=== PATIENT | male | born 1970 | race Caucasian/White ===

== ENCOUNTER 2024-12-16 08:42 | Outpatient (POV) | payer MEDICARE, SELFPAY ==
--- OUTSIDE RECORDS SUMMARY | 2024-10-23 08:30 | XMS_ITS | Encounter Summary ---
Author Organization Healthcare Address [address] [place] [address] Care Team Providers Care Diamond Mounter Name Role Phone Pcp, No Primary Care Provider Unavailabl e Zaire Martin MD Unavailable [phone] Encounter Details Date Type Department Care Team (Late st Contact Info) Description 10/23/2024 8:30 AM EDT Pre-Admission Testing [facility] [address], [address] [place] [address] Anesthesia Record Procedure Summary Procedure Name Responsible Anesthesiologist Anesthesia Start Time Anesthesia Stop Time EXCISION CYST OF MAXILLA WITH EXTRACTIONS OF 9,10,11,13 (Left) Margarito Licona, ELECTRICAL MAINTENANCE WORKER 10/28/24 1459 10/28/24 1649 Events Date Time Event Comment 10/28/2024 1459 An Start The patient was reevaluated immediately before sedation and remains eligible for anesthesia plan. 1500 An Start Data 1500 In Room 1506 An Induction The patient was reevaluated immediately before moderate or deep sedation use and before anesthesia induction. 1509 An Intubation 1516 Anesthesia Ready 1521 Proc Start 1629 Attending Handoff 1639 Proc Fin 1640 An Extubation 1642 an stop data 1644 Out of Room 1649 Handoff to Receiving I compl eted my handoff to the receiving clinician during which we: 1. Identified the patient 2. Identified the responsible provider 3. Reviewed the pertinent medical history 4. Discussed the surgical course 5. Reviewed intra-op anesthesia management and issues during anesthesia 6. Set expectations for post-procedure period 7. Allowed opportunity for questions and acknowledgement of understanding. 1649 An Stop Meds * Agents No agents on file. * Blood No blood administrations on file. Lines, Drains, and Airways Type Details Placement Removal Wound 10/28/24; 1521; Yes; Surgical; Mouth 10/28/24 1521 by Miryam Patton RN Peripheral IV Placement Date: 10/09 07/04; Placement Time: 1407; Catheter Size: 18 G; Orientation: Anterior, Distal, Right, Upper; Location: Arm; Site Prep: Chlorhexidine ; Local Anesth: None; Technique: Anatomical landmarks; Inserted by: Douglas Gong; Insertion Attempts: 1; Patient Tolerance: Tolerated well; Removal Date: 10/28/24; Removal Time: 1849 10/28/24 1407 by Nessa Sin RN 10/28/24 184 by Prisca Jacobson RN ETT Placement Date: 10/09 07/04; Placement Time: 1509 (created via procedure documentation); Mask Ventilation: 1; Technique: Direct laryngoscopy; Type: ETT - single; Single Lumen Tube Size: 7.5 mm; Cuffed: Yes; Laryngoscope: Hermelinda; Blade Size: 4; Location: Oral; Grade View: Grade I; Insertion Attempts: 1; Placement Verification: Auscultation, Capnometry; Airway Comments: Atraumatic. No change to dentition. ; Placed by: DARELL; Removal Date: 10/28/24; Removal Time: 1640 10/28/24 1509 by Margarito Licona CRNA 10/28/24 1640 by Margarito Licona CRNA documented in this encounter Social History Tobacco Use Types Packs/Day Years Used Date Smoking Tobacco: Every Day Cigarettes 0.3 37.7 Started: 03/21/1987 Smokeless Tobacco: Never Tobacco Cessation:Ready to Q uit: Not Asked; Counseling Given: Not Answered Alcohol Use Standard Drinks/Week Comments Yes 0 (1 standard drink = 0.6 oz pur e alcohol) 2 beers 2 times per month PHQ-2 Answer Date Recorded Patient Health Questionnaire-2 Score 6 03/21/2021 Sex and Gender Information Value Date Recorded Sex Assigned at Male 12/06/2021 2:04 PM EDT Legal Sex Male 8:39 PM EDT Gender Identity Male 12/06/2021 2:04 PM EDT Sexual Orientation Straight 12/06/2021 2: 04 PM EDT Occupation Industry Job Start Date Job End Date unemployed Not on file Not on file Not on file documented as of this encounter Miscellaneous Notes * Teagan Kaur - Leidy Vega PA - 10/23/2024 8:52 AM EDT Images from the original note were not included. 40 Bathing Before Surgery Basic instructions ?? You need to bathe with Hibiclens (chlorhexidine) before surgery. This will clean your skin and remove germs that live on the skin. This reduces your risk of infection after surgery. ?? You can buy Hibiclens at most drug stores. ?? You need to bathe with Hibiclens twice before surgery - once the night before surgery and again the morning of surgery. ?? Do not use Hibiclens on your hair or anywhere above the neck. ?? You should not shave with a razor or use hair removal creams near the surgery site for 4 days before surgery. Night before surgery If you take a shower or tub bath: 1. Wash with regular soap and water and rinse off. 2. You may wash your hair the night before or the morning of surgery. Shampoo and rinse as usual. 3. Pour 1 ounce (2 tablespoons) of Hibiclens on a clean washcloth. Wash the area where you will be having your surgery first. Then wash the rest of the body, leaving the groin area until last. 4. Allow the Hibiclens to stay on the skin for 5 minutes, then rinse off completely. 5. Use a clean towel to dry off. 6. Put on clean clothing and be sure to have clean sheets on your bed. ? If you take a bed bath: 1. Wash with regular soap and water and rinse off. 2. Place 1 ounce (2 tablespoons) of Hibiclens solution in a wash basin of clean water. Wash the area where you will be having surgery first. 3. Then wash the rest of the body. Leave the groin area until last. 4. Allow the Hibiclens to stay on the skin for 5 minutes. Then rinse off completely. 5. Use a clean towel to dry off. 6. Put on clean clothing. Be sure to have clean sheets on your bed. Morning of surgery ?? Repeat the above steps. You are now ready for surgery with the cleanest possible skin! If you develop a skin problem between now and your surgery, please tell your doctor as soon as possible! * Teagan OnFHIR - Leidy Vega PA - 10/23/2024 8:52 AM EDT Images from the original note were not included. 1072 Patient Surgery Guide The doctors and staff of Surgical [facility] would like to welcome you, your family, and friends to [facility]. We offer access to more than 1,500 doctors from many specialty areas. Our goal is to provide high-quality, patient-centered care throughout your experience. We have a team approach tosurgery, and you and your family are an important part of our team. Surgeons, surgical nurses, anest hesiologists, dietitians, social workers, pharmacists, and others will work with you to decide the best plan of care for you. We understand surgery is a stressful time. This information will help you be more comfortable with [facility] and the surgical process. This information provides an overview answering many of yourquestions. But if you have further questions, please ask your doctor or nurse. Preoperative Anesthesia Clinic Your doctor may ask you to go to the Preoperative Anesthesia Clinic before your surgery. This visitallows us to evaluate your overall health and reduce the chance of delays or cancellation on the day of surgery. Please bring a complete list of the medicines your currently take. Bring any recent test reports you may have, including blood work, EKG, X-rays. Bring the results of any recent heart evaluation, including doctor?s notes and test reports. If you are not scheduled for a Preoperative Anesthesia Clinic visit, a nurse will call you to go over your health history and give you information about your surgery. It is very important you speak to a nurse before your surgery. The Preoperative Anesthesia Clinic is located on the first floor of the [facility] near the Pharmacy and main clinic entrance. We are open Saturday-Saturday from 8 a.m. to 4:30 p.m. A clinic route service representative can be reached at [phone]. Parking is available in the [facility] garage on [facility] or in the [facility] garage located at [address], directly across [facility] from [facility]. The day before surgery You will receive a phone call telling you what time you need to arrive at the hospital for surgery.If you miss the call, please call one of the following numbers (depending on where your surgery is scheduled): ?? [facility]: [phone] or [phone] ?? [facility]: [phone] or [phone] The day of surgery ?? Arrive on time to avoid delays or cancellation. ?? Park in the [facility] parking garage located at [address] It is directly across [facility] from the [facility]. ?? If you are scheduled for surgery at [facility], take the hospital garage elevator to Level C, then cross the concourse bridge to the Surgery Waiting Room to register for your surgery. The Surgery Waiting Room is located down the first hallway to the right at the end of the concourse bridge. If you need help crossing the concourse, you may picket labor union the patient golf cart shuttle directly to the right of the elevators on Level C. ?? If you are scheduled for surgery at the [facility], take the garage elevator toLevel A and catch the free shuttle to the hospital. (Be careful not to take the [facility] shuttle - there is an ambassador there who can help you.) Exit the shuttle at the first shuttle stop, then proceed to the registration desk to the right of the entrance. ?? Registration staff will take your insurance information and confirm your name, birthday, addressand other information. When you arrive After you register, we will take you to the preoperative area. Here the nurses will get you ready for surgery. Visitors are limited in the preoperative area. Nurses will: ?? Allow you to change into a hospital gown. ?? Check your arm band for your name and birthday. Your arm band will be checked many times throughout your stay at [facility] to ensure your safety. ?? Go over your health history. ?? Review your medicines and allergies. ?? Check your temperature, blood pressure, heart rate, height and weight. ?? Start an IV. ?? Tell you what to expect during your stay at the hospital. During surgery Your family and friends will be directed to the Surgery Waiting Room. There they will receive regular updates during your surgery. Your doctor will talk to them after your surgery. A measurement department chief clerk is available in the waiting room to help family and visitors. Space is limited, so please limit the number of people who come with you for your surgery. After surgery We will take you to a special area called the Post-Anesthesia Care Unit, or ?PACU.? There nurses will take care of you as you recover from surgery. Most patients will stay in the PACU for about 1-2 hours. Some people might need to stay longer. During this time the doctors and nurses will: ?? Keep your pain level as low as possible. ?? Help keep you from being sick to your stomach. ?? Make sure you are warm and comfortable. ?? Update your family on how you are doing. The anesthesia doctor will decide when you can go home or to your room. If you are going home after surgery: A nurse will give you and your family instructions on how to care for yourself when you go home. You will also get written instructions. This information will tell you how to schedule a follow-up appointment if an appointment is not scheduled before you leave, and how to contact your surgeon. If you are staying in the hospital after surgery: You will stay in the PACU until you are assigned a room. Your family and friends may visit you once you get to your hospital room. Parents of children or caregivers of special needs patients may remain in the preoperative area forthe entire time. They will be allowed in the PACU as soon as possible after the operation. At home ?? Plan to go straight home to rest when you leave the hospital. If you wish, your medicines to take home can be brought to your room before you leave. ?? Follow your doctor?s instructions about rest, what to eat, what you can and cannot do, which medicines to take and when you may return to your normal activities. ?? Be sure to keep your follow-up appointment with your doctor. You should be scheduled for a clinic appointment before you leave the hospital. Special reminders If you take insulin or other medicine for diabetes, the doctor will tell you what dose to take before your surgery. This will probably be different from your normal dose. Please bring your insulin with you on the day of surgery. If you are taking a blood thinner (for example: Coumadin, Plavix, aspirin, etc.), please tell your surgeon and anesthesia doctor. For all other medicines, you will receive instructions during your Anesthesia Preoperative Clinic visit or phone screening. Updates from the operating room It is important to protect your privacy when you are in the hospital. We also want to make it easy for your family to find out how you are doing while you are in surgery. To do this, on the day of your surgery a nurse will ask you to choose a password and share it with just one family member or friend. This password will then be put on your chart. When your family member calls to check on your condition, he or she must give the password to the nurse. The nurse will look on your chart to make sure it is the correct password and then give the person information on your condition. If you have any questions about this process, please ask. Our mission is to give you the very best care, including protecting your privacy. Feel better faster You should take walks if possible and do plenty of deep breathing. This will help you feel better more quickly after surgery. Walking and deep breathing help prevent blood clots and pneumonia and mayhelp ease any muscle soreness. Surgery do's ?? Be sure to bring your current insurance card and a picture ID. ?? Please bring copies of the following,if you have them: living will, health care surrogate, powerof deputy attorney general or guardianship papers. ?? Bring a responsible adult to drive you home (or ride with you in a taxi) if you are having outpatient surgery. ?? Plan to have someone stay with you at home for 24 hours after your surgery. ?? Bring a list of your current medicines, including how much you take and when you take it. You may also just bring the medicines (in their original containers) with you. ?? Tell your doctor about any allergies you have to medicines or food. ?? Wear comfortable, loose-fitting clothes and low-heeled shoes. ?? Bring a case to store glasses, contact lenses or dentures during surgery. Label the containers with your name. ?? Pack an overnight bag that includes personal care items, such as a toothbrush and lotion, if youare staying in the hospital. ?? Bring a parent or guardian if you are younger than 18. ?? Bring a favorite toy or blanket for children having surgery. Surgery don'ts ?? Starting at midnight, don?t eat anything on the day of your surgery. ?? Don?t drink anything after midnight (unless told otherwise by your doctor or nurse) the day before your surgery. ?? Don?t smoke, use smokeless tobacco, eat mints or chew gum after midnight the day of your surgery. ?? Don?t drink alcohol 24 hours before your surgery. ?? Don?t wear makeup, jewelry (including body piercing) or nail citizen of [place]. ?? Don?t bring money or valuables to the hospital. ?? Don?t drive a motor vehicle for 24 hours after your surgery. ?? Don?t make important decisions or sign any legal documents for 24 hours after your surgery. ?? Don?t drink alcohol or take medicine not prescribed by your doctor for 24 hours after your surgery. Need to cancel? If you decide not to have surgery or if you need to cancel because of a fever, a breathing or viralillness, or a family emergency, please call your surgeon?s office and the Preoperative Anesthesia Clinic at [phone] or [phone]. If it is the day of surgery, call the location where you are scheduled to have your surgery: [facility] at [phone] or [phone] or [facility] at [phone] or [phone]. For more information Visit [email or web address] or call [phone] or [phone]. [facility] does not discriminate. [facility] complies with applicable Federal civil rights laws and does not discriminate on the basis of race, color, national origin, age, disability, or sex. * Fishgerard Vincent - Leidy Vega PA - 10/23/2024 8:52 AM EDT Images from the original note were not included. 489 Map to [facility] Facilities Directions Easy directions to and from [address] (from [address]) Directions from I-75/[address] to the [facility] Parking Garage: ?? From [address], turn right off the exit ramp onto [address] ([place] [address] [address]) toward [place]. ?? In 4.1 miles, turn left onto [address] (at the [employer] gas station). ?? In a half-mile, turn right onto [address]. ?? In .3 miles, turn right onto [address] (just past the [employer] gas station). Garage entrance is on the left. Directions from HealthCare Parking Garage ([address] to I-75/I-64: ?? Turn left out of the [address] parking garage onto [address]. ?? Turn left onto [address]. ?? In .3 miles, turn left down [address] ?? In a half-mile, turn right onto [address] (at the [employer] gas station). In 4.1 miles, merge onto [address] /[address] (near the [facility] by [address] [employer]en). Parking Any patients or visitors of [facility] can park in the following areas: ?? [facility] Parking Garage (main garage): [address] (Levels A-F) ?? [facility] Garage: [address] (Levels 1-6) ?? [facility] Cancer lot: Located off Private.Me (limited parking for [facility] outpatients only). Upon Your Arrival ?? Patients and visitors going to [facility] may walk acrossthe pedway, located at Level C of the main parking garage ([address] or take the free shuttle from Level A. Golf carts are available on the pedway. ?? Patients and visitors going to all other hospital pavilions are encouraged to take a free shuttle at Level A of the main garage. ?? Emergency Department (ED) patients in need of immediate treatment may be dropped off at the ED entrance at the 15-minute dropoff area. Vehicles in this lot must be moved to the main hospital garage after 15 minutes. The ED may also be accessed via the pedway off the main hospital garage on Level C. If you need a shuttle to the ED, one can be called for you at Level A of the main garage or contact any of the information desks, . Additional Information For additional information, please visit our information desks located throughout Healthcare. Information desks have additional maps and resources. Information desks are located at the main entrances of: [facility] (first floor and ground floor), [facility], [facility], [facility], [facility], [facility] (first and third floor), and [facility]. Informationdesk number: [phone]. Important Addresses [address] ?? [facility] entrance ?? [facility] ([facility]) ?? Emergency Department [address] ?? [facility] ?? [facility] ([facility]) ?? [facility] ([facility]) ?? [facility] [address] [facility] ?? [facility] [address] ?? [facility] [address] [facility] ?? [facility] * PAT Evaluation Note - Leidy Vega PA - 10/23/2024 8:30 AM EDT Images from the original note were not included. HPI Ramana Moore is a 54 y.o. male who presents with Pre-op Diagnosis of Radiolucent lesion in maxilla now scheduled for EXCISION CYST OF MAXILLA (Left)with Talat John DMD [place] [facility] [place] History[1] Family History[2] Social History[3] SURGICAL HISTORY: Surgical History[4] Allergies[5] MEDICATIONS: Current Outpatient Medications: ALPRAZolam, Take 1 tablet by mouth 4 times a day as needed. clopidogrel, Take 1 tablet by mouth daily. metoprolol succinate XL, omeprazole, 1 capsule 2 times a day. rosuvastatin, Take 1 tablet by mouth 1 time each day. aspirin, Take 81 mg by mouth 1 (one) time each day. (Patient not taking: Reported on 10/23/2024) gabapentin, Take 1 capsule (300 mg) by mouth 3 (three) times a day. nitroglycerin, TAKE 1 TABLET UNDER THE TONGUE EVERY 5 MINUTES NEEDED FOR CHEST PAIN. DO NOT EXCEED 3 DOSES IN 15 MINUTES ranolazine, ROS Anesthesia: Date of last anesthetic: Most recent anesthesia ~ 12/06/2021 [facility] STERNAL PLATING Difficult Airway: No Final Airway Type: endotracheal airway Mask Difficulty Assessment: 1 - vent by mask Final Endotracheal Airway: ETT Cuffed: Yes Cormack-Lehane Classification: grade I - full view of glottis Technique Used For Successful Placement: direct laryngoscopy Devices/Methods Used in Placement: cricoid pressure, intubating stylet Insertion Site: oral Blade Type: Hermelinda Blade Size: 3 ETT Size (mm): 8.0 Number of Attempts at Approach: 1 history of previous anesthesia. Does not have a history of anesthetic complications, a history awareness of surgery under anesthesia, malignant hyperthermia, obstructive sleep apnea, PONV and a history of prolonged emergence. Anesthesia ROS additional comments: + history of cocaine use, current cannabis use + has a hard time getting to sleep Cardiovascular: hyperlipidemia and past VA. Does not have angina, CAD, CHF, dysrhythmias or pacemaker. hypertension: Exercise tolerance is 2 flights of stairs. Does not have chest pain. Cardio additional comments: + Has chest pain all the time but it is felt to be related to sternal healing issues. Had heart cath 07/[address] Coffey with normal cath. 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 Respiratory: no asthma: no COPD: Has not had an upper respiratory infection in last 30 days. Has not had bronchitis in the last 30 days, pneumonia in the last 30 days or COVID in the last 30 days. HEENT: Does not have difficulty swallowing.Does not have temporomandibular joint syndrome. HEENT additional comments: + Radiolucent lesion in maxilla + few teeth that are loose and broken. Neurological: Does not have headaches. no seizures: Did not have a cerebrovascular accident.Does not have TIA. Neuro additional comments: + depression + PTSD Musculoskeletal: Does not have arthritis. Does not have cervical spine limited mobility. Gastrointestinal: GERD: well controlled.Does not have cirrhosis or hepatitis. GI/ additional comments: + Diaphragmatic hernia + notices bile reflux every morning + recent EGD and Colonoscopy. Increased dose of omeprazole Genitourinary: Does not have chronic renal disease.Does not have interstitial cystitis, renal calculi or renal disease. Hematological/Lymphatic: History of no DVT. History of no pulmonary embolism. Not in a hypercoagulable state. no history of chemotherapy no history of radiation Does not have MRSA or tuberculosis. Endocrine/Metabolic: does not have diabetes mellitus. Does not have thyroid disorder. 05/29/2023 07/15/2024 [facility] ([place]): 10/23/2024 Last Cards Note ([place]): 07/2020 OSH ECHO: ?? Calculated left ventricular EF = 70% ?? All left ventricular wall segments contract normally. ?? There is no evidence of pericardial effusion 07/15/2024 CBC: White Blood Count July 15, 2024 11:49am 11.3 10*3/uL 4.5-13.0 [facility] [id number] [address] [place] [id number] Red Blood Count July 15, 2024 11:49am 4.98 10*6/uL 4.10-5.70 [facility] [id number] [address] [place] [address] 785[address] Hemoglobin July 15, 2024 11:49am 15.6 g/dL 12.0-16.9 [facility] [id number] [address] [place] [address] 17359 Hematocrit July 15, 2024 11:49am 44.2 % 36.0-49.0 [facility] [id number] [address] [place] [address] 82338 Mean Corpuscular Volume July 15, 2024 11:49am 89 fL 78.0-98.0 [facility] [id number] [address] [place] [address] 28529 Mean Corpuscular Hemoglobin July 15, 2024 11:49am 31.3 pg 25.0-35.0 [facility] [id number] [address] [place] [address] 52397 Mean Corpuscular Hemoglobin Concent July 15, 2024 11:49am 35.3 g/dL 31.0- 36.0 [facility] [id number] [address] [place] [address] 59873 Red Cell Distribution Width July 15, 2024 11:49am 12.0 % 11.0-15.0 [facility] [id number] [address] [place] [address] 31884 Platelet Count July 15, 2024 11:49am 250 10*3/uL 150-400 07/15/2024 BMP: Sodium Level July 15, 2024 11:49am 135 mmol/L 136-145 [facility] [id number] [address] [place] [address] 77128 Potassium Level July 15, 2024 11:49am 4.1 mmol/L 3.5-5.1 [facility] [id number] [address] [place] [address] 70148 Chloride Level July 15, 2024 11:49am 101 mmol/L 98-107 [facility] [id number] [address] [place] [address] 39065 Carbon Dioxide Level July 15, 2024 11:49am 26 mmol/L 24-33 [facility] [id number] [address] [place] [address] 67946 Anion Gap July 15, 2024 11:49am 12.1 mmol/L 10-20 [facility] [id number] [address] [place] [address] 07181 Glucose Level July 15, 2024 11:49am 72 mg/dL 70-99 [facility] [id number] [address] [place] [address] 85350 Blood Urea Nitrogen July 15, 2024 11:49am 12 mg/dL 7-18 [facility] [id number] [address] [place] [address] 71021 Creatinine July 15, 2024 11:49am 1.11 mg/dL 0.70-1.30 [facility] [id number] [address] [place] [address] 20931 Estimated GFR (CKD-EPI 2020) July 15, 2024 11:49am 80 mL/min >60 Lab Results Component Value Date WBC 14.37 (H) 12/14/2022 HGB 17.6 12/14/2022 HCT 50.2 12/14/2022 MCV 90.1 12/14/2022 PLT 289 12/14/2022 Lab Results Component Value Date GLUCOSE 111 (H) 12/14/2022 BUN 15 12/14/2022 CREATININE 1.05 12/14/2022 BCR 14.3 12/14/2022 NA 137 12/14/2022 K 3.8 12/14/2022 CL 103 12/14/2022 CO2 21 (L) 12/07/2021 CA 9.5 09/06/2017 ALBUMIN 4.6 12/14/2022 ALKPHOS 75 11/23/2021 BILITOT 1.5 (H) 12/14/2022 Lab Results Component Value Date HGBA1C 5.1 11/23/2021 No results found for: INR , PROTIME Visit Vitals Smoking Status Every Day Physical Exam Anesthesia Plan ASA 3 Anesthesia technique(s) discussed with the patient/family: general Comment: DAVE phone screen. IONA Kincaid [1] Past Medical History: Diagnosis Date Idiopathic aseptic necrosis of unspecified bone (CMS/HCC) Avascular necrosis NSTEMI (non-ST elevated myocardial infarction) (CMS/HCC) 03/21/2021 [2] Family History Problem Relation Name Age of Onset Cancer Mother Coronary artery disease Mother Depression Mother Diabetes Mother Hypertension Mother Coronary artery disease Father Depression Father Diabetes Father Depression Sister Depression Brother Anesthesia problems Neg Hx Malig Hyperthermia Neg Hx [3] Social History Tobacco Use Smoking status: Every Day Current packs/day: 0.25 Average packs/day: 0.3 packs/day for 37.6 years (9.4 ttl pk-yrs) Types: Cigarettes Start date: 03/21/1987 Smokeless tobacco: Never Vaping Use Vaping status: Former Substance Use Topics Alcohol use: Yes Comment: 2 beers 2 times per month Drug use: Yes Types: Marijuana Comment: uses Marijuana every day. 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 (Dr Les Munroe) TOOTH EXTRACTION [5] Allergies Allergen Reactions Penicillins Hives, Other - please document in the comment field and Unknown - Patient states they do not know rxn details Childhood allergy * Preprocedure Instructions - Leidy Vega PA - 10/23/2024 8:30 AM EDT Home Medication Instructions Current Medications Medication Instructions ALPRAZolam (Xanax) 2 MG tablet Take as needed clopidogrel (Plavix) 75 MG tablet Hold 5 days before surgery metoprolol succinate XL (Toprol-XL) 50 MG 24 hr tablet Take morning of surgery omeprazole (PriLOSEC) [address] capsule Take morning of surgery rosuvastatin (Crestor) 20 MG tablet Take morning of surgery When you stop the Plavix begin an aspirin 81mg daily General Preoperative Instructions You will be called the business day before surgery with your arrival time No food after midnight the night before surgery. You can drink clear liquids up to 2 hours prior to arrival unless instructed by your surgeon otherwise. Please do not try to get all your hydration in 2 hours prior to arrival. Start the day before surgery drinking more than you usually would. After midnight, you can have clear liquids only (water,apple juice, Gatorade) up to 2 hours prior to arrival. No coffee or tea. No alcohol or smoking prior to surgery Arrive on time to avoid delays Parking/Registration procedure explained You MUST have a responsible adult available for transport to and from hospital Visitation policy for the day of surgery reviewed Bring insurance card, photo ID, along with power of deputy attorney general, guardianship or advanced directives if applicable Do not bring money, jewelry or other valuables Hibiclens bathing instructions reviewed if applicable Notify surgeon of fever, illness, any changes or if you decide not to have surgery documented in this encounter Plan of Treatment Upcoming Encounters Date Type Department Care Team (Late st Contact Info) Description 12/22/2024 11:40 AM EDT Office Visit Medical Office [facility] [address], [address] [place] [address] Cata Shaffer PA [address] [place] [address] 02/22/2025 9:00 AM EDT Office Visit [facility] [address] [place] [address] Rodriguez Martin DO [address] [place] [address] 03/17/2025 2:30 PM EDT Office Visit [place] [facility] [address] [place] [address] Manasa Sanchez, [employer] [address] [place] [address] documented as of this encounter Visit Diagnoses Not on filedocumented in this encounter Additional Health Concerns Assessment Noted Time PHQ-9 Depression Total Score: 12 021 1:29 PM EDT A fall risk assessment has been complete d for the patient 11/07/2023 11:43 AM EDT A Body Mass Index follow-up plan has been documented for the patient 11/14/2023 12:54 PM EDT documented as of this encounter Care Teams Diamond Mounter Relationship Specialty Start Date End Date Pcp, [place] [address] [place] [address] PCP - General Family Medicine 09/03/24 10/31/24 Z[facility] Martin [facility] [place] [address] Cardiology 11/09/21 documented as of this encounter
--- OUTSIDE RECORDS SUMMARY | 2024-10-28 13:26 | XMS_ITS | Encounter Summary ---
Author Organization [facility] Address [address] [place] [address] Care Team Providers Care Rotating Equipment Specialist Name Role Phone Pcp, No Primary Care Provider Unavailabl e Zaire Martin MD Unavailable [phone] Reason for Visit * Auth/Cert (Routine) Specialty Diagnoses / Procedures Referred By Philly suazo Referred To Contact Diagnoses Radiolucent lesion in maxilla Radiolucent lesion in maxilla [M27.9] Procedures UT EXCISION,BENIGN TUMOR,MAXILLA/ZYGOMA EXCISION CYST OF MAXILLA Talat John DMD [address] [facility] [address] [place] [address] Phone: tel: fax: [facility] [address] [place] [address] Phone: tel: Referral ID Status Reason Start Date Expiration Date Visits Re quested Visits Authorized [id number] 1 1 Encounter Details Date Type Department Care Team (Late st Contact Info) Description 10/28/2024 1:26 PM EDT - 10/28/2024 7:09 PM EDT Hospital Encounter [facility] [address] [place] [address] Talat John DMD [address] [facility] [address] [place] [address] Cystic lesion of maxilla determined by X-ray (Primary Dx); Radiolucent lesion in maxilla Discharge Disposition: Home or Self Care Social History Tobacco Use Types Packs/Day Years Used Date Smoking Tobacco: Every Day Cigarettes 0.3 37.7 Started: 03/21/1987 Smokeless Tobacco: Never Alcohol Use Standard Drinks/Week Comments Yes 0 (1 standard drink = 0.6 oz pur e alcohol) 2 beers 2 times per month Humiliation, Afraid, Rape, a nd Kick questionnaire Answer Date Recorded Within the last year, have y ou been afraid of your partner or ex-partner? Patient unable to answer 11/04/2024 Within the last year, have y ou been humiliated or emotionally abused in other ways by your partner or ex-partner? Patient unable to answer 11/04/2024 Within the last year, have y ou been kicked, hit, slapped, or otherwise physically hurt by your partner or ex-partner? Patient unable to answer 11/04/2024 Within the last year, have y ou been raped or forced to have any kind of sexual activity by your partner or ex-partner? Patient unable to answer 11/04/2024 Overall Financial Resource Strain (CARDIA) Answe r Date Recorded How hard is it for you to pa y for the very basics like food, housing, medical care, and heating? Patient unable to answer 11/04/2024 PHQ-2 Answer Date Recorded Patient Health Questionnaire-2 Score 6 03/21/2021 [facility] - Occupational Stress Questionnaire Answer Date Recorded Do you feel stress - tense, restless, nervous, or anxious, or unable to sleep at night because your mind is troubled all the time - these days? Patient unable to answer 11/04/2024 Hunger Vital Sign Answer Date Recorded Within the past 12 months, y ou worried that your food would run out before you got the money to buy more. Patient unable to answer 11/04/2024 Within the past 12 months, t he food you bought just didn't last and you didn't have money to get more. Patient unable to answer 11/04/2024 PRAPARE - Transportation Answer Date Re corded In the past 12 months, has l ack of transportation kept you from medical appointments or from getting medications? Patient unable to answer 11/04/2024 In the past 12 months, has l ack of transportation kept you from meetings, work, or from getting things needed for daily living? Patient unable to answer 11/04/2024 Housing Stability Vital Sign Answer Zeeshan e Recorded In the last 12 months, was t here a time when you were not able to pay the mortgage or rent on time? Patient unable to answer 11/04/2024 Number of Times Moved in the Last Year Not on fi le 11/04/2024 At any time in the past [address] [facility], were you homeless or living in a fpc (including now)? Patient unable to answer 11/04/2024 Utilities Answer Date Recorded In the past 12 months has th e electric, gas, oil, or water company threatened to shut off services in your home? Patient unable to answer 11/04/2024 Sex and Gender Information Value Date Recorded Sex Assigned at Male 12/06/2021 2:04 PM EDT Legal Sex Male 8:39 PM EDT Gender Identity Male 12/06/2021 2:04 PM EDT Sexual Orientation Straight 12/06/2021 2: 04 PM EDT Occupation Industry Job Start Date Job End Date unemployed Not on file Not on file Not on file documented as of this encounter Last Filed Vital Signs Vital Sign Reading Time Taken Comments Blood Pressure 157/86 10/28/2024 6:30 PM EDT Pulse 71 10/28/2024 6:45 PM EDT Temperature 37.2 C (98.9 F) 10/28/2024 4:50 PM EDT Respiratory Rate 17 10/28/2024 6:45 PM EDT Oxygen Saturation 98% 10/28/2024 6:45 PM EDT Inhaled Oxygen Concentration - - Weight - - Height - - Body Mass Index - - documented in this encounter Functional Status * Calculated C-SSRS Risk Score (Lifetime/Recent) Answer Date of Assessment Author No Risk Indicated 11/09/2024 8:00 AM EDT Silvia Hall RN * Question Answer Date of Assessment Author 1. Wish to be (Past 1 Month) No 025 8:00 AM EDT Valerie Hall RN 2. Non-Specific Active Suici anai Thoughts (Past 1 Month) No 11/09/2024 8:00 AM EDT Rafael, Valerie A, RN 6. Suicidal Behavior (Lifetime) No 8:00 AM EDT Valerie Hall RN documented as of this encounter Discharge Instructions * Discharge Instructions* Karan Gaston MD - 10/28/2024 5:03 PM EDT change number operator DISCHARGE INSTRUCTIONS: What can I expect after surgery? Minor bleeding and ???oozing?? for 1-3 days. Pain and discomfort slowly improving in 1-7 days. Swelling for 1-2 weeks becoming worse on the 2nd and 3rd day after surgery and then gradually improving. Tightness and stiffness to the jaw and joint areas. Diet: -Your first day will consist of soft non-chew diet, cool foods such as: Jello, pudding, yogurt, applesauce, mashed potatoes, cottage cheese and ice cream. Soup is fine as long as it is room temperature only. -No hot and spicy food for 2 weeks -Avoid using straws for 2 weeks this creates suction in the mouth that could cause bleeding -Please continue a soft diet for two weeks after discharge, but should your jaw start to ache, resume soft diet for a couple more days to rest the jaw muscle. -Please avoid all sharp foods, such as chips, pizza crust, etc. -Stay hydrated. This is your main goal! Every day, drink at least 64 ounces of total fluid (such aswater, protein drinks, decaf tea or decaf coffee, flavored sugar-free non-carbonated water). -Begin your protein supplements as soon as you get home. Work up to at least 70 grams of protein a day. Lifting: -No lifting more than 10 lbs for 7 days. Wound or Incision Care: -Do not remove nasal trumpet it will be removed at your follow up in 1 week -No smoking -Do not forcefully rinse or spit for 24 hours after surgery. -Intraorally rinse with Peridex rinse 2 times a day for up to 2 weeks. Clean mouth heals better, brush teeth like normal; be careful to avoid brushing incisions and the extraction sites for 1-2 weeks. -Do not take out stiches; they will dissolve over next 4 weeks or can be taken out during your clinic visit after 4 weeks. -Bleeding is normal after surgery If persistent bleeding, please apply 4x4 gauze to the site with constant pressure until hemostatic. -Some pain, bleeding and swelling are very normal after this procedure. You will experience some bleeding from your mouth. Bite down on gauze or if bleeding persists use a moist tea bag (black tea) and keep biting for 45 minutes. Some numbness both in your upper jaw near the nose and in the lower jaw midline to the corners of the lips can occur and is normal. -Please adhere to sinus precautions (no smoking, sucking through straws, nose blowing, forceful spitting or any other activities that change the pressure between your nose and mouth) for two weeks. Use britta softener if you have to strain while having a bowel movement. Do not blow your nose for 2 weeks. -If the muscles of the jaw become stiff, the use of warm moist heat to the outside of your face over the spots that are stiff will relax these muscles. Medications: Please take all medications as instructed. -Please rinse twice daily with peridex. -Take your antibiotics as prescribed until you complete the course -Take tylenol 500mg and ibuprofen 600mg every 6 hours for pain, if you still have pain, -norco 5/325mg, one tab every 6-8 hours as needed be careful not to exceed 4000 mg of Acetaminophen(tylenol) in 24 hours -Take a stool softener as needed if your bowel habits change or are causing you pain, or if do not have a bowel movement in in more than your usual time interval when taking narcotic pain medication -no driving while taking narcotic pain medications Activity: -Move around as you are able. -No strenuous activity or heavy lifting for 1 weeks after surgery. Do not lift more than 10 pounds of weight for 2 weeks. -Limit exercise to walking for the first 2 weeks. Walking is encouraged. -Walk 30 minutes each day. At first, you may need to take 2-3 short 10-15 minute walks. Slowly walkfurther as you feel you can. -You may return to light housework or daily activities during the first week after initial swellingstart to decrease. Slowly resuming your activities will help speed your recovery and should make you feel better. -no driving while taking narcotic pain medications -No smoking for 1 week -Return to work when you feel you can. Bathing: -Shower any time; -Avoid soaking your head; do NOT take a tub bath for 4 weeks. -Other: Okay to shower at any time, do not swim or submerge your head underwater in bathtub for 4 weeks. Instructed patient to call if: -Temperature is above 101.5. -Wound is draining pus, bleeding or coming open. Follow Up Instructions: Follow up with: in [address] Talat John on 11/06/24. [facility], [address], [place] [address], Medication requests should be made between the hours of 9:00 AM to 3:00 PM Saturday thru Saturday. Allow 72 hours for processing. Please note that based upon recent changes to [place] law related to prescribing opioid pain medications, our providers will not provide refills on controlled medications after your hospital discharge following a surgery. [place] 201 [place]:260. documented in this encounter Medications at Time of Discharge acetaminophen (Tylenol Extra Strength) 500 MG tablet Take 1 tablet by mouth every 6 hours as needed for pain. 100 tablet 10/28/2024 ALPRAZolam (Xanax) 2 MG tablet Take 1 tablet by mouth 4 times a day as needed. 02/15/2023 clopidogrel (Plavix) 75 MG tablet Take 1 tablet by mouth daily. 08/02/2022 naloxone (Narcan) 4 mg/0.1 mL nasal spray 1. Give 1 spray in nostril for no/slow breathing or cannot wake after opioid use 2. Call 911 3. Repeat in other nostril if symptoms continue 1 each 10/28/2024 nitroglycerin (Nitrostat) 0.4 MG SL tablet TAKE 1 TABLET UNDER THE TONGUE EVERY 5 MINUTES NEEDED FOR CHEST PAIN. DO NOT EXCEED 3 DOSES IN 15 MINUTES 09/26/2022 omeprazole (PriLOSEC) [address] capsule 1 capsule 2 times a day. 08/04/2022 chlorhexidine (Peridex) 0.12 % solution Use 15 mL in the mouth or throat 3 times a day after meals for 7 days. 480 mL 1 10/28/2024 5 levoFLOXacin (Levaquin) 250 MG tabletIndication s:Cystic lesion of maxilla determined by X-ray Take 1 tablet by mouth 2 times a day for 10 days. 20 tablet 10/28/2024 5 aspirin 81 MG EC tablet Take 81 mg by mouth 1 (one) time each day. 5 gabapentin (Neurontin) 300 MG capsule Take 1 capsule (300 mg) by mouth 3 (three) times a day. 90 capsule 1 11/07/2023 5 HYDROcodone-acet aminophen (Driver) 5-325 MG tablet Take 1 tablet by mouth every 6 hours as needed for severe pain. 10 tablet 10/28/2024 5 ibuprofen 600 MG tablet Take 1 tablet by mouth every 6 hours as needed for moderate pain or mild pain. 40 tablet 10/28/2024 5 metoprolol succinate XL (Toprol-XL) 50 MG 24 hr tablet 02/14/2023 5 ranolazine (Ranexa) 500 MG 12 hr tablet 10/24/2022 5 rosuvastatin (Crestor) 20 MG tablet Take 1 tablet by mouth 1 time each day. 03/20/2021 5 documented as of this encounter Miscellaneous Notes * Anesthesia PACU Signout - Alfa Gonzales DO - 10/28/2024 6:45 PM EDT Patient: Ramana Becker Major Anesthesia Type: general Vitals Value Taken Time BP 157/86 10/28/24 18:30 Temp 37.2 ??C (98.9 ??F) 10/28/24 16:50 Pulse 71 10/28/24 18:44 Resp 17 10/28/24 18:44 SpO2 98 % 10/28/24 18:44 Vitals shown include unfiled device data. Anesthesia PACU Signout Patient location during evaluation: PACU Patient participation: complete - patient participated Level of consciousness: baseline and awake Pain management: adequate (pain score 0-3) Airway patency: natural airway Hydration status: acceptable PONV: none Cardiovascular status: acceptable and hemodynamically stable Respiratory status: acceptable, spontaneous ventilation, unassisted, nonlabored ventilation and room air Discharge Disposition: home Cosigned by Martinez Covarrubias MD at 10/29/2024 6:40 AM EDT Associated attestation - Martinez Covarrubias MD - 10/29/2024 6:40 AM EDT Agree with above assessment and evaluation from resident/INSULATOR TECHNICIAN. * Op Note - Karan Gaston MD - 10/28/2024 3:21 PM EDT Operative Note Date: 10/28/24 Location: [facility] Name: Ramana Moore, : 1970, Diagnoses: Pre-op Diagnosis Cystic lesion of left maxilla associated with carious teeth 9,10,11,13 Post-op Diagnosis Cystic lesion of left maxilla associated with carious teeth 9,10,11,13 Procedure(s): Enucleation and curettage of left maxillary cyst, Repair of dominick nasal communication with use of membranes extraction of teeth #9,10,11,13 Attending Surgeon(s): * Talat John - Primary Type Copy Examiner(s): * Karan Gaston MD - Resident - Assisting Anesthesia: General ASA: III Blood Administration: Blood Product Administration History None Estimated Blood Loss: 25 mL Drains: * None in log * Specimen: Specimens ID Source Frozen? 1 Oral Cavity No Description: LEFT MAXILLARY CYST Findings: Cystic lesion of left maxilla associated with carious teeth 9,10,11,13 Indications: Ramana Moore is an 54 y.o. male who is having surgery for Cystic lesion of left maxilla that on CT sinuses is involving left nasal cavity and left maxillary sinus and is associated with carious teeth 9,10,11,13 Narrative: On, 10/28/2024 the patient was identified in the preoperative holding unit where a review of the history and physical revealed no interval changes. All questions were answered and then the patient wastransferred to the operating room where the anesthesia service placed the patient in the supine position on the eye stretcher. They then performed a oral tracheal intubation after a smooth IV induction. At this point all pressure points were padded, and the tube was secured. Clear tape was placed over the eyelids in a closed position. A time-out was performed with the nursing, anesthesia, and auxiliary staff. The patient was injected with 10mL of 0.5% bupivacaine with 1:200,000 epinephrine. A throat pack was placed and the patientwas prepped. Surgeons gowned and gloved and then draped the patient in sterile fashion. Nasal trumpet 30 Slovenian was inserted into left naris. Attention was then turned intraorally. A sulcular incision was made from tooth 8 to distal of tooth 13 with vertical distal buccal release. Usingperiosteal elevator a full-thickness mucoperiosteal flap elevated on buccal and palatal aspect of left maxilla. Then using elevators and forceps teeth 9, 10, 11, 13 extracted, sockets curetted and irrigated normal saline all sockets communicating with the cystic lesion. Then a perforation in the buccal or text was identified using combination of dental Tourette's periosteal elevators cystic lesion was carefully dissected of bony zavala. Cystic lesion found to communicate with left nasal floor, left maxillary sinus, and encroach on left palatal mucosa, which is consistent with CT scan. Cystic lesion carefully dissected entirely from nasal floor, left maxillary sinus and palatal mucosa. No perforation in palatal mucosa identified. Lesion was then evaluated on the back table and submitted forpathology. Cystic cavity was then copiously irrigated with normal saline. Periosteum of left nasal mucosa elevated off left nasal floor and flap rotated into the nasal cavity in sutured with 4-0 Vicryl suture to reconstruct nasal floor over the nasal trumpet. A bio guide membrane was then laid overnasal floor to cover the entirety of pathologic perforation perforation, cystic cavity filled with Gel-Foam and 2nd bio guide membrane laid over maxillary alveolar process in sockets of teeth 9, 10, 11, 13. Using a 15 blade periosteum of buccal full-thickness mucoperiosteal flap was released to achieve tension-free closure. Oral mucosa was then closed with 3-0 Vicryl sutures in horizontal mattress fashion for a watertight closure. Nasal trumpet sutured to nasal septum with 3-0 nylon suture. Throat pack was then removed, orogastric tube was passed. And patient was then turned to anesthesiateam for emergence and extubation. COUNTS: Sponge, Needle, and Instrument Counts were reported correct at the conclusion of the operation. ATTESTATION: Dr. John was present for, and supervised entirety of this procedure. Dispo: PACU, home There were NO signs of surgical site infection (SSI) present at the time of surgery (PATOS). Complications: None; patient tolerated the procedure well. Submitted by: Karan Gaston MD - 10/28/2024 Cosigned by Talat John DMD at 10/30/2024 9:36 AM EDT * Brief Op Note - Karan Gaston MD - 10/28/2024 3:21 PM EDT Date: 10/28/24 Location: [facility] Name: Ramana Moore, : 1970, Diagnoses: Pre-op Diagnosis Radiolucent lesion in maxilla Post-op Diagnosis Radiolucent lesion in maxilla Procedure(s): Enucleation and curettage of left maxillary cyst, extraction of teeth #9,10,11,13 Attending Surgeon(s): * Talat John - Primary Type Copy Examiner(s): * Karan Gaston MD - Resident - Assisting Anesthesia: General ASA: III Blood Administration: Blood Product Administration History None Estimated Blood Loss: 25 mL Drains: * None in log * Specimen: Specimens ID Source Frozen? 1 Oral Cavity No Description: LEFT MAXILLARY CYST Findings: left maxillary cyst Complications: None; patient tolerated the procedure well. Submitted by: Karan Gaston MD - 10/28/2024 Cosigned by Talat John DMD at 10/30/2024 9:36 AM EDT * H&P - Karan Gaston MD - 10/28/2024 2:46 PM EDT Images from the original note were not included. Oral & Maxillofacial Surgery History & Physical CC: ???I want all of my teeth taken out?? HPI: Ramana Moore is a 53 y.o. male who underwent extraction of #2, 14, 15 and left maxillary periapical cyst in 2020, triple CABG 2020, sternotomy with revision in 2021 who presents for evaluationand treatment of remaining teeth for full mouth dental extraction and possible recurrence of lesionof left maxilla. Has discussed restorability with general dentist. The patient declines any furtherrestorative therapy. Patient plans for a period of healing prior to denture fabrication. Endorses dental pain at #10 and the area immediately superior to it. He states this pain is the same as it was when he had a periapical cyst removed in 2020 and he is concerned that it has come back.He first noticed the pain 6-8 months ago and it has been progressing since. He also notes that the he has began to have foul smelling drainage from his nose int he morning. He endorses PND and rhinorrhea intermittently. He notes that it is not yellow/group and is normal the rest of the day. Denies dysphagia, paresthesia, trismus, swelling, f/c/n/v, congestion. Patient reports that he is a current smoker. He smokes 1/2 ppd but previously smoked over 1.5 ppd for 35 years. He reports occasional alcohol use socially. Review of Systems: A 14-point review of systems was performed and is negative except as noted in HPI. 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 (Dr Les Munroe) TOOTH EXTRACTION Medications: Medications Ordered Prior to Encounter Current Outpatient Medications on File Prior to Visit Medication Sig Dispense Refill ALPRAZolam (Xanax) 2 MG tablet Take 1 tablet (2 mg) by mouth 4 (four) times a day if needed. aspirin 81 MG EC tablet Take 81 mg by mouth 1 (one) time each day. (Patient not taking: Reported on03/14/2023) clopidogrel (Plavix) 75 MG tablet Take 1 tablet (75 mg) by mouth 1 (one) time each day. gabapentin (Neurontin) 300 MG capsule Take 1 capsule (300 mg) by mouth 3 (three) times a day. 90 capsule 1 metoprolol succinate XL (Toprol-XL) 50 MG 24 hr tablet nitroglycerin (Nitrostat) 0.4 MG SL tablet TAKE 1 TABLET UNDER THE TONGUE EVERY 5 MINUTES NEEDEDFOR CHEST PAIN. DO NOT EXCEED 3 DOSES IN 15 MINUTES omeprazole (PriLOSEC) [address] capsule 1 capsule (40 mg) 1 (one) time each day. ranolazine (Ranexa) 500 MG 12 hr tablet rosuvastatin (Crestor) 20 MG tablet Take 1 tablet (20 mg) by mouth 1 (one) time each day. No current facility-administered medications on file prior to visit. Allergies: Allergies Allergies Allergen Reactions Penicillins Hives, Other - please document in the comment field and Unknown - Patient states they do not know rxn details Childhood allergy Family History: Family History Family History Problem Relation Name Age of Onset Cancer Mother Coronary artery disease Mother Coronary artery disease Father Depression Mother Depression Father Depression Sister Depression Brother Diabetes Mother Diabetes Father Hypertension Mother Social History: Smokin/2 ppd but previously smoked over 1.5 ppd for 35 years. Alcohol: social use Illicit drugs: marijuana reports that he has been smoking cigarettes. He started smoking about 37 years ago. He has a 9.4 pack-year smoking history. He has never used smokeless tobacco. He reports current alcohol use. He reports current drug use. Drug: Marijuana. Physical Exam: General: Well nourished, in no acute distress. HEENT: Normocephalic, atraumatic. No facial swelling or lesions. TTP left maxilla. Neck is soft, supple, non-TTP, with FROM. No masses appreciated. Intraoral: MELO: >35 mm. Poor oral hygiene. Grossly carious teeth. No purulent accumulation or drainage appreciated. Oral mucosa moist, intact. No intraoral lesions. TTP superior to #9, 10, 12. Tongue FROM without lesions. FOM soft, nontender, non-elevated. Hand???s and Stensen???s duct with clear saliva bilaterally. Nikolsky???s sign (-). Uvula midline. Cardiovascular: Regular rate. Well perfused. Pulmonary: Non-labored breathing on room air. Neurologic: Awake, alert and oriented x3. CN V and VII intact bilaterally.? Psychiatric: Cooperative, appropriate mood and affect. Memory intact. Radiographic findings: Film Ordered: Panoramic Date Ordered: 09/04/24 Radiographic Indication: Dental Caries Radiographic Interpretation/Findings: Condyles seated bilaterally. Sinuses clear & symmetrical bilaterally. Normal trabeculation pattern. Rampant dental caries. Multiple missing teeth. Assessment/Plan: ASA: III Ramana Moore is a 53 y.o. male who presents with terminal dentition requiring extraction of associated teeth and biopsy/enucleation of left maxillary cyst. -Discussed R/B/I and answered all questions. Discussed possible complications including, but not limited to, infection, bleeding, swelling, nerve injury, or sinus involvement, persistent or nasal or or sign of communication requiring secondary surgery. -Discussed with the patient and family that we will focus on left maxillary cyst today and extraction of associated teeth 9, 10, 11, 13 in other indicated teeth if involved in the cystic lesion. Due to insurance patient will go to a different provider for extraction of remaining teeth in December 2024. -To OR for enucleation and curettage of left cystic maxilla lesion and extraction of associated teeth 9,10,11,13 in the OR. Cosigned by Talat John DMD at 10/30/2024 9:36 AM EDT documented in this encounter Plan of Treatment Upcoming Encounters Date Type Department Care Team (Late st Contact Info) Description 12/22/2024 11:40 AM EDT Office Visit Medical Office Building [facility] [address], [address] [place] [id number] Cata Shaffer, PA [address] [place] [address] 02/22/2025 9:00 AM EDT Office Visit Physical Medicine & Rehabilitation Clinic at [facility] [address] [place] [address] Rodriguez Martin DO [address] [place] [address] 03/17/2025 2:30 PM EDT Office Visit [place] [facility] [address], 1[address] [place] [address] MakedaManasa whitney, PRINCIPAL SOFTWARE ENGINEER [address] [place] [address] documented as of this encounter Procedures Procedure Name Priority Date/Time Associated Diagnosis Comments SURGICAL PATHOLOGY EXAM Routine 10/28/2024 3:56 PM EDT Radiolucent lesion in maxilla UT EXCISION,BENIGN TUMOR,MAXILLA/ZYGOM A 10/28/2024 2:45 PM EDT Radiolucent lesion in maxilla documented in this encounter Results * Surgical Pathology Exam (10/28/2024 3:56 PM EDT) Case Report Surgical Pathology Case: [id number] Authorizing Provider: Talat John DMD Collected: 10/28/2024 1556 Ordering Location: [facility] Received: 10/28/2024 7295 Pathologist: Cata Lees MD Specimen: Oral Cavity, LEFT MAXILLARY CYST 11/03/2024 10:00 AM EDT [facility] Final Diagnosis A. SPECIMEN SUBMITTED LEFT MAXILLARY CYST: - INTRAOSSEOUS CHRONIC INFLAMMATORY TISSUE WITH EPITHELIAL LINING COMPATIBLE WITH PERIAPICAL INFLAMMATORY CYST. 11/03/2024 10:00 AM EDT [facility] at [address] Blue in Oral pathology has reviewed this case and concurs with the diagnosis. 11/03/2024 10:00 AM EDT [facility] Clinical Information Radiolucent lesion in maxilla [M27.9] 11/03/2024 10:00 AM EDT [facility] Gross Description A. LEFT MAXILLARY CYST Received in formalin labeled l eft maxillary cyst , is one pink-red soft fragment of tissue measuring 2.3 x 1.5 x 1.1 cm. The specimen is entirely inked blue and the specimen is serially sectioned. Sectioning reveals a red-pink glistening cut surface with an underlying possible disrupted hollow structure. Specimen is entirely submitted in cassettes A1-A2. Also received is one white-red hard bone fragment measuring 1.7 x 0.7 x 0.3 cm. Specimen is entirely submitted in cassette A3 for decal. Cold Time: 2m Katia Prasad 11/03/2024 10:00 AM EDT [facility] Tissue Oral cavity structure / Unknown 10/28/2024 3:56 PM EDT 10/28/2024 4:56 PM EDT Comment:Pre-op diagnosis: Radiolucent lesion in maxilla [M27.9] Talat John [facility] PATHOLOGY ORDERABLES Fin al Result [facility] [address] [place] [address] documented in this encounter Visit Diagnoses Diagnosis Cystic lesion of maxilla determined by X-ray- Primary Radiolucent lesion in maxilla Radiolucent lesion in maxilla Dental caries Unspecified dental caries documented in this encounter Admitting Diagnoses Diagnosis Radiolucent lesion in maxilla Dental caries Unspecified dental caries documented in this encounter Administered Medications Inactive Administered Medications - up to 3 most recent administrations Medication Order MAR Action Action Date Dose Rate Site acetaminophen (Tylenol) tablet 1,000 mg 1,000 mg, Oral, Every 6 hours PRN, Starting on Sat10/28/24 at 1819, Until Sat10/28/24 at 210, Routine, Recovery (Phase I only), mild pain Given 10/28/2024 6:22 PM EDT 1,000 mg fentaNYL (Sublimaze) injection 25 mcg 25 mcg, Intravenous, Every 5 min PRN, 2 doses, Starting on Sat10/28/24 at 1625, Until Sat10/28/24 at 1727, Routine, Recovery (Phase I only), pain score of 3-4 out of 10 Given 10/28/2024 5:27 PM EDT 25 mcg Given 10/28/2024 5:02 PM EDT 25 mcg fentaNYL (Sublimaze) injection 25 mcg 25 mcg, Intravenous, Every 5 min PRN, 2 doses, Starting on Sat10/28/24 at 1652, Until Sat10/28/24 at 2109, Routine, Recovery (Phase I only), pain score of 3-4 out of 10 fentaNYL (Sublimaze) injection 50 mcg 50 mcg, Intravenous, Every 5 min PRN, 2 doses, Starting on Sat10/28/24 at 1652, Until Sat10/28/24 at 2109, Routine, Recovery (Phase I only), pain score of 5-8 out of 10 Given 10/28/2024 6:04 PM EDT 50 mcg HYDROmorphone (Dilaudid) injection 0.5 mg 0.5 mg, Intravenous, Every 10 min PRN, 2 doses, Starting on Sat10/28/24 at 1625, Until Sat10/28/24 at 1704, Routine, Recovery (Phase I only), pain score of 9-10 out of 10 Given 10/28/2024 5:04 PM EDT 0.5 mg Given 10/28/2024 4:55 PM EDT 0.5 mg HYDROmorphone (Dilaudid) injection 0.5 mg 0.5 mg, Intravenous, Every 10 min PRN, 2 doses, Starting on Sat10/28/24 at 1652, Until Sat10/28/24 at 2109, Routine, Recovery (Phase I only), pain score of 9-10 out of 10 ketorolac (Toradol) injection 15 mg 15 mg, Intravenous, Once, 1 dose, On Sat10/28/24 at 1915, Routine, Recovery (Phase I only) Given 10/28/2024 6:22 PM EDT 15 mg ondansetron (Zofran) injection 4 mg 4 mg, Intravenous, Once as needed, 1 dose, Starting on Sat10/28/24 at 1625, Until Sat10/28/24 at 2109, Routine, Recovery (Phase I only), nausea, vomiting ondansetron (Zofran) injection 4 mg 4 mg, Intravenous, Once as needed, 1 dose, Starting on Sat10/28/24 at 1651, Until Sat10/28/24 at 2108, Routine, Recovery (Phase I only), nausea, vomiting oxyCODONE (Roxicodone) immediate release tablet 10 mg 10 mg, Oral, Once as needed, 2 doses, Starting on Sat10/28/24 at 1625, Until Sat10/28/24 at 2108, Routine, Recovery (Phase I only), pain score of 6-8 out of 10 Given 10/28/2024 4:55 PM EDT 10 mg oxyCODONE (Roxicodone) immediate release tablet 10 mg 10 mg, Oral, Once as needed, 2 doses, Starting on Sat10/28/24 at 1652, Until Sat10/28/24 at 2108, Routine, Recovery (Phase I only), pain score of 6-8 out of 10 oxyCODONE (Roxicodone) immediate release tablet 5 mg 5 mg, Oral, Once as needed, 2 doses, Starting on Sat10/28/24 at 1625, Until Sat10/28/24 at 2108, Routine, Recovery (Phase I only), pain score of 3-5 out of 10 oxyCODONE (Roxicodone) immediate release tablet 5 mg 5 mg, Oral, Once as needed, 2 doses, Starting on Sat10/28/24 at 1652, Until Sat10/28/24 at 2108, Routine, Recovery (Phase I only), pain score of 3-5 out of 10 Povidone-Iodine 5 % swab solution 1 Application Nasal, Once, 1 dose, On Sat10/28/24 at 1445, Routine Given 10/28/2024 2:07 PM EDT 1 Application sodium chloride 0.9 % flush 10 mL 10 mL, Intravenous, Every 12 hours, First dose on Sat10/28/24 at 1445, Until Discontinued, Routine, Holding - Preprocedure Given 10/28/2024 2:07 PM EDT 10 mL sodium chloride 0.9 % flush 10 mL 10 mL, Intravenous, As needed, Starting on Sat10/28/24 at 1354, Until Sat10/28/24 at 2109, Routine, Holding - Preprocedure, line care documented in this encounter Active and Recently Administered Medications Times are shown in EDT. Scheduled Medication Order 10/26/2024 10/27/2024 10/28/2024 ketorolac (Toradol) injection 15 mg (COMPLETED) 15 mg, Intravenous, Once, 1 dose, On Sat10/28/24 at 1915, Routine, Recovery (Phase I only) 1822 (Given - Provid er: Prisca Jacobson RN) Povidone-Iodine 5 % swab solution 1 Application (COMPLETED) Nasal, Once, 1 dose, On Sat10/28/24 at 1445, Routine 1407 (Given - Provid er: Nessa Sin RN) sodium chloride 0.9 % flush 10 mL(Linked Group 1) 10 mL, Intravenous, Every 12 hours, First dose on Sat10/28/24 at 1445, Until Discontinued, Routine, Holding - Preprocedure 1407 (Given - Provid er: Nessa Sin RN) PRN Medication Order 10/26/2024 10/27/2024 10/28/2024 acetaminophen (Tylenol) tablet 1,000 mg 1,000 mg, Oral, Every 6 hours PRN, Starting on Sat10/28/24 at 1819, Until Sat10/28/24 at 2109, Routine, Recovery (Phase I only), mild pain 182 (Given - Provid er: Prisca Jacobson RN) chlorhexidine (Peridex) 0.12 % solution (CANCELED) As needed, Starting on Sat10/28/24 at 1527, Until Sat10/28/24 at 1644, Routine, Intraprocedure 1527 (Given - Provid er: Karan Gaston MD - Comment: ON SURGICAL FIELD) fentaNYL (Sublimaze) injection 25 mcg (COMPLETED) 25 mcg, Intravenous, Every 5 min PRN, 2 doses, Starting on Sat10/28/24 at 1625, Until Sat10/28/24 at 1727, Routine, Recovery (Phase I only), pain score of 3-4 out of 10 1702 (Given - Provid er: Prisca Jacobson RN)1727 (Given - Provider: Prisca Jacobson RN) fentaNYL (Sublimaze) injection 25 mcg 25 mcg, Intravenous, Every 5 min PRN, 2 doses, Starting on Sat10/28/24 at 1652, Until Sat10/28/24 at 210, Routine, Recovery (Phase I only), pain score of 3-4 out of 10 fentaNYL (Sublimaze) injection 50 mcg 50 mcg, Intravenous, Every 5 min PRN, 2 doses, Starting on Sat10/28/24 at 1652, Until Sat10/28/24 at 210, Routine, Recovery (Phase I only), pain score of 5-8 out of 10 1804 (Given - Provid er: Prisca Jacobson RN) HYDROmorphone (Dilaudid) injection 0.5 mg (COMPLETED) 0.5 mg, Intravenous, Every 10 min PRN, 2 doses, Starting on Sat10/28/24 at 1625, Until Sat10/28/24 at 1704, Routine, Recovery (Phase I only), pain score of 9-10 out of 10 1655 (Given - Provid er: Prisca Jacobson RN)1704 (Given - Provider: Prisca Jacobson RN) HYDROmorphone (Dilaudid) injection 0.5 mg 0.5 mg, Intravenous, Every 10 min PRN, 2 doses, Starting on Sat10/28/24 at 1652, Until Sat10/28/24 at 210, Routine, Recovery (Phase I only), pain score of 9-10 out of 10 lidocaine-EPINEPHrine (Xylocaine W/EPI) 1 %-1:332273 injection (CANCELED) As needed, Starting on Sat10/28/24 at 1319, Until Sat10/28/24 at 1644, Routine, Intraprocedure 1519 (Given - Provid er: Karan Gaston MD - Comment: ORAL CAVITY) ondansetron (Zofran) injection 4 mg 4 mg, Intravenous, Once as needed, 1 dose, Starting on Sat10/28/24 at 1625, Until Sat10/28/24 at 210, Routine, Recovery (Phase I only), nausea, vomiting ondansetron (Zofran) injection 4 mg 4 mg, Intravenous, Once as needed, 1 dose, Starting on Sat10/28/24 at 1651, Until Sat10/28/24 at 210, Routine, Recovery (Phase I only), nausea, vomiting oxyCODONE (Roxicodone) immediate release tablet 10 mg(Linked Group 2) 10 mg, Oral, Once as needed, 2 doses, Starting on Sat10/28/24 at 1625, Until Sat10/28/24 at 210, Routine, Recovery (Phase I only), pain score of 6-8 out of 10 1655 (Given - Provid er: Prisca Jacobson RN) oxyCODONE (Roxicodone) immediate release tablet 10 mg(Linked Group 3) 10 mg, Oral, Once as needed, 2 doses, Starting on Sat10/28/24 at 1652, Until Sat10/28/24 at 2108, Routine, Recovery (Phase I only), pain score of 6-8 out of 10 oxyCODONE (Roxicodone) immediate release tablet 5 mg(Linked Group 2) 5 mg, Oral, Once as needed, 2 doses, Starting on Sat10/28/24 at 1625, Until Sat10/28/24 at 2108, Routine, Recovery (Phase I only), pain score of 3-5 out of 10 1655 (See Alternativ e - Provider: Prisca Jacobson RN) oxyCODONE (Roxicodone) immediate release tablet 5 mg(Linked Group 3) 5 mg, Oral, Once as needed, 2 doses, Starting on Sat10/28/24 at 1652, Until Sat10/28/24 at 210, Routine, Recovery (Phase I only), pain score of 3-5 out of 10 sodium chloride 0.9 % flush 10 mL(Linked Group 1) 10 mL, Intravenous, As needed, Starting on Sat10/28/24 at 1354, Until Sat10/28/24 at 2108, Routine, Holding - Preprocedure, line care Linked Groups Order Group 1: Insert peripheral IV (CANCELED) Once, On Sat10/28/24 at 1355, For 1 occurrence, Holding - Preprocedure And Saline lock IV (CANCELED) Once, On Sat10/28/24 at 1355, For 1 occurrence, Holding - Preprocedure And sodium chloride 0.9 % flush 10 mLJump to med 10 mL, Intravenous, Every 12 hours, First dose on Sat10/28/24 at 1445, Until Discontinued, Routine, Holding - Preprocedure And sodium chloride 0.9 % flush 10 mLJump to med 10 mL, Intravenous, As needed, Starting on Sat10/28/24 at 1354, Until Sat10/28/24 at 210, Routine, Holding - Preprocedure, line care Group 2: oxyCODONE (Roxicodone) immediate release tablet 5 mgJump to med 5 mg, Oral, Once as needed, 2 doses, Starting on Sat10/28/24 at 1625, Until Sat10/28/24 at 210, Routine, Recovery (Phase I only), pain score of 3-5 out of 10 Or oxyCODONE (Roxicodone) immediate release tablet 10 mgJump to med 10 mg, Oral, Once as needed, 2 doses, Starting on Sat10/28/24 at 1625, Until Sat10/28/24 at 210, Routine, Recovery (Phase I only), pain score of 6-8 out of 10 Group 3: oxyCODONE (Roxicodone) immediate release tablet 5 mgJump to med 5 mg, Oral, Once as needed, 2 doses, Starting on Sat10/28/24 at 1652, Until Sat10/28/24 at 210, Routine, Recovery (Phase I only), pain score of 3-5 out of 10 Or oxyCODONE (Roxicodone) immediate release tablet 10 mgJump to med 10 mg, Oral, Once as needed, 2 doses, Starting on Sat10/28/24 at 1652, Until Sat10/28/24 at 210, Routine, Recovery (Phase I only), pain score of 6-8 out of 10 documented in this encounter Additional Health Concerns Assessment Noted Time PHQ-9 Depression Total Score: 12 021 1:29 PM EDT A fall risk assessment has been complete d for the patient 11/07/2023 11:43 AM EDT A Body Mass Index follow-up plan has been documented for the patient 11/14/2023 12:54 PM EDT documented as of this encounter Care Teams Rotating Equipment Specialist Relationship Specialty Start Date End Date Pcp, [facility] [address] [place] [address] PCP - General Family Medicine 09/03/24 10/31/24 Zaire Martin MD [facility] [place] [address] Cardiology 11/09/21 documented as of this encounter
--- OUTSIDE RECORDS SUMMARY | 2024-10-28 14:20 | XMS_ITS | Encounter Summary ---
Author Organization [facility] Address [address] [place] [address] Care Team Providers Care Corporate Planner Name Role Phone Pcp, No Primary Care Provider Unavailabl e Zaire Martin MD Unavailable [phone] Reason for Visit * Auth/Cert (Routine) Specialty Diagnoses / Procedures Referred By Philly suazo Referred To Contact Diagnoses Radiolucent lesion in maxilla Radiolucent lesion in maxilla [M27.9] Procedures NM EXCISION,BENIGN TUMOR,MAXILLA/ZYGOMA EXCISION CYST OF MAXILLA Talat John DMD [address] [facility] [address] [place] [address] Phone: tel: fax: [facility] [address] [place] [address] Phone: tel: Referral ID Status Reason Start Date Expiration Date Visits Re quested Visits Authorized [id number] 1 1 Encounter Details Date Type Department Care Team (Late st Contact Info) Description 10/28/2024 2:20 PM EDT - 10/28/2024 4:00 PM EDT Surgery [facility] [address] [place] [address] Talat John DMD [address] [facility] [address] [place] [address] EXCISION CYST OF MAXILLA WITH EXTRACTIONS OF 9,10,11,13 [86647 (CPT )] Surgery Details Date/Time Status Location OR Service Patient Class Case Class Case Type Trauma Case? 10/28/2024 2:20 PM Posted GEOFFREY PARIKH Oral Maxillofacial Surgery [facility] Outpatient Surgery E-Elect nas Panel 1 Procedure LRB Anes Op Region Wound Class Comments EXCISION CYST OF MAXILLA WIT H EXTRACTIONS OF ,10,11,13 Left General Surgeon Surgeon Role Service Panel Karan Gaston MD Resident - Assisting 1 Talat John, DMD Primary Oral Maxillofacial Surgery 1 documented in this encounter Social History Tobacco [...] Sign Reading Time Taken Comments Blood Pressure 148/86 10/28/2024 2:00 PM EDT Pulse 69 10/28/2024 2:00 PM EDT Temperature 36.8 C (98.2 F) 10/28/2024 2:00 PM EDT Respiratory Rate 16 10/28/2024 2:00 PM EDT Oxygen Saturation 99% 10/28/2024 2:00 PM EDT Inhaled Oxygen Concentration - - Weight - - Height - - Body Mass Index - - documented in this encounter Discharge Instructions * Discharge Instructions* Karan Gaston MD - 10/28/2024 5:03 PM EDT solderer assembler DISCHARGE INSTRUCTIONS: What can I expect after [...] weeks with Dr. Talat John on 11/06/24. [facility]illof[facility] Surgery, [address], [place] [address], Medication requests should be made between the hours of 9:00 AM to 3:00 PM Saturday thru Saturday. Allow 72 hours for processing. Please note that based upon recent changes to [place] law related to prescribing opioid pain medications, [...] for 7 days. 480 mL 1 10/28/2024 levoFLOXacin (Levaquin) 250 MG tabletIndication s:Cystic lesion of maxilla determined by X-ray Take 1 tablet by mouth 2 times a day for 10 days. 20 tablet 10/28/2024 aspirin 81 MG EC tablet Take 81 mg by mouth 1 (one) time each day. gabapentin (Neurontin) 300 MG capsule Take 1 capsule (300 mg) by mouth 3 (three) times a day. 90 capsule 1 11/07/2023 5 HYDROcodone-acet aminophen ([place]) 5-325 MG tablet Take 1 tablet by [...] Agree with above assessment and evaluation from resident/RESTORATION SILVERSMITH. * Op Note - Karan Gaston MD - 10/28/2024 3:21 PM EDT Operative Note Date: 10/28/24 Location: [facility] Name: Ramana Moore, : 1970, Diagnoses: Pre-op Diagnosis Cystic lesion of left maxilla associated with carious teeth 9,10,11,13 Post-op Diagnosis Cystic lesion of left maxilla associated with carious teeth 9,10,11,13 Procedure(s): Enucleation and curettage of left maxillary cyst, Repair of dominick nasal communication with use of membranes extraction of teeth #9,10,11,13 Attending Surgeon(s): * Talat John - Primary Aviation Electrical Technician(s): * Karan Gaston MD - Resident - [...] patient in sterile fashion. Nasal trumpet 30 Austrian was inserted into left naris. Attention was [...] 10/28/2024 3:21 PM EDT Date: 10/28/24 Location: [facility] Name: Ramana Moore, : 1970, Diagnoses: Pre-op Diagnosis Radiolucent lesion in maxilla Post-op Diagnosis Radiolucent lesion in maxilla Procedure(s): Enucleation and curettage of left maxillary cyst, extraction of teeth #9,10,11,13 Attending Surgeon(s): * Talat John - Primary Aviation Electrical Technician(s): * Karan Gaston MD - Resident - [...] NSTEMI (non-ST elevated myocardial infarction) (CMS/HCC) 03/21/2021 [place] in 2020 PAST SURGICAL HISTORY: Surgical History [...] FROM without lesions. FOM soft, nontender, non-elevated. Mitchel???s and Stensen???s duct with clear saliva bilaterally. [...] Building [facility] [address], [address] [place] [address] Cata Shaffer PA [address] [facility] [address] [place] [address] 02/22/2025 9:00 AM EDT Office Visit Physical Medicine & Rehabilitation Clinic at [facility] [address] [place] [address] Rodriguez Martin DO [address] [place] [address] 03/17/2025 2:30 PM EDT Office Visit [place] [facility] [address] [place] [address] Manasa Sanchez, ELECTRICAL ENGINEERING TECHNICIAN [address] [place] [address] documented as of this encounter Procedures Procedure Name Priority Date/Time Associated Diagnosis Comments SURGICAL PATHOLOGY EXAM Routine 10/28/2024 3:56 PM EDT Radiolucent lesion in maxilla NM EXCISION,BENIGN TUMOR,MAXILLA/ZYGOM A 10/28/2024 2:45 PM EDT Radiolucent lesion in maxilla documented in this encounter Results * Surgical Pathology Exam (10/28/2024 3:56 PM EDT) Case Report Surgical Pathology Case: [id number] Authorizing Provider: Talat John DMD Collected: 10/28/2024 1554 Ordering Location: [facility] Received: 10/28/2024 1656 Pathologist: Cata Lees MD Specimen: Oral Cavity, LEFT MAXILLARY CYST 11/03/2024 10:00 AM EDT [facility] Final Diagnosis A. SPECIMEN SUBMITTED LEFT MAXILLARY CYST: - INTRAOSSEOUS CHRONIC INFLAMMATORY TISSUE WITH EPITHELIAL LINING COMPATIBLE WITH PERIAPICAL INFLAMMATORY CYST. 11/03/2024 10:00 AM EDT [facility] at [address] Blue in Oral pathology has reviewed this case and concurs with the diagnosis. 11/03/2024 10:00 AM EDT [facility] Clinical Information Radiolucent lesion in maxilla [M27.9] 11/03/2024 10:00 AM EDT [facility] Gross Description A. LEFT MAXILLARY CYST [...] A3 for decal. Cold Time: 2m Katia C Shanice 11/03/2024 10:00 AM EDT [facility] Tissue Oral cavity structure / Unknown 10/28/2024 3:56 PM EDT 10/28/2024 4:56 PM EDT Comment:Pre-op diagnosis: Radiolucent lesion in maxilla [M27.9] us Talat John DMD LAB PATHOLOGY ORDERABLES Fin al Result [facility] [address] [place] [address] documented in this encounter Visit Diagnoses Diagnosis Cystic lesion of maxilla determined by X-ray- Primary Radiolucent lesion in maxilla Radiolucent lesion in maxilla Dental caries Unspecified dental caries Radiolucent lesion in maxilla documented in this encounter Admitting Diagnoses Diagnosis [...] Given 10/28/2024 6:22 PM EDT 1,000 mg chlorhexidine (Peridex) 0.12 % solution As needed, Starting on Sat10/28/24 at 1527, Until Sat10/28/24 at 1644, Routine, Intraprocedure Given 10/28/2024 3:27 PM EDT 30 mL fentaNYL (Sublimaze) injection 25 mcg 25 mcg, [...] Given 10/28/2024 6:22 PM EDT 15 mg lidocaine-EPINEPHrine (Xylocaine W/EPI) 1 %-1:[id number] injection As needed, Starting on Sat10/28/24 at 1319, Until Sat10/28/24 at 1644, Routine, Intraprocedure Given 10/28/2024 3:19 PM EDT 10 mL ondansetron (Zofran) injection 4 mg 4 mg, [...] Routine, Recovery (Phase I only), mild pain 1822 (Given - Provid er: Prisca Jacobson [...] out of 10 lidocaine-EPINEPHrine (Xylocaine W/EPI) 1 %-1:717025 injection (CANCELED) As needed, Starting on Sat10/28/24 [...] on Sat10/28/24 at 1651, Until Sat10/28/24 at 2109, Routine, Recovery (Phase [...] pain score of 3-5 out of 10 5 (See Alternativ e - Provider: Prisca Jacobson [...] documented as of this encounter Care Teams Corporate Planner Relationship Specialty Start Date End Date Pcp, Mor[facility] [address] [place] [address] PCP - General Family Medicine 09/03/24 10/31/24 Zaire Martin MD [address] [place] [address] Cardiology 11/09/21 documented as of this encounter
--- OUTSIDE RECORDS SUMMARY | 2024-10-28 14:59 | XMS_ITS | Encounter Summary ---
Author Organization Healthcare Address [address] [place] [address] Care Team Providers Care Rotor Coil Taper Name Role Phone Pcp, No Primary Care Provider Unavailabl e Zaire Martin MD Unavailable [phone] Reason for Visit * Auth/Cert (Routine) Specialty Diagnoses / Procedures Referred By Philly suazo Referred To Contact Diagnoses Radiolucent lesion in maxilla Radiolucent lesion in maxilla [M27.9] Procedures MD EXCISION,BENIGN TUMOR,MAXILLA/ZYGOMA EXCISION CYST OF MAXILLA Talat John, DMD [address] [address] Phone: tel: fax: [facility] [address] [place] [address] Phone: tel: Referral ID Status Reason Start Date Expiration Date Visits Re quested Visits Authorized [id number] 1 1 Encounter Details Date Type Department Care Team (Late st Contact Info) Description 10/28/2024 2:59 PM EDT Anesthesia Event [facility] [address] [place] [address] Margarito Licona, SYSTEMS MANAGER [address] [place] [address] Les Ernst, DARELL [address] [place] [address] [phone] (work) Anesthesia Record Procedure Summary Procedure Name Responsible Anesthesiologist Anesthesia Start Time Anesthesia Stop Time EXCISION CYST OF MAXILLA WITH EXTRACTIONS OF 9,10,11,13 (Left) Margarito Licona CRNA 10/28/24 1459 10/28/24 1649 Events Date Time [...] acknowledgement of understanding. 1649 An Stop Meds Name Total midazolam (Versed) injection 1 mg/mL 2 m g fentaNYL (Sublimaze) injection 50 mcg/mL 250 mcg lidocaine PF (Xylocaine-MPF) 2% 80 mg propofol (Diprivan) injection 10 mg/mL 3 00 mg rocuronium (ZeMuron) injection 10 mg/mL 50 mg ondansetron (Zofran) injection 2 mg/mL 4 mg sugammadex (Bridion) injection 100 mg/mL 200 mg ceFAZolin (Ancef) vial 1 g 2 g lactated Ringer's infusion 1,000 mL * Agents Name O2 N2O Air Sevoflurane Inspired Sevoflurane N2O Inspired N2O * Blood No blood administrations on file. Lines, Drains, and Airways Type Details Placement Removal Wound 10/28/24; 1521; Yes; Surgical; Mouth 10/28/24 152 by Miryam Patton RN Peripheral IV Placement Date: 10/09 07/04; Placement Time: 1407; Catheter Size: 18 G; Orientation: Anterior, Distal, Right, Upper; Location: Arm; Site Prep: Chlorhexidine ; Local Anesth: None; Technique: Anatomical landmarks; Inserted by: Douglas Gong; Insertion Attempts: 1; Patient Tolerance: Tolerated well; Removal Date: 10/28/24; Removal Time: 18410/28/24 1407 by Nessa Sin RN 10/28/24 184 [...] No change to dentition. ; Placed by: SYSTEMS MANAGER; Removal Date: 10/28/24; Removal Time: 1640 10/28/24 [...] of this encounter Miscellaneous Notes * Anesthesia Postprocedure Evaluation - Margarito Licona CRNA - 10/28/2024 4:49 PM EDT Patient: Ramana Becker Major Anesthesia Type: general Vitals Value Taken Time BP 179/104 10/28/24 16:49 Temp 98.9 10/28/24 16:49 Pulse 96 10/28/24 16:48 Resp 18 10/28/24 16:48 SpO2 98 % 10/28/24 16:48 Vitals shown include unfiled device data. Anesthesia Post Evaluation Patient location during evaluation: PACU Patient participation: complete - patient participated Level of consciousness: awake Pain management: inadequate (pain score >3) with changes suggested below Airway patency: natural airway Cardiovascular status: acceptable and hemodynamically stable Respiratory status: acceptable, blow-by oxygen and face mask Hydration status: acceptable Nausea/Vomiting: No No notable events documented. * Anesthesia Procedure Notes - Margarito Licona CRNA - 10/28/2024 3:20 PM EDT Associated Order(s): Airway Airway Date/Time: 10/28/2024 3:09 PM Reason: elective Airway not difficult General Information and Staff Patient location during procedure: OR SYSTEMS MANAGER: Margarito Licona CRNA Performed: SYSTEMS MANAGER Patient Condition Indications for airway management: anesthesia Patient position: sniffing Final Airway Details Final airway type: endotracheal airway Successful airway: ETT Cuffed: yes Successful intubation technique: direct laryngoscopy Endotracheal tube insertion site: oral Blade: Hermelinda Blade size: #4 ETT size (mm): 7.5 Cormack-Lehane Classification: grade I - full view of glottis Placement verified by: chest auscultation and capnometry Measured from: lips Additional Comments Atraumatic. No change to dentition. * Anesthesia Preprocedure Evaluation - Belinda Marin MD - 10/28/2024 1:51 PM EDT Images from the original note were not included. HPI Ramana Moore is a 54 y.o. male who presents with Pre-op Diagnosis of Radiolucent lesion in maxilla now scheduled for EXCISION CYST OF MAXILLA (Left)with Talat John DMD on 10/28/2024 at [facility] Medical History[1] Family History[2] Social History[3] SURGICAL HISTORY: Surgical History[4] Allergies[5] MEDICATIONS: No current facility-administered medications for this encounter. ROS Anesthesia: Date of last anesthetic: Most recent anesthesia ~ 12/06/2021 [facility] STERNAL PLATING Difficult Airway: No Final Airway [...] getting to sleep Cardiovascular: hyperlipidemia and past TN. Does not have angina, CAD, CHF, dysrhythmias [...] Does not have thyroid disorder. 05/29/2023 07/15/2024 [facility] 10/23/2024 Last Cards Note ([place]): 07/2020 OSH ECHO: ?? Calculated left ventricular EF = 70% ?? All left ventricular wall segments contract normally. ?? There is no evidence of pericardial effusion 07/15/2024 CBC: White Blood Count July 15, 2024 11:49am 11.3 10*3/uL 4.5-13.0 [facility] [id number] [address] [place] [address] Red Blood Count July 15, 2024 11:49am 4.98 10*6/uL 4.10-5.70 [facility] [id number] [address] [place] [address] Hemoglobin July 15, 2024 11:49am 15.6 g/dL 12.0-16.9 [facility] [id number] [address] [place] [address] Hematocrit July 15, 2024 11:49am 44.2 % 36.0-49.0 [facility] [id number] [address] [place] [address] Mean Corpuscular Volume July 15, 2024 11:49am 89 fL 78.0-98.0 [facility] [id number] [address] [place] [address] Mean Corpuscular Hemoglobin July 15, 2024 11:49am 31.3 pg 25.0-35.0 [facility] [id number] [address] [place] [address]166 Mean Corpuscular Hemoglobin Concent July 15, 2024 11:49am 35.3 g/dL 31.0- 36.0 [facility] [id number] [address] [place] [address] Red Cell Distribution Width July 15, 2024 11:49am 12.0 % 11.0-15.0 [facility] [id number] [address] [place] [address] Platelet Count July 15, 2024 11:49am 250 10*3/uL 150-400 07/15/2024 BMP: Sodium Level July 15, 2024 11:49am 135 mmol/L 136-145 [facility] [id number] [address] [place] [address] Potassium Level July 15, 2024 11:49am 4.1 mmol/L 3.5-5.1 [facility] [id number] [address] [place] [address] Chloride Level July 15, 2024 11:49am 101 mmol/L 98-107 [facility] [id number] [address] [place] [address] Carbon Dioxide Level July 15, 2024 11:49am 26 mmol/L 24-33 [facility] [id number] [address] [place] [address] Anion Gap July 15, 2024 11:49am 12.1 mmol/L 10-20 [facility] [id number] [address] [place] [address] Glucose Level July 15, 2024 11:49am 72 mg/dL 70-99 [facility] [id number] [address] [place] [address] Blood Urea Nitrogen July 15, 2024 11:49am 12 mg/dL 7-18 [facility] [id number] [address] [place] [address] Creatinine July 15, 2024 11:49am 1.11 mg/dL 0.70-1.30 [facility] [id number] [address] [place] [address] Estimated GFR (CKD-EPI 2020) July 15, 2024 [...] the patient/family: general Comment: DAVE phone screen. Belinda Marin MD [1] Past Medical History: Diagnosis Date Idiopathic [...] do not know rxn details Childhood allergy documented in this encounter Plan of Treatment Upcoming Encounters Date Type Department Care Team (Late st Contact Info) Description 12/22/2024 11:40 AM EDT Office Visit Medical Office [facility] [address], [address] [place] [address] Cata Shaffer, PA [address] [place] [address] 02/22/2025 9:00 AM EDT Office Visit [facility] [address] [place] [address] Rodriguez Martin DO [address] [place] [address] 03/17/2025 2:30 PM EDT Office Visit [facility] [address] [place] [address] LauraPamelaam, COMMUNICATIONS SPECIALIST [address] [place] [address] documented as of this encounter Procedures Procedure Name Priority Date/Time Associated Diagnosis Comments PB ANESTHESIA PLACEHOLDER Routine 10/28/2024 3:09 PM EDT MD AN ELECTIVE ENDOTRACHEAL AIRWAY Routine 10/28/2024 3:09 PM EDT documented in this encounter Results * MD AN ELECTIVE ENDOTRACHEAL AIRWAY, PB ANESTHESIA PLACEHOLDER (10/28/2024 3:09 PM EDT) Narrative Margarito Licona CRNA - 10/28/2024 3:09 PM EDT Margarito Licona CRNA 10/28/2024 3:21 PM Airway Date/Time: 10/28/2024 3:09 PM Reason: elective Airway not difficult General Information and Staff Patient location during procedure: OR SYSTEMS MANAGER: Margarito Licona CRNA Performed: SYSTEMS MANAGER Patient Condition Indications for airway management: anesthesia Patient position: sniffing Final Airway Details Final airway type: endotracheal airway Successful airway: ETT Cuffed: yes Successful intubation technique: direct laryngoscopy Endotracheal tube insertion site: oral Blade: Hermelinda Blade size: #4 ETT size (mm): 7.5 Cormack-Lehane Classification: grade I - full view of glottis Placement verified by: chest auscultation and capnometry Measured from: lips Additional Comments Atraumatic. No change to dentition. us Belinda Marin MD ANESTHESIA ORDERABLES Final Resu lt documented in this encounter Visit Diagnoses Not on filedocumented in this encounter Administered Medications Inactive Administered Medications - up to 3 most recent administrations Medication Order MAR Action Action Date Dose Rate Site ceFAZolin (Ancef) injection Intravenous, As needed, Starting on Sat10/28/24 at 1514, Until Sat10/28/24 at 1649, Routine, Anesthesia Intraprocedure Given 10/28/2024 3:14 PM EDT 2 g fentaNYL (Sublimaze) injection Intravenous, As needed, Starting on Sat10/28/24 at 1506, Until Sat10/28/24 at 1649, Routine, Anesthesia Intraprocedure Given 10/28/2024 4:08 PM EDT 50 mcg Given 10/28/2024 3:59 PM EDT 50 mcg Given 10/28/2024 3:08 PM EDT 50 mcg lactated Ringer's infusion Intravenous, Continuous PRN, Starting on Sat10/28/24 at 1459, Until Sat10/28/24 at 1649, Routine New Bag 10/28/2024 4:35 PM EDT New Bag 10/28/2024 2:59 PM EDT lidocaine PF (Xylocaine) 2 % injection Intravenous, As needed, Starting on Sat10/28/24 at 1506, Until Sat10/28/24 at 1649, Routine, Anesthesia Intraprocedure Given 10/28/2024 3:06 PM EDT 80 mg midazolam (Versed) injection Intravenous, As needed, Starting on Sat10/28/24 at 1459, Until Sat10/28/24 at 1649, Routine, Anesthesia Intraprocedure Given 10/28/2024 2:59 PM EDT 2 mg ondansetron (Zofran) injection Intravenous, As needed, Starting on Sat10/28/24 at 1559, Until Sat10/28/24 at 1649, Routine, Anesthesia Intraprocedure Given 10/28/2024 3:59 PM EDT 4 mg propofol (Diprivan) injection Intravenous, As needed, Starting on Sat10/28/24 at 1505, Until Sat10/28/24 at 1649, Routine, Anesthesia Intraprocedure Given 10/28/2024 3:08 PM EDT 100 mg Given 10/28/2024 3:06 PM EDT 200 mg rocuronium (ZeMuron) injection Intravenous, As needed, Starting on Sat10/28/24 at 1506, Until Sat10/28/24 at 1649, Routine, Anesthesia Intraprocedure Given 10/28/2024 3:06 PM EDT 50 mg sugammadex (Bridion) 100 MG/ML injection Intravenous, As needed, Starting on Sat10/28/24 at 1634, Until Sat10/28/24 at 1649, Routine, Anesthesia Intraprocedure Given 10/28/2024 4:34 PM EDT 200 mg documented in this encounter Additional Health Concerns Assessment Noted Time PHQ-9 Depression Total Score: 12 021 1:29 PM EDT A fall risk assessment has been complete d for the patient 11/07/2023 11:43 AM EDT A Body Mass Index follow-up plan has been documented for the patient 11/14/2023 12:54 PM EDT documented as of this encounter Care Teams Rotor Coil Taper Relationship Specialty Start Date End Date Pcp, No [address] [place] [address] PCP - General Family Medicine 09/03/24 10/31/24 [facility] [place] [address] Cardiology 11/09/21 documented as of this encounter
--- OUTSIDE RECORDS SUMMARY | 2024-11-01 04:12 | XMS_ITS | Encounter Summary ---
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 (hematoma). If this blood presses on the brain, it can cut off blood to other cells. These cells also . Swelling The brain has almost no room to expand inside the skull. If the brain swells, it may press against the skull. As the pressure increases, the brain functions may be changed. Symptoms of TBI Having a TBI can change your brain in many ways. A TBI can change the way you think, feel, act, andmove. The symptoms depend on the part of your brain that is injured. Common symptoms of mild TBI can include: ? Headache ? Confusion ? Loss of consciousness ? Dizziness ? Blurry vision ? Ringing in your ears ? Feeling tired ? Loss of memory ? Mood changes ? Trouble sleeping ? Being off balance ? Being bothered by bright light ? Feeling sick to your stomach Symptoms of moderate or severe TBI may include all the symptoms of a mild TBI, plus any or all of these symptoms: ? Extended loss of consciousness ? Severe headache that does not go away ? Repeated vomiting ? Seizures ? Extreme sleepiness ? Slurred speech ? Weakness and numbness in your arms and legs ? Being very clumsy ? Being very irritable, restless, or confused Recovering from TBI Most people recover completely from a mild TBI. It may take days or weeks. If you have had more than one TBI, your recovery may take longer. Everyone?s brain is different, so your recovery time and treatments will depend on how your brain is healing. Here are some tips to help your recovery: ? Be honest with your healthcare team, and let them know about all your symptoms. ? Let your healthcare provider know right away if your symptoms are getting worse or new symptoms appear. ? Make sure to keep all your appointments and follow your healthcare provider's instructions carefully. ? Give your brain time to heal. Be patient and get plenty of rest. ? Don?t smoke, take drugs, or drink alcohol. ? Don?t take any medicines without checking with your healthcare provider first. This includes abqx-oaa-txahdpa medicines. ? Your healthcare provider might suggest that you take a new medicine if you have problems managingyour emotions, such as laughing and crying uncontrollably. The medicine is a combination of dextromethorphan and quinidine. Recovery from a TBI is unpredictable and is different from person to person. Most people do recovercompletely from most TBIs. Remember that a TBI can change the way you think, feel, move, and act. The best way to recover is to let your family and healthcare team know about all your symptoms. Work closely with your healthcare team and give your brain time to heal. Last Reviewed Date: 2017 00:00:00 ?? [id number] [employer]. [address] [place] [address], [place] [address]. All rights reserved. This information is not intended as a substitute for professional medical care. Always follow your healthcare professional's instructions. This information has been modified by your health care provider with permission from the publisher. * Teagan Kaur - Jam Zamorano RN - 11/19/2024 6:26 PM EDT Images from the original note were not included. [id number] Discharge Instructions for Lumbar Fusion You had a lumbar fusion. During this procedure, your healthcare provider locked together (fused) some of the bones in your spine. This limits the movement of these bones to help relieve your pain. Italso restores the normal curve of your spine. Your surgeon will give you recovery guidelines to follow. But below are general tips for recovery. Here?s what you need to know about home care after a spinal fusion. Activity ? Arrange your household to keep the items you need within reach. ? During the first few days, don't go up and down stairs. It's best to have a bed on the ground floor. ? Remove electrical cords, throw rugs, and anything else that may cause you to fall. ? Use a walker or handrails until your balance, flexibility, and strength improve. A detachable bedrail can make moving in bed much easier. And remember to ask for help from others when you need it. ? Free up your hands so that you can use them to keep balance. Use a ramírez pack, apron, or pockets to carry things. Be sure not to carry too much at once. ? Don?t bend or twist at the waist, or raise your hands over your head for the first 2 weeks after your surgery. Use a long-handled grabber that allows you to pickers material handlers items from the floor without bending. ? Don?t lift anything heavier than 4 pounds for the first 2 weeks after surgery. ? Don?t sit for more than 30 to 45 minutes at a time. Take frequent, short walks. They are the keysto your recovery. stay away from uneven surfaces. ? Don?t drive until your healthcare provider says it?s OK. And never drive while you are taking opioids or other medicines that make you drowsy. ? Nap if you are tired, but don?t stay in bed all day. ? Use chairs with arms. The arms make it easier for you to stand up and sit down. ? Ask your healthcare provider about physical therapy if your provider hasn't yet given you instructions on this. Incision care ? Check your incision daily for redness, tenderness, or drainage. ? Don?t use hot tubs, bathtubs, or swimming pools until your healthcare provider says it?s OK. ? Wait 3 days after your surgery to start showering. Then shower as needed. Carefully wash your incision with soap and water. Gently pat the incision dry. Don?t rub it, or apply creams or lotions. And if you feel unsteady while standing to shower, use a shower stool or chair. Other home care ? Use nonslip bathmats, grab bars, an elevated toilet seat, and a shower chair in your bathroom. ? Take your medicine exactly as directed. Call your surgeon if you have side effects or concerns. ? Don?t take non-steroidal anti-inflammatory drugs, such as ibuprofen. They may delay or prevent the correct fusion of the spine. ? If you smoke, get help to stop. This will be one of the most important things you can do to help you recover from surgery. Nicotine prevents your bone from fusing and your wound from healing. ? Wear the support stockings you were given in the hospital, as instructed by your healthcare provider. ? Wear your back brace, if one was prescribed, as directed by your healthcare provider. Follow-up ? Keep appointments for X-rays. They will be taken from time to time to check the spinal fusion. ? Make appointments for physical therapy, as instructed by your healthcare provider. ? If needed, arrange to have your kandis removed 2 weeks after surgery. Call 911 Call 911 right away if you have any of the following: ? Chest pain ? Shortness of breath ? Trouble controlling your bowels or bladder ? Calf pain, swelling, or redness When to call your healthcare provider Call your healthcare provider right away if you have any of the following: ? Fever of 100.4??F (38??C) or higher, or as directed by your healthcare provider ? Shaking chills ? Increased drainage, redness, tenderness, or swelling at the incision site ? Opening of the incision ? Increased pain, numbness, or tingling in either leg ? Loss of movement in 1 or both legs ? Symptoms get worse or you have new symptoms Last Reviewed Date: 2024 00:00:00 ?? [id number] [employer] All rights reserved. This information is not intended as a substitute for professional medical care. Always follow your healthcare professional's instructions. * Teagan Kaur - Jam Zamorano RN - 11/19/2024 6:26 PM EDT Images from the original note were not included. 62332 Preventing a Surgical Site Infection A risk of any surgery is an infection at the surgical site. The surgical site is a cut the surgeon makes in the skin to do the surgery. Surgical site infections can range in type. It may be a minor skin infection. Or it may be severe and include tissue under the skin or other organs. In some cases,a severe infection can cause . The information below tells you: ? About surgical site infections. ? What hospitals do to prevent them. ? How they?re treated if they do occur. ? What you can do to prevent an infection. Hand washing reduces the risk of infection. What causes a surgical site infection? Germs are everywhere. They?re on your skin, in the air, and on things you touch. Many germs are good. Some are harmful. Surgical site infections occur when harmful germs enter your body through the incision in your skin. Some infections are caused by germs that are in the air or on objects. But most are caused by germs found on and in your own body. Who is at risk for a surgical site infection? Anyone can have a surgical site infection. Your risk is higher if you: ? Are an older adult. ? Have a weak immune system. ? Have other health conditions such as diabetes. ? Take certain medicines, such as steroids. ? Are a smoker. ? Have certain types of surgery, such as abdominal surgery. ? Have poor nutrition. ? Are very overweight. ? Have a surgery that lasts longer than 2 hours. What are the symptoms of a surgical site infection? An infection often shows up as skin redness, pain, and swelling around the incision that gets worse. Later, a cloudy or greenish-yellow fluid may come from the incision. The fluid may smell bad. The incision may pull apart or open up. You are likely to have a fever and may feel very ill. Symptoms can appear at any time. They may happen from hours to weeks after surgery. Implants such as an artificial knee or hip can become infected at any time after the surgery. How is a surgical site infection treated? ? A surgical site infection is treated with antibiotics. The type of medicine you get will depend on what may be causing the infection. Most serious wound infections need wound care. In some cases, surgery may be needed on the infected wound. ? An infected skin wound may be reopened and cleaned. A deep wound may need to be packed with gauze. The gauze is changed often until the wound starts to heal from the inside out. Your health care provider will decide the best way to treat your infection. ? If an infection occurs where an implant is placed, the implant may be removed. ? If you have an infection deeper in your body, you may need surgery to treat it. What hospitals do to prevent surgical site infections Many hospitals take these steps to help prevent surgical site infections: ? Handwashing. Before the surgery, your surgeon and all surgery staff scrub their hands and arms with an antiseptic soap. ? Clean skin. The site where your incision is made is carefully cleaned with an antiseptic solution. ? Sterile clothing and drapes. The surgical team wears medical uniforms. These are known as scrub suits. They wear long-sleeved surgical gowns, masks, caps, shoe covers, and sterile gloves. Your bodyis fully covered with a large sterile sheet (sterile drape). There is an opening in the sheet wherethe incision is made. ? Clean air. Operating rooms have special air filters. They use positive pressure airflow to prevent unfiltered air from entering the room. ? Careful use of antibiotics. Antibiotics are given no more than 60 minutes before the incision is made. They are generally stopped within 24 hours after surgery. This depends on the type of surgery.This helps kill germs but prevents problems that can occur when antibiotics are taken longer. ? Controlled blood sugar levels. Your blood sugar level may rise. This can be because of the stressof the surgery. Your blood sugar level is watched closely to make sure it stays within a normal range. High blood sugar delays wound healing. This increases the risk of infection. ? Controlled body temperature. A jtwyf-quxj-csrqle temperature during or after surgery prevents oxygen from reaching the wound. This makes it harder for your body to fight infection. Hospitals may warm I.V. fluids, and provide warm-air blankets. Your temperature is watched throughout the surgery. ? Safe hair removal. Any hair that must be removed is clipped right before the incision, not shavedwith a razor. This prevents tiny nicks and cuts where germs can enter. ? Wound care. After surgery, a closed wound is covered with a sterile dressing for 1 to 2 days. Open wounds are packed with sterile gauze and covered with a sterile dressing. What you can do to prevent a surgical site infection ? Ask questions. Learn what your hospital is doing to prevent infection. ? If instructed, shower or bathe with plain soap the night before and the day of your surgery. Follow all instructions you're given. You may be asked to use a special cleanser that you don?t rinse off. ? If you smoke, stop as long as possible before and after the surgery. Ask your provider about waysto quit. ? Take antibiotics only when your provider tells you to. Using antibiotics when they?re not needed can create germs that are harder to kill. Finish the entire prescription of your antibiotics even ifyou feel better. ? Ask health care workers to clean their hands with plain soap and water or with an alcohol-based hand mining professionals before and after caring for you. Don?t be afraid to remind them. ? After surgery, eat healthy foods. Care for your incision as directed by your health care team. When to contact your doctor Contact your provider or seek medical care right away if: ? The pain at the surgical site gets worse. ? A red streak, worse redness, or puffiness appears near the incision. ? Yellowish, cloudy, or bad-smelling fluid leaks from the incision. ? Your stitches dissolve before the wound heals. ? You have a fever of 100.4?? F ( 38??C ) or higher, or as advised by your provider. ? You have a tired feeling that doesn?t go away. Last Reviewed Date: 2024 00:00:00 ?? [id number] [employer] All rights reserved. This information is not intended as a substitute for professional medical care. Always follow your healthcare professional's instructions. * Teagan Kaur - Jam Zamorano RN - 11/19/2024 6:26 PM EDT Images from the original note were not included. 675 Home Care for Concussion What is it? A concussion is an injury to the brain. It is caused by a hit to the head or body that makes the brain move inside the skull. Some common reasons for concussion are car wrecks, sports injuries, and falls. How serious is it? The symptoms of concussion often go away in a few days. Most adults are better 2-3 days after the injury. Headaches usually go away in 2-4 weeks. Even if the symptoms last longer, they usually go away. If your symptoms get worse or do not go away in 4 weeks, call your doctor. What are the symptoms? As you heal, you could have a range of symptoms. You may not notice them right away. Here are some common symptoms: ? Headaches ? Feeling tired quickly ? Sleep problems ? Anxiety or depression ? Dizziness or vertigo ? Ringing in ears ? Irritated or aggressive for no reason ? Memory and concentration problems ? Sudden mood changes or mood swings ? Feeling lazy ? Personality or behavior changes ? Sensitivity to light or noise ? Feeling sick to your stomach These symptoms usually go away without treatment. Still, these symptoms can cause stress for you and your loved ones. Knowing what is normal after concussion will help you cope. Tell your doctor if the symptoms get worse or if you do not think you are getting better. What if my symptoms do not get better? If you do not feel back to your normal self after 1 week, see your doctor. If you are not back to normal after 1 month, ask your doctor to refer you to a concussion specialist at [facility]. When should I call 911? Some head injuries cause more serious problems. These may show up over time. Call 911 or go to the emergency department right away if you have any of these symptoms: ? Any bleeding or drainage from the ears or nose ? Headache gets worse or does not go away ? Vomiting often ? Passing out or not waking up ? Sleeping too much or hard to wake up ? Getting more confused, restless, or agitated ? Problems with walking or balance ? Convulsions or seizures ? Feeling weak or numb ? Vision changes If you have any of these or other symptoms that worry you, call 911 right away. How can I care for myself at home? Get rest. Sleeping and relaxing may help you heal. Resting should help to reduce symptoms for 1-2 days after the injury. However, more than 2 daysof strict rest may be harmful and may actually slow your healing. So, the boo is for you to know yourself and balance rest and activity! As you start to heal, you can slowly get back to your normal activities. Take it easy with physical and mental activities. Take a break from things like exercise, sports, and cleaning house when you are feeling ill. Do not try to ?tough it out.? Balance activity and rest.Ignoring symptoms can make them worse and slow your healing. We recommend that you avoid drinking alcohol. Do I need to get my doctor?s permission before doing any activities? School and work. Ask your doctor when it will be safe to go back to work or school. Talk with your doctor about any limitations on what you can do. Find out who will inform your work or school about those limitations. Until you are feeling like yourself, you may want to delay important work projects or school exams. Sports and play. Ask your doctor when it will be safe to play sports or do recreational activities.There are guidelines that will help you return gradually and safely. Do not play sports until your symptoms go away. Stop doing any physical or mental activity if you have any symptoms. Let yourself rest when doing these activities. Getting another concussion before your brain has healed can be dangerous. It may slow your healing or increase your chance of long-term problems. When do I follow up with my doctor? After you leave the hospital, make an appointment with your primary care doctor. If your doctor thinks your symptoms are serious enough, your doctor might refer you to a specialist at [facility]. ? For symptoms that last longer than 4 weeks after the injury, ask your current doctor to send a referral to Neuropsychology at . ? If your symptoms suddenly get worse, call your primary care doctor or go to your local emergency room. What can I do to prevent concussion? Take these steps to lower your risk of concussion. At home: ? Look for things that could trip you. Pick them up or move them out of the way. This includes cords and rugs that will not lay flat. ? Have good lighting in your living area. ? Place non-slip mats on slick floors and in tubs and showers. ? Use handrails on stairs and safety handles in showers. For travel and activities: ? Always wear a seat belt in vehicles. Have children sit in safety seats. ? Wear a helmet that fits well for any activity that has a risk of head injury. Some examples include: o Contact sports like football, hockey, or skiing o Riding a horse, skateboard, bike, ATV, or motorcycle * [facility] - Jam Zamorano RN - 11/19/2024 6:26 PM EDT Images from the original note were not included. 31396 Head Trauma (Traumatic Brain Injury) Head trauma can be fatal. The effects caused by some types of head trauma may not appear right away. So, it?s important to get immediate medical attention and continued monitoring at home for any head injury. Don't move a person with a head injury unless it is necessary to save their life. Call 911 and waitfor help. Head trauma often comes with a severe neck injury. Sudden movements can result in paralysis. Call 911 Call 911 right away after a head blow that results in: ? Prolonged loss of consciousness (more than a few seconds) or prolonged drowsiness ? Memory problems or confusion ? Severe headache ? Nausea or vomiting ? Pupils dilated or different sizes ? Blurred or double vision ? Severe bleeding ? Blood or watery fluid leaking from the nose or ears ? A broken skull or a soft spot on the skull ? Slow breathing ? Loss of balance, vertigo, or loss of coordination ? Weakness of or trouble using an arm or leg ? Slurred speech ? Seizure ? Sensitivity to light or sound ? Hearing problems, such as ringing in the ears What to expect in the ER Here is what will happen: ? A neurological exam is done. This is a series of simple questions and tests that evaluate the nervous system. During this exam, the following are assessed: o Reflexes o Movement o Response to commands o Vision, hearing, and speech o Coordination and balance o Response to pain o Mental state ? The healthcare provider shines a bright light into the eyes to check how the pupils respond. Thiscan reveal more about any head injuries. ? A head CT scan may be done. This test combines X-rays and computer scans to create detailed images of the brain to detect bleeding, swelling, brain injury, and skull fractures. ? An MRI scan may be done on the head. This test detects minute bleeding (micro hemorrhage), bruising, swelling, and scarring that may not be visible on CT scanning. ? In some cases, a brain perfusion single photon emission computed tomography (SPECT) may be done. This measures cerebral blood flow and activity patterns to evaluate traumatic head injuries. Treatment for head trauma Many factors--including the size, severity, and location of the brain injury--affect how a TBI is treated and how quickly a person might recover. Here is what is generally done: ? Sometimes, severe head injuries cause bleeding on or in the brain that needs to be treated right away with surgery. In certain cases, the injured person will be watched closely and taken for surgery only if the injuries become worse. After surgery, special care is needed to prevent further brain damage. ? Minor head trauma may need little treatment beyond pain control and observation. The healthcare provider may suggest using cold packs to reduce swelling and pain. Once you are home After treatment for head trauma, know which symptoms to watch for. Then call for medical help. At home, call 911 right away if the affected person: ? Becomes very drowsy or confused ? Has a headache or trouble seeing ? Has a stiff neck or muscle weakness ? Vomits ? Has seizures ? Has bruising around the eyes or behind the ears ? Has any blood or clear fluid coming out of the ears or nose Other considerations For mild head trauma, the person may need to take a short time off from work or school, although usually no more than 2 to 3 days. Ask their healthcare provider for written instructions about when they can safely return to work, school, sports, or other activities, such as driving a car, riding a bike, or working with heavy machinery. Make an appointment for a follow-up visit with their healthcare provider to check their progress. Ask their healthcare provider about new or persistent symptoms and how to treat them. Pay attention to any new signs or symptoms even if they seem unrelated to the injury (for example, mood swings or unusual feelings of irritability) These symptoms may be related even if they occurredseveral weeks after the injury. Last Reviewed Date: 2023 00:00:00 ?? [id number] [employer] All rights reserved. This information is not intended as a substitute for professional medical care. Always follow your healthcare professional's instructions. * Teagan Kaur - Jam Zamorano RN - 11/19/2024 6:26 PM EDT Images from the original note were not included. [id number] Transverse process fracture You have fractured a transverse process. You have 2 transverse processes. They extend off each vertebra in the spine, 1 on each side. They are where some muscles and ligaments of the back attach to the spine. One of these muscles is the psoas muscle. This muscle controls the forward bending motion of the upper body and thighs. It attaches to the transverse processes of the lumbar vertebrae and the 12th thoracic vertebra. During a fall, car accident, or other forceful injury, the psoas muscle can contract strongly as the body tries to protect itself. The contraction can be strong enough to pull off a chip of bone fromthe transverse process. This fracture does not cause any injury to the spinal cord or nerves. But the force that led to this fracture can cause internal bleeding or other injuries that might not be clear at the time of yourfirst exam. Be sure to watch for the symptoms listed under When to seek medical advice. This injury will take 4 to 6 weeks to heal. It can be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 / Unknown Venipuncture / Unknown 11/19/2024 3:13 AM EDT 11/19/2024 3:27 AM EDT us Kandice Mares Tonya DIRECTOR SPECIAL EDUCATION, DNP LAB BLOOD ORDERABLES Fi nal Result [facility] [address] [place] [address] * XR Pelvis 1 or 2 Views (11/14/2024 9:09 AM EDT) Anatomical Region Laterality Modality Body, Pelvis Digital Radiogra phy Impressions 11/14/2024 9:41 AM EDT No radiodense foreign body is identified. There is residual enteric contrast within the rectum and large bowel. CRITICAL RESULT: No. COMMUNICATION: Per this written report. Drafted by Yara Escobar MD on 11/14/2024 9:37 AM Final report signed by Yara Escobar MD on 11/14/2024 9:41 AM Narrative 11/14/2024 9:41 AM EDT CLINICAL INDICATION: evaluate foreign object TECHNIQUE: XR PELVIS 1 OR 2 VIEWS COMPARISON: Radiographs from 11/13/2024 FINDINGS: No radiodense foreign body is identified. There is residual enteric contrast within the rectum and large bowel. No acute osseous finding. Pelvic enthesopathy. The pubic symphysis and SI joints are intact. Partially imaged spinal hardware. Procedure Note Yara Escobar MD - 11/14/2024 CLINICAL INDICATION: evaluate foreign object TECHNIQUE: XR PELVIS 1 OR 2 VIEWS COMPARISON: Radiographs from 11/13/2024 FINDINGS: No radiodense foreign body is identified. There is residual entericcontrast within the rectum and large bowel. No acute osseous finding.Pelvic enthesopathy. The pubic symphysis and SI joints are intact.Partially imaged spinal hardware. IMPRESSION: No radiodense foreign body is identified. There is residual entericcontrast within the rectum and large bowel. CRITICAL RESULT: No. COMMUNICATION: Per this written report. Drafted by Yara Escobar MD on 11/14/2024 9:37 AM Final report signed by Yara Escobar MD on 11/14/2024 9:41 AM us Fiona Angelo DIRECTOR SPECIAL EDUCATION IMG XR PROCEDURES Final Resul t * XR Hip Right 2 or 3 Views (11/13/2024 6:49 PM EDT) Anatomical Region Laterality Modality Lower Extremities, Hip Right Digital R adiography Impressions 11/14/2024 8:35 AM EDT No acute osseous finding. CRITICAL RESULT: No. COMMUNICATION: Per this written report. Drafted by Yara Escobar MD on 11/14/2024 8:33 AM Final report signed by Yara Escobar MD on 11/14/2024 8:35 AM Narrative 11/14/2024 8:35 AM EDT CLINICAL INDICATION: s/p fall pain TECHNIQUE: XR HIP RIGHT 2 OR 3 VIEWS COMPARISON: CT and radiographs from 11/01/2024 FINDINGS: No acute fracture or dislocation. No significant hip joint space narrowing. Greater trochanter enthesopathy. Procedure Note Yara Escobar MD - 11/14/2024 CLINICAL INDICATION: s/p fall pain TECHNIQUE: XR HIP RIGHT 2 OR 3 VIEWS COMPARISON: CT and radiographs from 11/01/2024 FINDINGS: No acute fracture or dislocation. No significant hip joint spacenarrowing. Greater trochanter enthesopathy. IMPRESSION: No acute osseous finding. CRITICAL RESULT: No. COMMUNICATION: Per this written report. Drafted by Yara Escobar MD on 11/14/2024 8:33 AM Final report signed by Yara Escobar MD on 11/14/2024 8:35 AM Fiona Angelo DIRECTOR SPECIAL EDUCATION IMG XR PROCEDURES Final Resul t * (ABNORMAL) Basic metabolic panel (11/13/2024 10:27 AM EDT) Glucose, Plasma 107(H) 74 - 99 mg/dL 11/13/2024 11:15 AM EDT [facility] BUN, Plasma 22(H) 7 - 21 mg/dL 11/13/2024 11:15 AM EDT [facility] Creatinine, Plasma <0.11(L) 0.70 - 1.20 mg/dL 11/13/2024 11:15 AM EDT [facility] BUN/Creatinine Ratio 11/13/2024 11:15 AM EDT [facility] Comment:Unable to calculate, at least one value is above or below the detection limit. Sodium, Plasma 136 136 - 145 mmol/L 11/13/2024 11:15 AM EDT [facility] Potassium, Plasma 4.2 3.6 - 4.9 mmol/L 11/13/2024 11:15 AM EDT [facility] Chloride, Plasma 100 97 - 107 mmol/L 11/13/2024 11:15 AM EDT [facility] CO2, Plasma 23 22 - 29 mmol/L 11/13/2024 11:15 AM EDT [facility] Anion Gap 13 6 - 16 mmol/L 11/13/2024 11:15 AM EDT [facility] Total Calcium, Plasma 9.4 8.9 - 10.2 mg/dL 11/13/2024 11:15 AM EDT [facility] eGFRcr 11/13/2024 11:15 AM EDT [facility] Comment:Unable to calculate, at least one value is above or below the detection limit. Blood Venous blood specimen / Unknown Venipuncture / Unknown 11/13/2024 10:27 AM EDT 11/13/2024 10:41 AM EDT us Fiona Angelo DIRECTOR SPECIAL EDUCATION LAB BLOOD ORDERABLES Final Re sult [facility] [address] [place] [address] * (ABNORMAL) CBC W/O Differential (11/13/2024 10:27 AM EDT) WBC Count 13.69(H) 3.70 - 10.30 10*3/uL LAB HEMATOLOGY METHOD 11/13/2024 11:09 AM EDT [facility] RBC Count 4.18(L) 4.60 - 6.10 10*6/uL LAB HEMATOLOGY METHOD 11/13/2024 11:09 AM EDT [facility] HGB 12.8(L) 13.7 - 17.5 g/dL LAB HEMATOLOGY METHOD 11/13/2024 11:09 AM EDT [facility] HCT 37.5(L) 40.0 - 51.0 % LAB HEMATOLOGY METHOD 11/13/2024 11:09 AM EDT [facility] Platelet Count 635(H) 155 - 369 10*3/uL LAB HEMATOLOGY METHOD 11/13/2024 11:09 AM EDT [facility] MCV 90 79 - 98 fL LAB HEMATOLOGY METHOD 11/13/2024 11:09 AM EDT [facility] MCH 30.6 26.0 - 32.0 pg LAB HEMATOLOGY METHOD 11/13/2024 11:09 AM EDT [facility] MCHC 34.1 30.7 - 35.5 g/dL LAB HEMATOLOGY METHOD 11/13/2024 11:09 AM EDT [facility] RDW 12.3 11.5 - 14.5 % LAB HEMATOLOGY METHOD 11/13/2024 11:09 AM EDT [facility] MPV 9.9 8.8 - 12.5 fL LAB HEMATOLOGY METHOD 11/13/2024 11:09 AM EDT [facility] nRBC 0.0 <=0.0 per 100 WBCs LAB HEMATOLOGY METHOD 11/13/2024 11:09 AM EDT [facility] Blood Venous blood specimen / Unknown Venipuncture / Unknown 11/13/2024 10:27 AM EDT 11/13/2024 10:59 AM EDT Fiona Angelo DIRECTOR SPECIAL EDUCATION LAB BLOOD ORDERABLES Final Re sult [facility] [address] [place] [address] * SARS CoV-2/COVID-19 by PCR - Rapid (11/12/2024 6:55 PM EDT) Pathologist [facility] SARS CoV-2/COVID-1 9 RNA PCR Result Not Detected Not Detected 11/12/2024 8:09 PM EDT [facility] Swab Nasopharyngeal structure / Unknown Non-blood Collection / Unknown 11/12/2024 6:55 PM EDT 11/12/2024 7:09 PM EDT Narrative [facility] - 11/12/2024 8:09 PM EDT This test is FDA approved for use with nasopharyngeal specimens in Viral Transport Media (VTM). This test is used for clinical purposes. It should not be regarded as investigational or for research. This laboratory is certified under the Clinical Laboratory improvement Amendments of 1988 (CLIA-88 as qualified to perform high complexity clinical laboratory testing. This test was performed on the Xpert Xpress SARS CoV-2 Plus assay test, a PCR- based method. Negative results should be considered presumptive and do not preclude current or future infection obtained through community transmission or other exposures. Negative results must be considered in the context of an individual's recent exposures, history, presence of clinical signs and symptoms consistent with COVID-19. Fiona Angelo APRN LAB MICROBIOLOGY - GENERAL OR DERABLES Final Result [facility] [address] [place] [address] * Nasopharyngeal Respiratory Panel (11/12/2024 6:55 PM EDT) Nasopharyngeal Respiratory PCR Interpretation Not Detected for all analytes Not Detected for all analytes 11/12/2024 9:22 PM EDT [facility] Swab Nasopharyngeal structure / Unknown Non-blood Collection / Unknown 11/12/2024 6:55 PM EDT 11/12/2024 7:09 PM EDT Narrative [facility] - 11/12/2024 9:22 PM EDT This assay can detect Adenovirus, Coronavirus, Human Metapneumovirus, Human Rhino/Enterovirus, Influenza A, Influenza A H1, Influenza A H1 2009, Influenza A H3, Influenza B, Parainfluenza Virus 1, Parainfluenza Virus 2, Parainfluenza Virus 3, Parainfluenza Virus 4, Respiratory Syncytial Virus A, Respiratory Syncytial Virus B, Chlamydia pneumoniae, and Mycoplasma pneumoniae. Note: This assay does NOT detect SARS/CoV, novel Coronavirus 2019-nCoV, Bordetella pertussis or Bordetella parapertussis. Nasopharyngeal Respiratory PCR Panel is performed using the Hivelocitylex instrument. This test is FDA approved for use with Nasopharyngeal swabs only. This test is used for clinical purposes. It should not be regarded as investigational or for research. The [facility] is certified under the Clinical Laboratory Improvement Amendments of 1988 (CLIA-88) as qualified to perform high complexity clinical laboratory testing. Fiona Angelo APRN LAB MICROBIOLOGY - GENERAL OR DERABLES Final Result Performing Organization Address City/[facility]/ZIP Co de Phone Number [facility] [address] [place] [address] * Multi Drug Resistance Test (11/12/2024 6:55 PM EDT) Culture No growth at day 1 11/13/2024 7:55 PM EDT [facility] Swab (Nares and Devika Rectal) Non-blood Collection / Unknown 11/12/2024 6:55 PM EDT 11/12/2024 7:07 PM EDT Narrative [facility] - 11/13/2024 7:55 PM EDT This test was developed and its performance characteristics determined by the [facility]. Although the media is FDA-approved, it is not FDA-approved for all specimen types submitted. The FDA has determined that such clearance or approval is not necessary. This test is used for surveillance purposes. It should not be regarded as investigational or for research. The [facility] is certified under the Clinical Laboratory Improvement Amendments of 1988 (CLIA-88) as qualified to perform high complexity clinical laboratory testing. Girish Taylor MD LAB MICROBIOLOGY - GENERAL O RDERABLES Final Result Performing Organization Address [facility] Co de Phone Number [facility] [address] [place] [address] * Blood Culture (Aerobic/Anaerobet Set) (11/12/2024 6:25 PM EDT) Culture No growth at day 5 MARY 11/17/2024 7:02 PM EDT [facility] Blood Structure of left forearm / Unknown Venipuncture / Unknown 11/12/2024 6:25 PM EDT 11/12/2024 6:25 PM EDT Fiona Angelo APRN LAB MICROBIOLOGY - GENERAL OR DERABLES Final Result Performing Organization Address City/[facility]/ZIP Co de Phone Number [facility] [address] [place] [address] * Blood Culture (Aerobic/Anaerobet Set) (11/12/2024 6:24 PM EDT) Culture No growth at day 5 MARY 11/17/2024 7:02 PM EDT [facility] Blood Structure of right forearm / Unknown Venipuncture / Unknown 11/12/2024 6:24 PM EDT 11/12/2024 6:24 PM EDT us Fiona Angelo APRN LAB MICROBIOLOGY - GENERAL OR DERABLES Final Result [facility] [address] [place] [address] * (ABNORMAL) Urinalysis with reflex microscopic (Culture NOT Included) (11/12/2024 4:58 PM EDT) Color, Urine Dark Yellow LAB URINALYSIS - AUTOMATED METHOD 11/12/2024 5:11 PM EDT [facility] Clarity, Urine Clear LAB URINALYSIS - AUTOMATED METHOD 11/12/2024 5:11 PM EDT [facility] Spec [place], Urine >1.030(H) 1.005 - 1.030 LAB URINALYSIS - AUTOMATED METHOD 11/12/2024 5:11 PM EDT [facility] pH, Urine 5.5 5.0 - 8.0 LAB URINALYSIS - AUTOMATED METHOD 11/12/2024 5:11 PM EDT [facility] Protein, Urine Trace(A) Negative mg/dL LAB URINALYSIS - AUTOMATED METHOD 11/12/2024 5:11 PM EDT [facility] Glucose, Urine Negative Negative mg/dL LAB URINALYSIS - AUTOMATED METHOD 11/12/2024 5:11 PM EDT [facility] Ketones, Urine Trace(A) Negative mg/dL LAB URINALYSIS - AUTOMATED METHOD 11/12/2024 5:11 PM EDT [facility] Blood, Urine Negative Negative LAB URINALYSIS - AUTOMATED METHOD 11/12/2024 5:11 PM EDT [facility] Bilirubin, Urine Negative Negative LAB URINALYSIS - AUTOMATED METHOD 11/12/2024 5:11 PM EDT [facility] Urobilinogen, Urine 1.0 0.2 to 1.0 mg/dL LAB URINALYSIS - AUTOMATED METHOD 11/12/2024 5:11 PM EDT [facility] Leukocytes, Urine Negative Negative LAB URINALYSIS - AUTOMATED METHOD 11/12/2024 5:11 PM EDT [facility] Nitrite, Urine Negative Negative LAB URINALYSIS - AUTOMATED METHOD 11/12/2024 5:11 PM EDT [facility] Urine Urine specimen from urinary conduit / Unknown Non-blood Collection / Unknown 11/12/2024 4:58 PM EDT 11/12/2024 5:04 PM EDT us Fiona Angelo APRN LAB URINE ORDERABLES Final Re sult [facility] [address] [place] [address] * XR Chest 1 View (11/12/2024 3:23 PM EDT) Anatomical Region Laterality Modality Chest Digital Radiogra phy Impressions 11/12/2024 3:25 PM EDT No new focal consolidation. CRITICAL RESULT: No COMMUNICATION: Per this written report. Drafted by Arun Jacobsen MD on 11/12/2024 3:23 PM Final report signed by Arun Jacobsen MD on 11/12/2024 3:25 PM Narrative 11/12/2024 3:25 PM EDT CLINICAL INDICATION: infectious workup TECHNIQUE: XR CHEST 1 VIEW COMPARISON: 11/09/2024 FINDINGS: The cardiomediastinal silhouette is stable. No new focal consolidation or pleural effusion. No pneumothorax. Partially imaged fusion instrumentation in the lumbar spine. Procedure Note Arun Jacobsen MD - 11/12/2024 CLINICAL INDICATION: infectious workup TECHNIQUE: XR CHEST 1 VIEW COMPARISON: 11/09/2024 FINDINGS: The cardiomediastinal silhouette is stable. No new focal consolidation orpleural effusion. No pneumothorax. Partially imaged fusion instrumentationin the lumbar spine. IMPRESSION: No new focal consolidation. CRITICAL RESULT: No COMMUNICATION: Per this written report. Drafted by Arun Jacobsen MD on 11/12/2024 3:23 PM Final report signed by Arun Jacobsen MD on 11/12/2024 3:25 PM us Fiona Angelo DIRECTOR SPECIAL EDUCATION IMG XR PROCEDURES Final Resul t * CT Head wo IV Contrast (11/12/2024 11:47 AM EDT) Anatomical Region Laterality Modality Head Computed Tomogra phy Impressions 11/12/2024 12:28 PM EDT No acute intracranial abnormality. CRITICAL RESULT: No. COMMUNICATION: Per this written report. Drafted by Azucena Darnell MD on 11/12/2024 12:22 PM Final report signed by Azucena Darnell MD on 11/12/2024 12:28 PM Narrative 11/12/2024 12:28 PM EDT CLINICAL INDICATION: Mental status change, unknown cause TECHNIQUE: Spiral axial CT images of the head were obtained without contrast administration. Total DLP (Dose-Length Product): 810.63 mGy.cm. Please note: The reported value represents the total of one or more individual components during the CT acquisition on this date and at this time, and as such, the same value may appear in more than one CT report depending on the interpreting/reporting physicians. COMPARISON: CT of the head dated November 04, 2024. FINDINGS: Diagnostic Quality: Adequate. There is age-appropriate volume loss with prominence of the ventricles and sulci. There is persistent cavum septum pellucidum. There is no acute large cortical infarct, intracranial hemorrhage or large mass on this noncontrast study. Soft Tissues: There is a left anterior paramedian forehead scalp contusion with small hematoma. Skull: There are no calvarial destructive lesions or fractures. Sinuses and Mastoids: There is mild mucosal thickening and mucous retention cyst in left maxillary sinus. Patient is missing multiple teeth. The visualized portions of the paranasal sinuses are clear. The mastoid air cells are clear. Procedure Note Azucena Darnell MD - 11/12/2024 CLINICAL INDICATION: Mental status change, unknown cause TECHNIQUE: Spiral axial CT images of the head were obtained without contrastadministration. Total DLP (Dose-Length Product): 810.63 mGy.cm. Please note: The reportedvalue represents the total of one or more individual components during theCT acquisition on this date and at this time, and as such, the same valuemay appear in more than one CT report depending on theinterpreting/reporting physicians. COMPARISON: CT of the head dated November 04, 2024. FINDINGS: Diagnostic Quality: Adequate. There is age-appropriate volume loss with prominence of the ventricles andsulci. There is persistent cavum septum pellucidum. There is no acute large cortical infarct, intracranial hemorrhage or largemass on this noncontrast study. Soft Tissues: There is a left anterior paramedian forehead scalp contusionwith small hematoma. Skull: There are no calvarial destructive lesions or fractures. Sinuses and Mastoids: There is mild mucosal thickening and mucousretention cyst in left maxillary sinus. Patient is missing multiple teeth.The visualized portions of the paranasal sinuses are clear. The mastoidair cells are clear. IMPRESSION: No acute intracranial abnormality. CRITICAL RESULT: No. COMMUNICATION: Per this written report. Drafted by Azucena Darnell MD on 11/12/2024 12:22 PM Final report signed by Azucena Darnell MD on 11/12/2024 12:28 PM us Fiona Angelo DIRECTOR SPECIAL EDUCATION IMG CT PROCEDURES Final Resul t * XR Thoracolumbar Spine 2 Views (11/12/2024 11:35 AM EDT) Anatomical Region Laterality Modality Spine, T-spine, L-spine Computed Radiography Impressions 11/12/2024 11:44 AM EDT No evidence of hardware complication. No visualized new acute fracture. CRITICAL RESULT: No. COMMUNICATION: Per this written report. Drafted by Yara Escobar MD on 11/12/2024 11:37 AM Final report signed by Yara Escobar MD on 11/12/2024 11:44 AM Narrative 11/12/2024 11:44 AM EDT CLINICAL INDICATION: s/p fall TECHNIQUE: XR THORACOLUMBAR SPINE 2 VIEWS COMPARISON: Radiographs from 11/08/2024, CT from 11/01/2024 FINDINGS: Posterior fusion spanning T11-L3. No evidence of hardware loosening or failure. Similar appearance of the L1 vertebral body without further interval height loss. Similar superior endplate deformity of L2. Partial obscuration of the spine on the AP view due to contrast in the bowel. No visualized new acute fracture. Procedure Note Yara Escobar MD - 11/12/2024 CLINICAL INDICATION: s/p fall TECHNIQUE: XR THORACOLUMBAR SPINE 2 VIEWS COMPARISON: Radiographs from 11/08/2024, CT from 11/01/2024 FINDINGS: Posterior fusion spanning T11-L3. No evidence of hardware loosening orfailure. Similar appearance of the L1 vertebral body without furtherinterval height loss. Similar superior endplate deformity of L2. Partialobscuration of the spine on the AP view due to contrast in the bowel. Novisualized new acute fracture. IMPRESSION: No evidence of hardware complication. No visualized new acute fracture. CRITICAL RESULT: No. COMMUNICATION: Per this written report. Drafted by Yara Escobar MD on 11/12/2024 11:37 AM Final report signed by Yara Escobar MD on 11/12/2024 11:44 AM Fiona Angelo APRN IMG XR PROCEDURES Final Resul t * Phosphorus, Plasma (11/12/2024 9:32 AM EDT) Phosphorus, Plasma 3.4 2.5 - 4.5 mg/dL 11/12/2024 10:10 AM EDT [facility] Blood Venous blood specimen / Unknown Venipuncture / Unknown 11/12/2024 9:32 AM EDT 11/12/2024 9:40 AM EDT Fiona Angelo APRN LAB BLOOD ORDERABLES Final Re sult [facility] [address] [place] [address] * Magnesium, Plasma (11/12/2024 9:32 AM EDT) Magnesium, Plasma 2.2 1.9 - 2.4 mg/dL 11/12/2024 10:10 AM EDT [facility] Blood Venous blood specimen / Unknown Venipuncture / Unknown 11/12/2024 9:32 AM EDT 11/12/2024 9:40 AM EDT us Fiona Angelo APRN LAB BLOOD ORDERABLES Final Re sult [facility] [address] [place] [address] * (ABNORMAL) Basic metabolic panel (11/12/2024 9:32 AM EDT) Glucose, Plasma 115(H) 74 - 99 mg/dL 11/12/2024 10:10 AM EDT [facility] BUN, Plasma 26(H) 7 - 21 mg/dL 11/12/2024 10:10 AM EDT [facility] Creatinine, Plasma 0.61(L) 0.70 - 1.20 mg/dL 11/12/2024 10:10 AM EDT [facility] BUN/Creatinine Ratio 43 11/12/2024 10:10 AM EDT [facility] Sodium, Plasma 136 136 - 145 mmol/L 11/12/2024 10:10 AM EDT [facility] Potassium, Plasma 4.1 3.6 - 4.9 mmol/L 11/12/2024 10:10 AM EDT [facility] Chloride, Plasma 104 97 - 107 mmol/L 11/12/2024 10:10 AM EDT [facility] CO2, Plasma 20(L) 22 - 29 mmol/L 11/12/2024 10:10 AM EDT [facility] Anion Gap 12 6 - 16 mmol/L 11/12/2024 10:10 AM EDT [facility] Total Calcium, Plasma 9.9 8.9 - 10.2 mg/dL 11/12/2024 10:10 AM EDT [facility] eGFRcr 115.6 mL/min/1.7 3m*2 11/12/2024 10:10 AM EDT [facility] Comment:Reported eGFRcr in m L/min/1.73m2 is based the CKD-EPI 2020 equation that does not use a race coefficient. Blood Venous blood specimen / Unknown Venipuncture / Unknown 11/12/2024 9:32 AM EDT 11/12/2024 9:40 AM EDT us Fiona Angelo DIRECTOR SPECIAL EDUCATION LAB BLOOD ORDERABLES Final Re sult [facility] [address] [place] [address] * (ABNORMAL) CBC W/O Differential (11/12/2024 9:32 AM EDT) WBC Count 18.75(H) 3.70 - 10.30 10*3/uL LAB HEMATOLOGY METHOD 11/12/2024 9:52 AM EDT [facility] RBC Count 4.52(L) 4.60 - 6.10 10*6/uL LAB HEMATOLOGY METHOD 11/12/2024 9:52 AM EDT [facility] HGB 13.7 13.7 - 17.5 g/dL LAB HEMATOLOGY METHOD 11/12/2024 9:52 AM EDT [facility] HCT 40.3 40.0 - 51.0 % LAB HEMATOLOGY METHOD 11/12/2024 9:52 AM EDT [facility] Platelet Count 399(H) 155 - 369 10*3/uL LAB HEMATOLOGY METHOD 11/12/2024 9:52 AM EDT [facility] MCV 89 79 - 98 fL LAB HEMATOLOGY METHOD 11/12/2024 9:52 AM EDT [facility] MCH 30.3 26.0 - 32.0 pg LAB HEMATOLOGY METHOD 11/12/2024 9:52 AM EDT [facility] MCHC 34.0 30.7 - 35.5 g/dL LAB HEMATOLOGY METHOD 11/12/2024 9:52 AM EDT [facility] RDW 12.3 11.5 - 14.5 % LAB HEMATOLOGY METHOD 11/12/2024 9:52 AM EDT [facility] MPV 10.8 8.8 - 12.5 fL LAB HEMATOLOGY METHOD 11/12/2024 9:52 AM EDT [facility] nRBC 0.0 <=0.0 per 100 WBCs LAB HEMATOLOGY METHOD 11/12/2024 9:52 AM EDT [facility] Blood Venous blood specimen / Unknown Venipuncture / Unknown 11/12/2024 9:32 AM EDT 11/12/2024 9:42 AM EDT us Fiona Angelo DIRECTOR SPECIAL EDUCATION LAB BLOOD ORDERABLES Final Re sult [facility] [address] [place] [address] * [place] Modified Barium Swallow (11/10/2024 10:58 AM EDT) Anatomical Region Laterality Modality Esophagus, stomach and duodenum Digital Radiography Impressions 11/10/2024 11:51 AM EDT Silent aspiration of thin barium consistency. Please see separate note by Speech therapy team for dietary recommendations. CRITICAL RESULT: No. COMMUNICATION: Per this written report. By electronically signing this report, I, the attending physician, attest that I have personally reviewed the images/data for the above examination(s) and agree with the final edited report. Drafted by SANDEEP Antonio RT (R) on 11/10/2024 11:37 AM Final report signed by Brandyn Bess MD on 11/10/2024 11:51 AM Narrative 11/10/2024 11:51 AM EDT CLINICAL INDICATION: Dysphagia TECHNIQUE: Modified barium swallow was performed utilizing video fluoroscopy in conjunction with the Speech Pathology team. The patient ingested barium media of varying consistencies. Fluoroscopy Time: 2.0 minutes. COMPARISON: None. FINDINGS: Swallowing: Thin consistency (IDDSI 0): There is silent aspiration by the teaspoon. [place] consistency (IDDSI 2): No aspiration or laryngeal penetration by the teaspoon or the cup. Pudding consistency (IDDSI 4): No aspiration or laryngeal penetration. There is pharyngeal residue. Soft cracker consistency (IDDSI 6): No aspiration or laryngeal penetration. Other: Anterior cervical osteophytes. Leakage of contrast into the floor of the mouth. Procedure Note Brandyn Bess MD - 11/10/2024 CLINICAL INDICATION: Dysphagia TECHNIQUE: Modified barium swallow was performed utilizing video fluoroscopy inconjunction with the Speech Pathology team. The patient ingested bariummedia of varying consistencies. Fluoroscopy Time: 2.0 minutes. COMPARISON: None. FINDINGS: Swallowing: Thin consistency (IDDSI 0): There is silent aspiration by the teaspoon. [place] consistency (IDDSI 2): No aspiration or laryngeal penetration bythe teaspoon or the cup. Pudding consistency (IDDSI 4): No aspiration or laryngeal penetration.There is pharyngeal residue. Soft cracker consistency (IDDSI 6): No aspiration or laryngealpenetration. Other: Anterior cervical osteophytes. Leakage of contrast into the floorof the mouth. IMPRESSION: Silent aspiration of thin barium consistency. Please see separate note by Speech therapy team for dietaryrecommendations. CRITICAL RESULT: No. COMMUNICATION: Per this written report. By electronically signing this report, I, the attending physician, attjaquelinethat I have personally reviewed the images/data for the aboveexamination(s) and agree with the final edited report. Drafted by SANDEEP Antonio RT (R) on 11/10/2024 11:37 AM Final report signed by Brandyn Bess MD on 11/10/2024 11:51 AM Kianna Keen DIRECTOR SPECIAL EDUCATION IMG FLUOROSCOPY PROCEDURE S Final Result * XR Chest 1 View (11/09/2024 5:58 AM EDT) Anatomical Region Laterality Modality Chest Digital Radiogra phy Impressions 11/09/2024 9:04 AM EDT Perihilar and basal opacities are worrisome for infection or aspiration. CRITICAL RESULT: No. COMMUNICATION: Per this written report Drafted by Fareed Edwards MD on 11/09/2024 9:03 AM Final report signed by Fareed Edwards MD on 11/09/2024 9:04 AM Narrative 11/09/2024 9:04 AM EDT CLINICAL INDICATION: eval lung wiggins TECHNIQUE: XR CHEST 1 VIEW COMPARISON: November 02, 2024 FINDINGS: Endotracheal tube and NG tube have been removed. Perihilar and basal opacities are increased. No pneumothorax. No pleural effusion. Procedure Note Fareed Edwards MD - 11/09/2024 CLINICAL INDICATION: eval lung wiggins TECHNIQUE: XR CHEST 1 VIEW COMPARISON: November 02, 2024 FINDINGS: Endotracheal tube and NG tube have been removed. Perihilar and basalopacities are increased. No pneumothorax. No pleural effusion. IMPRESSION: Perihilar and basal opacities are worrisome for infection or aspiration. CRITICAL RESULT: No. COMMUNICATION: Per this written report Drafted by Fareed Edwards MD on 11/09/2024 9:03 AM Final report signed by Fareed Edwards MD on 11/09/2024 9:04 AM Naldo MONSON IMG XR PROCEDURES Final Result * Phosphorus, Plasma (11/09/2024 12:34 AM EDT) Phosphorus, Plasma 4.2 2.5 - 4.5 mg/dL 11/09/2024 1:13 AM EDT [facility] Blood Venous blood specimen / Unknown Venipuncture / Unknown 11/09/2024 12:34 AM EDT 11/09/2024 12:42 AM EDT Naldo MONSON LAB [place] [address] * Magnesium, Plasma (11/09/2024 12:34 AM EDT) Magnesium, Plasma 2.1 1.9 - 2.4 mg/dL 11/09/2024 1:13 AM EDT [facility] Blood Venous blood specimen / Unknown Venipuncture / Unknown 11/09/2024 12:34 AM EDT 11/09/2024 12:42 AM EDT Naldo MONSON LAB BLOOD ORDERABLES Final Res ult [facility] [address] [place] [address] * (ABNORMAL) CBC W/O Differential (11/09/2024 12:34 AM EDT) WBC Count 14.00(H) 3.70 - 10.30 10*3/uL LAB HEMATOLOGY METHOD 11/09/2024 12:57 AM EDT [facility] RBC Count 3.88(L) 4.60 - 6.10 10*6/uL LAB HEMATOLOGY METHOD 11/09/2024 12:57 AM EDT [facility] HGB 11.9(L) 13.7 - 17.5 g/dL LAB HEMATOLOGY METHOD 11/09/2024 12:57 AM EDT [facility] HCT 34.4(L) 40.0 - 51.0 % LAB HEMATOLOGY METHOD 11/09/2024 12:57 AM EDT [facility] Platelet Count 437(H) 155 - 369 10*3/uL LAB HEMATOLOGY METHOD 11/09/2024 12:57 AM EDT [facility] MCV 89 79 - 98 fL LAB HEMATOLOGY METHOD 11/09/2024 12:57 AM EDT [facility] MCH 30.7 26.0 - 32.0 pg LAB HEMATOLOGY METHOD 11/09/2024 12:57 AM EDT [facility] MCHC 34.6 30.7 - 35.5 g/dL LAB HEMATOLOGY METHOD 11/09/2024 12:57 AM EDT [facility] RDW 12.1 11.5 - 14.5 % LAB HEMATOLOGY METHOD 11/09/2024 12:57 AM EDT [facility] MPV 9.8 8.8 - 12.5 fL LAB HEMATOLOGY METHOD 11/09/2024 12:57 AM EDT [facility] nRBC 0.0 <=0.0 per 100 WBCs LAB HEMATOLOGY METHOD 11/09/2024 12:57 AM EDT [facility] Blood Venous blood specimen / Unknown Venipuncture / Unknown 11/09/2024 12:34 AM EDT 11/09/2024 12:42 AM EDT us Naldo MONSON LAB BLOOD ORDERABLES Final Res ult [facility] [address] [place] [address] * (ABNORMAL) Basic Metabolic Panel, Plasma (11/09/2024 12:34 AM EDT) Glucose, Plasma 103(H) 74 - 99 mg/dL 11/09/2024 1:13 AM EDT [facility] BUN, Plasma 14 7 - 21 mg/dL 11/09/2024 1:13 AM EDT [facility] Creatinine, Plasma 0.62(L) 0.70 - 1.20 mg/dL 11/09/2024 1:13 AM EDT [facility] BUN/Creatinine Ratio 23 11/09/2024 1:13 AM EDT [facility] Sodium, Plasma 139 136 - 145 mmol/L 11/09/2024 1:13 AM EDT [facility] Potassium, Plasma 4.0 3.6 - 4.9 mmol/L 11/09/2024 1:13 AM EDT [facility] Chloride, Plasma 104 97 - 107 mmol/L 11/09/2024 1:13 AM EDT [facility] CO2, Plasma 18(L) 22 - 29 mmol/L 11/09/2024 1:13 AM EDT [facility] Anion Gap 17(H) 6 - 16 mmol/L 11/09/2024 1:13 AM EDT [facility] Total Calcium, Plasma 9.0 8.9 - 10.2 mg/dL 11/09/2024 1:13 AM EDT [facility] eGFRcr 115.0 mL/min/1.7 3m*2 11/09/2024 1:13 AM EDT [facility] Comment:Reported eGFRcr in m L/min/1.73m2 is based the CKD-EPI 2020 equation that does not use a race coefficient. Blood Venous blood specimen / Unknown Venipuncture / Unknown 11/09/2024 12:34 AM EDT 11/09/2024 12:42 AM EDT us Naldo MONSON LAB BLOOD ORDERABLES Final Res ult [facility] [address] [place] [address] * XR Thoracolumbar Spine 2 Views (11/08/2024 12:09 PM EDT) Anatomical Region Laterality Modality Spine, T-spine, L-spine Computed Radiography Impressions 11/08/2024 12:39 PM EDT Expected post surgical changes from T11 through L3 posterior fusion. CRITICAL RESULT: No. COMMUNICATION: Per this written report. Drafted by Shahid Angel MD on 11/08/2024 12:37 PM Final report signed by Shahid Angel MD on 11/08/2024 12:39 PM Narrative 11/08/2024 12:39 PM EDT CLINICAL INDICATION: Eval ap and lateral, please include entire construct, T11-L3 TECHNIQUE: XR THORACOLUMBAR SPINE 2 VIEWS COMPARISON: MRI 01 Nov 2024 FINDINGS: Overlying soft tissue, stool, bowel gas obscures bone detail. Postsurgical changes from T11 through L3 posterior fusion. L1 vertebral body deformity is redemonstrated. Similar alignment. Multilevel degenerative changes are redemonstrated. Procedure Note Shahid Angel MD - 11/08/2024 CLINICAL INDICATION: Eval ap and lateral, please include entire construct, T11-L3 TECHNIQUE: XR THORACOLUMBAR SPINE 2 VIEWS COMPARISON: MRI 01 Nov 2024 FINDINGS: Overlying soft tissue, stool, bowel gas obscures bone detail. Postsurgicalchanges from T11 through L3 posterior fusion. L1 vertebral body deformityis redemonstrated. Similar alignment. Multilevel degenerative changes areredemonstrated. IMPRESSION: Expected post surgical changes from T11 through L3 posterior fusion. CRITICAL RESULT: No. COMMUNICATION: Per this written report. Drafted by Shahid Angel MD on 11/08/2024 12:37 PM Final report signed by Shahid Angel MD on 11/08/2024 12:39 PM us Girish Taylor MD IMG XR PROCEDURES Final Resu lt * XR Elbow Left 3+ Views (11/08/2024 10:23 AM EDT) Anatomical Region Laterality Modality Upper Extremities, Elbow Left Digital Radiography Impressions 11/08/2024 11:05 AM EDT No acute bony findings. CRITICAL RESULT: No. COMMUNICATION: Per this written report. Drafted by Shahid Angel MD on 11/08/2024 11:04 AM Final report signed by Shahid Angel MD on 11/08/2024 11:05 AM Narrative 11/08/2024 11:05 AM EDT CLINICAL INDICATION: Left elbow fx eval TECHNIQUE: XR ELBOW LEFT 3+ VIEWS COMPARISON: None. FINDINGS: IV is seen in the anterior and lateral elbow. Radial head and neck are intact. No fracture or dislocation. No joint effusion. Procedure Note Shahid Angel MD - 11/08/2024 CLINICAL INDICATION: Left elbow fx eval TECHNIQUE: XR ELBOW LEFT 3+ VIEWS COMPARISON: None. FINDINGS: IV is seen in the anterior and lateral elbow. Radial head and neck areintact. No fracture or dislocation. No joint effusion. IMPRESSION: No acute bony findings. CRITICAL RESULT: No. COMMUNICATION: Per this written report. Drafted by Shahid Angel MD on 11/08/2024 11:04 AM Final report signed by Shahid Angel MD on 11/08/2024 11:05 AM Hiram Coreas MD IMG XR PROCEDURES Final Result * Phosphorus, Plasma (11/07/2024 3:41 AM EDT) Phosphorus, Plasma 3.2 2.5 - 4.5 mg/dL 11/07/2024 4:19 AM EDT [facility] Blood Venous blood specimen / Unknown Venipuncture / Unknown 11/07/2024 3:41 AM EDT 11/07/2024 3:48 AM EDT Yeni MONSON LAB BLOOD ORDERABLES Final Resu lt [facility] [address] [place] [address] * Magnesium, Plasma (11/07/2024 3:41 AM EDT) Magnesium, Plasma 2.3 1.9 - 2.4 mg/dL 11/07/2024 4:19 AM EDT [facility] Blood Venous blood specimen / Unknown Venipuncture / Unknown 11/07/2024 3:41 AM EDT 11/07/2024 3:48 AM EDT us Yeni MONSON LAB BLOOD ORDERABLES Final Resu lt [facility] [address] [place] [address] * (ABNORMAL) Basic Metabolic Panel, Plasma (11/07/2024 3:41 AM EDT) Glucose, Plasma 115(H) 74 - 99 mg/dL 11/07/2024 4:19 AM EDT [facility] BUN, Plasma 18 7 - 21 mg/dL 11/07/2024 4:19 AM EDT [facility] Creatinine, Plasma 0.59(L) 0.70 - 1.20 mg/dL 11/07/2024 4:19 AM EDT [facility] BUN/Creatinine Ratio 31 11/07/2024 4:19 AM EDT [facility] Sodium, Plasma 139 136 - 145 mmol/L 11/07/2024 4:19 AM EDT [facility] Potassium, Plasma 4.3 3.6 - 4.9 mmol/L 11/07/2024 4:19 AM EDT [facility] Chloride, Plasma 106 97 - 107 mmol/L 11/07/2024 4:19 AM EDT [facility] CO2, Plasma 22 22 - 29 mmol/L 11/07/2024 4:19 AM EDT [facility] Anion Gap 11 6 - 16 mmol/L 11/07/2024 4:19 AM EDT [facility] Total Calcium, Plasma 8.5(L) 8.9 - 10.2 mg/dL 11/07/2024 4:19 AM EDT [facility] eGFRcr 116.7 mL/min/1.7 3m*2 11/07/2024 4:19 AM EDT [facility] Comment:Reported eGFRcr in m L/min/1.73m2 is based the CKD-EPI 2020 equation that does not use a race coefficient. Blood Venous blood specimen / Unknown Venipuncture / Unknown 11/07/2024 3:41 AM EDT 11/07/2024 3:48 AM EDT us Yeni MONSON LAB BLOOD ORDERABLES Final Resu lt [facility] [address] [place] [address] * (ABNORMAL) CBC W/O Differential (11/07/2024 3:41 AM EDT) WBC Count 11.06(H) 3.70 - 10.30 10*3/uL LAB HEMATOLOGY METHOD 11/07/2024 4:00 AM EDT [facility] RBC Count 3.06(L) 4.60 - 6.10 10*6/uL LAB HEMATOLOGY METHOD 11/07/2024 4:00 AM EDT [facility] HGB 9.4(L) 13.7 - 17.5 g/dL LAB HEMATOLOGY METHOD 11/07/2024 4:00 AM EDT [facility] HCT 27.3(L) 40.0 - 51.0 % LAB HEMATOLOGY METHOD 11/07/2024 4:00 AM EDT [facility] Platelet Count 276 155 - 369 10*3/uL LAB HEMATOLOGY METHOD 11/07/2024 4:00 AM EDT [facility] MCV 89 79 - 98 fL LAB HEMATOLOGY METHOD 11/07/2024 4:00 AM EDT [facility] MCH 30.7 26.0 - 32.0 pg LAB HEMATOLOGY METHOD 11/07/2024 4:00 AM EDT [facility] MCHC 34.4 30.7 - 35.5 g/dL LAB HEMATOLOGY METHOD 11/07/2024 4:00 AM EDT [facility] RDW 12.0 11.5 - 14.5 % LAB HEMATOLOGY METHOD 11/07/2024 4:00 AM EDT [facility] MPV 10.0 8.8 - 12.5 fL LAB HEMATOLOGY METHOD 11/07/2024 4:00 AM EDT [facility] nRBC 0.0 <=0.0 per 100 WBCs LAB HEMATOLOGY METHOD 11/07/2024 4:00 AM EDT [facility] Blood Venous blood specimen / Unknown Venipuncture / Unknown 11/07/2024 3:41 AM EDT 11/07/2024 3:50 AM EDT us Yeni Baptiste PA LAB BLOOD ORDERABLES Final Resu lt [facility] [address] [place] [address] * HI CRITICAL CARE, E/M 30-74 MINUTES (11/06/2024 3:05 PM EDT) Narrative Girish Taylor MD - 11/06/2024 3:05 PM EDT Girish Taylor MD 11/10/2024 9:57 AM Critical Care Performed by: Girish Taylor MD Authorized by: Girish Taylor MD Critical care provider statement: Critical care time (minutes): 32 Critical care time was exclusive of: Separately billable procedures and treating other patients and teaching time Critical care was time spent personally by me on the following activities: Evaluation of patient's response to treatment, examination of patient, ventilator management, ordering and review of radiographic studies, ordering and review of laboratory studies, ordering and performing treatments and interventions and development of treatment plan with patient or surrogate I assumed subsequent critical care for this patient from a provider in my division, on the same day: no Comments: I attest to being involved in more than half the total time for 32 minutes in patient care. Girish Taylor MD us Girish Taylor MD IN CLINIC/BEDSIDE ORDERABLES Final Result * Vancomycin, Peak, Plasma (11/06/2024 6:32 AM EDT) Pathologist [facility] Vancomycin, Peak, Plasma 23.8 20.0 - 40.0 ug/mL 11/06/2024 7:07 AM EDT [facility] Blood Venous blood specimen / Unknown Venipuncture / Unknown 11/06/2024 6:32 AM EDT 11/06/2024 6:37 AM EDT Narrative [facility] - 11/06/2024 7:07 AM EDT Therapeutic Peak level: 20-40ug/mL Supra-therapeutic Peak level: >40 ug/mL us Stacey M Marisela DIRECTOR SPECIAL EDUCATION, DNP LAB BLOOD ORDERABLES F inal Result [facility] [address] [place] [address] * (ABNORMAL) CBC and Differential (11/06/2024 1:14 AM EDT) [facility] Signature WBC Count 9.94 3.70 - 10.30 10*3/uL LAB HEMATOLOGY METHOD 11/06/2024 1:41 AM EDT [facility] RBC Count 3.06(L) 4.60 - 6.10 10*6/uL LAB HEMATOLOGY METHOD 11/06/2024 1:41 AM EDT [facility] HGB 9.4(L) 13.7 - 17.5 g/dL LAB HEMATOLOGY METHOD 11/06/2024 1:41 AM EDT [facility] HCT 27.1(L) 40.0 - 51.0 % LAB HEMATOLOGY METHOD 11/06/2024 1:41 AM EDT [facility] Platelet Count 218 155 - 369 10*3/uL LAB HEMATOLOGY METHOD 11/06/2024 1:41 AM EDT [facility] MCV 89 79 - 98 fL LAB HEMATOLOGY METHOD 11/06/2024 1:41 AM EDT [facility] MCH 30.7 26.0 - 32.0 pg LAB HEMATOLOGY METHOD 11/06/2024 1:41 AM EDT [facility] MCHC 34.7 30.7 - 35.5 g/dL LAB HEMATOLOGY METHOD 11/06/2024 1:41 AM EDT [facility] RDW 11.8 11.5 - 14.5 % LAB HEMATOLOGY METHOD 11/06/2024 1:41 AM EDT [facility] MPV 10.1 8.8 - 12.5 fL LAB HEMATOLOGY METHOD 11/06/2024 1:41 AM EDT [facility] nRBC 0.0 <=0.0 per 100 WBCs LAB HEMATOLOGY METHOD 11/06/2024 1:41 AM EDT [facility] Differential Type Automated LAB HEMATOLOGY METHOD 11/06/2024 1:41 AM EDT [facility] Neutrophils % 71 % LAB HEMATOLOGY METHOD 11/06/2024 1:41 AM EDT [facility] Lymphocytes % 17 % LAB HEMATOLOGY METHOD 11/06/2024 1:41 AM EDT [facility] Monocytes % 7 % LAB HEMATOLOGY METHOD 11/06/2024 1:41 AM EDT [facility] Eosinophils % 3 % LAB HEMATOLOGY METHOD 11/06/2024 1:41 AM EDT [facility] Basophils % 1 % LAB HEMATOLOGY METHOD 11/06/2024 1:41 AM EDT [facility] Immature Granulocytes % 1 % LAB HEMATOLOGY METHOD 11/06/2024 1:41 AM EDT [facility] Neutrophils Absolute 7.11(H) 1.60 - 6.10 10*3/uL LAB HEMATOLOGY METHOD 11/06/2024 1:41 AM EDT [facility] Lymphocytes Absolute 1.71 1.20 - 3.90 10*3/uL LAB HEMATOLOGY METHOD 11/06/2024 1:41 AM EDT [facility] Monocytes Absolute 0.74 0.30 - 0.90 10*3/uL LAB HEMATOLOGY METHOD 11/06/2024 1:41 AM EDT [facility] Eosinophils Absolute 0.26 0.00 - 0.50 10*3/uL LAB HEMATOLOGY METHOD 11/06/2024 1:41 AM EDT [facility] Basophils Absolute 0.05 0.00 - 0.10 10*3/uL LAB HEMATOLOGY METHOD 11/06/2024 1:41 AM EDT [facility] Immature Granulocytes Absolute 0.07(H) 0.00 - 0.06 10*3/uL LAB HEMATOLOGY METHOD 11/06/2024 1:41 AM EDT [facility] Blood Venous blood specimen / Unknown Venipuncture / Unknown 11/06/2024 1:14 AM EDT 11/06/2024 1:34 AM EDT Narrative [facility] - 11/06/2024 1:41 AM EDT Therapeutic decision making should be based on absolute values, rather than percentages. us Stacey Antonio DIRECTOR SPECIAL EDUCATION, DNP LAB BLOOD ORDERABLES F inal Result [facility] [address] [place] [address] * (ABNORMAL) Basic Metabolic Panel, Plasma (11/06/2024 1:14 AM EDT) Glucose, Plasma 106(H) 74 - 99 mg/dL 11/06/2024 2:05 AM EDT [facility] BUN, Plasma 15 7 - 21 mg/dL 11/06/2024 2:05 AM EDT [facility] Creatinine, Plasma 0.65(L) 0.70 - 1.20 mg/dL 11/06/2024 2:05 AM EDT [facility] BUN/Creatinine Ratio 23 11/06/2024 2:05 AM EDT [facility] Sodium, Plasma 135(L) 136 - 145 mmol/L 11/06/2024 2:05 AM EDT [facility] Potassium, Plasma 3.7 3.6 - 4.9 mmol/L 11/06/2024 2:05 AM EDT [facility] Chloride, Plasma 100 97 - 107 mmol/L 11/06/2024 2:05 AM EDT [facility] CO2, Plasma 23 22 - 29 mmol/L 11/06/2024 2:05 AM EDT [facility] Anion Gap 12 6 - 16 mmol/L 11/06/2024 2:05 AM EDT [facility] Total Calcium, Plasma 8.2(L) 8.9 - 10.2 mg/dL 11/06/2024 2:05 AM EDT [facility] eGFRcr 113.4 mL/min/1.7 3m*2 11/06/2024 2:05 AM EDT [facility] Comment:Reported eGFRcr in m L/min/1.73m2 is based the CKD-EPI 2020 equation that does not use a race coefficient. Blood Venous blood specimen / Unknown Venipuncture / Unknown 11/06/2024 1:14 AM EDT 11/06/2024 1:26 AM EDT us Stacey Antonio DIRECTOR SPECIAL EDUCATION, DNP LAB BLOOD ORDERABLES F inal Result [facility] [address] [place] [address] * Magnesium, Plasma (11/06/2024 1:14 AM EDT) Magnesium, Plasma 2.2 1.9 - 2.4 mg/dL 11/06/2024 2:05 AM EDT [facility] Blood Venous blood specimen / Unknown Venipuncture / Unknown 11/06/2024 1:14 AM EDT 11/06/2024 1:26 AM EDT us Stacey Antonio APRN, [facility] LAB BLOOD ORDERABLES F inal Result Performing Organization Address [facility] [place] [address] * (ABNORMAL) Phosphorus, Plasma (11/06/2024 1:14 AM EDT) Phosphorus, Plasma 2.3(L) 2.5 - 4.5 mg/dL 11/06/2024 2:05 AM EDT [facility] Blood Venous blood specimen / Unknown Venipuncture / Unknown 11/06/2024 1:14 AM EDT 11/06/2024 1:26 AM EDT us Stacey Antonio APRN, [facility] LAB BLOOD ORDERABLES F inal Result Performing Organization Address [facility] [facility] [place] [address] * (ABNORMAL) Vancomycin, Trough, Plasma (11/06/2024 1:14 AM EDT) Vancomycin, Trough, Plasma 8.9(L) 10.0 - 20.0 ug/mL 11/06/2024 2:05 AM EDT [facility] Blood Venous blood specimen / Unknown Venipuncture / Unknown 11/06/2024 1:14 AM EDT 11/06/2024 1:26 AM EDT Narrative [facility] - 11/06/2024 2:05 AM EDT Therapeutic Trough level: 10-20ug/mL Supra-therapeutic Trough level: >20 ug/mL us Stacey Antonio APRN, KURT LAB BLOOD ORDERABLES F inal Result [facility] [address] [place] [address] * HI CRITICAL CARE, E/M 30-74 MINUTES (11/05/2024 3:02 PM EDT) Narrative Girish Taylor MD - 11/05/2024 3:02 PM EDT Girish Taylor MD 11/10/2024 9:57 AM Critical Care Performed by: Girish Taylor MD Authorized by: Girish Taylor MD Critical care provider statement: Critical care time (minutes): 35 Critical care time was exclusive of: Separately billable procedures and treating other patients and teaching time Critical care was time spent personally by me on the following activities: Evaluation of patient's response to treatment, examination of patient, ventilator management, ordering and review of radiographic studies, ordering and review of laboratory studies, ordering and performing treatments and interventions and development of treatment plan with patient or surrogate I assumed subsequent critical care for this patient from a provider in my division, on the same day: no Comments: I attest to being involved in more than half the total time for 35 minutes in patient care. Girish Taylor MD us Girish Taylor MD IN CLINIC/BEDSIDE ORDERABLES Final Result * (ABNORMAL) Triglycerides (11/05/2024 12:20 AM EDT) Triglycerides, Plasma 176(H) <150 mg/dL 11/05/2024 1:00 AM EDT [facility] Comment: Triglyceride Reference Range (age >17 years): Desirable: <150 mg/dL Borderline high: 150 to 199 mg/dL High: 200 to 499 mg/dL Very high: >499 mg/dL Increased risk of pancreatitis: >1000 mg/dL Fasting greater than or equal to 12 hours? No 11/05/2024 1:00 AM EDT [facility] Blood Venous blood specimen / Unknown Venipuncture / Unknown 11/05/2024 12:20 AM EDT 11/05/2024 12:30 AM EDT us Girish Taylor MD LAB BLOOD ORDERABLES Final R esult [facility] [address] [place] [address] * (ABNORMAL) CBC and Differential (11/05/2024 12:20 AM EDT) WBC Count 16.63(H) 3.70 - 10.30 10*3/uL LAB HEMATOLOGY METHOD 11/05/2024 12:43 AM EDT [facility] RBC Count 3.66(L) 4.60 - 6.10 10*6/uL LAB HEMATOLOGY METHOD 11/05/2024 12:43 AM EDT [facility] HGB 11.3(L) 13.7 - 17.5 g/dL LAB HEMATOLOGY METHOD 11/05/2024 12:43 AM EDT [facility] HCT 32.4(L) 40.0 - 51.0 % LAB HEMATOLOGY METHOD 11/05/2024 12:43 AM EDT [facility] Platelet Count 257 155 - 369 10*3/uL LAB HEMATOLOGY METHOD 11/05/2024 12:43 AM EDT [facility] MCV 89 79 - 98 fL LAB HEMATOLOGY METHOD 11/05/2024 12:43 AM EDT [facility] MCH 30.9 26.0 - 32.0 pg LAB HEMATOLOGY METHOD 11/05/2024 12:43 AM EDT [facility] MCHC 34.9 30.7 - 35.5 g/dL LAB HEMATOLOGY METHOD 11/05/2024 12:43 AM EDT [facility] RDW 11.8 11.5 - 14.5 % LAB HEMATOLOGY METHOD 11/05/2024 12:43 AM EDT [facility] MPV 10.1 8.8 - 12.5 fL LAB HEMATOLOGY METHOD 11/05/2024 12:43 AM EDT [facility] nRBC 0.0 <=0.0 per 100 WBCs LAB HEMATOLOGY METHOD 11/05/2024 12:43 AM EDT [facility] Differential Type Automated LAB HEMATOLOGY METHOD 11/05/2024 12:43 AM EDT [facility] Neutrophils % 84 % LAB HEMATOLOGY METHOD 11/05/2024 12:43 AM EDT [facility] Lymphocytes % 8 % LAB HEMATOLOGY METHOD 11/05/2024 12:43 AM EDT [facility] Monocytes % 6 % LAB HEMATOLOGY METHOD 11/05/2024 12:43 AM EDT [facility] Eosinophils % 1 % LAB HEMATOLOGY METHOD 11/05/2024 12:43 AM EDT [facility] Basophils % 0 % LAB HEMATOLOGY METHOD 11/05/2024 12:43 AM EDT [facility] Immature Granulocytes % 1 % LAB HEMATOLOGY METHOD 11/05/2024 12:43 AM EDT [facility] Neutrophils Absolute 13.97(H) 1.60 - 6.10 10*3/uL LAB HEMATOLOGY METHOD 11/05/2024 12:43 AM EDT [facility] Lymphocytes Absolute 1.36 1.20 - 3.90 10*3/uL LAB HEMATOLOGY METHOD 11/05/2024 12:43 AM EDT [facility] Monocytes Absolute 1.00(H) 0.30 - 0.90 10*3/uL LAB HEMATOLOGY METHOD 11/05/2024 12:43 AM EDT [facility] Eosinophils Absolute 0.12 0.00 - 0.50 10*3/uL LAB HEMATOLOGY METHOD 11/05/2024 12:43 AM EDT [facility] Basophils Absolute 0.06 0.00 - 0.10 10*3/uL LAB HEMATOLOGY METHOD 11/05/2024 12:43 AM EDT [facility] Immature Granulocytes Absolute 0.12(H) 0.00 - 0.06 10*3/uL LAB HEMATOLOGY METHOD 11/05/2024 12:43 AM EDT [facility] Blood Venous blood specimen / Unknown Venipuncture / Unknown 11/05/2024 12:20 AM EDT 11/05/2024 12:31 AM EDT Narrative [facility] - 11/05/2024 12:43 AM EDT Therapeutic decision making should be based on absolute values, rather than percentages. us Stacey Antonio DIRECTOR SPECIAL EDUCATION, DNP LAB BLOOD ORDERABLES F inal Result [facility] [address] [place] [address] * Phosphorus (11/04/2024 6:46 PM EDT) Phosphorus, Plasma 3.3 2.5 - 4.5 mg/dL 11/04/2024 7:28 PM EDT [facility] Blood Venous blood specimen / Unknown Venipuncture / Unknown 11/04/2024 6:46 PM EDT 11/04/2024 6:58 PM EDT Tim S Imel PA LAB BLOOD ORDERABLES Final Res ult Performing Organization Address City/[facility]/ZIP Co de Phone Number [facility] [address] [place] [address] * Magnesium (11/04/2024 6:46 PM EDT) Magnesium, Plasma 2.2 1.9 - 2.4 mg/dL 11/04/2024 7:28 PM EDT [facility] Blood Venous blood specimen / Unknown Venipuncture / Unknown 11/04/2024 6:46 PM EDT 11/04/2024 6:58 PM EDT us Tim S Imel PA LAB BLOOD ORDERABLES Final Res ult Performing Organization Address City/[facility] Co de Phone Number [facility] [address] [place] [address] * (ABNORMAL) Blood gas, arterial (11/04/2024 6:46 PM EDT) pH, Arterial 7.43 7.35 - 7.45 LAB HEMATOLOGY METHOD 11/04/2024 6:53 PM EDT [facility] pCO2, Arterial 43 32 - 45 mmHg LAB HEMATOLOGY METHOD 11/04/2024 6:53 PM EDT [facility] pO2, Arterial 111(H) 83 - 108 mmHg LAB HEMATOLOGY METHOD 11/04/2024 6:53 PM EDT [facility] SO2, Measured, Arterial 99(H) 94 - 98 % LAB HEMATOLOGY METHOD 11/04/2024 6:53 PM EDT [facility] Base Excess, Arterial 3.9(H) -2.0 - 3.0 mmol/L LAB HEMATOLOGY METHOD 11/04/2024 6:53 PM EDT [facility] Bicarbonate, Calculated, Arterial 29(H) 22 - 26 mmol/L LAB HEMATOLOGY METHOD 11/04/2024 6:53 PM EDT [facility] Hematocrit, Whole Blood 33.1(L) 40.0 - 51.0 % LAB HEMATOLOGY METHOD 11/04/2024 6:53 PM EDT [facility] Sodium, Whole Blood 135(L) 136 - 145 mmol/L LAB HEMATOLOGY METHOD 11/04/2024 6:53 PM EDT [facility] Potassium, Whole Blood 4.1 3.6 - 4.9 mmol/L LAB HEMATOLOGY METHOD 11/04/2024 6:53 PM EDT [facility] Chloride, Whole Blood 99 97 - 107 mmol/L LAB HEMATOLOGY METHOD 11/04/2024 6:53 PM EDT [facility] Glucose, Whole Blood 118(H) 74 - 99 mg/dL LAB HEMATOLOGY METHOD 11/04/2024 6:53 PM EDT [facility] Ionized Calcium, Whole Blood 4.3(L) 4.6 - 5.1 mg/dL LAB HEMATOLOGY METHOD 11/04/2024 6:53 PM EDT [facility] Lactate, Arterial, Whole Blood 1.0 0.5 - 1.6 mmol/L LAB HEMATOLOGY METHOD 11/04/2024 6:53 PM EDT [facility] Blood Arterial blood specimen / Unknown Arterial Puncture / Unknown 11/04/2024 6:46 PM EDT 11/04/2024 6:51 PM EDT us Tim MONSON LAB BLOOD ORDERABLES Final Res ult [facility] [address] [place] [address] * (ABNORMAL) Basic Metabolic Panel, Plasma (11/04/2024 6:46 PM EDT) Glucose, Plasma 121(H) 74 - 99 mg/dL 11/04/2024 7:28 PM EDT [facility] BUN, Plasma 12 7 - 21 mg/dL 11/04/2024 7:28 PM EDT [facility] Creatinine, Plasma 0.79 0.70 - 1.20 mg/dL 11/04/2024 7:28 PM EDT [facility] BUN/Creatinine Ratio 15 11/04/2024 7:28 PM EDT [facility] Sodium, Plasma 136 136 - 145 mmol/L 11/04/2024 7:28 PM EDT [facility] Potassium, Plasma 4.4 3.6 - 4.9 mmol/L 11/04/2024 7:28 PM EDT [facility] Chloride, Plasma 102 97 - 107 mmol/L 11/04/2024 7:28 PM EDT [facility] CO2, Plasma 24 22 - 29 mmol/L 11/04/2024 7:28 PM EDT [facility] Anion Gap 10 6 - 16 mmol/L 11/04/2024 7:28 PM EDT [facility] Total Calcium, Plasma 8.2(L) 8.9 - 10.2 mg/dL 11/04/2024 7:28 PM EDT [facility] eGFRcr 106.9 mL/min/1.7 3m*2 11/04/2024 7:28 PM EDT [facility] Comment:Reported eGFRcr in m L/min/1.73m2 is based the CKD-EPI 2020 equation that does not use a race coefficient. Blood Venous blood specimen / Unknown Venipuncture / Unknown 11/04/2024 6:46 PM EDT 11/04/2024 6:58 PM EDT us Tim MONSON LAB BLOOD ORDERABLES Final Res ult [facility] [address] [place] [address] * (ABNORMAL) CBC W/O Differential (11/04/2024 6:46 PM EDT) WBC Count 14.01(H) 3.70 - 10.30 10*3/uL LAB HEMATOLOGY METHOD 11/04/2024 7:07 PM EDT [facility] RBC Count 3.44(L) 4.60 - 6.10 10*6/uL LAB HEMATOLOGY METHOD 11/04/2024 7:07 PM EDT [facility] HGB 10.8(L) 13.7 - 17.5 g/dL LAB HEMATOLOGY METHOD 11/04/2024 7:07 PM EDT [facility] HCT 31.2(L) 40.0 - 51.0 % LAB HEMATOLOGY METHOD 11/04/2024 7:07 PM EDT [facility] Platelet Count 222 155 - 369 10*3/uL LAB HEMATOLOGY METHOD 11/04/2024 7:07 PM EDT [facility] MCV 91 79 - 98 fL LAB HEMATOLOGY METHOD 11/04/2024 7:07 PM EDT [facility] MCH 31.4 26.0 - 32.0 pg LAB HEMATOLOGY METHOD 11/04/2024 7:07 PM EDT [facility] MCHC 34.6 30.7 - 35.5 g/dL LAB HEMATOLOGY METHOD 11/04/2024 7:07 PM EDT [facility] RDW 11.9 11.5 - 14.5 % LAB HEMATOLOGY METHOD 11/04/2024 7:07 PM EDT [facility] MPV 10.4 8.8 - 12.5 fL LAB HEMATOLOGY METHOD 11/04/2024 7:07 PM EDT [facility] nRBC 0.0 <=0.0 per 100 WBCs LAB HEMATOLOGY METHOD 11/04/2024 7:07 PM EDT [facility] Blood Venous blood specimen / Unknown Venipuncture / Unknown 11/04/2024 6:46 PM EDT 11/04/2024 6:59 PM EDT us Tim MONSON LAB BLOOD ORDERABLES Final Res ult [facility] [address] [place] [address] * EEG (11/04/2024 3:23 PM EDT) Anatomical Region Laterality Modality EEG Narrative 11/04/2024 3:59 PM EDT Electroencephalogram Report Patient: Gordy Leiva : 1970 SEX: male Referring Provider: Stacey Antonio APRN, DNP EEG Reading Physician: Quoc Villafuerte MD Study Type: Routine Stat Begin Date: 11/04/2024 Begin Time: 3:02 PM End Date: 11/04/2024 End Time: 3:23 PM Total EEG Recording Time: 21 minutes Indication for study: Concern for seizures ID This recording was observed in a 54 y.o. person to evaluate for seizures. Medications include propofol, hydromorphone, levetiracetam. TECHNICAL DESCRIPTION: This study was performed using a 21 channel digital electroencephalographic recording with EKG monitoring. International 10-20 electrode placement was used prior to the application of the usual scalp electrodes. Longitudinal and coronal bipolar montages and ear reference montages were used with usual gain and filter settings. The study was of good quality for purposes of interpretation. CLINICAL AND EEG ANALYSIS: INTERICTAL EEG DESCRIPTION: The recording was obtained with the patient sedated and ventilated. No age or state appropriate activities were seen. See below for further abnormalities. Sleep background: ACTIVATION PROCEDURES: Hyperventilation: Deferred at the bedside. Photic stimulation: Deferred at the bedside. Reactivity to stimulation: reactive NONEPILEPTIFORM INTERICTAL ABNORMALITIES There were diffuse, medium amplitude, irregular, anteriorly-dominant delta and theta frequency activities, with occasional very brief 1-2 second periods of relative attenuation. There were intermixed, diffuse, low-medium amplitude, faster alpha-and beta frequency activities. EPILEPTIFORM INTERICTAL ABNORMALITIES None ICTAL DESCRIPTION: No seizures were seen. PATIENT EVENTS: None A single channel EKG rhythm strip demonstrated no obvious arrhythmia. CLINICAL INTERPRETATION: This routine EEG recorded is abnormal and recorded: No seizures. Excess delta-theta range slowing with intermixed brief attenuations and faster frequency activities, which suggest severe encephalopathy of non-specific etiology with likely contribution from sedative medication effect. uQoc Villafuerte MD Attending Physician Department of Neurology, Comprehensive Epilepsy Program [facility] Stacey Antonio APRN, DNP NEUROLOGY ORDERABLES F inal Result * HI CRITICAL CARE, E/M 30-74 MINUTES (11/04/2024 11:06 AM EDT) Narrative Griish Taylor MD - 11/04/2024 11:06 AM EDT Girish Taylor MD 11/10/2024 9:56 AM Critical Care Performed by: Girish Taylor MD Authorized by: Girish Taylor MD Critical care provider statement: Critical care time (minutes): 33 Critical care time was exclusive of: Separately billable procedures and treating other patients and teaching time Critical care was time spent personally by me on the following activities: Evaluation of patient's response to treatment, examination of patient, ventilator management, ordering and review of radiographic studies, ordering and review of laboratory studies, ordering and performing treatments and interventions and development of treatment plan with patient or surrogate I assumed subsequent critical care for this patient from a provider in my division, on the same day: no Comments: I attest to being involved in more than half the total time for 33 minutes in patient care. Girish Taylor MD us Girish Taylor MD IN CLINIC/BEDSIDE ORDERABLES Final Result * Blood Culture (Aerobic/Anaerobet Set) (11/04/2024 10:51 AM EDT) Culture No growth at day 5 MARY 11/09/2024 12:01 PM EDT [facility] Blood Venous blood specimen / Unknown Venipuncture / Unknown 11/04/2024 10:51 AM EDT 11/04/2024 11:09 AM EDT Stacey Antonio APRN, DNP LAB MICROBIOLOGY - GEN ERAL ORDERABLES Final Result [facility] [address] [place] [address] * (ABNORMAL) Quantitative BAL/PAL/Bronch Wash Culture and Gram StainProtected Alveolar Lavage (11/04/2024 10:25 AM EDT) Culture >=100,000 CFU/mL Mixed upper respiratory bryson(A) 11/06/2024 12:46 PM EDT [facility] Comment:The organism value f or this result has been updated. These results have been appended to the previously preliminary verified report. Gram Stain Result Few Polymorphonuclear leukocytes(A) 11/06/2024 12:46 PM EDT [facility] Gram Stain Result Numerous Gram negative rods(A) 11/06/2024 12:46 PM EDT [facility] Gram Stain Result Moderate Gram positive rods(A) 11/06/2024 12:46 PM EDT [facility] Gram Stain Result Few Gram positive cocci in clusters(A) 11/06/2024 12:46 PM EDT [facility] Protected Alveolar Lavage (Protected Alveolar Lavage) 11/04/2024 10:25 AM EDT 11/04/2024 10:46 AM EDT Stacey Antonio APRN, DNP LAB MICROBIOLOGY - GEN ERAL ORDERABLES Final Result Performing Organization Address City/[facility]/ZIP Co de Phone Number [facility] [address] [place] [address] * Phosphorus, Plasma (11/04/2024 1:15 AM EDT) Phosphorus, Plasma 3.1 2.5 - 4.5 mg/dL 11/04/2024 1:49 AM EDT [facility] Blood Venous blood specimen / Unknown Venipuncture / Unknown 11/04/2024 1:15 AM EDT 11/04/2024 1:21 AM EDT Blu Sen PA LAB BLOOD ORDERABLES Final Resul t Performing Organization Address City/[facility]/ZIP Co de Phone Number [facility] [address] [place] [address] * (ABNORMAL) Magnesium, Plasma (11/04/2024 1:15 AM EDT) Magnesium, Plasma 1.8(L) 1.9 - 2.4 mg/dL 11/04/2024 1:49 AM EDT [facility] Blood Venous blood specimen / Unknown Venipuncture / Unknown 11/04/2024 1:15 AM EDT 11/04/2024 1:21 AM EDT Blu Sen PA LAB BLOOD ORDERABLES Final Resul t Performing Organization Address [facility] Co de Phone Number [facility] [address] [place] [address] * (ABNORMAL) Basic Metabolic Panel, Plasma (11/04/2024 1:15 AM EDT) Glucose, Plasma 100(H) 74 - 99 mg/dL 11/04/2024 1:49 AM EDT [facility] BUN, Plasma 7 7 - 21 mg/dL 11/04/2024 1:49 AM EDT [facility] Creatinine, Plasma 0.72 0.70 - 1.20 mg/dL 11/04/2024 1:49 AM EDT [facility] BUN/Creatinine Ratio 10 11/04/2024 1:49 AM EDT [facility] Sodium, Plasma 137 136 - 145 mmol/L 11/04/2024 1:49 AM EDT [facility] Potassium, Plasma 4.3 3.6 - 4.9 mmol/L 11/04/2024 1:49 AM EDT [facility] Chloride, Plasma 100 97 - 107 mmol/L 11/04/2024 1:49 AM EDT [facility] CO2, Plasma 23 22 - 29 mmol/L 11/04/2024 1:49 AM EDT [facility] Anion Gap 14 6 - 16 mmol/L 11/04/2024 1:49 AM EDT [facility] Total Calcium, Plasma 8.5(L) 8.9 - 10.2 mg/dL 11/04/2024 1:49 AM EDT [facility] eGFRcr 109.9 mL/min/1.7 3m*2 11/04/2024 1:49 AM EDT [facility] Comment:Reported eGFRcr in m L/min/1.73m2 is based the CKD-EPI 2020 equation that does not use a race coefficient. Blood Venous blood specimen / Unknown Venipuncture / Unknown 11/04/2024 1:15 AM EDT 11/04/2024 1:21 AM EDT us Blu MONSON LAB BLOOD ORDERABLES Final Resul t [facility] [address] [place] [address] * (ABNORMAL) CBC W/O Differential (11/04/2024 1:15 AM EDT) WBC Count 10.96(H) 3.70 - 10.30 10*3/uL LAB HEMATOLOGY METHOD 11/04/2024 1:27 AM EDT [facility] RBC Count 3.99(L) 4.60 - 6.10 10*6/uL LAB HEMATOLOGY METHOD 11/04/2024 1:27 AM EDT [facility] HGB 12.4(L) 13.7 - 17.5 g/dL LAB HEMATOLOGY METHOD 11/04/2024 1:27 AM EDT [facility] HCT 35.8(L) 40.0 - 51.0 % LAB HEMATOLOGY METHOD 11/04/2024 1:27 AM EDT [facility] Platelet Count 216 155 - 369 10*3/uL LAB HEMATOLOGY METHOD 11/04/2024 1:27 AM EDT [facility] MCV 90 79 - 98 fL LAB HEMATOLOGY METHOD 11/04/2024 1:27 AM EDT [facility] MCH 31.1 26.0 - 32.0 pg LAB HEMATOLOGY METHOD 11/04/2024 1:27 AM EDT [facility] MCHC 34.6 30.7 - 35.5 g/dL LAB HEMATOLOGY METHOD 11/04/2024 1:27 AM EDT [facility] RDW 11.9 11.5 - 14.5 % LAB HEMATOLOGY METHOD 11/04/2024 1:27 AM EDT [facility] MPV 10.1 8.8 - 12.5 fL LAB HEMATOLOGY METHOD 11/04/2024 1:27 AM EDT [facility] nRBC 0.0 <=0.0 per 100 WBCs LAB HEMATOLOGY METHOD 11/04/2024 1:27 AM EDT [facility] Blood Venous blood specimen / Unknown Venipuncture / Unknown 11/04/2024 1:15 AM EDT 11/04/2024 1:21 AM EDT us Blu MONSON LAB BLOOD ORDERABLES Final Resul t [facility] [address] [place] [address] * CT Head w IV Contrast (11/04/2024 12:51 AM EDT) Anatomical Region Laterality Modality Head Computed Tomogra phy Impressions 11/04/2024 1:55 AM EDT No acute intracranial abnormality. No abnormal intracranial enhancement. There is again paranasal sinus mucosal disease, with a defect of the anterior left hard palate. CRITICAL RESULT: No. COMMUNICATION: Per this written report. Drafted by Elmer Clarke MD on 11/04/2024 1:44 AM Final report signed by Elmer Clarke MD on 11/04/2024 1:55 AM Narrative 11/04/2024 1:55 AM EDT CLINICAL INDICATION: hx of nasal cavity infection, new onset seizure, decreased GCS TECHNIQUE: Spiral axial CT images of the head were obtained with intravenous contrast administration. 100 mL of Omnipaque 300 were administered. Total DLP (Dose-Length Product): 861.90 mGy.cm. Please note: The reported value represents the total of one or more individual components during the CT acquisition on this date and at this time, and as such, the same value may appear in more than one CT report depending on the interpreting/reporting physicians. COMPARISON: November 01, 2024 FINDINGS: Diagnostic Quality: Adequate. The ventricles and sulci are normal in size. There is no definite acute large cortical infarct or large mass. Evaluation for intracranial hemorrhage is limited due to the presence of intravenous contrast, but no gross intracranial hemorrhage is identified. There is no abnormal enhancement. Soft Tissues: Left frontal scalp contusion. Skull: There are no calvarial destructive lesions or fractures. Sinuses and Mastoids: There is again severe circumferential mucosal thickening of the left maxillary sinus and moderate mucosal thickening throughout the remainder of the paranasal sinuses. There is again a defect of the left anterior hard palate. A nasal trumpet is present. The mastoid air cells are clear. Procedure Note Elmer Clarke MD - 11/04/2024 CLINICAL INDICATION: hx of nasal cavity infection, new onset seizure, decreased GCS TECHNIQUE: Spiral axial CT images of the head were obtained with intravenous contrastadministration. 100 mL of Omnipaque 300 were administered. Total DLP (Dose-Length Product): 861.90 mGy.cm. Please note: The reportedvalue represents the total of one or more individual components during theCT acquisition on this date and at this time, and as such, the same valuemay appear in more than one CT report depending on theinterpreting/reporting physicians. COMPARISON: November 01, 2024 FINDINGS: Diagnostic Quality: Adequate. The ventricles and sulci are normal in size. There is no definite acute large cortical infarct or large mass.Evaluation for intracranial hemorrhage is limited due to the presence ofintravenous contrast, but no gross intracranial hemorrhage isidentified. There is no abnormal enhancement. Soft Tissues: Left frontal scalp contusion. Skull: There are no calvarial destructive lesions or fractures. Sinuses and Mastoids: There is again severe circumferential mucosalthickening of the left maxillary sinus and moderate mucosal thickeningthroughout the remainder of the paranasal sinuses. There is again a defectof the left anterior hard palate. A nasal trumpet is present. The mastoidair cells are clear. IMPRESSION: No acute intracranial abnormality. No abnormal intracranial enhancement. There is again paranasal sinus mucosal disease, with a defect of theanterior left hard palate. CRITICAL RESULT: No. COMMUNICATION: Per this written report. Drafted by Elmer Clarke MD on 11/04/2024 1:44 AM Final report signed by Elmer Clarke MD on 11/04/2024 1:55 AM Tim MONSON IMRosalia CT PROCEDURES Final Result * (ABNORMAL) Blood gas panel, arterial (11/03/2024 4:45 PM EDT) pH, Arterial 7.33(L) 7.35 - 7.45 LAB HEMATOLOGY METHOD 11/03/2024 4:57 PM EDT [facility] pCO2, Arterial 46(H) 32 - 45 mmHg LAB HEMATOLOGY METHOD 11/03/2024 4:57 PM EDT [facility] pO2, Arterial 117(H) 83 - 108 mmHg LAB HEMATOLOGY METHOD 11/03/2024 4:57 PM EDT [facility] SO2, Measured, Arterial 99(H) 94 - 98 % LAB HEMATOLOGY METHOD 11/03/2024 4:57 PM EDT [facility] Base Excess, Arterial -2.0 -2.0 - 3.0 mmol/L LAB HEMATOLOGY METHOD 11/03/2024 4:57 PM EDT [facility] Bicarbonate, Calculated, Arterial 24 22 - 26 mmol/L LAB HEMATOLOGY METHOD 11/03/2024 4:57 PM EDT [facility] Hematocrit, Whole Blood 35.0(L) 40.0 - 51.0 % LAB HEMATOLOGY METHOD 11/03/2024 4:57 PM EDT [facility] Sodium, Whole Blood 136 136 - 145 mmol/L LAB HEMATOLOGY METHOD 11/03/2024 4:57 PM EDT [facility] Potassium, Whole Blood 3.6 3.6 - 4.9 mmol/L LAB HEMATOLOGY METHOD 11/03/2024 4:57 PM EDT [facility] Chloride, Whole Blood 104 97 - 107 mmol/L LAB HEMATOLOGY METHOD 11/03/2024 4:57 PM EDT [facility] Glucose, Whole Blood 113(H) 74 - 99 mg/dL LAB HEMATOLOGY METHOD 11/03/2024 4:57 PM EDT [facility] Ionized Calcium, Whole Blood 4.2(L) 4.6 - 5.1 mg/dL LAB HEMATOLOGY METHOD 11/03/2024 4:57 PM EDT [facility] Lactate, Arterial, Whole Blood 1.1 0.5 - 1.6 mmol/L LAB HEMATOLOGY METHOD 11/03/2024 4:57 PM EDT [facility] Blood Arterial blood specimen / Unknown Arterial Puncture / Unknown 11/03/2024 4:45 PM EDT 11/03/2024 4:55 PM EDT us Girish Taylor MD LAB BLOOD ORDERABLES Final R esult [facility] [address] [place] [address] * Phosphorus (11/03/2024 4:45 PM EDT) Phosphorus, Plasma 3.2 2.5 - 4.5 mg/dL 11/03/2024 5:49 PM EDT [facility] Blood Venous blood specimen / Unknown Venipuncture / Unknown 11/03/2024 4:45 PM EDT 11/03/2024 5:19 PM EDT us Girish Taylor MD LAB BLOOD ORDERABLES Final R esult [facility] [address] [place] [address] * (ABNORMAL) Magnesium (11/03/2024 4:45 PM EDT) Magnesium, Plasma 1.7(L) 1.9 - 2.4 mg/dL 11/03/2024 5:49 PM EDT [facility] Blood Venous blood specimen / Unknown Venipuncture / Unknown 11/03/2024 4:45 PM EDT 11/03/2024 5:19 PM EDT us Girish Taylor MD LAB BLOOD ORDERABLES Final R esult [facility] [address] [place] [address] * (ABNORMAL) Basic metabolic panel (11/03/2024 4:45 PM EDT) Glucose, Plasma 120(H) 74 - 99 mg/dL 11/03/2024 5:49 PM EDT [facility] BUN, Plasma 8 7 - 21 mg/dL 11/03/2024 5:49 PM EDT [facility] Creatinine, Plasma 0.66(L) 0.70 - 1.20 mg/dL 11/03/2024 5:49 PM EDT [facility] BUN/Creatinine Ratio 12 11/03/2024 5:49 PM EDT [facility] Sodium, Plasma 133(L) 136 - 145 mmol/L 11/03/2024 5:49 PM EDT [facility] Potassium, Plasma 4.0 3.6 - 4.9 mmol/L 11/03/2024 5:49 PM EDT [facility] Chloride, Plasma 99 97 - 107 mmol/L 11/03/2024 5:49 PM EDT [facility] CO2, Plasma 21(L) 22 - 29 mmol/L 11/03/2024 5:49 PM EDT [facility] Anion Gap 13 6 - 16 mmol/L 11/03/2024 5:49 PM EDT [facility] Total Calcium, Plasma 8.3(L) 8.9 - 10.2 mg/dL 11/03/2024 5:49 PM EDT [facility] eGFRcr 112.9 mL/min/1.7 3m*2 11/03/2024 5:49 PM EDT [facility] Comment:Reported eGFRcr in m L/min/1.73m2 is based the CKD-EPI 2020 equation that does not use a race coefficient. Blood Venous blood specimen / Unknown Venipuncture / Unknown 11/03/2024 4:45 PM EDT 11/03/2024 5:19 PM EDT us Girish Taylor MD LAB BLOOD ORDERABLES Final R esult [facility] [address] [place] [address] * (ABNORMAL) Hemogram (CBC) (11/03/2024 4:45 PM EDT) WBC Count 10.18 3.70 - 10.30 10*3/uL LAB HEMATOLOGY METHOD 11/03/2024 5:34 PM EDT [facility] RBC Count 3.85(L) 4.60 - 6.10 10*6/uL LAB HEMATOLOGY METHOD 11/03/2024 5:34 PM EDT [facility] HGB 11.9(L) 13.7 - 17.5 g/dL LAB HEMATOLOGY METHOD 11/03/2024 5:34 PM EDT [facility] HCT 35.2(L) 40.0 - 51.0 % LAB HEMATOLOGY METHOD 11/03/2024 5:34 PM EDT [facility] Platelet Count 208 155 - 369 10*3/uL LAB HEMATOLOGY METHOD 11/03/2024 5:34 PM EDT [facility] MCV 91 79 - 98 fL LAB HEMATOLOGY METHOD 11/03/2024 5:34 PM EDT [facility] MCH 30.9 26.0 - 32.0 pg LAB HEMATOLOGY METHOD 11/03/2024 5:34 PM EDT [facility] MCHC 33.8 30.7 - 35.5 g/dL LAB HEMATOLOGY METHOD 11/03/2024 5:34 PM EDT [facility] RDW 11.9 11.5 - 14.5 % LAB HEMATOLOGY METHOD 11/03/2024 5:34 PM EDT [facility] MPV 10.6 8.8 - 12.5 fL LAB HEMATOLOGY METHOD 11/03/2024 5:34 PM EDT [facility] nRBC 0.0 <=0.0 per 100 WBCs LAB HEMATOLOGY METHOD 11/03/2024 5:34 PM EDT [facility] Blood Venous blood specimen / Unknown Venipuncture / Unknown 11/03/2024 4:45 PM EDT 11/03/2024 5:23 PM EDT Girish Taylor MD LAB BLOOD ORDERABLES Final R esult Performing Organization Address City/[facility] Co de Phone Number [facility] [address] [place] [address] * POCT glucose meter (11/03/2024 4:16 PM EDT) [facility] Signature POCT Glucose 90 74 - 99 mg/dL 11/03/2024 4:17 PM EDT [facility] Comment:Accuracy of a glucos e result obtained from a capillary whole blood specimen relies upon adequate, non-compromised capillary blood flow. If the capillary glucose result is not consistent with the patient's clinical signs and symptoms, glucose testing should be repeated with either an arterial or venous sample on the glucometer or sent to the main labortory for testing. Comment 11/03/2024 4:17 PM EDT [facility] Drawing Tender ID Sandy Huertas 11/03/2024 4:17 PM EDT [facility] Device ID [id number] 11/03/2024 4:17 PM EDT [facility] Specimen Type POC Capillary 11/03/2024 4:17 PM EDT [facility] Blood Capillary blood specimen / Unknown 11/03/2024 4:16 PM EDT 11/03/2024 4:17 PM EDT us Girish Taylor MD LAB POINT OF CARE TE ST DOCKED DEVICE UNSOLICITED RESULTS Final Result Performing Organization Address City/[facility]/ZIP Co de Phone Number [facility] [address] [place] [address] * [place] Less than 1 Hour Intraoperative (11/03/2024 3:38 PM EDT) Narrative IMAGING - 11/03/2024 3:39 PM EDT Images were obtained for surgical purposes. See Jorge Pineda's surgical note in the patient's chart for the findings. Jorge Pineda MD IMG FLUOROSCOPY PROCEDURES Fin al Result Performing Organization Address [facility] de Phone Number IMAGING * ECG Adult (11/03/2024 7:08 AM EDT) EKG DIAGNOSIS CLASS Abnormal MUSE ECG Ventricular Rate 58 BPM MUSE ECG Atrial Rate 58 BPM MUSE ECG HI Interval 144 ms MUSE ECG QRSD Interval 138 ms MUSE ECG QT Interval 438 ms MUSE ECG QTC Interval 429 ms MUSE ECG P Ant[place] 17 degrees MUSE ECG R [place] -34 degrees MUSE ECG T Wave [place] 29 degrees MUSE ECG Diagnosis Sinus bradycardia MUSE ECG Diagnosis Left axis deviation MUSE ECG Diagnosis Right bundle branch block MUSE ECG Diagnosis Abnormal ECG MUSE ECG Diagnosis MUSE ECG Diagnosis Confirmed by Brady Hargrove ([id number]) on 11/03/2024 1:52:45 PM MUSE ECG 11/03/2024 7:08 AM EDT 11/03/2024 1:52 PM EDT Debo MONSON ECG ORDERABLES Final Result Performing Organization Address [facility] de Phone Number MUSE ECG * Phosphorus, Plasma (11/03/2024 1:47 AM EDT) Phosphorus, Plasma 3.4 2.5 - 4.5 mg/dL 11/03/2024 2:26 AM EDT [facility] Blood Venous blood specimen / Unknown Venipuncture / Unknown 11/03/2024 1:47 AM EDT 11/03/2024 1:54 AM EDT Kianna Keen DIRECTOR SPECIAL EDUCATION LAB BLOOD ORDERABLES Molly l Result Performing Organization Address [facility] Co de Phone Number [facility] [address] [place] [address] * Magnesium, Plasma (11/03/2024 1:47 AM EDT) Magnesium, Plasma 2.0 1.9 - 2.4 mg/dL 11/03/2024 2:26 AM EDT [facility] Blood Venous blood specimen / Unknown Venipuncture / Unknown 11/03/2024 1:47 AM EDT 11/03/2024 1:54 AM EDT us Kianna Keen APRN LAB BLOOD ORDERABLES Molly l Result Performing Organization Address City/[facility]/ZIP Co de Phone Number [facility] [address] [place] [address] * Prothrombin Time/INR (11/03/2024 1:47 AM EDT) Prothrombin Time 13.6 12.0 - 14.3 sec LAB COAGULATION METHOD 11/03/2024 2:23 AM EDT [facility] INR 1.0 0.9 - 1.1 LAB COAGULATION METHOD 11/03/2024 2:23 AM EDT [facility] Blood Venous blood specimen / Unknown Venipuncture / Unknown 11/03/2024 1:47 AM EDT 11/03/2024 1:54 AM EDT Narrative [facility] - 11/03/2024 2:23 AM EDT OPTIMAL INR RANGES FOR PATIENT ON ORAL ANTICOAGULANT THERAPY Prevention of venous thromboembolism INR 2.0 to 3.0 In patients with heart disease: Atrial fibrillation INR 2.0 to 3.0 Valvular heart disease INR 2.0 to 3.0 Tissue heart valves INR 2.0 to 3.0 Mechanical prosthetic valves INR 2.5 to 3.5 Prevention of recurrent LA INR 2.5 to 3.5 us Girish Taylor MD LAB BLOOD ORDERABLES Final R esult [facility] [address] [place] [address] * (ABNORMAL) CBC W/O Differential (11/03/2024 1:47 AM EDT) WBC Count 8.76 3.70 - 10.30 10*3/uL LAB HEMATOLOGY METHOD 11/03/2024 2:01 AM EDT [facility] RBC Count 3.67(L) 4.60 - 6.10 10*6/uL LAB HEMATOLOGY METHOD 11/03/2024 2:01 AM EDT [facility] HGB 11.5(L) 13.7 - 17.5 g/dL LAB HEMATOLOGY METHOD 11/03/2024 2:01 AM EDT [facility] HCT 34.4(L) 40.0 - 51.0 % LAB HEMATOLOGY METHOD 11/03/2024 2:01 AM EDT [facility] Platelet Count 199 155 - 369 10*3/uL LAB HEMATOLOGY METHOD 11/03/2024 2:01 AM EDT [facility] MCV 94 79 - 98 fL LAB HEMATOLOGY METHOD 11/03/2024 2:01 AM EDT [facility] MCH 31.3 26.0 - 32.0 pg LAB HEMATOLOGY METHOD 11/03/2024 2:01 AM EDT [facility] MCHC 33.4 30.7 - 35.5 g/dL LAB HEMATOLOGY METHOD 11/03/2024 2:01 AM EDT [facility] RDW 11.9 11.5 - 14.5 % LAB HEMATOLOGY METHOD 11/03/2024 2:01 AM EDT [facility] MPV 10.3 8.8 - 12.5 fL LAB HEMATOLOGY METHOD 11/03/2024 2:01 AM EDT [facility] nRBC 0.0 <=0.0 per 100 WBCs LAB HEMATOLOGY METHOD 11/03/2024 2:01 AM EDT [facility] Blood Venous blood specimen / Unknown Venipuncture / Unknown 11/03/2024 1:47 AM EDT 11/03/2024 1:54 AM EDT us Girish Taylor MD LAB BLOOD ORDERABLES Final R esult [facility] [address] [place] [address] * (ABNORMAL) Basic metabolic panel (11/03/2024 1:47 AM EDT) Glucose, Plasma 93 74 - 99 mg/dL 11/03/2024 2:26 AM EDT [facility] BUN, Plasma 8 7 - 21 mg/dL 11/03/2024 2:26 AM EDT [facility] Creatinine, Plasma 0.83 0.70 - 1.20 mg/dL 11/03/2024 2:26 AM EDT [facility] BUN/Creatinine Ratio 10 11/03/2024 2:26 AM EDT [facility] Sodium, Plasma 134(L) 136 - 145 mmol/L 11/03/2024 2:26 AM EDT [facility] Potassium, Plasma 3.8 3.6 - 4.9 mmol/L 11/03/2024 2:26 AM EDT [facility] Chloride, Plasma 99 97 - 107 mmol/L 11/03/2024 2:26 AM EDT [facility] CO2, Plasma 26 22 - 29 mmol/L 11/03/2024 2:26 AM EDT [facility] Anion Gap 9 6 - 16 mmol/L 11/03/2024 2:26 AM EDT [facility] Total Calcium, Plasma 8.6(L) 8.9 - 10.2 mg/dL 11/03/2024 2:26 AM EDT [facility] eGFRcr 105.3 mL/min/1.7 3m*2 11/03/2024 2:26 AM EDT [facility] Comment:Reported eGFRcr in m L/min/1.73m2 is based the CKD-EPI 2020 equation that does not use a race coefficient. Blood Venous blood specimen / Unknown Venipuncture / Unknown 11/03/2024 1:47 AM EDT 11/03/2024 1:54 AM EDT us Girish Taylor MD LAB BLOOD ORDERABLES Final R esult [facility] [address] [place] [address] * POCT glucose meter (11/02/2024 5:05 PM EDT) Pathologist [facility] POCT Glucose 98 74 - 99 mg/dL 11/02/2024 5:08 PM EDT [facility] Comment:Accuracy of a glucos e result obtained from a capillary whole blood specimen relies upon adequate, non-compromised capillary blood flow. If the capillary glucose result is not consistent with the patient's clinical signs and symptoms, glucose testing should be repeated with either an arterial or venous sample on the glucometer or sent to the main labortory for testing. Comment 11/02/2024 5:08 PM EDT [facility] Drawing Tender ID Sandy Huertas 11/02/2024 5:08 PM EDT [facility] Device ID [id number] 11/02/2024 5:08 PM EDT [facility] Specimen Type POC Capillary 11/02/2024 5:08 PM EDT [facility] Blood Capillary blood specimen / Unknown 11/02/2024 5:05 PM EDT 11/02/2024 5:08 PM EDT Girish Taylor MD LAB POINT OF CARE TE ST DOCKED DEVICE UNSOLICITED RESULTS Final Result [facility] [address] [place] [address] * POCT glucose meter (11/02/2024 1:04 PM EDT) [facility] POCT Glucose 98 74 - 99 mg/dL 11/02/2024 1:06 PM EDT [facility] Comment:Accuracy of a glucos e result obtained from a capillary whole blood specimen relies upon adequate, non-compromised capillary blood flow. If the capillary glucose result is not consistent with the patient's clinical signs and symptoms, glucose testing should be repeated with either an arterial or venous sample on the glucometer or sent to the main labortory for testing. Comment 11/02/2024 1:06 PM EDT [facility] Drawing Tender ID Sandy Huertas 11/02/2024 1:06 PM EDT [facility] Device ID [id number] 11/02/2024 1:06 PM EDT [facility] Specimen Type POC Capillary 11/02/2024 1:06 PM EDT [facility] Blood Capillary blood specimen / Unknown 11/02/2024 1:04 PM EDT 11/02/2024 1:06 PM EDT us Girish Taylor MD LAB POINT OF CARE TE ST DOCKED DEVICE UNSOLICITED RESULTS Final Result [facility] [address] [place] [address] * HI CRITICAL CARE, E/M 30-74 MINUTES (11/02/2024 9:37 AM EDT) Narrative Girish Taylor MD - 11/02/2024 9:37 AM EDT Girish Taylor MD 11/10/2024 9:51 AM Critical Care Performed by: Girish Taylor MD Authorized by: Girish Taylor MD Critical care provider statement: Critical care time (minutes): 45 Critical care time was exclusive of: Separately billable procedures and treating other patients and teaching time Critical care was time spent personally by me on the following activities: Evaluation of patient's response to treatment, examination of patient, ventilator management, ordering and review of radiographic studies, ordering and review of laboratory studies, ordering and performing treatments and interventions and development of treatment plan with patient or surrogate I assumed subsequent critical care for this patient from a provider in my division, on the same day: no Comments: I attest to being involved in more than half the total time for 45 minutes in patient care. Girish Taylor MD us Girish Taylor MD IN CLINIC/BEDSIDE ORDERABLES Final Result * Elroy auris Surveillance by PCR (11/02/2024 7:58 AM EDT) Elroy auris PCR Result Not Detected Not Detected 11/05/2024 8:16 AM EDT [facility] Swab (Axilla and Groin) Non-blood Collection / Unknown 11/02/2024 7:58 AM EDT 11/02/2024 8:14 AM EDT Narrative [facility] - 11/05/2024 8:16 AM EDT This PCR assay was developed and its performance characteristics determined by [facility] as appropriate for clinical purposes. This assay has not been cleared or approved by the FDA, but is performed in a CLIA regulated laboratory that is qualified to perform high-complexity testing. Girish Taylor MD LAB MICROBIOLOGY - GENERAL O RDERABLES Final Result [facility] [address] [place] [address] * XR Chest 1 View (11/02/2024 4:42 AM EDT) Anatomical Region Laterality Modality Chest Digital Radiogra phy Impressions 11/02/2024 12:31 PM EDT No significant interval change. CRITICAL RESULT: No. COMMUNICATION: Per this written report. Drafted by Dorita Guido MD on 11/02/2024 12:30 PM Final report signed by Dorita Guido MD on 11/02/2024 12:31 PM Narrative 11/02/2024 12:31 PM EDT CLINICAL INDICATION: eval of lung wiggins TECHNIQUE: Single AP view of chest. COMPARISON: One day prior FINDINGS: Stable support hardware. The cardiomediastinal contours are unchanged. No sizable pneumothorax or pleural effusion. Bibasal atelectatic changes. No new lung consolidation. Procedure Note Dorita Guido MD - 11/02/2024 CLINICAL INDICATION: eval of lung wiggins TECHNIQUE: Single AP view of chest. COMPARISON: One day prior FINDINGS: Stable support hardware. The cardiomediastinal contours are unchanged. Nosizable pneumothorax or pleural effusion. Bibasal atelectatic changes. No new lung consolidation. IMPRESSION: No significant interval change. CRITICAL RESULT: No. COMMUNICATION: Per this written report. Drafted by Dorita Guido MD on 11/02/2024 12:30 PM Final report signed by Dorita Guido MD on 11/02/2024 12:31 PM Kianna N Osmani DIRECTOR SPECIAL EDUCATION IMG XR PROCEDURES Final R esult * Phosphorus, Plasma (11/02/2024 12:01 AM EDT) Phosphorus, Plasma 3.6 2.5 - 4.5 mg/dL 11/02/2024 12:42 AM EDT [facility] Blood Venous blood specimen / Unknown Venipuncture / Unknown 11/02/2024 12:01 AM EDT 11/02/2024 12:10 AM EDT Kianna N Osmani DIRECTOR SPECIAL EDUCATION LAB BLOOD ORDERABLES Molly l Result Performing Organization Address [facility] Co de Phone Number [facility] [address] [place] [address] * Magnesium, Plasma (11/02/2024 12:01 AM EDT) Magnesium, Plasma 2.1 1.9 - 2.4 mg/dL 11/02/2024 12:42 AM EDT [facility] Blood Venous blood specimen / Unknown Venipuncture / Unknown 11/02/2024 12:01 AM EDT 11/02/2024 12:10 AM EDT Kianna N Osmani DIRECTOR SPECIAL EDUCATION LAB BLOOD ORDERABLES Molly l Result Performing Organization Address [facility] Co de Phone Number [facility] [address] [place] [address] * (ABNORMAL) Basic Metabolic Panel, Plasma (11/02/2024 12:01 AM EDT) Glucose, Plasma 106(H) 74 - 99 mg/dL 11/02/2024 12:42 AM EDT [facility] BUN, Plasma 13 7 - 21 mg/dL 11/02/2024 12:42 AM EDT [facility] Creatinine, Plasma 1.02 0.70 - 1.20 mg/dL 11/02/2024 12:42 AM EDT [facility] BUN/Creatinine Ratio 13 11/02/2024 12:42 AM EDT [facility] Sodium, Plasma 135(L) 136 - 145 mmol/L 11/02/2024 12:42 AM EDT [facility] Potassium, Plasma 4.3 3.6 - 4.9 mmol/L 11/02/2024 12:42 AM EDT [facility] Chloride, Plasma 102 97 - 107 mmol/L 11/02/2024 12:42 AM EDT [facility] CO2, Plasma 24 22 - 29 mmol/L 11/02/2024 12:42 AM EDT [facility] Anion Gap 9 6 - 16 mmol/L 11/02/2024 12:42 AM EDT [facility] Total Calcium, Plasma 8.6(L) 8.9 - 10.2 mg/dL 11/02/2024 12:42 AM EDT [facility] eGFRcr 88.4 mL/min/1.7 3m*2 11/02/2024 12:42 AM EDT [facility] Comment:Reported eGFRcr in m L/min/1.73m2 is based the CKD-EPI 2020 equation that does not use a race coefficient. Blood Venous blood specimen / Unknown Venipuncture / Unknown 11/02/2024 12:01 AM EDT 11/02/2024 12:10 AM EDT us Kianna Keen DIRECTOR SPECIAL EDUCATION LAB BLOOD ORDERABLES Molly l Result [facility] [address] [place] [address] * (ABNORMAL) CBC W/O Differential (11/02/2024 12:01 AM EDT) WBC Count 12.16(H) 3.70 - 10.30 10*3/uL LAB HEMATOLOGY METHOD 11/02/2024 12:27 AM EDT [facility] RBC Count 3.82(L) 4.60 - 6.10 10*6/uL LAB HEMATOLOGY METHOD 11/02/2024 12:27 AM EDT [facility] HGB 12.0(L) 13.7 - 17.5 g/dL LAB HEMATOLOGY METHOD 11/02/2024 12:27 AM EDT [facility] HCT 35.8(L) 40.0 - 51.0 % LAB HEMATOLOGY METHOD 11/02/2024 12:27 AM EDT [facility] Platelet Count 221 155 - 369 10*3/uL LAB HEMATOLOGY METHOD 11/02/2024 12:27 AM EDT [facility] MCV 94 79 - 98 fL LAB HEMATOLOGY METHOD 11/02/2024 12:27 AM EDT [facility] Comment:Results inconsistent with previous lab findings. MCH 31.4 26.0 - 32.0 pg LAB HEMATOLOGY METHOD 11/02/2024 12:27 AM EDT [facility] MCHC 33.5 30.7 - 35.5 g/dL LAB HEMATOLOGY METHOD 11/02/2024 12:27 AM EDT [facility] RDW 12.0 11.5 - 14.5 % LAB HEMATOLOGY METHOD 11/02/2024 12:27 AM EDT [facility] MPV 10.3 8.8 - 12.5 fL LAB HEMATOLOGY METHOD 11/02/2024 12:27 AM EDT [facility] nRBC 0.0 <=0.0 per 100 WBCs LAB HEMATOLOGY METHOD 11/02/2024 12:27 AM EDT [facility] Blood Venous blood specimen / Unknown Venipuncture / Unknown 11/02/2024 12:01 AM EDT 11/02/2024 12:16 AM EDT Kianna Keen DIRECTOR SPECIAL EDUCATION LAB BLOOD ORDERABLES Molly skinner Result [facility] [address] [place] [address] * POCT glucose meter (11/01/2024 6:13 PM EDT) [facility] POCT Glucose 98 74 - 99 mg/dL 11/01/2024 6:16 PM EDT [facility] Comment:Accuracy of a glucos e result obtained from a capillary whole blood specimen relies upon adequate, non-compromised capillary blood flow. If the capillary glucose result is not consistent with the patient's clinical signs and symptoms, glucose testing should be repeated with either an arterial or venous sample on the glucometer or sent to the main labortory for testing. Comment 11/01/2024 6:16 PM EDT [facility] Drawing Tender ID Sandy Huertas 11/01/2024 6:16 PM EDT [facility] Device ID [id number] 11/01/2024 6:16 PM EDT [facility] Specimen Type POC Capillary 11/01/2024 6:16 PM EDT [facility] Blood Capillary blood specimen / Unknown 11/01/2024 6:13 PM EDT 11/01/2024 6:16 PM EDT us Girish Taylor MD LAB POINT OF CARE TE ST DOCKED DEVICE UNSOLICITED RESULTS Final Result [facility] [address] [place] [address] * MR Lumbar Spine wo IV Contrast (11/01/2024 5:40 PM EDT) Anatomical Region Laterality Modality L-spine Magnetic Resonan ce Impressions 11/01/2024 7:48 PM EDT Burst fracture of the L1 superior body, and L1 transverse processes, with retropulsion of fracture fragments into the spinal canal resulting in moderate to severe spinal canal stenosis. Additional fractures of T12 inferior endplate and L2 superior endplate as described above. Questionable subtle fracture of the L4 vertebral body as described above. There is questionable internal STIR hyperintense signal at the conus concerning for possible subtle injury. Additional STIR hyperintense signal involving the proximal cauda equina fibers concerning for possible injury. There is T1 hypointense, mixed T2 signal and STIR hyperintense signal anterior to the spinal canal extending from L1 to the superior endplate of L3 concerning for extradural hematoma resulting in right greater than left mass effect on the conus and cauda equina. There is additional T1 hypointense and T2/STIR hyperintense signal along the anterior spinal canal extending from L3 through S1 which could suggest additional hematoma and/or edema of the extradural fat. There is focal T2/STIR hyperintense signal involving the right L2-3 nerve root within the foramen concerning for possible injury versus artifact. Nontraumatic degenerative changes as described above, most notable at T11-12 and L5-S1. Significant strain versus reactive edema of the paraspinal muscles and psoas muscles as described above. CRITICAL RESULT: No. COMMUNICATION: Per this written report. Drafted by Yara Escobar MD on 11/01/2024 6:49 PM Final report signed by Yara Escobar MD on 11/01/2024 7:48 PM Narrative 11/01/2024 7:48 PM EDT CLINICAL INDICATION: Back trauma, abnormal neuro exam, CT or xray positive (Age >= 16y) TECHNIQUE: Multiplanar multiecho sequences were obtained through the lumbar spine utilizing T1 and T2 weighting without the administration of intravenous contrast. COMPARISON: CT L-spine from 11/01/2024 FINDINGS: The lumbar spine overall maintains its usual lordosis. There is an acute burst fracture of the L1 vertebral body with nearly 50% height loss, and retropulsion of fracture fragments effacing the conus. There is fracture involvement of the entire right pedicle, inferior left pedicle and base of the spinous process extending into the left lamina, all better evaluated on the comparison CT. Bilateral L1 transverse process fractures. There is T2/STIR hyperintense and T1 hypointense linear signal involving the T12 inferior endplate and L2 superior endplate consistent with compression fractures without significant height loss. Bilateral L2 transverse process fractures. There is somewhat linear T2/STIR hyperintense and T1 hypointense signal to a lesser extent involving the L4 vertebral body, which may reflect focally increased vascularity though subtle nondisplaced fracture cannot be entirely excluded in the setting of significant trauma. The conus terminates at inferior plate of L1. There is questionable internal STIR hyperintense signal at the conus concerning for possible subtle injury (series 5 image 11; series 4, image 10). There is STIR hyperintense signal involving the proximal cauda equina fibers at the L1-L2 levels concerning for injury, seen best on the sagittal images (series 4, image 10). There is T1 hypointense, mixed T2 signal and STIR hyperintense signal anterior to the spinal canal extending from L1 to the superior endplate of L3 concerning for extradural hematoma resulting in right greater than left mass effect on the conus and cauda equina. There is additional T1 hypointense and T2/STIR hyperintense signal along the anterior spinal canal extending from L3 through S1 which could suggest additional hematoma and/or edema of the extradural fat. There is paraspinal hematoma anteriorly spanning at least the T12-L2 level, abutting the posterior wall of the aorta. There is intramuscular edema of the bilateral psoas muscles spanning L1-L4. There is intramuscular edema of the paraspinal muscles, left greater than right, spanning L1-L4. The visualized portion of the aorta is normal in caliber. T11-T12: Posterior osteophytes and broad disc protrusion. No neuroforaminal narrowing. Mild spinal canal stenosis. T12-L1: There is likely laceration of the T12-L1 disc anteriorly (series 4, image 9). Retropulsion of L1 fracture fragments resulting in moderate to severe spinal canal stenosis. There is mild right neuroforaminal narrowing due to mildly displaced fracture fragments. There is heterogeneous appearance of the neuroforaminal fat concerning for posttraumatic edema. L1-L2: Likely traumatic height loss with questionable extrusion of the disc anteriorly (series 4, image 12). There is heterogeneous appearance of the neuroforaminal fat concerning for posttraumatic edema. Moderate spinal canal stenosis due to anterior extradural hematoma. L2-L3: No significant neuroforaminal narrowing. There is heterogeneous appearance of the neuroforaminal fat concerning for posttraumatic edema. There is focal T2/STIR hyperintense signal involving the right L2-3 nerve root within the foramen concerning for possible injury versus artifact (image 7 of series 3 and 4; series 9, image 22). Moderate spinal canal stenosis due to anterior extradural hematoma. L3-L4: No neuroforaminal narrowing. Mild spinal canal stenosis due to anterior extradural hematoma and/or edema of the extradural fat. L4-L5: Broad disc bulge, greater towards the right. No neuroforaminal narrowing. Mild spinal canal stenosis due to anterior extradural hematoma and/or edema of the extradural fat. L5-S1: Complete disc desiccation. Mild broad disc bulge and posterior disc space height loss resulting in mild bilateral neuroforaminal narrowing. Mild spinal canal stenosis due to extradural hematoma and/or edema of the extradural fat. Procedure Note Yara Escobar MD - 11/01/2024 CLINICAL INDICATION: Back trauma, abnormal neuro exam, CT or xray positive (Age >= 16y) TECHNIQUE: Multiplanar multiecho sequences were obtained through the lumbar spineutilizing T1 and T2 weighting without the administration of intravenouscontrast. COMPARISON: CT L-spine from 11/01/2024 FINDINGS: The lumbar spine overall maintains its usual lordosis. There is an acuteburst fracture of the L1 vertebral body with nearly 50% height loss, andretropulsion of fracture fragments effacing the conus. There is fractureinvolvement of the entire right pedicle, inferior left pedicle and base ofthe spinous process extending into the left lamina, all better evaluatedon the comparison CT. Bilateral L1 transverse process fractures. There is T2/STIR hyperintense and T1 hypointense linear signal involvingthe T12 inferior endplate and L2 superior endplate consistent withcompression fractures without significant height loss. Bilateral [id number] process fractures. There is somewhat linear T2/STIR hyperintense and T1 hypointense signal toa lesser extent involving the L4 vertebral body, which may reflect focallyincreased vascularity though subtle nondisplaced fracture cannot beentirely excluded in the setting of significant trauma. The conus terminates at inferior plate of L1. There is questionableinternal STIR hyperintense signal at the conus concerning for possiblesubtle injury (series 5 image 11; series 4, image 10). There is STIRhyperintense signal involving the proximal cauda equina fibers at theL1-L2 levels concerning for injury, seen best on the sagittal images(series 4, image 10). There is T1 hypointense, mixed T2 signal and STIR hyperintense signalanterior to the spinal canal extending from L1 to the superior endplate ofL3 concerning for extradural hematoma resulting in right greater than leftmass effect on the conus and cauda equina. There is additional [id number] and T2/STIR hyperintense signal along the anterior spinalcanal extending from L3 through S1 which could suggest additional hematomaand/or edema of the extradural fat. There is paraspinal hematoma anteriorly spanning at least the [id number], abutting the posterior wall of the aorta. There is intramuscularedema of the bilateral psoas muscles spanning L1-L4. There isintramuscular edema of the paraspinal muscles, left greater than right,spanning L1-L4. The visualized portion of the aorta is normal in caliber. T11-T12: Posterior osteophytes and broad disc protrusion. Noneuroforaminal narrowing. Mild spinal canal stenosis. T12-L1: There is likely laceration of the T12-L1 disc anteriorly (series4, image 9). Retropulsion of L1 fracture fragments resulting in moderateto severe spinal canal stenosis. There is mild right neuroforaminalnarrowing due to mildly displaced fracture fragments. There isheterogeneous appearance of the neuroforaminal fat concerning forposttraumatic edema. L1-L2: Likely traumatic height loss with questionable extrusion of thedisc anteriorly (series 4, image 12). There is heterogeneous appearance ofthe neuroforaminal fat concerning for posttraumatic edema. Moderate spinalcanal stenosis due to anterior extradural hematoma. L2-L3: No significant neuroforaminal narrowing. There is heterogeneousappearance of the neuroforaminal fat concerning for posttraumatic edema.There is focal T2/STIR hyperintense signal involving the right L2-3 nerveroot within the foramen concerning for possible injury versus artifact(image 7 of series 3 and 4; series 9, image 22). Moderate spinal canalstenosis due to anterior extradural hematoma. L3-L4: No neuroforaminal narrowing. Mild spinal canal stenosis due toanterior extradural hematoma and/or edema of the extradural fat. L4-L5: Broad disc bulge, greater towards the right. No neuroforaminalnarrowing. Mild spinal canal stenosis due to anterior extradural hematomaand/or edema of the extradural fat. L5-S1: Complete disc desiccation. Mild broad disc bulge and posterior discspace height loss resulting in mild bilateral neuroforaminal narrowing.Mild spinal canal stenosis due to extradural hematoma and/or edema of theextradural fat. IMPRESSION: Burst fracture of the L1 superior body, and L1 transverse processes, withretropulsion of fracture fragments into the spinal canal resulting inmoderate to severe spinal canal stenosis. Additional fractures of T12 inferior endplate and L2 superior endplate asdescribed above. Questionable subtle fracture of the L4 vertebral body asdescribed above. There is questionable internal STIR hyperintense signal at the conusconcerning for possible subtle injury. Additional STIR hyperintense signalinvolving the proximal cauda equina fibers concerning for possibleinjury. There is T1 hypointense, mixed T2 signal and STIR hyperintense signalanterior to the spinal canal extending from L1 to the superior endplate ofL3 concerning for extradural hematoma resulting in right greater than leftmass effect on the conus and cauda equina. There is additional [id number] and T2/STIR hyperintense signal along the anterior spinalcanal extending from L3 through S1 which could suggest additional hematomaand/or edema of the extradural fat. There is focal T2/STIR hyperintense signal involving the right L2-3 nerveroot within the foramen concerning for possible injury versus artifact. Nontraumatic degenerative changes as described above, most notable [id number] and L5-S1. Significant strain versus reactive edema of the paraspinal muscles andpsoas muscles as described above. CRITICAL RESULT: No. COMMUNICATION: Per this written report. Drafted by Yara Escobar MD on 11/01/2024 6:49 PM Final report signed by Yara Escobar MD on 11/01/2024 7:48 PM us Jorge Pineda MD IMG MRI PROCEDURES Final Resul t * XR Abdomen 1 View (Adult Inpatients per policy) (11/01/2024 3:37 PM EDT) Anatomical Region Laterality Modality Body Digital Radiogra phy Impressions 11/01/2024 3:51 PM EDT The tip of the gastric tube is within the mid stomach CRITICAL RESULT: No. COMMUNICATION: Per this written report. Drafted by Arun Jacobsen MD on 11/01/2024 3:51 PM Final report signed by Arun Jacobsen MD on 11/01/2024 3:51 PM Narrative 11/01/2024 3:51 PM EDT CLINICAL INDICATION: Confirm proper placement of NG/OG tube TECHNIQUE: Supine radiograph of the abdomen. COMPARISON: None. FINDINGS: Limited [id number] abdominal radiograph for the purpose of locating tube position. The tip of the nasogastric tube is within the mid stomach. Procedure Note Arun Jacobsen MD - 11/01/2024 CLINICAL INDICATION: Confirm proper placement of NG/OG tube TECHNIQUE: Supine radiograph of the abdomen. COMPARISON: None. FINDINGS: Limited [id number] abdominal radiograph for the purpose of locatingtube position. The tip of the nasogastric tube is within the mid stomach. IMPRESSION: The tip of the gastric tube is within the mid stomach CRITICAL RESULT: No. COMMUNICATION: Per this written report. Drafted by Arun Jacobsen MD on 11/01/2024 3:51 PM Final report signed by Arun Jacobsen MD on 11/01/2024 3:51 PM Girish Taylor MD IMG XR PROCEDURES Final Resu lt * CT Bony Pelvis (11/01/2024 8:35 AM EDT) Anatomical Region Laterality Modality Pelvis Computed Tomogra phy Impressions 11/01/2024 9:45 AM EDT 1. No acute vascular pathology within the chest abdomen or pelvis. 2. No acute findings in the chest. 3. Burst fracture of L1 with bilateral transverse process fractures at L1 and L2. Left lamina fracture extending into the interspinous region at L1. Please see lumbar spine CT report for further detail 4. Otherwise no acute finding in the abdomen or pelvis. 5. No acute fracture or malalignment of the bony pelvis CRITICAL RESULT: No. COMMUNICATION: Per this written report. Drafted by Ja Chisholm MD on 11/01/2024 9:34 AM Final report signed by Ja Chisholm MD on 11/01/2024 9:45 AM Narrative 11/01/2024 9:45 AM EDT CLINICAL INDICATION: poly trauma TECHNIQUE: Imaging of the chest abdomen and pelvis was performed, from thoracic inlet through pubic symphysis, using spiral technique, following administration of IV contrast, Omnipaque 350, 100 mL according to the CTA thoracic aorta/chest and CTA Abdomen/Pelvis protocol. Reformatted images in the coronal, sagittal, and oblique planes were generated from the axial data set to facilitate diagnostic accuracy. In addition, 3D images were created and reviewed. Multiple axial CT images were obtained through level of pelvis per CT Bony Pelvis protocol. The axial CT data set was used to generate high resolution reformatted images in the coronal and sagittal planes to facilitate diagnostic accuracy and treatment planning Total DLP (Dose-Length Product): 3308.43 mGy.cm (accession [id number]), 3308.43 mGy.cm (accession [id number]), 3308.43 mGy.cm (accession [id number]). Please note: The reported value represents the total of one or more individual components during the CT acquisition on this date and at this time, and as such, the same value may appear in more than one CT report depending on the interpreting/reporting physicians. COMPARISON: None. FINDINGS: Chest: Unremarkable appearing aorta. No evidence of periaortic hematoma. No central pulmonary embolus. Coronary artery calcifications are present. There is been a prior median sternotomy. No pericardial effusion. No mediastinal or hilar mass or adenopathy. Endotracheal tube is present with the tip 4 cm above the satish. Esophagogastric tube is present with the tip in the region of the body the stomach. There are scattered atelectatic changes. No evidence of pneumothorax. No pleural effusion. No acute displaced rib fracture. Unremarkable thoracic wall. Abdomen and pelvis: No acute vascular findings. 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 Unremarkable appearance of the liver aside from low density changes in the left hepatic lobe adjacent to the falciform ligament consistent with focal fatty infiltration. Gallbladder and biliary tree have an unremarkable appearance. Homogeneous enhancement of the spleen and pancreas. Unremarkable adrenal morphology. No renal or ureteral calculi. No renal mass or perinephric fluid collection. There is a small right renal cyst. No intestinal obstruction or free air. Nonvisualization of the appendix. Amin catheter is present in urinary bladder. Burst fracture of L1 with bilateral transverse process fractures at L1 and L2. Left lamina fracture extending into the interspinous region at L1. Please see lumbar spine CT report for further detail. No adenopathy. CT bony pelvis: No acute fracture or malalignment. Procedure Note Ja Chisholm MD - 11/01/2024 CLINICAL INDICATION: poly trauma TECHNIQUE: Imaging of the chest abdomen and pelvis was performed, from thoracic inletthrough pubic symphysis, using spiral technique, following administrationof IV contrast, Omnipaque 350, 100 mL according to the CTA thoracicaorta/chest and CTA Abdomen/Pelvis protocol. Reformatted images in thecoronal, sagittal, and oblique planes were generated from the axial dataset to facilitate diagnostic accuracy. In addition, 3D images were createdand reviewed. Multiple axial CT images were obtained through level of pelvis per CT BonyPelvis protocol. The axial CT data set was used to generate highresolution reformatted images in the coronal and sagittal planes tofacilitate diagnostic accuracy and treatment planning Total DLP (Dose-Length Product): 3308.43 mGy.cm (accession [id number]),3308.43 mGy.cm (accession [id number]), 3308.43 mGy.cm (accession [id number]).Please note: The reported value represents the total of one or moreindividual components during the CT acquisition on this date and at thistime, and as such, the same value may appear in more than one CT reportdepending on the interpreting/reporting physicians. COMPARISON: None. FINDINGS: Chest: Unremarkable appearing aorta. No evidence of periaortic hematoma. Nocentral pulmonary embolus. Coronary artery calcifications are present.There is been a prior median sternotomy. No pericardial effusion. No mediastinal or hilar mass or adenopathy. Endotracheal tube is present with the tip 4 cm above the satish.Esophagogastric tube is present with the tip in the region of the body thestomach. There are scattered atelectatic changes. No evidence of pneumothorax. Nopleural effusion. No acute displaced rib fracture. Unremarkable thoracic wall. Abdomen and pelvis: No acute vascular findings. 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 Unremarkable appearance of the liver aside from low density changes in theleft hepatic lobe adjacent to the falciform ligament consistent with focalfatty infiltration. Gallbladder and biliary tree have an unremarkableappearance. Homogeneous enhancement of the spleen and pancreas. Unremarkable adrenalmorphology. No renal or ureteral calculi. No renal mass or perinephric fluidcollection. There is a small right renal cyst. No intestinal obstruction or free air. Nonvisualization of the appendix. Amin catheter is present in urinary bladder. Burst fracture of L1 with bilateral transverse process fractures at L1 andL2. Left lamina fracture extending into the interspinous region at L1.Please see lumbar spine CT report for further detail. No adenopathy. CT bony pelvis: No acute fracture or malalignment. IMPRESSION: 1. No acute vascular pathology within the chest abdomen or pelvis. 2. No acute findings in the chest. 3. Burst fracture of L1 with bilateral transverse process fractures at L1and L2. Left lamina fracture extending into the interspinous region at L1.Please see lumbar spine CT report for further detail 4. Otherwise no acute finding in the abdomen or pelvis. 5. No acute fracture or malalignment of the bony pelvis CRITICAL RESULT: No. COMMUNICATION: Per this written report. Drafted by Ja Chisholm MD on 11/01/2024 9:34 AM Final report signed by Ja Chisholm MD on 11/01/2024 9:45 AM us Hernan Paulson MD IM CT PROCEDURES Final Resul t * CT Lumbar Spine wo IV Contrast (11/01/2024 8:35 AM EDT) Anatomical Region Laterality Modality Spine, L-spine Computed Tomogra phy Impressions 11/01/2024 9:33 AM EDT 1. No acute fracture or malalignment of the cervical spine. 2. No acute fracture or malalignment of the thoracic spine. 3. Burst fracture involves the L1 vertebral body with retropulsion of posterior fragments into the anterior aspect of the canal or extensive on the right. Fragments are retropulsed by approximately 9 mm in the right lateral recess region. Fracture involves the junction of the right pedicle anteriorly with the vertebral body. 4. Displaced bilateral transverse process fractures at L1. 5. There is also longitudinal fracture of the medial aspect of the left lamina at L1 involving the base of the spinous process. 6. Displaced fractures involve the transverse process of L2 on both sides CRITICAL RESULT: No. COMMUNICATION: Per this written report. Drafted by Ja Chisholm MD on 11/01/2024 9:19 AM Final report signed by Ja Chisholm MD on 11/01/2024 9:33 AM Narrative 11/01/2024 9:33 AM EDT CLINICAL INDICATION: poly trauma TECHNIQUE: Imaging of the entire cervical spine (to include the cervicothoracic junction) was performed, using spiral technique, without contrast administration. Reformatted images in the coronal and sagittal planes were generated from the axial data set to facilitate diagnostic accuracy and/or surgical planning. Contiguous axial CT images of the entire thoracic spine were reformatted from a CT of the chest/aorta. Reconstructed images in the coronal and sagittal planes were generated from the axial data set to facilitate diagnostic accuracy and/or surgical planning. Contiguous axial CT images of the entire lumbar spine were reformatted from a CT of the abdomen and pelvis. Reconstructed images in the coronal and sagittal planes were generated from the axial data set to facilitate diagnostic accuracy and/or surgical planning. Total DLP (Dose-Length Product): 3308.43 mGy.cm (accession [id number]), 3308.43 mGy.cm (accession [id number]), 3308.43 mGy.cm (accession [id number]). Please note: The reported value represents the total of one or more individual components during the CT acquisition on this date and at this time, and as such, the same value may appear in more than one CT report depending on the interpreting/reporting physicians. COMPARISON: None. FINDINGS: Cervical Spine: Vertebrae: No acute fracture. Alignment: Normal spinal alignment. Paraspinal Soft Tissues: No paraspinal hematoma. Lung Apices: No pneumothorax at the lung apices. Thoracic Spine: Vertebrae: No acute fracture.-There is a bifid spinous process at T1 Alignment: Normal spinal alignment. Paraspinal Soft Tissues: Please see report for CT Chest/Aorta for soft tissue findings. Lumbar Spine: Vertebrae: Burst fracture involves the L1 vertebral body with retropulsion of posterior fragments into the anterior aspect of the canal or extensive on the right. Fragments are retropulsed by approximately 9 mm in the right lateral recess region. Fracture involves the junction of the right pedicle anteriorly with the vertebral body. Displaced bilateral transverse process fractures at L1. There is also longitudinal fracture of the medial aspect of the left lamina at L1 involving the base of the spinous process. Displaced fractures involve the transverse process of L2 on both sides Alignment: Normal spinal alignment. Paraspinal Soft Tissues: Please see report for CT Abdomen and Pelvis for soft tissue findings. Procedure Note Ja Chisholm MD - 11/01/2024 CLINICAL INDICATION: poly trauma TECHNIQUE: Imaging of the entire cervical spine (to include the cervicothoracicjunction) was performed, using spiral technique, without contrastadministration. Reformatted images in the coronal and sagittal planes weregenerated from the axial data set to facilitate diagnostic accuracy and/orsurgical planning. Contiguous axial CT images of the entire thoracic spine were reformattedfrom a CT of the chest/aorta. Reconstructed images in the coronal andsagittal planes were generated from the axial data set to facilitatediagnostic accuracy and/or surgical planning. Contiguous axial CT images of the entire lumbar spine were reformattedfrom a CT of the abdomen and pelvis. Reconstructed images in the coronaland sagittal planes were generated from the axial data set to facilitatediagnostic accuracy and/or surgical planning. Total DLP (Dose-Length Product): 3308.43 mGy.cm (accession [id number]),3308.43 mGy.cm (accession [id number]), 3308.43 mGy.cm (accession [id number]).Please note: The reported value represents the total of one or moreindividual components during the CT acquisition on this date and at thistime, and as such, the same value may appear in more than one CT reportdepending on the interpreting/reporting physicians. COMPARISON: None. FINDINGS: Cervical Spine: Vertebrae: No acute fracture. Alignment: Normal spinal alignment. Paraspinal Soft Tissues: No paraspinal hematoma. Lung Apices: No pneumothorax at the lung apices. Thoracic Spine: Vertebrae: No acute fracture.-There is a bifid spinous process at T1 Alignment: Normal spinal alignment. Paraspinal Soft Tissues: Please see report for CT Chest/Aorta for softtissue findings. Lumbar Spine: Vertebrae: Burst fracture involves the L1 vertebral body with retropulsionof posterior fragments into the anterior aspect of the canal or extensiveon the right. Fragments are retropulsed by approximately 9 mm in the rightlateral recess region. Fracture involves the junction of the right pedicleanteriorly with the vertebral body. Displaced bilateral transverse processfractures at L1. There is also longitudinal fracture of the medial aspectof the left lamina at L1 involving the base of the spinous process.Displaced fractures involve the transverse process of L2 on both sides Alignment: Normal spinal alignment. Paraspinal Soft Tissues: Please see report for CT Abdomen and Pelvis forsoft tissue findings. IMPRESSION: 1. No acute fracture or malalignment of the cervical spine. 2. No acute fracture or malalignment of the thoracic spine. 3. Burst fracture involves the L1 vertebral body with retropulsion ofposterior fragments into the anterior aspect of the canal or extensive onthe right. Fragments are retropulsed by approximately 9 mm in the rightlateral recess region. Fracture involves the junction of the right pedicleanteriorly with the vertebral body. 4. Displaced bilateral transverse process fractures at L1. 5. There is also longitudinal fracture of the medial aspect of the leftlamina at L1 involving the base of the spinous process. 6. Displaced fractures involve the transverse process of L2 on bothsides CRITICAL RESULT: No. COMMUNICATION: Per this written report. Drafted by Ja Chisholm MD on 11/01/2024 9:19 AM Final report signed by Ja Chisholm MD on 11/01/2024 9:33 AM us Hernan Paulson MD IMG CT PROCEDURES Final Resul t * CT Thoracic Spine wo IV Contrast (11/01/2024 8:35 AM EDT) Anatomical Region Laterality Modality Spine, T-spine Computed Tomogra phy Impressions 11/01/2024 9:33 AM EDT 1. No acute fracture or malalignment of the cervical spine. 2. No acute fracture or malalignment of the thoracic spine. 3. Burst fracture involves the L1 vertebral body with retropulsion of posterior fragments into the anterior aspect of the canal or extensive on the right. Fragments are retropulsed by approximately 9 mm in the right lateral recess region. Fracture involves the junction of the right pedicle anteriorly with the vertebral body. 4. Displaced bilateral transverse process fractures at L1. 5. There is also longitudinal fracture of the medial aspect of the left lamina at L1 involving the base of the spinous process. 6. Displaced fractures involve the transverse process of L2 on both sides CRITICAL RESULT: No. COMMUNICATION: Per this written report. Drafted by Ja Chisholm MD on 11/01/2024 9:19 AM Final report signed by Ja Chisholm MD on 11/01/2024 9:33 AM Narrative 11/01/2024 9:33 AM EDT CLINICAL INDICATION: poly trauma TECHNIQUE: Imaging of the entire cervical spine (to include the cervicothoracic junction) was performed, using spiral technique, without contrast administration. Reformatted images in the coronal and sagittal planes were generated from the axial data set to facilitate diagnostic accuracy and/or surgical planning. Contiguous axial CT images of the entire thoracic spine were reformatted from a CT of the chest/aorta. Reconstructed images in the coronal and sagittal planes were generated from the axial data set to facilitate diagnostic accuracy and/or surgical planning. Contiguous axial CT images of the entire lumbar spine were reformatted from a CT of the abdomen and pelvis. Reconstructed images in the coronal and sagittal planes were generated from the axial data set to facilitate diagnostic accuracy and/or surgical planning. Total DLP (Dose-Length Product): 3308.43 mGy.cm (accession [id number]), 3308.43 mGy.cm (accession [id number]), 3308.43 mGy.cm (accession [id number]). Please note: The reported value represents the total of one or more individual components during the CT acquisition on this date and at this time, and as such, the same value may appear in more than one CT report depending on the interpreting/reporting physicians. COMPARISON: None. FINDINGS: Cervical Spine: Vertebrae: No acute fracture. Alignment: Normal spinal alignment. Paraspinal Soft Tissues: No paraspinal hematoma. Lung Apices: No pneumothorax at the lung apices. Thoracic Spine: Vertebrae: No acute fracture.-There is a bifid spinous process at T1 Alignment: Normal spinal alignment. Paraspinal Soft Tissues: Please see report for CT Chest/Aorta for soft tissue findings. Lumbar Spine: Vertebrae: Burst fracture involves the L1 vertebral body with retropulsion of posterior fragments into the anterior aspect of the canal or extensive on the right. Fragments are retropulsed by approximately 9 mm in the right lateral recess region. Fracture involves the junction of the right pedicle anteriorly with the vertebral body. Displaced bilateral transverse process fractures at L1. There is also longitudinal fracture of the medial aspect of the left lamina at L1 involving the base of the spinous process. Displaced fractures involve the transverse process of L2 on both sides Alignment: Normal spinal alignment. Paraspinal Soft Tissues: Please see report for CT Abdomen and Pelvis for soft tissue findings. Procedure Note Ja Chisholm MD - 11/01/2024 CLINICAL INDICATION: poly trauma TECHNIQUE: Imaging of the entire cervical spine (to include the cervicothoracicjunction) was performed, using spiral technique, without contrastadministration. Reformatted images in the coronal and sagittal planes weregenerated from the axial data set to facilitate diagnostic accuracy and/orsurgical planning. Contiguous axial CT images of the entire thoracic spine were reformattedfrom a CT of the chest/aorta. Reconstructed images in the coronal andsagittal planes were generated from the axial data set to facilitatediagnostic accuracy and/or surgical planning. Contiguous axial CT images of the entire lumbar spine were reformattedfrom a CT of the abdomen and pelvis. Reconstructed images in the coronaland sagittal planes were generated from the axial data set to facilitatediagnostic accuracy and/or surgical planning. Total DLP (Dose-Length Product): 3308.43 mGy.cm (accession [id number]),3308.43 mGy.cm (accession [id number]), 3308.43 mGy.cm (accession [id number]).Please note: The reported value represents the total of one or moreindividual components during the CT acquisition on this date and at thistime, and as such, the same value may appear in more than one CT reportdepending on the interpreting/reporting physicians. COMPARISON: None. FINDINGS: Cervical Spine: Vertebrae: No acute fracture. Alignment: Normal spinal alignment. Paraspinal Soft Tissues: No paraspinal hematoma. Lung Apices: No pneumothorax at the lung apices. Thoracic Spine: Vertebrae: No acute fracture.-There is a bifid spinous process at T1 Alignment: Normal spinal alignment. Paraspinal Soft Tissues: Please see report for CT Chest/Aorta for softtissue findings. Lumbar Spine: Vertebrae: Burst fracture involves the L1 vertebral body with retropulsionof posterior fragments into the anterior aspect of the canal or extensiveon the right. Fragments are retropulsed by approximately 9 mm in the rightlateral recess region. Fracture involves the junction of the right pedicleanteriorly with the vertebral body. Displaced bilateral transverse processfractures at L1. There is also longitudinal fracture of the medial aspectof the left lamina at L1 involving the base of the spinous process.Displaced fractures involve the transverse process of L2 on both sides Alignment: Normal spinal alignment. Paraspinal Soft Tissues: Please see report for CT Abdomen and Pelvis forsoft tissue findings. IMPRESSION: 1. No acute fracture or malalignment of the cervical spine. 2. No acute fracture or malalignment of the thoracic spine. 3. Burst fracture involves the L1 vertebral body with retropulsion ofposterior fragments into the anterior aspect of the canal or extensive onthe right. Fragments are retropulsed by approximately 9 mm in the rightlateral recess region. Fracture involves the junction of the right pedicleanteriorly with the vertebral body. 4. Displaced bilateral transverse process fractures at L1. 5. There is also longitudinal fracture of the medial aspect of the leftlamina at L1 involving the base of the spinous process. 6. Displaced fractures involve the transverse process of L2 on bothsides CRITICAL RESULT: No. COMMUNICATION: Per this written report. Drafted by Ja Chisholm MD on 11/01/2024 9:19 AM Final report signed by Ja Chisholm MD on 11/01/2024 9:33 AM us Hernan Paulson MD IMG CT PROCEDURES Final Resul t * CT Cervical Spine wo IV Contrast (11/01/2024 8:35 AM EDT) Anatomical Region Laterality Modality Spine, C-spine Computed Tomogra phy Impressions 11/01/2024 9:33 AM EDT 1. No acute fracture or malalignment of the cervical spine. 2. No acute fracture or malalignment of the thoracic spine. 3. Burst fracture involves the L1 vertebral body with retropulsion of posterior fragments into the anterior aspect of the canal or extensive on the right. Fragments are retropulsed by approximately 9 mm in the right lateral recess region. Fracture involves the junction of the right pedicle anteriorly with the vertebral body. 4. Displaced bilateral transverse process fractures at L1. 5. There is also longitudinal fracture of the medial aspect of the left lamina at L1 involving the base of the spinous process. 6. Displaced fractures involve the transverse process of L2 on both sides CRITICAL RESULT: No. COMMUNICATION: Per this written report. Drafted by Ja Chisholm MD on 11/01/2024 9:19 AM Final report signed by Ja Chisholm MD on 11/01/2024 9:33 AM Narrative 11/01/2024 9:33 AM EDT CLINICAL INDICATION: poly trauma TECHNIQUE: Imaging of the entire cervical spine (to include the cervicothoracic junction) was performed, using spiral technique, without contrast administration. Reformatted images in the coronal and sagittal planes were generated from the axial data set to facilitate diagnostic accuracy and/or surgical planning. Contiguous axial CT images of the entire thoracic spine were reformatted from a CT of the chest/aorta. Reconstructed images in the coronal and sagittal planes were generated from the axial data set to facilitate diagnostic accuracy and/or surgical planning. Contiguous axial CT images of the entire lumbar spine were reformatted from a CT of the abdomen and pelvis. Reconstructed images in the coronal and sagittal planes were generated from the axial data set to facilitate diagnostic accuracy and/or surgical planning. Total DLP (Dose-Length Product): 3308.43 mGy.cm (accession [id number]), 3308.43 mGy.cm (accession [id number]), 3308.43 mGy.cm (accession [id number]). Please note: The reported value represents the total of one or more individual components during the CT acquisition on this date and at this time, and as such, the same value may appear in more than one CT report depending on the interpreting/reporting physicians. COMPARISON: None. FINDINGS: Cervical Spine: Vertebrae: No acute fracture. Alignment: Normal spinal alignment. Paraspinal Soft Tissues: No paraspinal hematoma. Lung Apices: No pneumothorax at the lung apices. Thoracic Spine: Vertebrae: No acute fracture.-There is a bifid spinous process at T1 Alignment: Normal spinal alignment. Paraspinal Soft Tissues: Please see report for CT Chest/Aorta for soft tissue findings. Lumbar Spine: Vertebrae: Burst fracture involves the L1 vertebral body with retropulsion of posterior fragments into the anterior aspect of the canal or extensive on the right. Fragments are retropulsed by approximately 9 mm in the right lateral recess region. Fracture involves the junction of the right pedicle anteriorly with the vertebral body. Displaced bilateral transverse process fractures at L1. There is also longitudinal fracture of the medial aspect of the left lamina at L1 involving the base of the spinous process. Displaced fractures involve the transverse process of L2 on both sides Alignment: Normal spinal alignment. Paraspinal Soft Tissues: Please see report for CT Abdomen and Pelvis for soft tissue findings. Procedure Note Ja Chisholm MD - 11/01/2024 CLINICAL INDICATION: poly trauma TECHNIQUE: Imaging of the entire cervical spine (to include the cervicothoracicjunction) was performed, using spiral technique, without contrastadministration. Reformatted images in the coronal and sagittal planes weregenerated from the axial data set to facilitate diagnostic accuracy and/orsurgical planning. Contiguous axial CT images of the entire thoracic spine were reformattedfrom a CT of the chest/aorta. Reconstructed images in the coronal andsagittal planes were generated from the axial data set to facilitatediagnostic accuracy and/or surgical planning. Contiguous axial CT images of the entire lumbar spine were reformattedfrom a CT of the abdomen and pelvis. Reconstructed images in the coronaland sagittal planes were generated from the axial data set to facilitatediagnostic accuracy and/or surgical planning. Total DLP (Dose-Length Product): 3308.43 mGy.cm (accession [id number]),3308.43 mGy.cm (accession [id number]), 3308.43 mGy.cm (accession [id number]).Please note: The reported value represents the total of one or moreindividual components during the CT acquisition on this date and at thistime, and as such, the same value may appear in more than one CT reportdepending on the interpreting/reporting physicians. COMPARISON: None. FINDINGS: Cervical Spine: Vertebrae: No acute fracture. Alignment: Normal spinal alignment. Paraspinal Soft Tissues: No paraspinal hematoma. Lung Apices: No pneumothorax at the lung apices. Thoracic Spine: Vertebrae: No acute fracture.-There is a bifid spinous process at T1 Alignment: Normal spinal alignment. Paraspinal Soft Tissues: Please see report for CT Chest/Aorta for softtissue findings. Lumbar Spine: Vertebrae: Burst fracture involves the L1 vertebral body with retropulsionof posterior fragments into the anterior aspect of the canal or extensiveon the right. Fragments are retropulsed by approximately 9 mm in the rightlateral recess region. Fracture involves the junction of the right pedicleanteriorly with the vertebral body. Displaced bilateral transverse processfractures at L1. There is also longitudinal fracture of the medial aspectof the left lamina at L1 involving the base of the spinous process.Displaced fractures involve the transverse process of L2 on both sides Alignment: Normal spinal alignment. Paraspinal Soft Tissues: Please see report for CT Abdomen and Pelvis forsoft tissue findings. IMPRESSION: 1. No acute fracture or malalignment of the cervical spine. 2. No acute fracture or malalignment of the thoracic spine. 3. Burst fracture involves the L1 vertebral body with retropulsion ofposterior fragments into the anterior aspect of the canal or extensive onthe right. Fragments are retropulsed by approximately 9 mm in the rightlateral recess region. Fracture involves the junction of the right pedicleanteriorly with the vertebral body. 4. Displaced bilateral transverse process fractures at L1. 5. There is also longitudinal fracture of the medial aspect of the leftlamina at L1 involving the base of the spinous process. 6. Displaced fractures involve the transverse process of L2 on bothsides CRITICAL RESULT: No. COMMUNICATION: Per this written report. Drafted by Ja Chisholm MD on 11/01/2024 9:19 AM Final report signed by Ja Chisholm MD on 11/01/2024 9:33 AM us Hernan Paulson MD IMG CT PROCEDURES Final Resul t * CT Angio Abdomen Pelvis (11/01/2024 8:35 AM EDT) Anatomical Region Laterality Modality Abdomen, Pelvis Computed Tomogra phy Impressions 11/01/2024 9:45 AM EDT 1. No acute vascular pathology within the chest abdomen or pelvis. 2. No acute findings in the chest. 3. Burst fracture of L1 with bilateral transverse process fractures at L1 and L2. Left lamina fracture extending into the interspinous region at L1. Please see lumbar spine CT report for further detail 4. Otherwise no acute finding in the abdomen or pelvis. 5. No acute fracture or malalignment of the bony pelvis CRITICAL RESULT: No. COMMUNICATION: Per this written report. Drafted by Ja Chisholm MD on 11/01/2024 9:34 AM Final report signed by Ja Chisholm MD on 11/01/2024 9:45 AM Narrative 11/01/2024 9:45 AM EDT CLINICAL INDICATION: poly trauma TECHNIQUE: Imaging of the chest abdomen and pelvis was performed, from thoracic inlet through pubic symphysis, using spiral technique, following administration of IV contrast, Omnipaque 350, 100 mL according to the CTA thoracic aorta/chest and CTA Abdomen/Pelvis protocol. Reformatted images in the coronal, sagittal, and oblique planes were generated from the axial data set to facilitate diagnostic accuracy. In addition, 3D images were created and reviewed. Multiple axial CT images were obtained through level of pelvis per CT Bony Pelvis protocol. The axial CT data set was used to generate high resolution reformatted images in the coronal and sagittal planes to facilitate diagnostic accuracy and treatment planning Total DLP (Dose-Length Product): 3308.43 mGy.cm (accession [id number]), 3308.43 mGy.cm (accession [id number]), 3308.43 mGy.cm (accession [id number]). Please note: The reported value represents the total of one or more individual components during the CT acquisition on this date and at this time, and as such, the same value may appear in more than one CT report depending on the interpreting/reporting physicians. COMPARISON: None. FINDINGS: Chest: Unremarkable appearing aorta. No evidence of periaortic hematoma. No central pulmonary embolus. Coronary artery calcifications are present. There is been a prior median sternotomy. No pericardial effusion. No mediastinal or hilar mass or adenopathy. Endotracheal tube is present with the tip 4 cm above the satish. Esophagogastric tube is present with the tip in the region of the body the stomach. There are scattered atelectatic changes. No evidence of pneumothorax. No pleural effusion. No acute displaced rib fracture. Unremarkable thoracic wall. Abdomen and pelvis: No acute vascular findings. 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 Unremarkable appearance of the liver aside from low density changes in the left hepatic lobe adjacent to the falciform ligament consistent with focal fatty infiltration. Gallbladder and biliary tree have an unremarkable appearance. Homogeneous enhancement of the spleen and pancreas. Unremarkable adrenal morphology. No renal or ureteral calculi. No renal mass or perinephric fluid collection. There is a small right renal cyst. No intestinal obstruction or free air. Nonvisualization of the appendix. Amin catheter is present in urinary bladder. Burst fracture of L1 with bilateral transverse process fractures at L1 and L2. Left lamina fracture extending into the interspinous region at L1. Please see lumbar spine CT report for further detail. No adenopathy. CT bony pelvis: No acute fracture or malalignment. Procedure Note Ja Chisholm MD - 11/01/2024 CLINICAL INDICATION: poly trauma TECHNIQUE: Imaging of the chest abdomen and pelvis was performed, from thoracic inletthrough pubic symphysis, using spiral technique, following administrationof IV contrast, Omnipaque 350, 100 mL according to the CTA thoracicaorta/chest and CTA Abdomen/Pelvis protocol. Reformatted images in thecoronal, sagittal, and oblique planes were generated from the axial dataset to facilitate diagnostic accuracy. In addition, 3D images were createdand reviewed. Multiple axial CT images were obtained through level of pelvis per CT BonyPelvis protocol. The axial CT data set was used to generate highresolution reformatted images in the coronal and sagittal planes tofacilitate diagnostic accuracy and treatment planning Total DLP (Dose-Length Product): 3308.43 mGy.cm (accession [id number]),3308.43 mGy.cm (accession [id number]), 3308.43 mGy.cm (accession [id number]).Please note: The reported value represents the total of one or moreindividual components during the CT acquisition on this date and at thistime, and as such, the same value may appear in more than one CT reportdepending on the interpreting/reporting physicians. COMPARISON: None. FINDINGS: Chest: Unremarkable appearing aorta. No evidence of periaortic hematoma. Nocentral pulmonary embolus. Coronary artery calcifications are present.There is been a prior median sternotomy. No pericardial effusion. No mediastinal or hilar mass or adenopathy. Endotracheal tube is present with the tip 4 cm above the satish.Esophagogastric tube is present with the tip in the region of the body thestomach. There are scattered atelectatic changes. No evidence of pneumothorax. Nopleural effusion. No acute displaced rib fracture. Unremarkable thoracic wall. Abdomen and pelvis: No acute vascular findings. 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 Unremarkable appearance of the liver aside from low density changes in theleft hepatic lobe adjacent to the falciform ligament consistent with focalfatty infiltration. Gallbladder and biliary tree have an unremarkableappearance. Homogeneous enhancement of the spleen and pancreas. Unremarkable adrenalmorphology. No renal or ureteral calculi. No renal mass or perinephric fluidcollection. There is a small right renal cyst. No intestinal obstruction or free air. Nonvisualization of the appendix. Amin catheter is present in urinary bladder. Burst fracture of L1 with bilateral transverse process fractures at L1 andL2. Left lamina fracture extending into the interspinous region at L1.Please see lumbar spine CT report for further detail. No adenopathy. CT bony pelvis: No acute fracture or malalignment. IMPRESSION: 1. No acute vascular pathology within the chest abdomen or pelvis. 2. No acute findings in the chest. 3. Burst fracture of L1 with bilateral transverse process fractures at L1and L2. Left lamina fracture extending into the interspinous region at L1.Please see lumbar spine CT report for further detail 4. Otherwise no acute finding in the abdomen or pelvis. 5. No acute fracture or malalignment of the bony pelvis CRITICAL RESULT: No. COMMUNICATION: Per this written report. Drafted by Ja Chisholm MD on 11/01/2024 9:34 AM Final report signed by Ja Chisholm MD on 11/01/2024 9:45 AM Hernan Paulson MD IM CT PROCEDURES Final Resul t * CT Angio Chest (11/01/2024 8:35 AM EDT) Anatomical Region Laterality Modality Chest Computed Tomogra phy Impressions 11/01/2024 9:45 AM EDT 1. No acute vascular pathology within the chest abdomen or pelvis. 2. No acute findings in the chest. 3. Burst fracture of L1 with bilateral transverse process fractures at L1 and L2. Left lamina fracture extending into the interspinous region at L1. Please see lumbar spine CT report for further detail 4. Otherwise no acute finding in the abdomen or pelvis. 5. No acute fracture or malalignment of the bony pelvis CRITICAL RESULT: No. COMMUNICATION: Per this written report. Drafted by Ja Chisholm MD on 11/01/2024 9:34 AM Final report signed by Ja Chisholm MD on 11/01/2024 9:45 AM Narrative 11/01/2024 9:45 AM EDT CLINICAL INDICATION: poly trauma TECHNIQUE: Imaging of the chest abdomen and pelvis was performed, from thoracic inlet through pubic symphysis, using spiral technique, following administration of IV contrast, Omnipaque 350, 100 mL according to the CTA thoracic aorta/chest and CTA Abdomen/Pelvis protocol. Reformatted images in the coronal, sagittal, and oblique planes were generated from the axial data set to facilitate diagnostic accuracy. In addition, 3D images were created and reviewed. Multiple axial CT images were obtained through level of pelvis per CT Bony Pelvis protocol. The axial CT data set was used to generate high resolution reformatted images in the coronal and sagittal planes to facilitate diagnostic accuracy and treatment planning Total DLP (Dose-Length Product): 3308.43 mGy.cm (accession [id number]), 3308.43 mGy.cm (accession [id number]), 3308.43 mGy.cm (accession [id number]). Please note: The reported value represents the total of one or more individual components during the CT acquisition on this date and at this time, and as such, the same value may appear in more than one CT report depending on the interpreting/reporting physicians. COMPARISON: None. FINDINGS: Chest: Unremarkable appearing aorta. No evidence of periaortic hematoma. No central pulmonary embolus. Coronary artery calcifications are present. There is been a prior median sternotomy. No pericardial effusion. No mediastinal or hilar mass or adenopathy. Endotracheal tube is present with the tip 4 cm above the satish. Esophagogastric tube is present with the tip in the region of the body the stomach. There are scattered atelectatic changes. No evidence of pneumothorax. No pleural effusion. No acute displaced rib fracture. Unremarkable thoracic wall. Abdomen and pelvis: No acute vascular findings. 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 Unremarkable appearance of the liver aside from low density changes in the left hepatic lobe adjacent to the falciform ligament consistent with focal fatty infiltration. Gallbladder and biliary tree have an unremarkable appearance. Homogeneous enhancement of the spleen and pancreas. Unremarkable adrenal morphology. No renal or ureteral calculi. No renal mass or perinephric fluid collection. There is a small right renal cyst. No intestinal obstruction or free air. Nonvisualization of the appendix. Amin catheter is present in urinary bladder. Burst fracture of L1 with bilateral transverse process fractures at L1 and L2. Left lamina fracture extending into the interspinous region at L1. Please see lumbar spine CT report for further detail. No adenopathy. CT bony pelvis: No acute fracture or malalignment. Procedure Note Ja Chisholm MD - 11/01/2024 CLINICAL INDICATION: poly trauma TECHNIQUE: Imaging of the chest abdomen and pelvis was performed, from thoracic inletthrough pubic symphysis, using spiral technique, following administrationof IV contrast, Omnipaque 350, 100 mL according to the CTA thoracicaorta/chest and CTA Abdomen/Pelvis protocol. Reformatted images in thecoronal, sagittal, and oblique planes were generated from the axial dataset to facilitate diagnostic accuracy. In addition, 3D images were createdand reviewed. Multiple axial CT images were obtained through level of pelvis per CT BonyPelvis protocol. The axial CT data set was used to generate highresolution reformatted images in the coronal and sagittal planes tofacilitate diagnostic accuracy and treatment planning Total DLP (Dose-Length Product): 3308.43 mGy.cm (accession [id number]),3308.43 mGy.cm (accession [id number]), 3308.43 mGy.cm (accession [id number]).Please note: The reported value represents the total of one or moreindividual components during the CT acquisition on this date and at thistime, and as such, the same value may appear in more than one CT reportdepending on the interpreting/reporting physicians. COMPARISON: None. FINDINGS: Chest: Unremarkable appearing aorta. No evidence of periaortic hematoma. Nocentral pulmonary embolus. Coronary artery calcifications are present.There is been a prior median sternotomy. No pericardial effusion. No mediastinal or hilar mass or adenopathy. Endotracheal tube is present with the tip 4 cm above the satish.Esophagogastric tube is present with the tip in the region of the body thestomach. There are scattered atelectatic changes. No evidence of pneumothorax. Nopleural effusion. No acute displaced rib fracture. Unremarkable thoracic wall. Abdomen and pelvis: No acute vascular findings. 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 Unremarkable appearance of the liver aside from low density changes in theleft hepatic lobe adjacent to the falciform ligament consistent with focalfatty infiltration. Gallbladder and biliary tree have an unremarkableappearance. Homogeneous enhancement of the spleen and pancreas. Unremarkable adrenalmorphology. No renal or ureteral calculi. No renal mass or perinephric fluidcollection. There is a small right renal cyst. No intestinal obstruction or free air. Nonvisualization of the appendix. Amin catheter is present in urinary bladder. Burst fracture of L1 with bilateral transverse process fractures at L1 andL2. Left lamina fracture extending into the interspinous region at L1.Please see lumbar spine CT report for further detail. No adenopathy. CT bony pelvis: No acute fracture or malalignment. IMPRESSION: 1. No acute vascular pathology within the chest abdomen or pelvis. 2. No acute findings in the chest. 3. Burst fracture of L1 with bilateral transverse process fractures at L1and L2. Left lamina fracture extending into the interspinous region at L1.Please see lumbar spine CT report for further detail 4. Otherwise no acute finding in the abdomen or pelvis. 5. No acute fracture or malalignment of the bony pelvis CRITICAL RESULT: No. COMMUNICATION: Per this written report. Drafted by Ja Chisholm MD on 11/01/2024 9:34 AM Final report signed by Ja Chisholm MD on 11/01/2024 9:45 AM Hernan Paulson MD IMG CT PROCEDURES Final Resul t * CT Angio Neck (11/01/2024 8:35 AM EDT) Anatomical Region Laterality Modality Carotid Artery Computed Tomogra phy Impressions 11/01/2024 11:04 AM EDT Unremarkable CTA of the head and neck without evidence of vascular injury. 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 Near complete opacification of the left maxillary sinus. Consider direct visualization. CRITICAL RESULT: No. COMMUNICATION: Per this written report. By electronically signing this report, I, the attending physician, attest that I have personally reviewed the images/data for the above examination(s) and agree with the final edited report. Drafted by Kristen Coleman DO on 11/01/2024 10:09 AM Final report signed by Ja Chisholm MD on 11/01/2024 11:04 AM Narrative 11/01/2024 11:04 AM EDT CLINICAL INDICATION: poly trauma TECHNIQUE: Contrast-enhanced CT angiogram of the head and neck was obtained after administration of intravenous iodinated contrast using 0.6 mm axial slice thickness with multiplanar reformations and maximum intensity projections. In addition, 3D images were created and reviewed. AI Utilization: Not applicable. Total DLP (Dose-Length Product): 3308.43 mGy.cm (accession [id number]), 3308.43 mGy.cm (accession [id number]). Please note: The reported value represents the total of one or more individual components during the CT acquisition on this date and at this time, and as such, the same value may appear in more than one CT report depending on the interpreting/reporting physicians. COMPARISON: None. FINDINGS: CT Head without: No acute intracranial abnormality. No evidence of acute hemorrhage or ischemia. No mass, mass effect, or midline displacement of structures. Normal ventricular size and configuration. Patent basal cisterns. No displaced or depressed calvarial fractures. The visualized paranasal sinuses and mastoid air cells are clear. Left frontal and temporal scalp hematoma Redemonstrated near complete opacification of the left maxillary sinus. Moderate mucosal thickening involving the left ethmoid air cells. Large defect in the left pontine process extending into the left nasal cavity likely related to chronic infection or old fracture. CTA Head: There is normal vascular anatomy. There is no evidence of vascular injury, specifically no arterial stenosis, occlusion, dissection, or pseudoaneurysm. The intracranial venous structures are also fairly well opacified and appear unremarkable. CTA Neck: There is normal vascular anatomy. There is no evidence of vascular injury, specifically no arterial stenosis, occlusion, dissection, or pseudoaneurysm. There is 0% stenosis of the ICA origins by NASCET criteria. Procedure Note Ja Chisholm MD - 11/01/2024 CLINICAL INDICATION: poly trauma TECHNIQUE: Contrast-enhanced CT angiogram of the head and neck was obtained afteradministration of intravenous iodinated contrast using 0.6 mm axial slicethickness with multiplanar reformations and maximum intensity projections.In addition, 3D images were created and reviewed. AI Utilization: Not applicable. Total DLP (Dose-Length Product): 3308.43 mGy.cm (accession [id number]),3308.43 mGy.cm (accession [id number]). Please note: The reported valuerepresents the total of one or more individual components during the CTacquisition on this date and at this time, and as such, the same value mayappear in more than one CT report depending on the interpreting/reportingphysicians. COMPARISON: None. FINDINGS: CT Head without: No acute intracranial abnormality. No evidence of acute hemorrhage orischemia. No mass, mass effect, or midline displacement of structures.Normal ventricular size and configuration. Patent basal cisterns. No displaced or depressed calvarial fractures. The visualized paranasalsinuses and mastoid air cells are clear. Left frontal and temporal scalphematoma Redemonstrated near complete opacification of the left maxillary sinus.Moderate mucosal thickening involving the left ethmoid air cells. Largedefect in the left pontine process extending into the left nasal cavitylikely related to chronic infection or old fracture. CTA Head: There is normal vascular anatomy. There is no evidence of vascular injury,specifically no arterial stenosis, occlusion, dissection, orpseudoaneurysm. The intracranial venous structures are also fairly wellopacified and appear unremarkable. CTA Neck: There is normal vascular anatomy. There is no evidence of vascular injury,specifically no arterial stenosis, occlusion, dissection, orpseudoaneurysm. There is 0% stenosis of the ICA origins by NASCETcriteria. IMPRESSION: Unremarkable CTA of the head and neck without evidence of vascularinjury. Large defect in left pontine process extending into the left nasal cavitylikely related to chronic infection. Near complete opacification of the left maxillary sinus. Consider directvisualization. CRITICAL RESULT: No. COMMUNICATION: Per this written report. By electronically signing this report, I, the attending physician, attestthat I have personally reviewed the images/data for the aboveexamination(s) and agree with the final edited report. Drafted by Kristen Coleman DO on 11/01/2024 10:09 AM Final report signed by Ja Chisholm MD on 11/01/2024 11:04 AM us Hernan Paulson MD IMG CT PROCEDURES Final Resul t * CT Angio Head (11/01/2024 8:35 AM EDT) Anatomical Region Laterality Modality Teller of Vee Computed Tomogr aphy Impressions 11/01/2024 11:04 AM EDT Unremarkable CTA of the head and neck without evidence of vascular injury. 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 Near complete opacification of the left maxillary sinus. Consider direct visualization. CRITICAL RESULT: No. COMMUNICATION: Per this written report. By electronically signing this report, I, the attending physician, attest that I have personally reviewed the images/data for the above examination(s) and agree with the final edited report. Drafted by Kristen Coleman DO on 11/01/2024 10:09 AM Final report signed by Ja Chisholm MD on 11/01/2024 11:04 AM Narrative 11/01/2024 11:04 AM EDT CLINICAL INDICATION: poly trauma TECHNIQUE: Contrast-enhanced CT angiogram of the head and neck was obtained after administration of intravenous iodinated contrast using 0.6 mm axial slice thickness with multiplanar reformations and maximum intensity projections. In addition, 3D images were created and reviewed. AI Utilization: Not applicable. Total DLP (Dose-Length Product): 3308.43 mGy.cm (accession [id number]), 3308.43 mGy.cm (accession [id number]). Please note: The reported value represents the total of one or more individual components during the CT acquisition on this date and at this time, and as such, the same value may appear in more than one CT report depending on the interpreting/reporting physicians. COMPARISON: None. FINDINGS: CT Head without: No acute intracranial abnormality. No evidence of acute hemorrhage or ischemia. No mass, mass effect, or midline displacement of structures. Normal ventricular size and configuration. Patent basal cisterns. No displaced or depressed calvarial fractures. The visualized paranasal sinuses and mastoid air cells are clear. Left frontal and temporal scalp hematoma Redemonstrated near complete opacification of the left maxillary sinus. Moderate mucosal thickening involving the left ethmoid air cells. Large defect in the left pontine process extending into the left nasal cavity likely related to chronic infection or old fracture. CTA Head: There is normal vascular anatomy. There is no evidence of vascular injury, specifically no arterial stenosis, occlusion, dissection, or pseudoaneurysm. The intracranial venous structures are also fairly well opacified and appear unremarkable. CTA Neck: There is normal vascular anatomy. There is no evidence of vascular injury, specifically no arterial stenosis, occlusion, dissection, or pseudoaneurysm. There is 0% stenosis of the ICA origins by NASCET criteria. Procedure Note Ja Chisholm MD - 11/01/2024 CLINICAL INDICATION: poly trauma TECHNIQUE: Contrast-enhanced CT angiogram of the head and neck was obtained afteradministration of intravenous iodinated contrast using 0.6 mm axial slicethickness with multiplanar reformations and maximum intensity projections.In addition, 3D images were created and reviewed. AI Utilization: Not applicable. Total DLP (Dose-Length Product): 3308.43 mGy.cm (accession [id number]),3308.43 mGy.cm (accession [id number]). Please note: The reported valuerepresents the total of one or more individual components during the CTacquisition on this date and at this time, and as such, the same value mayappear in more than one CT report depending on the interpreting/reportingphysicians. COMPARISON: None. FINDINGS: CT Head without: No acute intracranial abnormality. No evidence of acute hemorrhage orischemia. No mass, mass effect, or midline displacement of structures.Normal ventricular size and configuration. Patent basal cisterns. No displaced or depressed calvarial fractures. The visualized paranasalsinuses and mastoid air cells are clear. Left frontal and temporal scalphematoma Redemonstrated near complete opacification of the left maxillary sinus.Moderate mucosal thickening involving the left ethmoid air cells. Largedefect in the left pontine process extending into the left nasal cavitylikely related to chronic infection or old fracture. CTA Head: There is normal vascular anatomy. There is no evidence of vascular injury,specifically no arterial stenosis, occlusion, dissection, orpseudoaneurysm. The intracranial venous structures are also fairly wellopacified and appear unremarkable. CTA Neck: There is normal vascular anatomy. There is no evidence of vascular injury,specifically no arterial stenosis, occlusion, dissection, orpseudoaneurysm. There is 0% stenosis of the ICA origins by NASCETcriteria. IMPRESSION: Unremarkable CTA of the head and neck without evidence of vascularinjury. Large defect in left pontine process extending into the left nasal cavitylikely related to chronic infection. Near complete opacification of the left maxillary sinus. Consider directvisualization. CRITICAL RESULT: No. COMMUNICATION: Per this written report. By electronically signing this report, I, the attending physician, brandon I have personally reviewed the images/data for the aboveexamination(s) and agree with the final edited report. Drafted by Kristen Coleman DO on 11/01/2024 10:09 AM Final report signed by Ja Chisholm MD on 11/01/2024 11:04 AM Hernan Paulson MD IMG CT PROCEDURES Final Resul t * (ABNORMAL) POCT venous blood gas gem (11/01/2024 7:52 AM EDT) pH, Venous 7.34 7.32 - 7.43 11/01/2024 7:53 AM EDT [facility] pCO2, Venous 42 40 - 55 mm Hg 11/01/2024 7:53 AM EDT [facility] pO2, Venous 86(H) 25 - 40 mm Hg 11/01/2024 7:53 AM EDT [facility] SO2, Venous 99(H) 65 - 80 % 11/01/2024 7:53 AM EDT [facility] Base Excess/Deficit, Venous -3.0(L) -2 - 3 mmol/L 11/01/2024 7:53 AM EDT [facility] HCO3, Venous 22.7 22 - 26 mmol/L 11/01/2024 7:53 AM EDT [facility] Hemoglobin, Venous 13.7 13.7 - 17.5 g/dL 11/01/2024 7:53 AM EDT [facility] Hematocrit, Venous 41.0 40.0 - 51.0 % 11/01/2024 7:53 AM EDT [facility] Sodium, Venous 132(L) 136 - 145 mmol/L 11/01/2024 7:53 AM EDT [facility] Potassium, Venous 4.0 3.6 - 4.9 mmol/L 11/01/2024 7:53 AM EDT [facility] Comment:Hemolyzed, result ma y be falsely increased. POCT Chloride, Venous 102 97 - 107 mmol/L 11/01/2024 7:53 AM EDT [facility] Glucose, Venous 152(H) 74 - 99 mg/dL 11/01/2024 7:53 AM EDT [facility] Ionized Calcium, Venous 4.7 4.6 - 5.1 mg/dL 11/01/2024 7:53 AM EDT [facility] Lactate, Venous 0.9 0.5 - 2.2 mmol/L 11/01/2024 7:53 AM EDT [facility] Body Temperature 37.0 Celsius 11/01/2024 7:53 AM EDT [facility] pH, Temp Corrected, Venous 7.34 7.32 - 7.43 11/01/2024 7:53 AM EDT [facility] pCO2, Temp Corrected, Venous 42 40 - 55 mm Hg 11/01/2024 7:53 AM EDT [facility] pO2, Temp Corrected, Venous 86(H) 25 - 40 mm Hg 11/01/2024 7:53 AM EDT [facility] Drawing Tender ID Bhargavi Raygoza 11/01/2024 7:53 AM EDT [facility] Blood, Venous Whole blood specimen / Unknown 11/01/2024 7:52 AM EDT 11/01/2024 7:53 AM EDT us Priscilla Calderon MD LAB POINT OF CARE TE ST DOCKED DEVICE UNSOLICITED RESULTS Final Result [facility] [address] [place] [address] * XR Chest 1 View (11/01/2024 6:40 AM EDT) Anatomical Region Laterality Modality Chest Digital Radiogra phy Impressions 11/01/2024 7:05 AM EDT Interval intubation with endotracheal tube tip projecting 5 cm above the satish. Otherwise, stable exam. CRITICAL RESULT: No. COMMUNICATION: Per this written report. Preliminary report signed by Quoc Snell MD on 11/01/2024 7:04 AM By electronically signing this report, I, the attending physician, attest that I have personally reviewed the images/data for the above examination(s) and agree with the final edited report. Drafted by Quoc Snell MD on 11/01/2024 7:02 AM Final report signed by Trey Metcalf MD on 11/01/2024 7:05 AM Narrative 11/01/2024 7:05 AM EDT CLINICAL INDICATION: ett TECHNIQUE: XR CHEST 1 VIEW COMPARISON: Same-day chest radiograph at 0425 hours FINDINGS: Endotracheal tube projects 5 cm above the satish. The mediastinal and cardiac contours are normal and stable. No new consolidation, pleural effusion or pneumothorax. Tip of NG tube terminates at the GE junction Procedure Note Trey Metcalf MD - 11/01/2024 CLINICAL INDICATION: ett TECHNIQUE: XR CHEST 1 VIEW COMPARISON: Same-day chest radiograph at 0425 hours FINDINGS: Endotracheal tube projects 5 cm above the satish. The mediastinal andcardiac contours are normal and stable. No new consolidation, pleuraleffusion or pneumothorax. Tip of NG tube terminates at the GE junction IMPRESSION: Interval intubation with endotracheal tube tip projecting 5 cm above thecarina. Otherwise, stable exam. CRITICAL RESULT: No. COMMUNICATION: Per this written report. Preliminary report signed by Quoc Snell MD on 11/01/2024 7:04 AM By electronically signing this report, I, the attending physician, attestthat I have personally reviewed the images/data for the aboveexamination(s) and agree with the final edited report. Drafted by Quoc Snell MD on 11/01/2024 7:02 AM Final report signed by Trey Metcalf MD on 11/01/2024 7:05 AM Hernan Paulson MD IMG XR PROCEDURES Final Resul t * (ABNORMAL) OXYCODONE CONFIRMATION,URINE (11/01/2024 6:38 AM EDT) Oxycodone 136(H) <50 ng/mL 11/02/2024 5:43 PM EDT [facility] Oxymorphone <50 <50 ng/mL 11/02/2024 5:43 PM EDT [facility] Oxymorphone Glucuronide 815(H) <50 ng/mL 11/02/2024 5:43 PM EDT [facility] Urine Urine specimen obtained by clean catch procedure / Unknown Non-blood Collection / Unknown 11/01/2024 6:38 AM EDT 11/01/2024 7:03 AM EDT Narrative [facility] - 11/02/2024 5:43 PM EDT Test performed by LC-MS/MS at the [facility]. This test was developed and its performance characteristics determined by [facility]. It has not been cleared or approved by the FDA. The laboratory is regulated under CLIA as qualified to perform high-complexity testing. This test is used for clinical purposes. Anita Patel MD LAB URINE ORDERABLES Final Resul t [facility] [address] [place] [address] * (ABNORMAL) Opiates Confirm Urine (11/01/2024 6:38 AM EDT) Codeine <50 <50 ng/mL 11/02/2024 5:43 PM EDT [facility] Codeine Glucuronide <50 <50 ng/mL 11/02/2024 5:43 PM EDT [facility] Desmethyl Tramadol <50 <50 ng/mL 2024 5:43 PM EDT [facility] EDDP - Methadone Metabolite <50 <50 ng/mL 11/02/2024 5:43 PM EDT [facility] Hydrocodone <50 <50 ng/mL 11/02/2024 5:43 PM EDT [facility] Hydromorphone 110(H) <50 ng/mL 11/02/2024 5:43 PM EDT [facility] Hydromorphone Glucuronide 361(H) <50 ng/mL 11/02/2024 5:43 PM EDT [facility] Comment:Metabolite of Hydrom orphone Meperidine <50 <50 ng/mL 11/02/2024 5:43 PM EDT [facility] Methadone <50 <50 ng/mL 11/02/2024 5:43 PM EDT [facility] 6 Monoacetyl morphine <10 <10 ng/mL 11/02/2024 5:43 PM EDT [facility] Morphine <50 <50 ng/mL 11/02/2024 5:43 PM EDT [facility] Morphine Glucuronide 618(H) <50 ng/mL 11/02/2024 5:43 PM EDT [facility] Comment:Metabolite of Morphi ne Naloxone <50 <50 ng/mL 11/02/2024 5:43 PM EDT [facility] Naloxone Glucuronide <50 <50 ng/mL 11/02/2024 5:43 PM EDT [facility] Comment:Metabolite of Naloxo ne Normeperidine <50 <50 ng/mL 11/02/2024 5:43 PM EDT [facility] Tramadol <50 <50 ng/mL 11/02/2024 5:43 PM EDT [facility] Urine Urine specimen obtained by clean catch procedure / Unknown Non-blood Collection / Unknown 11/01/2024 6:38 AM EDT 11/01/2024 7:03 AM EDT Narrative [facility] - 11/02/2024 5:43 PM EDT Drug analysis is confirmed by LC-MS/MS (LC Tandem Mass Spectrometry) on Urine specimens. This test was developed and its performance characteristics determined by [facility]. It has not been cleared or approved by the FDA. The laboratory is regulated under CLIA as qualified to perform high-complexity testing. This test is used for clinical purposes. Testing is performed at the [facility]. us Anita Patel MD LAB URINE ORDERABLES Final Resul t [facility] [address] [place] [address] * (ABNORMAL) Fentanyl Urine Confirm (11/01/2024 6:38 AM EDT) Fentanyl 12(H) <1 ng/mL 11/02/2024 5:43 PM EDT [facility] Norfentanyl 22(H) <2 ng/mL 11/02/2024 5:43 PM EDT [facility] Urine Urine specimen obtained by clean catch procedure / Unknown Non-blood Collection / Unknown 11/01/2024 6:38 AM EDT 11/01/2024 7:03 AM EDT Narrative [facility] - 11/02/2024 5:43 PM EDT Drug analysis is confirmed by LC-MS/MS (LC Tandem Mass Spectrometry) on Urine specimens. This test was developed and its performance characteristics determined by [facility]. It has not been cleared or approved by the FDA. The laboratory is regulated under CLIA as qualified to perform high-complexity testing. This test is used for clinical purposes. Testing is performed at the [facility]. Anita Patel MD LAB URINE ORDERABLES Final Resul t [facility] [address] [place] [address] * (ABNORMAL) Cocaine Metabolite Confirm Urine (11/01/2024 6:38 AM EDT) Benzoylecgonine >1,000(H) <50 ng/mL 5:43 PM EDT [facility] Urine Urine specimen obtained by clean catch procedure / Unknown Non-blood Collection / Unknown 11/01/2024 6:38 AM EDT 11/01/2024 7:03 AM EDT Narrative [facility] - 11/02/2024 5:43 PM EDT Drug analysis is confirmed by LC-MS/MS (LC Tandem Mass Spectrometry) on Urine specimens. This test was developed and its performance characteristics determined by [facility]. It has not been cleared or approved by the FDA. The laboratory is regulated under CLIA as qualified to perform high-complexity testing. This test is used for clinical purposes. Testing is performed at the [facility]. Anita Patel MD LAB URINE ORDERABLES Final Resul t Performing Organization Address [facility] Co de Phone Number [facility] [address] [place] [address] * (ABNORMAL) THC Urine Confirm LCMSMS (11/01/2024 6:38 AM EDT) 9 Carboxy THC >250(H) <10 ng/mL 11/02/2024 5:43 PM EDT [facility] 9 Carboxy THC Glucuronide >500(H) <25 ng/mL 11/02/2024 5:43 PM EDT [facility] Urine Urine specimen obtained by clean catch procedure / Unknown Non-blood Collection / Unknown 11/01/2024 6:38 AM EDT 11/01/2024 7:03 AM EDT Narrative [facility] - 11/02/2024 5:43 PM EDT Drug analysis is confirmed by LC-MS/MS (LC Tandem Mass Spectrometry) on Urine specimens. This test was developed and its performance characteristics determined by [facility]. It has not been cleared or approved by the FDA. The laboratory is regulated under CLIA as qualified to perform high-complexity testing. This test is used for clinical purposes. Testing is performed at the [facility], [facility]. Anita Patel MD LAB URINE ORDERABLES Final Resul t Performing Organization Address [facility] Co de Phone Number [facility] [address] [place] [address] * (ABNORMAL) Benzodiazepine Confirm Urine (11/01/2024 6:38 AM EDT) [place] Alprazolam <20 <20 ng/mL 11/02 5:43 PM EDT [facility] [place] Midazolam <20 <20 ng/mL 2024 5:43 PM EDT [facility] [place] Triazolam <20 <20 ng/mL 2024 5:43 PM EDT [facility] Alprazolam <10 <10 ng/mL 11/02/2024 5:43 PM EDT [facility] Aminoclonazepam <20 <20 ng/mL 5:43 PM EDT [facility] Clonazepam <10 <10 ng/mL 11/02/2024 5:43 PM EDT [facility] Diazepam <10 <10 ng/mL 11/02/2024 5:43 PM EDT [facility] Lorazepam 41(H) <20 ng/mL 11/02/2024 5:43 PM EDT [facility] Lorazepam Glucuronide >1,000(H) <50 ng/mL 11/02/2024 5:43 PM EDT [facility] Midazolam 11/02/2024 5:43 PM EDT [facility] Nordiazepam <20 <20 ng/mL 11/02/2024 5:43 PM EDT [facility] Oxazepam <20 <20 ng/mL 11/02/2024 5:43 PM EDT [facility] Oxazepam Glucuronide <50 <50 ng/mL 11/02/2024 5:43 PM EDT [facility] Temazepam <20 <20 ng/mL 11/02/2024 5:43 PM EDT [facility] Temazepam Glucuronide <50 <50 ng/mL 11/02/2024 5:43 PM EDT [facility] Triazolam 11/02/2024 5:43 PM EDT [facility] Urine Urine specimen obtained by clean catch procedure / Unknown Non-blood Collection / Unknown 11/01/2024 6:38 AM EDT 11/01/2024 7:03 AM EDT Narrative [facility] - 11/02/2024 5:43 PM EDT Drug analysis is confirmed by LC-MS/MS (LC Tandem Mass Spectrometry) on Urine specimens. This test was developed and its performance characteristics determined by [facility]. It has not been cleared or approved by the FDA. The laboratory is regulated under CLIA as qualified to perform high-complexity testing. This test is used for clinical purposes. Testing is performed at the [facility], [facility]. Anita Patel MD LAB URINE ORDERABLES Final Resul t Performing Organization Address City/[facility]/ZIP Co de Phone Number [facility] [address] [place] [address] * Urinalysis Microscopic Examination (11/01/2024 6:38 AM EDT) Urine Urine specimen obtained by clean catch procedure / Unknown Non-blood Collection / Unknown 11/01/2024 6:38 AM EDT 11/01/2024 6:45 AM EDT Anita Patel MD LAB URINE ORDERABLES Final Resul t Performing Organization Address City/[facility]/ZIP Co de Phone Number [facility] [address] [place] [address] * (ABNORMAL) Urinalysis with reflex microscopic (Culture NOT Included) (11/01/2024 6:38 AM EDT) Color, Urine Yellow LAB URINALYSIS - AUTOMATED METHOD 11/01/2024 7:03 AM EDT [facility] Clarity, Urine Clear LAB URINALYSIS - AUTOMATED METHOD 11/01/2024 7:03 AM EDT [facility] Spec [place], Urine 1.027 1.005 - 1.030 LAB URINALYSIS - AUTOMATED METHOD 11/01/2024 7:03 AM EDT [facility] pH, Urine 5.5 5.0 - 8.0 LAB URINALYSIS - AUTOMATED METHOD 11/01/2024 7:03 AM EDT [facility] Protein, Urine 30(A) Negative mg/dL LAB URINALYSIS - AUTOMATED METHOD 11/01/2024 7:03 AM EDT [facility] Glucose, Urine Negative Negative mg/dL LAB URINALYSIS - AUTOMATED METHOD 11/01/2024 7:03 AM EDT [facility] Ketones, Urine 40(A) Negative mg/dL LAB URINALYSIS - AUTOMATED METHOD 11/01/2024 7:03 AM EDT [facility] Blood, Urine Trace(A) Negative LAB URINALYSIS - AUTOMATED METHOD 11/01/2024 7:03 AM EDT [facility] Bilirubin, Urine Negative Negative LAB URINALYSIS - AUTOMATED METHOD 11/01/2024 7:03 AM EDT [facility] Urobilinogen, Urine 1.0 0.2 to 1.0 mg/dL LAB URINALYSIS - AUTOMATED METHOD 11/01/2024 7:03 AM EDT [facility] Leukocytes, Urine Negative Negative LAB URINALYSIS - AUTOMATED METHOD 11/01/2024 7:03 AM EDT [facility] Nitrite, Urine Negative Negative LAB URINALYSIS - AUTOMATED METHOD 11/01/2024 7:03 AM EDT [facility] RBC, Urine 3 0 to 3 /HPF LAB URINALYSIS - AUTOMATED METHOD 11/01/2024 7:03 AM EDT [facility] Comment:This result was prev iously suppressed from the chart. WBC, Urine 0 - 5 0 to 5 /HPF LAB URINALYSIS - AUTOMATED METHOD 11/01/2024 7:03 AM EDT [facility] Comment:This result was prev iously suppressed from the chart. Squamous Epithelial Cells 0 - 2 0 to 5 /HPF LAB URINALYSIS - AUTOMATED METHOD 11/01/2024 7:03 AM EDT [facility] Comment:This result was prev iously suppressed from the chart. Hyaline Casts 0 - 2 0 to 5 /LPF LAB URINALYSIS - AUTOMATED METHOD 11/01/2024 7:03 AM EDT [facility] Comment:This result was prev iously suppressed from the chart. Bacteria, Urine Negative Negative LAB URINALYSIS - AUTOMATED METHOD 11/01/2024 7:03 AM EDT [facility] Comment:This result was prev iously suppressed from the chart. Mucus Present LAB URINALYSIS - AUTOMATED METHOD 11/01/2024 7:03 AM EDT [facility] Comment:This result was prev iously suppressed from the chart. Urine Urine specimen obtained by clean catch procedure / Unknown Non-blood Collection / Unknown 11/01/2024 6:38 AM EDT 11/01/2024 6:45 AM EDT us Anita Patel MD LAB URINE ORDERABLES Final Resul t [facility] [address] [place] [address] * Drug Abuse Screen, Urine (11/01/2024 6:38 AM EDT) Amphetamine Screen Urine Negative Cutoff: 500 ng/mL 11/01/2024 7:43 AM EDT [facility] Benzodiazepines Screen Urine Presumptive positive. Confirmation by LC-MS/MS to follow. Cutoff: 200 ng/mL 11/01/2024 7:43 AM EDT [facility] Cannabinoid Screen Urine Presumptive positive. Confirmation by LC-MS/MS to follow. Cutoff: 50 ng/mL 11/01/2024 7:43 AM EDT [facility] Cocaine Screen Urine Presumptive positive. Confirmation by LC-MS/MS to follow. Cutoff: 300 ng/mL 11/01/2024 7:43 AM EDT [facility] Barbiturate Screen Urine Negative Cutoff: 200 ng/mL 11/01/2024 7:43 AM EDT [facility] Opiate Screen Urine Presumptive positive. Confirmation by LC-MS/MS to follow. Cutoff: 300 ng/mL 11/01/2024 7:43 AM EDT [facility] Methadone Screen Urine Negative Cutoff: 300 ng/mL 11/01/2024 7:43 AM EDT [facility] Buprenorphine Screen Urine Negative Cutoff: 10 ng/mL 11/01/2024 7:43 AM EDT [facility] Fentanyl Screen Urine Presumptive positive. Confirmation by LC-MS/MS to follow. Cutoff: 1 ng/mL 11/01/2024 7:43 AM EDT [facility] Oxycodone Screen Urine Presumptive positive. Confirmation by LC-MS/MS to follow. Cutoff: 100 ng/mL 11/01/2024 7:43 AM EDT [facility] Urine Urine specimen obtained by clean catch procedure / Unknown Non-blood Collection / Unknown 11/01/2024 6:38 AM EDT 11/01/2024 7:03 AM EDT us Anita Patel MD LAB URINE ORDERABLES Final Resul t [facility] [address] [place] [address] * (ABNORMAL) Trauma shock panel blood gas (11/01/2024 5:19 AM EDT) pH, Venous 7.34 7.32 - 7.43 LAB HEMATOLOGY METHOD 11/01/2024 5:29 AM EDT [facility] Bicarbonate, Calculated, Venous 23 22 - 26 mmol/L LAB HEMATOLOGY METHOD 11/01/2024 5:29 AM EDT [facility] Base Excess, Venous -2.7(L) -2.0 - 3.0 mmol/L LAB HEMATOLOGY METHOD 11/01/2024 5:29 AM EDT [facility] Lactate, Venous, Whole Blood 1.4 0.5 - 2.2 mmol/L LAB HEMATOLOGY METHOD 11/01/2024 5:29 AM EDT [facility] Blood Venous blood specimen / Unknown Venipuncture / Unknown 11/01/2024 5:19 AM EDT 11/01/2024 5:28 AM EDT us Anita Patel MD LAB BLOOD ORDERABLES Final Resul t [facility] [address] [place] [address] * XR Pelvis 1 or 2 Views (11/01/2024 5:05 AM EDT) Anatomical Region Laterality Modality Body, Pelvis Digital Radiogra phy Impressions 11/01/2024 5:55 AM EDT No acute findings within the chest or pelvis. CRITICAL RESULT: No. COMMUNICATION: Per this written report. Preliminary report signed by Quoc Snell MD on 11/01/2024 5:13 AM By electronically signing this report, I, the attending physician, attest that I have personally reviewed the images/data for the above examination(s) and agree with the final edited report. Drafted by Quoc Snell MD on 11/01/2024 5:10 AM Final report signed by Trey Metcalf MD on 11/01/2024 5:55 AM Narrative 11/01/2024 5:55 AM EDT CLINICAL INDICATION: Trauma Alert Red TECHNIQUE: XR CHEST 1 VIEW, XR PELVIS 1 OR 2 VIEWS COMPARISON: None. FINDINGS: Chest: Postsurgical changes of prior median sternotomy. The mediastinal and cardiac contours are within normal limits. No consolidation, pleural effusion, pulmonary edema or pneumothorax. No acute osseous abnormality. Pelvis: No acute fracture or malalignment. The pubic symphysis and SI joints are intact. Degenerative change of the bilateral hip joints. Procedure Note Trey Metcalf MD - 11/01/2024 CLINICAL INDICATION: Trauma Alert Red TECHNIQUE: XR CHEST 1 VIEW, XR PELVIS 1 OR 2 VIEWS COMPARISON: None. FINDINGS: Chest: Postsurgical changes of prior median sternotomy. The mediastinal andcardiac contours are within normal limits. No consolidation, pleuraleffusion, pulmonary edema or pneumothorax. No acute osseous abnormality. Pelvis: No acute fracture or malalignment. The pubic symphysis and SI joints areintact. Degenerative change of the bilateral hip joints. IMPRESSION: No acute findings within the chest or pelvis. CRITICAL RESULT: No. COMMUNICATION: Per this written report. Preliminary report signed by Quoc Snell MD on 11/01/2024 5:13 AM By electronically signing this report, I, the attending physician, attestthat I have personally reviewed the images/data for the aboveexamination(s) and agree with the final edited report. Drafted by Quoc Snlel MD on 11/01/2024 5:10 AM Final report signed by Trey Metcalf MD on 11/01/2024 5:55 AM Anita Patel MD IMG XR PROCEDURES Final Result * XR Chest 1 View (11/01/2024 5:05 AM EDT) Anatomical Region Laterality Modality Chest Digital Radiogra phy Impressions 11/01/2024 5:55 AM EDT No acute findings within the chest or pelvis. CRITICAL RESULT: No. COMMUNICATION: Per this written report. Preliminary report signed by Quoc Snell MD on 11/01/2024 5:13 AM By electronically signing this report, I, the attending physician, attest that I have personally reviewed the images/data for the above examination(s) and agree with the final edited report. Drafted by Quoc Snell MD on 11/01/2024 5:10 AM Final report signed by Trey Metcalf MD on 11/01/2024 5:55 AM Narrative 11/01/2024 5:55 AM EDT CLINICAL INDICATION: Trauma Alert Red TECHNIQUE: XR CHEST 1 VIEW, XR PELVIS 1 OR 2 VIEWS COMPARISON: None. FINDINGS: Chest: Postsurgical changes of prior median sternotomy. The mediastinal and cardiac contours are within normal limits. No consolidation, pleural effusion, pulmonary edema or pneumothorax. No acute osseous abnormality. Pelvis: No acute fracture or malalignment. The pubic symphysis and SI joints are intact. Degenerative change of the bilateral hip joints. Procedure Note Trey Metcalf MD - 11/01/2024 CLINICAL INDICATION: Trauma Alert Red TECHNIQUE: XR CHEST 1 VIEW, XR PELVIS 1 OR 2 VIEWS COMPARISON: None. FINDINGS: Chest: Postsurgical changes of prior median sternotomy. The mediastinal andcardiac contours are within normal limits. No consolidation, pleuraleffusion, pulmonary edema or pneumothorax. No acute osseous abnormality. Pelvis: No acute fracture or malalignment. The pubic symphysis and SI joints areintact. Degenerative change of the bilateral hip joints. IMPRESSION: No acute findings within the chest or pelvis. CRITICAL RESULT: No. COMMUNICATION: Per this written report. Preliminary report signed by Quoc Snell MD on 11/01/2024 5:13 AM By electronically signing this report, I, the attending physician, attestthat I have personally reviewed the images/data for the aboveexamination(s) and agree with the final edited report. Drafted by Quoc Snell MD on 11/01/2024 5:10 AM Final report signed by Trey Metcalf MD on 11/01/2024 5:55 AM Anita Patel MD IMG XR PROCEDURES Final Result * CT Face wo IV Contrast (11/01/2024 5:04 AM EDT) Anatomical Region Laterality Modality Facial bones Computed Tomogra phy Impressions 11/01/2024 5:58 AM EDT 1. No acute intracranial abnormality. 2. Significantly limited evaluation of the facial bones secondary to motion artifact. Within the limits of the study there are no large displaced fractures. 3. 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 4. Near complete opacification of the left maxillary sinus. CRITICAL RESULT: No. COMMUNICATION: Per this written report. Preliminary report signed by Servando Hendrickson DO on 11/01/2024 5:25 AM By electronically signing this report, I, the attending physician, attest that I have personally reviewed the images/data for the above examination(s) and agree with the final edited report. Drafted by Servando Hendrickson DO on 11/01/2024 5:19 AM Final report signed by Trey Metcalf MD on 11/01/2024 5:58 AM Narrative 11/01/2024 5:58 AM EDT CLINICAL INDICATION: poly trauma TECHNIQUE: Routine contiguous axial CT images of the head and face were obtained without contrast administration. The axial dataset through the face was used to reconstruct images in the sagittal and coronal planes. TOTAL DLP (Dose-Length Product): 1957.10 mGy.cm (accession [id number]), 1957.10 mGy.cm (accession [id number]). Please note: The reported value represents the total of one or more individual components during the CT acquisition on this date and at this time, and as such, the same value may appear in more than one CT report depending on the interpreting/reporting physicians. COMPARISON: None. FINDINGS: CT Head: No acute intracranial abnormality. No evidence of acute hemorrhage or ischemia. No mass, mass effect, or midline displacement of structures. Normal ventricular size and configuration. Patent basal cisterns. No displaced or depressed calvarial fractures. The mastoid air cells are clear. Left anterior frontal scalp hematoma. CT Face: Quality: Significant motion artifact limits evaluation. Facial bones: Within limits of this study there is no acute facial bone fracture. Large defect involving the left palatine process extending into the left nasal cavity adjacent to multiple lucencies favored to represent sequelae of chronic infection (series 5 image 29: Series 900 image 31).). Paranasal sinuses: Near complete opacification of the left maxillary sinus. Moderate mucosal thickening involving the left ethmoid air cells. Globes: Bilateral globes appear intact. Soft tissues: No soft tissue swelling or hematoma. Procedure Note Trey Metcalf MD - 11/01/2024 CLINICAL INDICATION: poly trauma TECHNIQUE: Routine contiguous axial CT images of the head and face were obtainedwithout contrast administration. The axial dataset through the face wasused to reconstruct images in the sagittal and coronal planes. TOTAL DLP (Dose-Length Product): 1957.10 mGy.cm (accession [id number]),1957.10 mGy.cm (accession [id number]). Please note: The reported valuerepresents the total of one or more individual components during the CTacquisition on this date and at this time, and as such, the same value mayappear in more than one CT report depending on the interpreting/reportingphysicians. COMPARISON: None. FINDINGS: CT Head: No acute intracranial abnormality. No evidence of acute hemorrhage orischemia. No mass, mass effect, or midline displacement of structures.Normal ventricular size and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 HYDROmorphone (Dilaudid) injection 0.5 mg 0.5 mg, Intravenous, Every 2 hour PRN, Starting on Sat11/04/24 at 2205, Until Fabiola 11/05/24 at 0413, Routine, severe pain Given 11/05/2024 12:53 AM EDT 0.5 mg Given 11/04/2024 10:48 PM EDT 0.5 mg HYDROmorphone (Dilaudid) injection 0.5 mg 0.5 mg, Intravenous, Every 2 hour PRN, Starting on Sat11/06/24 at 1949, Until Sat11/09/24 at 1523, STAT, pain or agitation Given 11/09/2024 2:48 AM EDT 0.5 mg Given 11/09/2024 12:25 AM EDT 0.5 mg Given 11/08/2024 9:11 AM EDT 0.5 mg HYDROmorphone (Dilaudid) injection 0.5 mg 0.5 mg, Intravenous, Once, 1 dose, On Sat11/17/24 at 0145, Routine Given 11/17/2024 12:52 AM EDT 0.5 mg hydromorphone 20 mg in NS 100 mL infusion (200 mcg/mL) 0.25-2 mg/hr (1.25-10 mL/hr), 0.2 mg/mL, Intravenous, Titrated, Starting on Sat11/01/24 at 0625, Until Sat11/04/24 at 2206, Routine Rate/Dose Verify 11/04/2024 6:00 PM EDT 0.25 mg/hr 1.25 mL/hr Rate/Dose Verify 11/04/2024 5:00 PM EDT 0.75 mg/hr 3.75 mL /hr Rate/Dose Verify 11/04/2024 4:00 PM EDT 0.75 mg/hr 3.75 mL /hr hydromorphone 20 mg in NS 100 mL infusion (200 mcg/mL) 0.25-2 mg/hr (1.25-10 mL/hr), 0.2 mg/mL, Intravenous, Titrated, Starting on Sat11/05/24 at 0500, Until Sat11/06/24 at 1500, Routine Rate/Dose Verify 11/06/2024 12:00 PM EDT 0.25 mg/hr 1.25 mL/hr Rate/Dose Verify 11/06/2024 11:53 AM EDT 0.25 mg/hr 1.25 m L/hr Rate/Dose Verify 11/06/2024 11:00 AM EDT 0.25 mg/hr 1.25 m L/hr iohexol (OMNIPaque) 300 MG/ML injection 100 mL 100 mL, Intravenous, Once in imaging, 1 dose, Starting on Sat11/03/24 at 2232, Until Sat11/04/24 at 0052, Routine, Imaging Protocol Orders Given 11/04/2024 12:52 AM EDT 100 mL iohexol (OMNIPaque) 350 MG/ML injection 100 mL 100 mL, Intravenous, Once in imaging, 1 dose, Starting on Sat11/01/24 at 0446, Until Sat11/01/24 at 0446, Routine, Imaging Protocol Orders Given 11/01/2024 4:46 AM EDT 100 mL labetalol (Normodyne,Trandate) 5 MG/ML injection - Pyxis Override Pull 1 dose, Starting on Sat11/03/24 at 1624, Until Sat11/03/24 at 1653 labetalol (Normodyne,Trandate) injection 10 mg 10 mg, Intravenous, Once, 1 dose, On Sat11/03/24 at 1745, Routine Given 11/03/2024 4:53 PM EDT 10 mg labetalol (Normodyne,Trandate) injection 10 mg 10 mg, Intravenous, Every 1 - 2 hours prn, Starting on Sat11/08/24 at 2013, Until Sat11/19/24 at 2151, Routine, high blood pressure, SBP > 180 Given 11/08/2024 8:40 PM EDT 10 mg lactated Ringer's bolus 500 mL 500 mL, Intravenous, Once, 1 dose, On Sat11/04/24 at 1900, Administer over 2 Hours, Routine New Bag 11/04/2024 6:04 PM EDT 500 mL 250 mL/hr lactated Ringer's bolus 500 mL 500 mL, Intravenous, Once, 1 dose, On Sat11/04/24 at 1930, Administer over 1 Hours, Routine New Bag 11/04/2024 6:37 PM EDT 500 mL 500 mL/hr levETIRAcetam (Keppra) injection 1,500 mg 1,500 mg, Intravenous, Every 12 hours, First dose on Sat11/04/24 at 0900, Until Discontinued, Routine Given 11/09/2024 8:02 AM EDT 1,500 mg Given 11/08/2024 8:40 PM EDT 1,500 mg Given 11/08/2024 9:11 AM EDT 1,500 mg levETIRAcetam (Keppra) injection 2,000 mg 2,000 mg, Intravenous, Once, 1 dose, On Sat11/03/24 at 2145, Routine Given 11/03/2024 8:54 PM EDT 2,000 mg levETIRAcetam (Keppra) tablet 1,500 mg 1,500 mg, Oral, 2 times daily, First dose on Sat11/09/24 at 2100, Until Discontinued, Routine Given 11/19/2024 9:12 AM EDT 1,500 mg Given 11/18/2024 9:31 PM EDT 1,500 mg Given 11/18/2024 8:08 AM EDT 1,500 mg lidocaine (Lidoderm) 5 % patch 1 patch 1 patch, Apply externally, Every 24 hours, First dose on Sat11/17/24 at 1045, Until Discontinued, Administer over 12 Hours, Routine Medication Applied 11/19/2024 10:58 AM EDT 1 patch Back Medication Applied 11/18/2024 9:52 AM EDT 1 patch Back Medication Applied 11/17/2024 10:03 AM EDT 1 patch Back LORazepam (Ativan) 2 MG/ML injection - Pyxis Override Pull 1 dose, Starting on Sat11/01/24 at 0451, Until Sat11/01/24 at 0451 LORazepam (Ativan) injection 1 mg 1 mg, Intravenous, Once, 1 dose, On Sat11/01/24 at 0455, Routine Given 11/01/2024 4:51 AM EDT 1 mg LORazepam (Ativan) injection 2 mg 2 mg, Intravenous, Once, 1 dose, On Sat11/04/24 at 0100, Routine Given 11/03/2024 11:45 PM EDT 2 mg LORazepam (Ativan) injection 4 mg 4 mg, Intravenous, Once, 1 dose, On Sat11/03/24 at 1745, Routine Given 11/03/2024 4:53 PM EDT 4 mg magnesium hydroxide (Milk of Magnesia) 400 MG/5ML suspension 30 mL 30 mL, Oral, Daily, First dose on Sat11/04/24 at 1030, Until Discontinued, Routine Given 11/07/2024 8:44 AM EDT 30 mL Given 11/06/2024 8:31 AM EDT 30 mL Given 11/05/2024 8:31 AM EDT 30 mL magnesium sulfate IVPB 2 g 2 g, Intravenous, Once, 1 dose, On Sat11/04/24 at 0445, at 25 mL/hr, Administer over 2 Hours, Routine New Bag 11/04/2024 4:34 AM EDT 2 g 25 mL/hr melatonin tablet 6 mg 6 mg, Oral, Nightly, First dose on Sat11/12/24 at 2100, Until Discontinued, Routine Given 11/18/2024 9:31 PM EDT 6 mg Given 11/17/2024 8:13 PM EDT 6 mg Given 11/16/2024 8:59 PM EDT 6 mg meropenem (Merrem) 1 g in sodium chloride 0.9% 100 mL IVPB (vial adapter required) 1 g, Intravenous, Every 8 hours, First dose on Sat11/05/24 at 1515, Until Discontinued, at 36.7 mL/hr, Administer over 3 Hours, Routine New Bag 11/06/2024 7:04 AM EDT 1 g 36.7 mL/hr New Bag 11/05/2024 11:31 PM EDT 1 g 36.7 mL/hr New Bag 11/05/2024 4:25 PM EDT 1 g 36.7 mL/hr metoprolol tartrate (Lopressor) injection 5 mg 5 mg, Intravenous, Every 6 hours, First dose on Sat11/08/24 at 2145, Until Discontinued, Routine Given 11/09/2024 10:14 AM EDT 5 mg Given 11/09/2024 3:45 AM EDT 5 mg Given 11/08/2024 9:03 PM EDT 5 mg metoprolol tartrate (Lopressor) tablet 25 mg 25 mg, Oral, 2 times daily, First dose on Sat11/09/24 at 2100, Until Discontinued, Routine Given 11/19/2024 9:12 AM EDT 25 mg Given 11/18/2024 9:32 PM EDT 25 mg Given 11/18/2024 8:08 AM EDT 25 mg midazolam (Versed) injection 5 mg 5 mg, Intravenous, Once, 1 dose, On Sat11/01/24 at 0605, STAT Given 11/01/2024 6:10 AM EDT 5 mg mupirocin (Bactroban) 2 % ointment 1 Application Each Nostril, 2 times daily, 10 doses, First dose on Sat11/01/24 at 2100, Last dose on Sat11/06/24 at 0900, Routine Given 11/06/2024 8:31 AM EDT 1 Application Given 11/05/2024 8:52 PM EDT 1 Application Given 11/05/2024 8:31 AM EDT 1 Application mupirocin (Bactroban) 2 % ointment 1 Application Each Nostril, 2 times daily, 10 doses, First dose on Sat11/06/24 at 2230, Last dose on Sat11/11/24 at 0900, Routine Given 11/11/2024 9:07 AM EDT 1 Application Given 11/10/2024 8:18 PM EDT 1 Application Given 11/10/2024 9:03 AM EDT 1 Application niCARdipine (Cardene) infusion 40 mg in NS 200 mL (0.2 mg/mL) (premix) 0-15 mg/hr (0-75 mL/hr), 0.2 mg/mL, Intravenous, Titrated, Starting on Sat11/03/24 at 1800, Until Sat11/04/24 at 1041, STAT Restarted 11/04/2024 10:08 AM EDT 5 mg/hr 25 mL/hr New Bag 11/04/2024 3:29 AM EDT 7.5 mg/hr 37.5 mL/hr New Bag 11/03/2024 11:27 PM EDT 2.5 mg/hr 12.5 mL/hr nicotine (Nicoderm CQ) 21 MG/24HR patch 1 patch 1 patch, Transdermal, Daily, First dose on Sat11/12/24 at 2345, Until Discontinued, Routine Medication Applied 11/19/2024 9:13 AM EDT 1 patch Right Arm Medication Applied 11/18/2024 8:08 AM EDT 1 patch Left Arm Medication Applied 11/17/2024 9:17 AM EDT 1 patch Other nicotine polacrilex (Commit) lozenge 2 mg 2 mg, Mouth/Throat, Every 2 hour PRN, Starting on Sat11/11/24 at 2239, Until Sat11/19/24 at 2151, Routine, smoking cessation Given 11/13/2024 9:03 PM EDT 2 mg Given 11/12/2024 10:30 PM EDT 2 mg Given 11/12/2024 4:51 PM EDT 2 mg oxyCODONE (Roxicodone) immediate release tablet 10 mg 10 mg, Oral, Every 4 hours, First dose on Sat11/02/24 at 1700, Until Discontinued, Routine Given 11/04/2024 5:04 PM EDT 10 mg Given 11/04/2024 12:26 PM EDT 10 mg Given 11/04/2024 8:07 AM EDT 10 mg oxyCODONE (Roxicodone) immediate release tablet 10 mg 10 mg, Oral, Once, 1 dose, On Sat11/15/24 at 1200, Routine Given 11/15/2024 11:23 AM EDT 10 mg oxyCODONE (Roxicodone) immediate release tablet 5 mg 5 mg, Oral, Every 4 hours, First dose (after last modification) on Sat11/04/24 at 2100, Until Discontinued, Routine Given 11/04/2024 9:53 PM EDT 5 mg oxyCODONE (Roxicodone) immediate release tablet 5 mg 5 mg, Oral, Every 4 hours PRN, Starting on Sat11/04/24 at 2215, Until Sat11/08/24 at 1156, Routine, severe pain Given 11/07/2024 11:19 PM EDT 5 mg Given 11/06/2024 9:37 PM EDT 5 mg Given 11/06/2024 11:05 AM EDT 5 mg oxyCODONE (Roxicodone) immediate release tablet 5 mg 5 mg, Oral, Every 4 hours PRN, Starting on Sat11/08/24 at 1153, Until Sat11/10/24 at 1215, Routine, severe pain Given 11/10/2024 9:27 AM EDT 5 mg Given 11/09/2024 4:47 AM EDT 5 mg oxyCODONE (Roxicodone) immediate release tablet 5 mg 5 mg, Oral, Every 6 hours PRN, Starting on Sat11/10/24 at 1215, Until [facility] 11/19/24 at 2151, Routine, severe pain Given 11/19/2024 9:14 AM EDT 5 mg Given 11/19/2024 3:06 AM EDT 5 mg Given 11/18/2024 6:18 PM EDT 5 mg pantoprazole (Protonix) EC tablet 40 mg 40 mg, Oral, Daily, First dose on Sat11/09/24 at 1615, Until Discontinued, Routine Given 11/19/2024 9:12 AM EDT 40 mg Given 11/18/2024 8:08 AM EDT 40 mg Given 11/17/2024 9:17 AM EDT 40 mg pantoprazole (Protonix) injection 40 mg 40 mg, Intravenous, Daily, First dose on Sat11/01/24 at 1505, Until Discontinued, Routine Given 11/08/2024 9:11 AM EDT 40 mg Given 11/07/2024 8:45 AM EDT 40 mg Given 11/06/2024 8:31 AM EDT 40 mg polyethylene glycol (Miralax) packet 17 g 17 g, Oral, Daily, First dose on Sat11/02/24 at 0900, Until Discontinued, Routine Given 11/07/2024 8:44 AM EDT 17 g Given 11/06/2024 8:31 AM EDT 17 g Given 11/05/2024 8:31 AM EDT 17 g potassium & sodium phosphates (Phos-NaK) 280-160-250 MG packet 1 packet 1 packet, Oral, Every 8 hours, 3 doses, First dose on Sat11/06/24 at 0415, Last dose on Sat11/06/24 at 2015, Routine Given 11/06/2024 9:36 PM EDT 1 packe t Given 11/06/2024 11:31 AM EDT 1 packet Given 11/06/2024 4:40 AM EDT 1 packet potassium chloride (Klor-Con) packet 40 mEq 40 mEq, Oral, Once, 1 dose, On Sat11/03/24 at 0515, Routine Given 11/03/2024 5:22 AM EDT 40 mEq propofol (Diprivan) infusion 10 mg/mL - Pyxis Override Pull 1 dose, Starting on Sat11/01/24 at 0623, Until Sat11/01/24 at 0628 propofol (Diprivan) infusion 10 mg/mL 10-50 mcg/kg/min 90.1 kg (5.406-27.03 mL/hr, rounded to 5.41-27.03 mL/hr), Intravenous, Titrated, Starting on Sat11/01/24 at 0625, Until Sat11/04/24 at 1636, Routine Rate/Dose Verify 11/04/2024 4:00 PM EDT 50 mcg/kg/min 27 mL/hr Rate/Dose Verify 11/04/2024 3:00 PM EDT 50 mcg/kg/min 27 m L/hr Rate/Dose Verify 11/04/2024 2:00 PM EDT 40 mcg/kg/min 21.6 mL/hr QUEtiapine (SEROquel) tablet 100 mg 100 mg, Oral, Nightly, First dose (after last modification) on Sat11/19/24 at 2100, Until Discontinued, Routine QUEtiapine (SEROquel) tablet 25 mg 25 mg, Oral, Daily, First dose on Sat11/08/24 at 1245, Until Discontinued, Routine Given 11/19/2024 9:12 AM EDT 25 mg Given 11/18/2024 8:08 AM EDT 25 mg Given 11/17/2024 9:17 AM EDT 25 mg QUEtiapine (SEROquel) tablet 50 mg 50 mg, Oral, Nightly, First dose on Sat25 at 2100, Until Discontinued, Routine Given 11/18/2024 9:31 PM EDT 50 mg Given 11/17/2024 8:13 PM EDT 50 mg Given 11/16/2024 8:59 PM EDT 50 mg rosuvastatin (Crestor) tablet 20 mg 20 mg, Oral, Nightly, First dose on Sat11/09/24 at 2100, Until Discontinued, Routine Given 11/18/2024 9:31 PM EDT 20 mg Given 11/17/2024 8:12 PM EDT 20 mg Given 11/16/2024 8:59 PM EDT 20 mg senna-docusate (Devika-Colace) 8.6-50 MG per tablet 1 tablet 1 tablet, Oral, 2 times daily, First dose on Sat11/02/24 at 0900, Until Discontinued, Routine Given 11/07/2024 8:45 AM EDT 1 tablet Given 11/06/2024 11:56 PM EDT 1 tablet Given 11/06/2024 8:31 AM EDT 1 tablet smog 30%-30%-30%-10% rectal enema 100 mL 100 mL, Rectal, Once, 1 dose, On [facility] 11/05/24 at 1515, Routine Given 11/05/2024 3:44 PM EDT 100 mL sodium chloride 0.9 % bolus 1,000 mL 1,000 mL, Intravenous, Once, 1 dose, On [place] 11/01/24 at 2245, Administer over 15 Minutes, Routine New Bag 11/01/2024 9:57 PM EDT 1,000 mL 4000 mL/hr sodium chloride 0.9 % flush 10 mL 10 mL, Intravenous, Every 12 hours, First dose on [place] 11/01/24 at 1505, Until Discontinued, Routine Given 11/19/2024 6:27 PM EDT 10 mL Given 11/19/2024 5:42 AM EDT 10 mL Given 11/18/2024 6:25 PM EDT 10 mL sodium chloride 0.9 % flush 10 mL 10 mL, Intravenous, As needed, Starting on [place] 11/01/24 at 1501, Until [facility] 11/19/24 at 2151, Routine, line care succinylcholine (Anectine) injection Code/trauma/sedation medication, Starting on [place] 11/01/24 at 0622, Until 11/01/24 at 0622, Routine Given 11/01/2024 6:22 AM EDT 120 mg traZODone (Desyrel) tablet 100 mg 100 mg, Oral, Nightly, First dose (after last modification) on Sat11/17/24 at 2100, Until Discontinued, Routine Given 11/18/2024 9:31 PM EDT 100 mg Given 11/17/2024 8:13 PM EDT 100 mg traZODone (Desyrel) tablet 50 mg 50 mg, Oral, Nightly, First dose on Sat11/12/24 at 2100, Until Discontinued, Routine Given 11/16/2024 8:59 PM EDT 50 mg Given 11/15/2024 8:43 PM EDT 50 mg Given 11/14/2024 8:12 PM EDT 50 mg vancomycin (Vancocin) 2,250 mg in sodium chloride 0.9 % 500 mL 2,250 mg, Intravenous, Once, 1 dose, On Sat11/04/24 at 1345, at 252.2 mL/hr, Routine Given 11/04/2024 2:02 PM EDT 2,250 mg 252.2 m L/hr vancomycin IVPB 1750 mg in 250 mL NS IVPB 1,750 mg, Intravenous, Every 12 hours, First dose on [place] 11/05/24 at 0200, Until Discontinued, at 167.4 mL/hr, Routine New Bag 11/06/2024 2:54 PM EDT 1,750 mg 167.4 mL/hr New Bag 11/06/2024 2:15 AM EDT 1,750 mg 167.4 mL/hr New Bag 11/05/2024 2:53 PM EDT 1,750 mg 167.4 mL/hr vancomycin IVPB 1750 mg in 250 mL NS IVPB 1,750 mg (rounded from 1,802 mg = 20 mg/kg 90.1 kg), Intravenous, Once, 1 dose, On Sat11/12/24 at 1845, at 167.4 mL/hr, Routine New Bag 11/12/2024 9:38 PM EDT 1,750 mg 167.4 mL/h r documented in this encounter Active and Recently Administered Medications Times are shown in EDT. Scheduled Medication Order 11/17/2024 11/18/2024 11/19/2024 acetaminophen (Tylenol) tablet 1,000 mg 1,000 mg, Oral, Every 6 hours scheduled, First dose (after last modification) on Sat11/12/24 at 1200, Until Discontinued, Routine 0535 (Given - Provider: Pamela Yanes RN)1140 (Given - Provider: Yanni Ma RN)1743 (Given - Provider: Yanni Ma RN)2329 (Given - Provider: Arely Mena RN) 0607 (Given - Provider: Arely Mena RN)1240 (Given - Provider: Courtney Regalado RN)1818 (Given - Provider: Courtney Regalado, PREETHI) 0039 (Given - Provider: aPmela Yanes RN)0727 (Not Given - Provider: Pamela Yanes RN - Reason: Patient/family refused)114 (Given - Provider: Coby Chacon, PREETHI)172 (Given - Provider: Nena Kathleen) ALPRAZolam (Xanax) tablet 2 mg 2 mg, Oral, Every 6 hours, First dose (after last modification) on Sat11/04/24 at 1700, Until Discontinued, Routine 0535 (Given - Provider: Pamela Yanes RN)1140 (Given - Provider: Yanni Ma RN)1743 (Given - Provider: Yanni Ma RN)2329 (Given - Provider: Arely Mena RN) 0607 (Given - Provider: Arely Mena RN)1241 (Given - Provider: Courtney Regalado RN)1818 (Given - Provider: Courtney Regalado RN) 0130 (Given - Provider: Pamela Yanes RN)0727 (Not Given - Provider: Pamela Yanes RN - Reason: Patient/family refused)114 (Given - Provider: Coby Chacon RN)172 (Not Given - Provider: Nena Kathleen - Reason: Patient/family refused) amLODIPine (Norvasc) tablet 5 mg 5 mg, Oral, Daily, First dose on Sat11/10/24 at 0900, Until Discontinued, Routine 0917 (Given - Provider: Yanni Ma RN) 0808 (Given - Provider: Courtney Regalado, PREETHI) 09 (Given - Provider: Coby Chacon, RN) barium sulfate (Varibar Pudding) 40 % oral paste 15 mL (COMPLETED) 15 mL, Oral, Once in imaging, 1 dose, Starting on Sat11/19/24 at 1020, Until [place] 11/19/24 at 1025, Routine, Imaging Protocol Orders 1025 (Given - Provid er: Keyonna R Milligan) barium sulfate (Varibar THIN Liquid) 40 % suspension 120 mL (COMPLETED) 120 mL, Oral, Once in imaging, 1 dose, Starting on Sat11/19/24 at 1020, Until [place] 11/19/24 at 1025, Routine, Imaging Protocol Orders 1025 (Given - Provid er: Keyonna R Milligan) enoxaparin (Lovenox) syringe 30 mg 30 mg, Subcutaneous, 2 times daily, First dose on Sat11/08/24 at 1400, Until Discontinued, Routine 0918 (Given - Provider: Yanni Ma RN)2012 (Given - Provider: Arely Mena RN) 806 (Given - Provider: Courtney Regalado, PREETHI)2131 (Given - Provider: Pamela Yanes, PREETHI) 09 (Given - Provider: Coby Chacon, PREETHI)2100 (Canceled Entry - Provider: Automatic Discharge Provider - Comment: Automatically canceled at discontinue of medication order) HYDROmorphone (Dilaudid) injection 0.5 mg (COMPLETED) 0.5 mg, Intravenous, Once, 1 dose, On Sat11/17/24 at 0145, Routine 0052 (Given - Provider: Pamela Yanes, PREETHI) levETIRAcetam (Keppra) tablet 1,500 mg 1,500 mg, Oral, 2 times daily, First dose on Sat11/09/24 at 2100, Until Discontinued, Routine 0917 (Given - Provider: Yanni Ma RN)2012 (Given - Provider: Arely Mena RN) 08 (Given - Provider: Courtney Regalado, PREETHI)2130 (Given - Provider: Pamela Yanes RN) 09 (Given - Provider: Coby Chacon RN)2100 (Canceled Entry - Provider: Automatic Discharge Provider - Comment: Automatically canceled at discontinue of medication order) lidocaine (Lidoderm) 5 % patch 1 patch 1 patch, Apply externally, Every 24 hours, First dose on Sat11/17/24 at 1045, Until Discontinued, Administer over 12 Hours, Routine 1003 (Medication Applied - Provider: Yanni Ma RN)2208 (Medication Removed - Provider: Arely Mena RN) 0952 (Medication Applied - Provider: Courtney Regalado RN)213 (Medication Removed - Provider: Pamela Yanes RN) 1058 (Medication Applied - Provider: Nena Kathleen)1950 (Due: Medication Removed - Provider: Automatic Discharge Provider - Comment: Time automatically adjusted from order being discontinued) melatonin tablet 6 mg 6 mg, Oral, Nightly, First dose on Sat11/12/24 at 2100, Until Discontinued, Routine 2012 (Given - Provider: Arely Mena RN) 213 (Given - Provider: Pamela Yanes RN) 2100 (Canceled Entry - Provider: Automatic Discharge Provider - Comment: Automatically canceled at discontinue of medication order) metoprolol tartrate (Lopressor) tablet 25 mg 25 mg, Oral, 2 times daily, First dose on Sat11/09/24 at 2100, Until Discontinued, Routine 09 (Given - Provider: Yanni Ma RN)2011 (Given - Provider: Arely Mena RN) 08 (Given - Provider: Courtney Regalado, PREETHI)2131 (Given - Provider: Pamela Yanes RN) 09 (Given - Provider: Coby Chacon, PREETHI)2100 (Canceled Entry - Provider: Automatic Discharge Provider - Comment: Automatically canceled at discontinue of medication order) nicotine (Nicoderm CQ) 21 MG/24HR patch 1 patch 1 patch, Transdermal, Daily, First dose on Sat11/12/24 at 2345, Until Discontinued, Routine 09 (Medication Applied - Provider: Yanni Ma RN - Comment: rigbht shoulder blade) 0808 (Medication Applied - Provider: Courtney Regalado, PREETHI) 0913 (Medication Applied - Provider: Coby Chacon, PREETHI) pantoprazole (Protonix) EC tablet 40 mg 40 mg, Oral, Daily, First dose on Sat11/09/24 at 1615, Until Discontinued, Routine 09 (Given - Provider: Yanni Ma RN) 08 (Given - Provider: Courtney Regalado, RN) 09 (Given - Provider: Coby Chacon, PREETHI) QUEtiapine (SEROquel) tablet 100 mg 100 mg, Oral, Nightly, First dose (after last modification) on Sat11/19/24 at 2100, Until Discontinued, Routine 2099 (Canceled Entry - Provider: Automatic Discharge Provider - Comment: Automatically canceled at discontinue of medication order) QUEtiapine (SEROquel) tablet 25 mg 25 mg, Oral, Daily, First dose on Sat11/08/24 at 1245, Until Discontinued, Routine 916 (Given - Provider: Yanni Ma RN) 08 (Given - Provider: Courtney Regalado, PREETHI) 911 (Given - Provider: Coby Chacon, PREETHI) QUEtiapine (SEROquel) tablet 50 mg (CANCELED) 50 mg, Oral, Nightly, First dose on Sat11/08/24 at 2100, Until Discontinued, Routine 2012 (Given - Provider: Arely Mena RN) 2130 (Given - Provider: Pamela Yanes RN) QUEtiapine (SEROquel) tablet 50 mg 50 mg, Oral, Nightly, First dose on Sat11/19/24 at 2100, Until Discontinued, Routine 2100 (Due) rosuvastatin (Crestor) tablet 20 mg 20 mg, Oral, Nightly, First dose on Sat11/09/24 at 2100, Until Discontinued, Routine 2011 (Given - Provider: Arely Mena RN) 2130 (Given - Provider: Pamela Yanes RN) 2099 (Canceled Entry - Provider: Automatic Discharge Provider - Comment: Automatically canceled at discontinue of medication order) sodium chloride 0.9 % flush 10 mL(Linked Group 1) 10 mL, Intravenous, Every 12 hours, First dose on Sat11/01/24 at 1505, Until Discontinued, Routine 0500 (Given - Provider: Pamela Yanes RN)1802 (Given - Provider: Yanni Ma RN) 0607 (Given - Provider: Arely Mena RN)1825 (Given - Provider: Courtney Regalado RN) 0542 (Given - Provider: Pamela Yanes RN)1827 (Given - Provider: Coby Chacon, PREETHI) traZODone (Desyrel) tablet 100 mg 100 mg, Oral, Nightly, First dose (after last modification) on Sat11/17/24 at 2100, Until Discontinued, Routine 2012 (Given - Provider: Arely Mena RN) 2130 (Given - Provider: Pamela Yanes RN) 2100 (Canceled Entry - Provider: Automatic Discharge Provider - Comment: Automatically canceled at discontinue of medication order) PRN Medication Order 11/17/2024 11/18/2024 11/19/2024 hydrALAZINE (Apresoline) injection 10 mg 10 mg, Intravenous, Every 1 - 2 hours prn, Starting on Sat11/08/24 at 2011, Until Sat11/19/24 at 2151, Routine, high blood pressure, SBP goal < 180 labetalol (Normodyne,Trandate) injection 10 mg 10 mg, Intravenous, Every 1 - 2 hours prn, Starting on Sat11/08/24 at 2012, Until Sat11/19/24 at 2151, Routine, high blood pressure, SBP > 180 0913 (Not Given - Provider: Coby Chacon RN - Reason: Order parameters not met) nicotine polacrilex (Commit) lozenge 2 mg 2 mg, Mouth/Throat, Every 2 hour PRN, Starting on Sat11/11/24 at 2239, Until Sat11/19/24 at 2151, Routine, smoking cessation oxyCODONE (Roxicodone) immediate release tablet 5 mg 5 mg, Oral, Every 6 hours PRN, Starting on Sat11/10/24 at 1215, Until Sat11/19/24 at 2151, Routine, severe pain 0535 (Given - Provider: Pamela Yanes RN)1141 (Given - Provider: Yanni Ma, PREETHI)1743 (Given - Provider: Yanni Ma RN) 0607 (Given - Provider: Arely Mena RN)1241 (Given - Provider: Courtney Regalado RN)1818 (Given - Provider: Courtney Regalado, RN) 0306 (Given - Provider: Pamela Yanes, RN)0914 (Given - Provider: Coby Chacon, RN) sodium chloride 0.9 % flush 10 mL(Linked Group 1) 10 mL, Intravenous, As needed, Starting on 11/01/24 at 1501, Until [place] 11/19/24 at 2151, Routine, line care Linked Groups Order Group 1: Insert peripheral IV (COMPLETED) Once, On 11/01/24 at 1502, For 1 occurrence And Saline lock IV (COMPLETED) Once, On 11/01/24 at 1502, For 1 occurrence And sodium chloride 0.9 % flush 10 mLJump to med 10 mL, Intravenous, Every 12 hours, First dose on 11/01/24 at 1505, Until Discontinued, Routine And sodium chloride 0.9 % flush 10 mLJump to med 10 mL, Intravenous, As needed, Starting on 11/01/24 at 1501, Until [place] 11/19/24 at 2151, Routine, line care documented in this encounter Additional Health Concerns Infection Onset Date Last Indicated Resolved Time Respiratory Rule-Out 11/12/2024 11/12/2024 025 9:22 PM EDT COVID-19 Rule-Out 11/12/2024 11/12/2024 11/12/2024 8:09 PM EDT Assessment Noted Time PHQ-9 Depression Total Score: 12 021 1:29 PM EDT A fall risk assessment has been complete d for the patient 11/07/2023 11:43 AM EDT A Body Mass Index follow-up plan has been documented for the patient 11/19/2024 7:28 PM EDT documented as of this encounter Care Teams Business Management Consultant Relationship Specialty Start Date End Date Pcp, No [address] [place] [address] PCP - General Family Medicine 11/01/24 Pcp, No [address] [place] [address] Family Medicine 11/01/24 Zaire Martin MD [facility] [place] [address] Cardiology 11/09/21 documented as of this encounter
--- OUTSIDE RECORDS SUMMARY | 2024-11-03 12:35 | XMS_ITS | Encounter Summary ---
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 1:41 AM EDT [facility] MCHC 34.7 30.7 - 35.5 g/dL LAB HEMATOLOGY METHOD 11/06/2024 1:41 AM EDT [facility] RDW 11.8 11.5 - 14.5 % LAB HEMATOLOGY METHOD 11/06/2024 1:41 AM EDT [facility] MPV 10.1 8.8 - 12.5 fL LAB HEMATOLOGY METHOD 11/06/2024 1:41 AM EDT [facility] nRBC 0.0 <=0.0 per 100 WBCs LAB HEMATOLOGY METHOD 11/06/2024 1:41 AM EDT [facility] Differential Type Automated LAB HEMATOLOGY METHOD 11/06/2024 1:41 AM EDT [facility] Neutrophils % 71 % LAB HEMATOLOGY METHOD 11/06/2024 1:41 AM EDT [facility] Lymphocytes % 17 % LAB HEMATOLOGY METHOD 11/06/2024 1:41 AM EDT [facility] Monocytes % 7 % LAB HEMATOLOGY METHOD 11/06/2024 1:41 AM EDT [facility] Eosinophils % 3 % LAB HEMATOLOGY METHOD 11/06/2024 1:41 AM EDT [facility] Basophils % 1 % LAB HEMATOLOGY METHOD 11/06/2024 1:41 AM EDT [facility] Immature Granulocytes % 1 % LAB HEMATOLOGY METHOD 11/06/2024 1:41 AM EDT [facility] Neutrophils Absolute 7.11(H) 1.60 - 6.10 10*3/uL LAB HEMATOLOGY METHOD 11/06/2024 1:41 AM EDT [facility] Lymphocytes Absolute 1.71 1.20 - 3.90 10*3/uL LAB HEMATOLOGY METHOD 11/06/2024 1:41 AM EDT [facility] Monocytes Absolute 0.74 0.30 - 0.90 10*3/uL LAB HEMATOLOGY METHOD 11/06/2024 1:41 AM EDT [facility] Eosinophils Absolute 0.26 0.00 - 0.50 10*3/uL LAB HEMATOLOGY METHOD 11/06/2024 1:41 AM EDT [facility] Basophils Absolute 0.05 0.00 - 0.10 10*3/uL LAB HEMATOLOGY METHOD 11/06/2024 1:41 AM EDT [facility] Immature Granulocytes Absolute 0.07(H) 0.00 - 0.06 10*3/uL LAB HEMATOLOGY METHOD 11/06/2024 1:41 AM EDT [facility] Blood Venous blood specimen / Unknown Venipuncture / Unknown 11/06/2024 1:14 AM EDT 11/06/2024 1:34 AM EDT Narrative [facility] - 11/06/2024 1:41 AM EDT Therapeutic decision making should be based on absolute values, rather than percentages. Stacey Antonio APRN, DNP LAB BLOOD ORDERABLES F inal Result [facility] [address] [place] [address] * (ABNORMAL) Basic Metabolic Panel, Plasma (11/06/2024 1:14 AM EDT) Glucose, Plasma 106(H) 74 - 99 mg/dL 11/06/2024 2:05 AM EDT [facility] BUN, Plasma 15 7 - 21 mg/dL 11/06/2024 2:05 AM EDT [facility] Creatinine, Plasma 0.65(L) 0.70 - 1.20 mg/dL 11/06/2024 2:05 AM EDT [facility] BUN/Creatinine Ratio 23 11/06/2024 2:05 AM EDT [facility] Sodium, Plasma 135(L) 136 - 145 mmol/L 11/06/2024 2:05 AM EDT [facility] Potassium, Plasma 3.7 3.6 - 4.9 mmol/L 11/06/2024 2:05 AM EDT [facility] Chloride, Plasma 100 97 - 107 mmol/L 11/06/2024 2:05 AM EDT [facility] CO2, Plasma 23 22 - 29 mmol/L 11/06/2024 2:05 AM EDT [facility] Anion Gap 12 6 - 16 mmol/L 11/06/2024 2:05 AM EDT [facility] Total Calcium, Plasma 8.2(L) 8.9 - 10.2 mg/dL 11/06/2024 2:05 AM EDT [facility] eGFRcr 113.4 mL/min/1.7 3m*2 11/06/2024 2:05 AM EDT [facility] Comment:Reported eGFRcr in m L/min/1.73m2 is based the CKD-EPI 2020 equation that does not use a race coefficient. Blood Venous blood specimen / Unknown Venipuncture / Unknown 11/06/2024 1:14 AM EDT 11/06/2024 1:26 AM EDT us Stacey Antonio APRN, KURT LAB BLOOD ORDERABLES F inal Result Performing Organization Address City/[facility] Co de Phone Number [facility] [address] [place] [address] * Magnesium, Plasma (11/06/2024 1:14 AM EDT) Magnesium, Plasma 2.2 1.9 - 2.4 mg/dL 11/06/2024 2:05 AM EDT [facility] Blood Venous blood specimen / Unknown Venipuncture / Unknown 11/06/2024 1:14 AM EDT 11/06/2024 1:26 AM EDT us Stacey Antonio APRN, DNP LAB BLOOD ORDERABLES F inal Result Performing Organization Address City/[facility]/ZIP Co de Phone Number [facility] [address] [place] [address] * (ABNORMAL) Phosphorus, Plasma (11/06/2024 1:14 AM EDT) Phosphorus, Plasma 2.3(L) 2.5 - 4.5 mg/dL 11/06/2024 2:05 AM EDT [facility] Blood Venous blood specimen / Unknown Venipuncture / Unknown 11/06/2024 1:14 AM EDT 11/06/2024 1:26 AM EDT Stacey Antonio APRN, DNP LAB BLOOD ORDERABLES F inal Result Performing Organization Address [facility] [place] [address] * (ABNORMAL) Vancomycin, Trough, Plasma (11/06/2024 1:14 AM EDT) Vancomycin, Trough, Plasma 8.9(L) 10.0 - 20.0 ug/mL 11/06/2024 2:05 AM EDT [facility] Blood Venous blood specimen / Unknown Venipuncture / Unknown 11/06/2024 1:14 AM EDT 11/06/2024 1:[address] [facility] - 11/06/2024 2:05 AM EDT Therapeutic Trough level: 10-20ug/mL Supra-therapeutic Trough level: >20 ug/mL us Stacey Antonio APRN, KURT LAB BLOOD ORDERABLES F inal Result Performing Organization Address [facility] [place] [address] * [place] [facility], E/M 30-74 MINUTES (11/05/2024 3:02 [...] 176(H) <150 mg/dL 11/05/2024 1:00 AM EDT [facility] Comment: Triglyceride Reference Range (age >17 years): Desirable: <150 mg/dL Borderline high: 150 to 199 mg/dL High: 200 to 499 mg/dL Very high: >499 mg/dL Increased risk of pancreatitis: >1000 mg/dL Fasting greater than or equal to 12 hours? No 11/05/2024 1:00 AM EDT [facility] Blood Venous blood specimen / Unknown Venipuncture / Unknown 11/05/2024 12:20 AM EDT 11/05/2024 12:30 AM EDT us Girish Taylor MD LAB BLOOD ORDERABLES Final R esult [facility] [address] [place] [address] * (ABNORMAL) CBC and Differential (11/05/2024 12:20 AM EDT) WBC Count 16.63(H) 3.70 - 10.30 10*3/uL LAB HEMATOLOGY METHOD 11/05/2024 12:43 AM EDT [facility] RBC Count 3.66(L) 4.60 - 6.10 10*6/uL LAB HEMATOLOGY METHOD 11/05/2024 12:43 AM EDT [facility] HGB 11.3(L) 13.7 - 17.5 g/dL LAB HEMATOLOGY METHOD 11/05/2024 12:43 AM EDT [facility] HCT 32.4(L) 40.0 - 51.0 % LAB HEMATOLOGY METHOD 11/05/2024 12:43 AM EDT [facility] Platelet Count 257 155 - 369 10*3/uL LAB HEMATOLOGY METHOD 11/05/2024 12:43 AM EDT [facility] MCV 89 79 - 98 fL LAB HEMATOLOGY METHOD 11/05/2024 12:43 AM EDT [facility] MCH 30.9 26.0 - 32.0 pg LAB HEMATOLOGY METHOD 11/05/2024 12:43 AM EDT [facility] MCHC 34.9 30.7 - 35.5 g/dL LAB HEMATOLOGY METHOD 11/05/2024 12:43 AM EDT [facility] RDW 11.8 11.5 - 14.5 % LAB HEMATOLOGY METHOD 11/05/2024 12:43 AM EDT [facility] MPV 10.1 8.8 - 12.5 fL LAB HEMATOLOGY METHOD 11/05/2024 12:43 AM EDT [facility] nRBC 0.0 <=0.0 per 100 WBCs LAB HEMATOLOGY METHOD 11/05/2024 12:43 AM EDT [facility] Differential Type Automated LAB HEMATOLOGY METHOD 11/05/2024 12:43 AM EDT [facility] Neutrophils % 84 % LAB HEMATOLOGY METHOD 11/05/2024 12:43 AM EDT [facility] Lymphocytes % 8 % LAB HEMATOLOGY METHOD 11/05/2024 12:43 AM EDT [facility] Monocytes % 6 % LAB HEMATOLOGY METHOD 11/05/2024 12:43 AM EDT [facility] Eosinophils % 1 % LAB HEMATOLOGY METHOD 11/05/2024 12:43 AM EDT [facility] Basophils % 0 % LAB HEMATOLOGY METHOD 11/05/2024 12:43 AM EDT [facility] Immature Granulocytes % 1 % LAB HEMATOLOGY METHOD 11/05/2024 12:43 AM EDT [facility] Neutrophils Absolute 13.97(H) 1.60 - 6.10 10*3/uL LAB HEMATOLOGY METHOD 11/05/2024 12:43 AM EDT [facility] Lymphocytes Absolute 1.36 1.20 - 3.90 10*3/uL LAB HEMATOLOGY METHOD 11/05/2024 12:43 AM EDT [facility] Monocytes Absolute 1.00(H) 0.30 - 0.90 10*3/uL LAB HEMATOLOGY METHOD 11/05/2024 12:43 AM EDT [facility] Eosinophils Absolute 0.12 0.00 - 0.50 10*3/uL LAB HEMATOLOGY METHOD 11/05/2024 12:43 AM EDT [facility] Basophils Absolute 0.06 0.00 - 0.10 10*3/uL LAB HEMATOLOGY METHOD 11/05/2024 12:43 AM EDT [facility] Immature Granulocytes Absolute 0.12(H) 0.00 - 0.06 10*3/uL LAB HEMATOLOGY METHOD 11/05/2024 12:43 AM EDT [facility] Blood Venous blood specimen / Unknown Venipuncture / Unknown 11/05/2024 12:20 AM EDT 11/05/2024 12:31 AM EDT Narrative [facility] - 11/05/2024 12:43 AM EDT Therapeutic decision making should be based on absolute values, rather than percentages. us Stacey Antonio UKE OPERATOR, DNP LAB BLOOD ORDERABLES F inal Result [facility] [address] [place] [address] * Phosphorus (11/04/2024 6:46 PM EDT) Phosphorus, Plasma 3.3 2.5 - 4.5 mg/dL 11/04/2024 7:28 PM EDT [facility] Blood Venous blood specimen / Unknown Venipuncture / Unknown 11/04/2024 6:46 PM EDT 11/04/2024 6:58 PM EDT us Tim Jamison PA LAB BLOOD ORDERABLES Final Res ult [facility] [address] [place] [address] * Magnesium (11/04/2024 6:46 PM EDT) Magnesium, Plasma 2.2 1.9 - 2.4 mg/dL 11/04/2024 7:28 PM EDT [facility] Blood Venous blood specimen / Unknown Venipuncture / Unknown 11/04/2024 6:46 PM EDT 11/04/2024 6:58 PM EDT us Tim MONSON LAB BLOOD ORDERABLES Final Res ult [facility] [address] [place] [address] * (ABNORMAL) Blood gas, arterial (11/04/2024 6:46 PM EDT) pH, Arterial 7.43 7.35 - 7.45 LAB HEMATOLOGY METHOD 11/04/2024 6:53 PM EDT [facility] pCO2, Arterial 43 32 - 45 mmHg LAB HEMATOLOGY METHOD 11/04/2024 6:53 PM EDT [facility] pO2, Arterial 111(H) 83 - 108 mmHg LAB HEMATOLOGY METHOD 11/04/2024 6:53 PM EDT [facility] SO2, Measured, Arterial 99(H) 94 - 98 % LAB HEMATOLOGY METHOD 11/04/2024 6:53 PM EDT [facility] Base Excess, Arterial 3.9(H) -2.0 - 3.0 mmol/L LAB HEMATOLOGY METHOD 11/04/2024 6:53 PM EDT [facility] Bicarbonate, Calculated, Arterial 29(H) 22 - 26 mmol/L LAB HEMATOLOGY METHOD 11/04/2024 6:53 PM EDT [facility] Hematocrit, Whole Blood 33.1(L) 40.0 - 51.0 % LAB HEMATOLOGY METHOD 11/04/2024 6:53 PM EDT [facility] Sodium, Whole Blood 135(L) 136 - 145 mmol/L LAB HEMATOLOGY METHOD 11/04/2024 6:53 PM EDT [facility] Potassium, Whole Blood 4.1 3.6 - 4.9 mmol/L LAB HEMATOLOGY METHOD 11/04/2024 6:53 PM EDT [facility] Chloride, Whole Blood 99 97 - 107 mmol/L LAB HEMATOLOGY METHOD 11/04/2024 6:53 PM EDT [facility] Glucose, Whole Blood 118(H) 74 - 99 mg/dL LAB HEMATOLOGY METHOD 11/04/2024 6:53 PM EDT [facility] Ionized Calcium, Whole Blood 4.3(L) 4.6 - 5.1 mg/dL LAB HEMATOLOGY METHOD 11/04/2024 6:53 PM EDT [facility] Lactate, Arterial, Whole Blood 1.0 0.5 - 1.6 mmol/L LAB HEMATOLOGY METHOD 11/04/2024 6:53 PM EDT [facility] Blood Arterial blood specimen / Unknown Arterial Puncture / Unknown 11/04/2024 6:46 PM EDT 11/04/2024 6:51 PM EDT us Tim MONSON LAB BLOOD ORDERABLES Final Res ult [facility] [address] [place] [address] * (ABNORMAL) Basic Metabolic Panel, Plasma (11/04/2024 6:46 PM EDT) Glucose, Plasma 121(H) 74 - 99 mg/dL 11/04/2024 7:28 PM EDT [facility] BUN, Plasma 12 7 - 21 mg/dL 11/04/2024 7:28 PM EDT [facility] Creatinine, Plasma 0.79 0.70 - 1.20 mg/dL 11/04/2024 7:28 PM EDT [facility] BUN/Creatinine Ratio 15 11/04/2024 7:28 PM EDT [facility] Sodium, Plasma 136 136 - 145 mmol/L 11/04/2024 7:28 PM EDT [facility] Potassium, Plasma 4.4 3.6 - 4.9 mmol/L 11/04/2024 7:28 PM EDT [facility] Chloride, Plasma 102 97 - 107 mmol/L 11/04/2024 7:28 PM EDT [facility] CO2, Plasma 24 22 - 29 mmol/L 11/04/2024 7:28 PM EDT [facility] Anion Gap 10 6 - 16 mmol/L 11/04/2024 7:28 PM EDT [facility] Total Calcium, Plasma 8.2(L) 8.9 - 10.2 mg/dL 11/04/2024 7:28 PM EDT [facility] eGFRcr 106.9 mL/min/1.7 3m*2 11/04/2024 7:28 PM EDT [facility] Comment:Reported eGFRcr in m L/min/1.73m2 is based the CKD-EPI 2020 equation that does not use a race coefficient. Blood Venous blood specimen / Unknown Venipuncture / Unknown 11/04/2024 6:46 PM EDT 11/04/2024 6:58 PM EDT us Tim MONSON LAB BLOOD ORDERABLES Final Res ult [facility] [address] [place] [address] * (ABNORMAL) CBC W/O Differential (11/04/2024 6:46 PM EDT) WBC Count 14.01(H) 3.70 - 10.30 10*3/uL LAB HEMATOLOGY METHOD 11/04/2024 7:07 PM EDT [facility] RBC Count 3.44(L) 4.60 - 6.10 10*6/uL LAB HEMATOLOGY METHOD 11/04/2024 7:07 PM EDT [facility] HGB 10.8(L) 13.7 - 17.5 g/dL LAB HEMATOLOGY METHOD 11/04/2024 7:07 PM EDT [facility] HCT 31.2(L) 40.0 - 51.0 % LAB HEMATOLOGY METHOD 11/04/2024 7:07 PM EDT [facility] Platelet Count 222 155 - 369 10*3/uL LAB HEMATOLOGY METHOD 11/04/2024 7:07 PM EDT [facility] MCV 91 79 - 98 fL LAB HEMATOLOGY METHOD 11/04/2024 7:07 PM EDT [facility] MCH 31.4 26.0 - 32.0 pg LAB HEMATOLOGY METHOD 11/04/2024 7:07 PM EDT [facility] MCHC 34.6 30.7 - 35.5 g/dL LAB HEMATOLOGY METHOD 11/04/2024 7:07 PM EDT [facility] RDW 11.9 11.5 - 14.5 % LAB HEMATOLOGY METHOD 11/04/2024 7:07 PM EDT [facility] MPV 10.4 8.8 - 12.5 fL LAB HEMATOLOGY METHOD 11/04/2024 7:07 PM EDT [facility] nRBC 0.0 <=0.0 per 100 WBCs LAB HEMATOLOGY METHOD 11/04/2024 7:07 PM EDT [facility] Blood Venous blood specimen / Unknown Venipuncture / Unknown 11/04/2024 6:46 PM EDT 11/04/2024 6:59 PM EDT us Tim MONSON LAB BLOOD ORDERABLES Final Res ult [facility] [address] [place] [address] * EEG (11/04/2024 3:23 PM EDT) Anatomical Region Laterality Modality EEG Narrative 11/04/2024 3:59 PM EDT Electroencephalogram Report Patient: Gordy Leiva : 1970 SEX: male Referring Provider: Stacey Antonio APRN, KURT EEG Reading Physician: Quoc Villafuerte MD Study [...] with likely contribution from sedative medication effect. Quoc Villafuerte MD Attending Physician Department of Neurology, Comprehensive Epilepsy Program [facility] us Stacey Antonio APRN, DNP NEUROLOGY ORDERABLES F inal Result * [facility], E/M 30-74 MINUTES (11/04/2024 11:06 AM EDT) Narrative Girish Taylor MD - 11/04/2024 11:06 AM EDT [...] day 5 MARY 11/09/2024 12:01 PM EDT [facility] Blood Venous blood specimen / Unknown Venipuncture / Unknown 11/04/2024 10:51 AM EDT 11/04/2024 11:09 AM EDT Stacey Antonio APRN, [facility] LAB MICROBIOLOGY - GEN ERAL ORDERABLES Final Result Performing Organization Address [facility]/ZIP Co de Phone Number [facility] [address] [place] [address] * (ABNORMAL) Quantitative BAL/PAL/Bronch Wash Culture and Gram StainProtected Alveolar Lavage (11/04/2024 10:25 AM EDT) Pathologist [facility] Culture >=100,000 CFU/mL Mixed upper respiratory bryson(A) 11/06/2024 12:46 PM EDT [facility] Comment:The organism value f or this result has been updated. These results have been appended to the previously preliminary verified report. Gram Stain Result Few Polymorphonuclear leukocytes(A) 11/06/2024 12:46 PM EDT [facility] Gram Stain Result Numerous Gram negative rods(A) 11/06/2024 12:46 PM EDT [facility] Gram Stain Result Moderate Gram positive rods(A) 11/06/2024 12:46 PM EDT [facility] Gram Stain Result Few Gram positive cocci in clusters(A) 11/06/2024 12:46 PM EDT [facility] Protected Alveolar Lavage (Protected Alveolar Lavage) 11/04/2024 10:25 AM EDT 11/04/2024 10:46 AM EDT us Stacey Antonio APRN, [facility] LAB MICROBIOLOGY - GEN ERAL ORDERABLES Final Result Performing Organization Address [facility]/ZIP Co de Phone Number [facility] [address] [place] [address] * Phosphorus, Plasma (11/04/2024 1:15 AM EDT) Phosphorus, Plasma 3.1 2.5 - 4.5 mg/dL 11/04/2024 1:49 AM EDT [facility] Blood Venous blood specimen / Unknown Venipuncture / Unknown 11/04/2024 1:15 AM EDT 11/04/2024 1:21 AM EDT Blu [facility] BLOOD ORDERABLES Final Resul t Performing Organization Address [facility] Co de Phone Number [facility] [address] [place] [address] * (ABNORMAL) Magnesium, Plasma (11/04/2024 1:15 AM EDT) Magnesium, Plasma 1.8(L) 1.9 - 2.4 mg/dL 11/04/2024 1:49 AM EDT [facility] Blood Venous blood specimen / Unknown Venipuncture / Unknown 11/04/2024 1:15 AM EDT 11/04/2024 1:21 AM EDT Blu [facility] BLOOD ORDERABLES Final Resul t Performing Organization Address [facility] de Phone Number [facility] [address] [place] [address] * (ABNORMAL) Basic Metabolic Panel, Plasma (11/04/2024 1:15 AM EDT) Glucose, Plasma 100(H) 74 - 99 mg/dL 11/04/2024 1:49 AM EDT [facility] BUN, Plasma 7 7 - 21 mg/dL 11/04/2024 1:49 AM EDT [facility] Creatinine, Plasma 0.72 0.70 - 1.20 mg/dL 11/04/2024 1:49 AM EDT [facility] BUN/Creatinine Ratio 10 11/04/2024 1:49 AM EDT [facility] Sodium, Plasma 137 136 - 145 mmol/L 11/04/2024 1:49 AM EDT [facility] Potassium, Plasma 4.3 3.6 - 4.9 mmol/L 11/04/2024 1:49 AM EDT [facility] Chloride, Plasma 100 97 - 107 mmol/L 11/04/2024 1:49 AM EDT [facility] CO2, Plasma 23 22 - 29 mmol/L 11/04/2024 1:49 AM EDT [facility] Anion Gap 14 6 - 16 mmol/L 11/04/2024 1:49 AM EDT [facility] Total Calcium, Plasma 8.5(L) 8.9 - 10.2 mg/dL 11/04/2024 1:49 AM EDT [facility] eGFRcr 109.9 mL/min/1.7 3m*2 11/04/2024 1:49 AM EDT [facility] Comment:Reported eGFRcr in m L/min/1.73m2 is based the CKD-EPI 2020 equation that does not use a race coefficient. Blood Venous blood specimen / Unknown Venipuncture / Unknown 11/04/2024 1:15 AM EDT 11/04/2024 1:21 AM EDT Blu MONSON LAB BLOOD ORDERABLES Final Resul t [facility] [address] [place] [address] * (ABNORMAL) CBC W/O Differential (11/04/2024 1:15 AM EDT) WBC Count 10.96(H) 3.70 - 10.30 10*3/uL LAB HEMATOLOGY METHOD 11/04/2024 1:27 AM EDT [facility] RBC Count 3.99(L) 4.60 - 6.10 10*6/uL LAB HEMATOLOGY METHOD 11/04/2024 1:27 AM EDT [facility] HGB 12.4(L) 13.7 - 17.5 g/dL LAB HEMATOLOGY METHOD 11/04/2024 1:27 AM EDT [facility] HCT 35.8(L) 40.0 - 51.0 % LAB HEMATOLOGY METHOD 11/04/2024 1:27 AM EDT [facility] Platelet Count 216 155 - 369 10*3/uL LAB HEMATOLOGY METHOD 11/04/2024 1:27 AM EDT [facility] MCV 90 79 - 98 fL LAB HEMATOLOGY METHOD 11/04/2024 1:27 AM EDT [facility] MCH 31.1 26.0 - 32.0 pg LAB HEMATOLOGY METHOD 11/04/2024 1:27 AM EDT [facility] MCHC 34.6 30.7 - 35.5 g/dL LAB HEMATOLOGY METHOD 11/04/2024 1:27 AM EDT [facility] RDW 11.9 11.5 - 14.5 % LAB HEMATOLOGY METHOD 11/04/2024 1:27 AM EDT [facility] MPV 10.1 8.8 - 12.5 fL LAB HEMATOLOGY METHOD 11/04/2024 1:27 AM EDT [facility] nRBC 0.0 <=0.0 per 100 WBCs LAB HEMATOLOGY METHOD 11/04/2024 1:27 AM EDT [facility] Blood Venous blood specimen / Unknown Venipuncture / Unknown 11/04/2024 1:15 AM EDT 11/04/2024 1:21 AM EDT us Blu A Mckinley PA LAB BLOOD ORDERABLES Final Resul t [facility] [address] [place] [address] * CT Head w IV Contrast (11/04/2024 [...] MD on 11/04/2024 1:55 AM Tim MONSON IM CT PROCEDURES Final Result * (ABNORMAL) Blood gas panel, arterial (11/03/2024 4:45 PM EDT) pH, Arterial 7.33(L) 7.35 - 7.45 LAB HEMATOLOGY METHOD 11/03/2024 4:57 PM EDT [facility] pCO2, Arterial 46(H) 32 - 45 mmHg LAB HEMATOLOGY METHOD 11/03/2024 4:57 PM EDT [facility] pO2, Arterial 117(H) 83 - 108 mmHg LAB HEMATOLOGY METHOD 11/03/2024 4:57 PM EDT [facility] SO2, Measured, Arterial 99(H) 94 - 98 % LAB HEMATOLOGY METHOD 11/03/2024 4:57 PM EDT [facility] Base Excess, Arterial -2.0 -2.0 - 3.0 mmol/L LAB HEMATOLOGY METHOD 11/03/2024 4:57 PM EDT [facility] Bicarbonate, Calculated, Arterial 24 22 - 26 mmol/L LAB HEMATOLOGY METHOD 11/03/2024 4:57 PM EDT [facility] Hematocrit, Whole Blood 35.0(L) 40.0 - 51.0 % LAB HEMATOLOGY METHOD 11/03/2024 4:57 PM EDT [facility] Sodium, Whole Blood 136 136 - 145 mmol/L LAB HEMATOLOGY METHOD 11/03/2024 4:57 PM EDT [facility] Potassium, Whole Blood 3.6 3.6 - 4.9 mmol/L LAB HEMATOLOGY METHOD 11/03/2024 4:57 PM EDT [facility] Chloride, Whole Blood 104 97 - 107 mmol/L LAB HEMATOLOGY METHOD 11/03/2024 4:57 PM EDT [facility] Glucose, Whole Blood 113(H) 74 - 99 mg/dL LAB HEMATOLOGY METHOD 11/03/2024 4:57 PM EDT [facility] Ionized Calcium, Whole Blood 4.2(L) 4.6 - 5.1 mg/dL LAB HEMATOLOGY METHOD 11/03/2024 4:57 PM EDT [facility] Lactate, Arterial, Whole Blood 1.1 0.5 - 1.6 mmol/L LAB HEMATOLOGY METHOD 11/03/2024 4:57 PM EDT [facility] Blood Arterial blood specimen / Unknown Arterial Puncture / Unknown 11/03/2024 4:45 PM EDT 11/03/2024 4:55 PM EDT us Girish Taylor MD LAB BLOOD ORDERABLES Final R esult [facility] [address] [place] [address] * Phosphorus (11/03/2024 4:45 PM EDT) Phosphorus, Plasma 3.2 2.5 - 4.5 mg/dL 11/03/2024 5:49 PM EDT [facility] Blood Venous blood specimen / Unknown Venipuncture / Unknown 11/03/2024 4:45 PM EDT 11/03/2024 5:19 PM EDT us Girish Taylor MD LAB BLOOD ORDERABLES Final R esult [facility] [address] [place] [address] * (ABNORMAL) Magnesium (11/03/2024 4:45 PM EDT) Magnesium, Plasma 1.7(L) 1.9 - 2.4 mg/dL 11/03/2024 5:49 PM EDT [facility] Blood Venous blood specimen / Unknown Venipuncture / Unknown 11/03/2024 4:45 PM EDT 11/03/2024 5:19 PM EDT us Girish Taylor MD LAB BLOOD ORDERABLES Final R esult [facility] [address] [place] [address] * (ABNORMAL) Basic metabolic panel (11/03/2024 4:45 PM EDT) Glucose, Plasma 120(H) 74 - 99 mg/dL 11/03/2024 5:49 PM EDT [facility] BUN, Plasma 8 7 - 21 mg/dL 11/03/2024 5:49 PM EDT [facility] Creatinine, Plasma 0.66(L) 0.70 - 1.20 mg/dL 11/03/2024 5:49 PM EDT [facility] BUN/Creatinine Ratio 12 11/03/2024 5:49 PM EDT [facility] Sodium, Plasma 133(L) 136 - 145 mmol/L 11/03/2024 5:49 PM EDT [facility] Potassium, Plasma 4.0 3.6 - 4.9 mmol/L 11/03/2024 5:49 PM EDT [facility] Chloride, Plasma 99 97 - 107 mmol/L 11/03/2024 5:49 PM EDT [facility] CO2, Plasma 21(L) 22 - 29 mmol/L 11/03/2024 5:49 PM EDT [facility] Anion Gap 13 6 - 16 mmol/L 11/03/2024 5:49 PM EDT [facility] Total Calcium, Plasma 8.3(L) 8.9 - 10.2 mg/dL 11/03/2024 5:49 PM EDT [facility] eGFRcr 112.9 mL/min/1.7 3m*2 11/03/2024 5:49 PM EDT [facility] Comment:Reported eGFRcr in m L/min/1.73m2 is based the CKD-EPI 2020 equation that does not use a race coefficient. Blood Venous blood specimen / Unknown Venipuncture / Unknown 11/03/2024 4:45 PM EDT 11/03/2024 5:19 PM EDT us Girish Taylor MD LAB BLOOD ORDERABLES Final R esult [facility] [address] [place] [address] * (ABNORMAL) Hemogram (CBC) (11/03/2024 4:45 PM EDT) WBC Count 10.18 3.70 - 10.30 10*3/uL LAB HEMATOLOGY METHOD 11/03/2024 5:34 PM EDT [facility] RBC Count 3.85(L) 4.60 - 6.10 10*6/uL LAB HEMATOLOGY METHOD 11/03/2024 5:34 PM EDT [facility] HGB 11.9(L) 13.7 - 17.5 g/dL LAB HEMATOLOGY METHOD 11/03/2024 5:34 PM EDT [facility] HCT 35.2(L) 40.0 - 51.0 % LAB HEMATOLOGY METHOD 11/03/2024 5:34 PM EDT [facility] Platelet Count 208 155 - 369 10*3/uL LAB HEMATOLOGY METHOD 11/03/2024 5:34 PM EDT [facility] MCV 91 79 - 98 fL LAB HEMATOLOGY METHOD 11/03/2024 5:34 PM EDT [facility] MCH 30.9 26.0 - 32.0 pg LAB HEMATOLOGY METHOD 11/03/2024 5:34 PM EDT [facility] MCHC 33.8 30.7 - 35.5 g/dL LAB HEMATOLOGY METHOD 11/03/2024 5:34 PM EDT [facility] RDW 11.9 11.5 - 14.5 % LAB HEMATOLOGY METHOD 11/03/2024 5:34 PM EDT [facility] MPV 10.6 8.8 - 12.5 fL LAB HEMATOLOGY METHOD 11/03/2024 5:34 PM EDT [facility] nRBC 0.0 <=0.0 per 100 WBCs LAB HEMATOLOGY METHOD 11/03/2024 5:34 PM EDT [facility] Blood Venous blood specimen / Unknown Venipuncture / Unknown 11/03/2024 4:45 PM EDT 11/03/2024 5:23 PM EDT us Girish Taylor MD LAB BLOOD ORDERABLES Final R esult Performing Organization Address [facility] Co de Phone Number [facility] [address] [place] [address] * POCT glucose meter (11/03/2024 4:16 PM EDT) Pathologist [facility] POCT Glucose 90 74 - 99 mg/dL 11/03/2024 4:17 PM EDT [facility] Comment:Accuracy of [...] Comment 11/03/2024 4:17 PM EDT [facility] Information Technology Associate ID Sandy Huertas 11/03/2024 4:17 PM EDT [facility] Device ID [id number] 11/03/2024 4:17 PM EDT [facility] Specimen Type POC Capillary 11/03/2024 4:17 PM EDT [facility] Blood Capillary blood specimen / Unknown 11/03/2024 4:16 PM EDT 11/03/2024 4:17 PM EDT us Girish Taylor MD LAB POINT OF CARE TE ST DOCKED DEVICE UNSOLICITED RESULTS Final Result Performing Organization Address [facility] Co de Phone Number [facility] [address] [place] [address] * [place] Less than 1 Hour Intraoperative (11/03/2024 3:38 PM EDT) Narrative IMAGING - 11/03/2024 3:39 PM EDT Images were obtained for surgical purposes. See Jorge Pineda's surgical note in the patient's chart for the findings. us Jorge Pineda MD IMG FLUOROSCOPY PROCEDURES Fin al Result Performing Organization Address [facility] Co de Phone Number IMAGING * ECG Adult (11/03/2024 7:08 AM EDT) EKG DIAGNOSIS CLASS Abnormal MUSE ECG Ventricular Rate 58 BPM MUSE ECG Atrial Rate 58 BPM MUSE ECG WA Interval 144 ms MUSE ECG QRSD Interval 138 ms MUSE ECG QT Interval 438 ms MUSE ECG QTC Interval 429 ms MUSE ECG P [place] 17 degrees MUSE ECG R [place] -34 degrees MUSE ECG T Wave [place] 29 degrees MUSE ECG Diagnosis Sinus bradycardia MUSE ECG Diagnosis Left axis deviation MUSE ECG Diagnosis Right bundle branch block MUSE ECG Diagnosis Abnormal ECG MUSE ECG Diagnosis MUSE ECG Diagnosis Confirmed by Brady Hargrove ([id number]) on 11/03/2024 1:52:45 PM MUSE ECG 11/03/2024 7:08 AM EDT 11/03/2024 1:52 PM EDT Debo MONSON ECG ORDERABLES Final Result Performing Organization Address City/[facility]/ZIP Co de Phone Number MUSE ECG * Phosphorus, Plasma (11/03/2024 1:47 AM EDT) Phosphorus, Plasma 3.4 2.5 - 4.5 mg/dL 11/03/2024 2:26 AM EDT [facility] Blood Venous blood specimen / Unknown Venipuncture / Unknown 11/03/2024 1:47 AM EDT 11/03/2024 1:54 AM EDT Kianna Keen APRN LAB BLOOD ORDERABLES Molly l Result Performing Organization Address [facility] de Phone Number [facility] [address] [place] [address] * Magnesium, Plasma (11/03/2024 1:47 AM EDT) Magnesium, Plasma 2.0 1.9 - 2.4 mg/dL 11/03/2024 2:26 AM EDT [facility] Blood Venous blood specimen / Unknown Venipuncture / Unknown 11/03/2024 1:47 AM EDT 11/03/2024 1:54 AM EDT Kianna Keen APRN LAB BLOOD ORDERABLES Molly l Result Performing Organization Address City/[facility]/ZIP Co de Phone Number [facility] [address] [place] [address] * Prothrombin Time/INR (11/03/2024 1:47 AM EDT) Prothrombin Time 13.6 12.0 - 14.3 sec LAB COAGULATION METHOD 11/03/2024 2:23 AM EDT [facility] INR 1.0 0.9 - 1.1 LAB COAGULATION METHOD 11/03/2024 2:23 AM EDT [facility] Blood Venous blood specimen / Unknown Venipuncture / Unknown 11/03/2024 1:47 AM EDT 11/03/2024 1:54 AM EDT [facility] - 11/03/2024 2:23 AM EDT OPTIMAL INR RANGES FOR PATIENT ON ORAL ANTICOAGULANT THERAPY Prevention of venous thromboembolism INR 2.0 to 3.0 In patients with heart disease: Atrial fibrillation INR 2.0 to 3.0 Valvular heart disease INR 2.0 to 3.0 Tissue heart valves INR 2.0 to 3.0 Mechanical prosthetic valves INR 2.5 to 3.5 Prevention of recurrent WI INR 2.5 to 3.5 us Girish Taylor MD LAB BLOOD ORDERABLES Final R esult [facility] [address] [place] [address] * (ABNORMAL) CBC W/O Differential (11/03/2024 1:47 AM EDT) WBC Count 8.76 3.70 - 10.30 10*3/uL LAB HEMATOLOGY METHOD 11/03/2024 2:01 AM EDT [facility] RBC Count 3.67(L) 4.60 - 6.10 10*6/uL LAB HEMATOLOGY METHOD 11/03/2024 2:01 AM EDT [facility] HGB 11.5(L) 13.7 - 17.5 g/dL LAB HEMATOLOGY METHOD 11/03/2024 2:01 AM EDT [facility] HCT 34.4(L) 40.0 - 51.0 % LAB HEMATOLOGY METHOD 11/03/2024 2:01 AM EDT [facility] Platelet Count 199 155 - 369 10*3/uL LAB HEMATOLOGY METHOD 11/03/2024 2:01 AM EDT [facility] MCV 94 79 - 98 fL LAB HEMATOLOGY METHOD 11/03/2024 2:01 AM EDT [facility] MCH 31.3 26.0 - 32.0 pg LAB HEMATOLOGY METHOD 11/03/2024 2:01 AM EDT [facility] MCHC 33.4 30.7 - 35.5 g/dL LAB HEMATOLOGY METHOD 11/03/2024 2:01 AM EDT [facility] RDW 11.9 11.5 - 14.5 % LAB HEMATOLOGY METHOD 11/03/2024 2:01 AM EDT [facility] MPV 10.3 8.8 - 12.5 fL LAB HEMATOLOGY METHOD 11/03/2024 2:01 AM EDT [facility] nRBC 0.0 <=0.0 per 100 WBCs LAB HEMATOLOGY METHOD 11/03/2024 2:01 AM EDT [facility] Blood Venous blood specimen / Unknown Venipuncture / Unknown 11/03/2024 1:47 AM EDT 11/03/2024 1:54 AM EDT us Girish Taylor MD LAB BLOOD ORDERABLES Final R esult [facility] [address] [place] [address] * (ABNORMAL) Basic metabolic panel (11/03/2024 1:47 AM EDT) Glucose, Plasma 93 74 - 99 mg/dL 11/03/2024 2:26 AM EDT [facility] BUN, Plasma 8 7 - 21 mg/dL 11/03/2024 2:26 AM EDT [facility] Creatinine, Plasma 0.83 0.70 - 1.20 mg/dL 11/03/2024 2:26 AM EDT [facility] BUN/Creatinine Ratio 10 11/03/2024 2:26 AM EDT [facility] Sodium, Plasma 134(L) 136 - 145 mmol/L 11/03/2024 2:26 AM EDT [facility] Potassium, Plasma 3.8 3.6 - 4.9 mmol/L 11/03/2024 2:26 AM EDT [facility] Chloride, Plasma 99 97 - 107 mmol/L 11/03/2024 2:26 AM EDT [facility] CO2, Plasma 26 22 - 29 mmol/L 11/03/2024 2:26 AM EDT [facility] Anion Gap 9 6 - 16 mmol/L 11/03/2024 2:26 AM EDT [facility] Total Calcium, Plasma 8.6(L) 8.9 - 10.2 mg/dL 11/03/2024 2:26 AM EDT [facility] eGFRcr 105.3 mL/min/1.7 3m*2 11/03/2024 2:26 AM EDT [facility] Comment:Reported eGFRcr in m L/min/1.73m2 is based the CKD-EPI 2020 equation that does not use a race coefficient. Blood Venous blood specimen / Unknown Venipuncture / Unknown 11/03/2024 1:47 AM EDT 11/03/2024 1:54 AM EDT us Girish Taylor MD LAB BLOOD ORDERABLES Final R esult [facility] [address] [place] [id number] * POCT glucose meter (11/02/2024 5:05 PM EDT) POCT Glucose 98 74 - 99 mg/dL [...] for testing. Comment 11/02/2024 5:08 PM EDT [facility] Information Technology Associate ID Sandy Huertas 11/02/2024 5:08 PM EDT [facility] Device ID [id number] 11/02/2024 5:08 PM EDT [facility] Specimen Type POC Capillary 11/02/2024 5:08 PM EDT [facility] Blood Capillary blood specimen / Unknown 11/02/2024 5:05 PM EDT 11/02/2024 5:08 PM EDT Girish Taylor MD LAB POINT OF CARE TE ST DOCKED DEVICE UNSOLICITED RESULTS Final Result Performing Organization Address City/[facility] Co de Phone Number [facility] [address] [place] [address] * POCT glucose meter (11/02/2024 1:04 PM EDT) [facility] POCT Glucose 98 74 - 99 [...] for testing. Comment 11/02/2024 1:06 PM EDT [facility] Information Technology Associate ID Sandy Huertas 11/02/2024 1:06 PM EDT [facility] Device ID [id number] 11/02/2024 1:06 PM EDT [facility] Specimen Type POC Capillary 11/02/2024 1:06 PM EDT [facility] Blood Capillary blood specimen / Unknown 11/02/2024 1:04 PM EDT 11/02/2024 1:06 PM EDT Girish Taylor MD LAB POINT OF CARE TE ST DOCKED DEVICE UNSOLICITED RESULTS Final Result Performing Organization Address City/[facility] Co de Phone Number [facility] [address] [place] [address] * [place] [facility], E/M 30-74 MINUTES (11/02/2024 9:37 [...] minutes in patient care. Girish Taylor MD Girish Taylor MD IN CLINIC/BEDSIDE ORDERABLES Final Result * Elroy auris Surveillance by PCR (11/02/2024 7:58 AM EDT) Elroy auris PCR Result Not Detected Not Detected 11/05/2024 8:16 AM EDT [facility] Swab (Axilla and Groin) Non-blood Collection / Unknown 11/02/2024 7:58 AM EDT 11/02/2024 8:14 AM EDT Narrative [facility] - 11/05/2024 8:16 AM EDT This PCR assay was developed and its performance characteristics determined by [facility] as appropriate for clinical purposes. This assay has not been cleared or approved by the FDA, but is performed in a CLIA regulated laboratory that is qualified to perform high-complexity testing. us Girish Taylor MD LAB MICROBIOLOGY - GENERAL O RDERABLES Final Result [facility] [address] [place] [address] * XR Chest 1 View (11/02/2024 4:42 [...] Dorita Guido MD on 11/02/2024 12:31 PM us Kiannamauricio Keen UKE OPERATOR IMG XR PROCEDURES Final R esult * Phosphorus, Plasma (11/02/2024 12:01 AM EDT) Phosphorus, Plasma 3.6 2.5 - 4.5 mg/dL 11/02/2024 12:42 AM EDT [facility] Blood Venous blood specimen / Unknown Venipuncture / Unknown 11/02/2024 12:01 AM EDT 11/02/2024 12:10 AM EDT us Kiannara Anh Keen UKE OPERATOR LAB BLOOD ORDERABLES Mloly l Result [facility] [address] [place] [address] * Magnesium, Plasma (11/02/2024 12:01 AM EDT) Magnesium, Plasma 2.1 1.9 - 2.4 mg/dL 11/02/2024 12:42 AM EDT [facility] Blood Venous blood specimen / Unknown Venipuncture / Unknown 11/02/2024 12:01 AM EDT 11/02/2024 12:10 AM EDT us Kianna Keen UKE OPERATOR LAB BLOOD ORDERABLES Molly skinner Result [facility] [address] [place] [address] * (ABNORMAL) Basic Metabolic Panel, Plasma (11/02/2024 12:01 AM EDT) Glucose, Plasma 106(H) 74 - 99 mg/dL 11/02/2024 12:42 AM EDT [facility] BUN, Plasma 13 7 - 21 mg/dL 11/02/2024 12:42 AM EDT [facility] Creatinine, Plasma 1.02 0.70 - 1.20 mg/dL 11/02/2024 12:42 AM EDT [facility] BUN/Creatinine Ratio 13 11/02/2024 12:42 AM EDT [facility] Sodium, Plasma 135(L) 136 - 145 mmol/L 11/02/2024 12:42 AM EDT [facility] Potassium, Plasma 4.3 3.6 - 4.9 mmol/L 11/02/2024 12:42 AM EDT [facility] Chloride, Plasma 102 97 - 107 mmol/L 11/02/2024 12:42 AM EDT [facility] CO2, Plasma 24 22 - 29 mmol/L 11/02/2024 12:42 AM EDT [facility] Anion Gap 9 6 - 16 mmol/L 11/02/2024 12:42 AM EDT [facility] Total Calcium, Plasma 8.6(L) 8.9 - 10.2 mg/dL 11/02/2024 12:42 AM EDT [facility] eGFRcr 88.4 mL/min/1.7 3m*2 11/02/2024 12:42 AM EDT [facility] Comment:Reported eGFRcr in m L/min/1.73m2 is based the CKD-EPI 2020 equation that does not use a race coefficient. Blood Venous blood specimen / Unknown Venipuncture / Unknown 11/02/2024 12:01 AM EDT 11/02/2024 12:10 AM EDT us Kianna Keen UKE OPERATOR LAB BLOOD ORDERABLES Molly susanne Result [facility] [address] [place] [address] * (ABNORMAL) CBC W/O Differential (11/02/2024 12:01 AM EDT) WBC Count 12.16(H) 3.70 - 10.30 10*3/uL LAB HEMATOLOGY METHOD 11/02/2024 12:27 AM EDT [facility] RBC Count 3.82(L) 4.60 - 6.10 10*6/uL LAB HEMATOLOGY METHOD 11/02/2024 12:27 AM EDT [facility] HGB 12.0(L) 13.7 - 17.5 g/dL LAB HEMATOLOGY METHOD 11/02/2024 12:27 AM EDT [facility] HCT 35.8(L) 40.0 - 51.0 % LAB HEMATOLOGY METHOD 11/02/2024 12:27 AM EDT [facility] Platelet Count 221 155 - 369 10*3/uL LAB HEMATOLOGY METHOD 11/02/2024 12:27 AM EDT [facility] MCV 94 79 - 98 fL LAB HEMATOLOGY METHOD 11/02/2024 12:27 AM EDT [facility] Comment:Results inconsistent with previous lab findings. MCH 31.4 26.0 - 32.0 pg LAB HEMATOLOGY METHOD 11/02/2024 12:27 AM EDT [facility] MCHC 33.5 30.7 - 35.5 g/dL LAB HEMATOLOGY METHOD 11/02/2024 12:27 AM EDT [facility] RDW 12.0 11.5 - 14.5 % LAB HEMATOLOGY METHOD 11/02/2024 12:27 AM EDT [facility] MPV 10.3 8.8 - 12.5 fL LAB HEMATOLOGY METHOD 11/02/2024 12:27 AM EDT [facility] nRBC 0.0 <=0.0 per 100 WBCs LAB HEMATOLOGY METHOD 11/02/2024 12:27 AM EDT [facility] Blood Venous blood specimen / Unknown Venipuncture / Unknown 11/02/2024 12:01 AM EDT 11/02/2024 12:16 AM EDT Kianna Keen UKE OPERATOR LAB BLOOD ORDERABLES Molly l Result [facility] [address] [place] [address] * POCT glucose meter (11/01/2024 6:13 PM EDT) [facility] POCT Glucose 98 74 - 99 mg/dL 11/01/2024 6:16 PM EDT [facility] Comment:Accuracy of a [...] Comment 11/01/2024 6:16 PM EDT [facility] Information Technology Associate ID Sandy Huetras 11/01/2024 6:16 PM EDT [facility] Device ID [id number] 11/01/2024 6:16 PM EDT [facility] Specimen Type POC Capillary 11/01/2024 6:16 PM EDT [facility] Blood Capillary blood specimen / Unknown 11/01/2024 6:13 PM EDT 11/01/2024 6:16 PM EDT Girish Taylor MD LAB POINT OF CARE TE ST DOCKED DEVICE UNSOLICITED RESULTS Final Result [facility] [address] [place] [address] * MR Lumbar Spine wo IV Contrast [...] withcompression fractures without significant height loss. Bilateral [id number] process fractures. There is somewhat linear T2/STIR [...] conus and cauda equina. There is additional [id number] and T2/STIR hyperintense signal along the anterior spinalcanal extending from L3 through S1 which could suggest additional hematomaand/or edema of the extradural fat. There is paraspinal hematoma anteriorly spanning at least the [id number], abutting the posterior wall of the aorta. [...] conus and cauda equina. There is additional [id number] and T2/STIR hyperintense signal along the anterior spinalcanal extending from L3 through S1 which could suggest additional hematomaand/or edema of the extradural fat. There is focal T2/STIR hyperintense signal involving the right L2-3 nerveroot within the foramen concerning for possible injury versus artifact. Nontraumatic degenerative changes as described above, most notable [id number] and L5-S1. Significant strain versus reactive edema [...] of the abdomen. COMPARISON: None. FINDINGS: Limited opbui-qf-hplc abdominal radiograph for the purpose of locating tube position. The tip of the nasogastric tube is within the mid stomach. Procedure Note Arun Jacobsen MD - 11/01/2024 CLINICAL INDICATION: Confirm proper placement of NG/OG tube TECHNIQUE: Supine radiograph of the abdomen. COMPARISON: None. FINDINGS: Limited fwfbc-ia-uvlo abdominal radiograph for the purpose of locatingtube position. The tip of the nasogastric tube is within the mid stomach. IMPRESSION: The tip of the gastric tube is within the mid stomach CRITICAL RESULT: No. COMMUNICATION: Per this written report. Drafted by Arun Jacobsen MD on 11/01/2024 3:51 PM Final report signed by Arun Jacobsen MD on 11/01/2024 3:51 PM us Girish Taylor MD IMG XR [...] Total DLP (Dose-Length Product): 3308.43 mGy.cm (accession [id number]), 3308.43 mGy.cm (accession [id number]), 3308.43 mGy.cm (accession [id number]). Please note: The reported value represents the [...] Total DLP (Dose-Length Product): 3308.43 mGy.cm (accession [id number]),3308.43 mGy.cm (accession [id number]), 3308.43 mGy.cm (accession [id number]).Please note: The reported value represents the total [...] 11/01/2024 9:45 AM us Hernan Paulson MD IMG CT [...] Total DLP (Dose-Length Product): 3308.43 mGy.cm (accession [id number]), 3308.43 mGy.cm (accession [id number]), 3308.43 mGy.cm (accession [id number]). Please note: The reported value represents the [...] Total DLP (Dose-Length Product): 3308.43 mGy.cm (accession [id number]),3308.43 mGy.cm (accession [id number]), 3308.43 mGy.cm (accession [id number]).Please note: The reported value represents the total [...] Total DLP (Dose-Length Product): 3308.43 mGy.cm (accession [id number]), 3308.43 mGy.cm (accession [id number]), 3308.43 mGy.cm (accession [id number]). Please note: The reported value represents the [...] Total DLP (Dose-Length Product): 3308.43 mGy.cm (accession [id number]),3308.43 mGy.cm (accession [id number]), 3308.43 mGy.cm (accession [id number]).Please note: The reported value represents the total [...] Ja Chisholm MD on 11/01/2024 9:33 AM Hernan Paulson MD IMG CT PROCEDURES [...] Total DLP (Dose-Length Product): 3308.43 mGy.cm (accession [id number]), 3308.43 mGy.cm (accession [id number]), 3308.43 mGy.cm (accession [id number]). Please note: The reported value represents the [...] Total DLP (Dose-Length Product): 3308.43 mGy.cm (accession [id number]),3308.43 mGy.cm (accession [id number]), 3308.43 mGy.cm (accession [id number]).Please note: The reported value represents the total [...] Ja Chisholm MD on 11/01/2024 9:33 AM Hernan Paulson MD IMG CT PROCEDURES [...] Total DLP (Dose-Length Product): 3308.43 mGy.cm (accession [id number]), 3308.43 mGy.cm (accession [id number]), 3308.43 mGy.cm (accession [id number]). Please note: The reported value represents the [...] Total DLP (Dose-Length Product): 3308.43 mGy.cm (accession [id number]),3308.43 mGy.cm (accession [id number]), 3308.43 mGy.cm (accession [id number]).Please note: The reported value represents the total [...] Total DLP (Dose-Length Product): 3308.43 mGy.cm (accession [id number]), 3308.43 mGy.cm (accession [id number]), 3308.43 mGy.cm (accession [id number]). Please note: The reported value represents the [...] Total DLP (Dose-Length Product): 3308.43 mGy.cm (accession [id number]),3308.43 mGy.cm (accession [id number]), 3308.43 mGy.cm (accession [id number]).Please note: The reported value represents the total [...] 11/01/2024 9:45 AM us Hernan Paulson MD IMG CT [...] Total DLP (Dose-Length Product): 3308.43 mGy.cm (accession [id number]), 3308.43 mGy.cm (accession [id number]). Please note: The reported value represents the [...] Total DLP (Dose-Length Product): 3308.43 mGy.cm (accession [id number]),3308.43 mGy.cm (accession [id number]). Please note: The reported valuerepresents the total [...] 8:35 AM EDT) Anatomical Region Laterality Modality [place] Computed Tomogr aphy Impressions 11/01/2024 [...] Total DLP (Dose-Length Product): 3308.43 mGy.cm (accession [id number]), 3308.43 mGy.cm (accession [id number]). Please note: The reported value represents the [...] Total DLP (Dose-Length Product): 3308.43 mGy.cm (accession [id number]),3308.43 mGy.cm (accession [id number]). Please note: The reported valuerepresents the total [...] 7.32 - 7.43 11/01/2024 7:53 AM EDT [facility] pCO2, Venous 42 40 - 55 mm Hg 11/01/2024 7:53 AM EDT [facility] pO2, Venous 86(H) 25 - 40 mm Hg 11/01/2024 7:53 AM EDT [facility] SO2, Venous 99(H) 65 - 80 % 11/01/2024 7:53 AM EDT [facility] Base Excess/Deficit, Venous -3.0(L) -2 - 3 mmol/L 11/01/2024 7:53 AM EDT [facility] HCO3, Venous 22.7 22 - 26 mmol/L 11/01/2024 7:53 AM EDT [facility] Hemoglobin, Venous 13.7 13.7 - 17.5 g/dL 11/01/2024 7:53 AM EDT [facility] Hematocrit, Venous 41.0 40.0 - 51.0 % 11/01/2024 7:53 AM EDT [facility] Sodium, Venous 132(L) 136 - 145 mmol/L 11/01/2024 7:53 AM EDT [facility] Potassium, Venous 4.0 3.6 - 4.9 mmol/L 11/01/2024 7:53 AM EDT [facility] Comment:Hemolyzed, result ma y be falsely increased. POCT Chloride, Venous 102 97 - 107 mmol/L 11/01/2024 7:53 AM EDT [facility] Glucose, Venous 152(H) 74 - 99 mg/dL 11/01/2024 7:53 AM [facility]T [facility] Ionized Calcium, Venous 4.7 4.6 - 5.1 mg/dL 11/01/2024 7:53 AM EDT [facility] Lactate, Venous 0.9 0.5 - 2.2 mmol/L 11/01/2024 7:53 AM [facility]T [facility] Body Temperature 37.0 Celsius 11/01/2024 7:53 AM EDT [facility] pH, Temp Corrected, Venous 7.34 7.32 - 7.43 11/01/2024 7:53 AM EDT [facility] pCO2, Temp Corrected, Venous 42 40 - 55 mm Hg 11/01/2024 7:53 AM EDT [facility] pO2, Temp Corrected, Venous 86(H) 25 - 40 mm Hg 11/01/2024 7:53 AM EDT [facility] Information Technology Associate ID Bhargavi Raygoza 11/01/2024 7:53 AM EDT [facility] Blood, Venous Whole blood specimen / Unknown 11/01/2024 7:52 AM EDT 11/01/2024 7:53 AM EDT us Priscilla Claderon MD LAB POINT OF CARE TE ST DOCKED DEVICE UNSOLICITED RESULTS Final Result [facility] [address] [place] [address] * XR Chest 1 View (11/01/2024 6:40 [...] Trey Metcalf MD on 11/01/2024 7:05 AM us Hernan Paulson MD IMG XR PROCEDURES Final Resul t * (ABNORMAL) OXYCODONE CONFIRMATION,URINE (11/01/2024 6:38 AM EDT) Oxycodone 136(H) <50 ng/mL 11/02/2024 5:43 PM EDT [facility] Oxymorphone <50 <50 ng/mL 11/02/2024 5:43 PM EDT [facility] Oxymorphone Glucuronide 815(H) <50 ng/mL 11/02/2024 5:43 PM EDT [facility] Urine Urine specimen obtained by clean catch procedure / Unknown Non-blood Collection / Unknown 11/01/2024 6:38 AM EDT 11/01/2024 7:03 AM EDT Narrative [facility] - 11/02/2024 5:43 PM EDT Test performed by LC-MS/MS at the [facility]. This test was developed and its performance characteristics determined by [facility]. It has not been cleared or approved by the FDA. The laboratory is regulated under CLIA as qualified to perform high-complexity testing. This test is used for clinical purposes. us Anita Patel MD LAB URINE ORDERABLES Final Resul t [facility] [address] [place] [address] * (ABNORMAL) Opiates Confirm Urine (11/01/2024 6:38 AM EDT) Codeine <50 <50 ng/mL 11/02/2024 5:43 PM EDT [facility] Codeine Glucuronide <50 <50 ng/mL 11/02/2024 5:43 PM EDT [facility] Desmethyl Tramadol <50 <50 ng/mL 2024 5:43 PM EDT [facility] EDDP - Methadone Metabolite <50 <50 ng/mL 11/02/2024 5:43 PM EDT [facility] Hydrocodone <50 <50 ng/mL 11/02/2024 5:43 PM EDT [facility] Hydromorphone 110(H) <50 ng/mL 11/02/2024 5:43 PM EDT [facility] Hydromorphone Glucuronide 361(H) <50 ng/mL 11/02/2024 5:43 PM EDT [facility] Comment:Metabolite of Hydrom orphone Meperidine <50 <50 ng/mL 11/02/2024 5:43 PM EDT [facility] Methadone <50 <50 ng/mL 11/02/2024 5:43 PM EDT [facility] 6 Monoacetyl morphine <10 <10 ng/mL 11/02/2024 5:43 PM EDT [facility] Morphine <50 <50 ng/mL 11/02/2024 5:43 PM EDT [facility] Morphine Glucuronide 618(H) <50 ng/mL 11/02/2024 5:43 PM EDT [facility] Comment:Metabolite of Morphi ne Naloxone <50 <50 ng/mL 11/02/2024 5:43 PM EDT [facility] Naloxone Glucuronide <50 <50 ng/mL 11/02/2024 5:43 PM EDT [facility] Comment:Metabolite of Naloxo ne Normeperidine <50 <50 ng/mL 11/02/2024 5:43 PM EDT [facility] Tramadol <50 <50 ng/mL 11/02/2024 5:43 PM EDT [facility] Urine Urine specimen obtained by clean catch procedure / Unknown Non-blood Collection / Unknown 11/01/2024 6:38 AM EDT 11/01/2024 7:03 AM EDT Narrative [facility] - 11/02/2024 5:43 PM EDT Drug analysis is confirmed by LC-MS/MS (LC Tandem Mass Spectrometry) on Urine specimens. This test was developed and its performance characteristics determined by [facility]. It has not been cleared or approved by the FDA. The laboratory is regulated under CLIA as qualified to perform high-complexity testing. This test is used for clinical purposes. Testing is performed at the [facility]. us Anita Patel MD LAB URINE ORDERABLES Final Resul t [facility] [address] [place] [address] * (ABNORMAL) Fentanyl Urine Confirm (11/01/2024 6:38 AM EDT) Fentanyl 12(H) <1 ng/mL 11/02/2024 5:43 PM EDT [facility] Norfentanyl 22(H) <2 ng/mL 11/02/2024 5:43 PM EDT [facility] Urine Urine specimen obtained by clean catch procedure / Unknown Non-blood Collection / Unknown 11/01/2024 6:38 AM EDT 11/01/2024 7:03 AM EDT Narrative [facility] - 11/02/2024 5:43 PM EDT Drug analysis is confirmed by LC-MS/MS (LC Tandem Mass Spectrometry) on Urine specimens. This test was developed and its performance characteristics determined by [facility]. It has not been cleared or approved by the FDA. The laboratory is regulated under CLIA as qualified to perform high-complexity testing. This test is used for clinical purposes. Testing is performed at the [facility]. us Anita Patel MD LAB URINE ORDERABLES Final Resul t Performing Organization Address [facility] de Phone Number [facility] [address] [place] [address] * (ABNORMAL) Cocaine Metabolite Confirm Urine (11/01/2024 6:38 AM EDT) Benzoylecgonine >1,000(H) <50 ng/mL 5:43 PM EDT [facility] Urine Urine specimen obtained by clean catch procedure / Unknown Non-blood Collection / Unknown 11/01/2024 6:38 AM EDT 11/01/2024 7:[address] [facility] - 11/02/2024 5:43 PM EDT Drug analysis is confirmed by LC-MS/MS (LC Tandem Mass Spectrometry) on Urine specimens. This test was developed and its performance characteristics determined by [facility]. It has not been cleared or approved by the FDA. The laboratory is regulated under CLIA as qualified to perform high-complexity testing. This test is used for clinical purposes. Testing is performed at the [facility]. us Anita Patel MD LAB URINE ORDERABLES Final Resul t Performing Organization Address [facility] Co de Phone Number [facility] [address] [place] [address] * (ABNORMAL) THC Urine Confirm LCMSMS (11/01/2024 6:38 AM EDT) 9 Carboxy THC >250(H) <10 ng/mL 11/02/2024 5:[address] [facility] 9 Carboxy THC Glucuronide >500(H) <25 ng/mL 11/02/2024 5:43 PM EDT [facility] Urine Urine specimen obtained by clean catch procedure / Unknown Non-blood Collection / Unknown 11/01/2024 6:38 AM EDT 11/01/2024 7:03 AM EDT Narrative [facility] - 11/02/2024 5:43 PM EDT Drug analysis is confirmed by LC-MS/MS (LC Tandem Mass Spectrometry) on Urine specimens. This test was developed and its performance characteristics determined by [facility]. It has not been cleared or approved by the FDA. The laboratory is regulated under CLIA as qualified to perform high-complexity testing. This test is used for clinical purposes. Testing is performed at the [facility]. us Anita Patel MD LAB URINE ORDERABLES Final Resul t [facility] [address] [place] [address] * (ABNORMAL) Benzodiazepine Confirm Urine (11/01/2024 6:38 AM EDT) Alpha [place] Alprazolam <20 <20 ng/mL 11/02 5:43 PM EDT [facility] Alpha [place] Midazolam <20 <20 ng/mL 2024 5:43 PM EDT [facility] Alpha [place] Triazolam <20 <20 ng/mL 2024 5:43 PM EDT [facility] Alprazolam <10 <10 ng/mL 11/02/2024 5:43 PM EDT [facility] Aminoclonazepam <20 <20 ng/mL 5:43 PM EDT [facility] Clonazepam <10 <10 ng/mL 11/02/2024 5:43 PM EDT [facility] Diazepam <10 <10 ng/mL 11/02/2024 5:43 PM EDT [facility] Lorazepam 41(H) <20 ng/mL 11/02/2024 5:43 PM EDT [facility] Lorazepam Glucuronide >1,000(H) <50 ng/mL 11/02/2024 5:43 PM EDT [facility] Midazolam 11/02/2024 5:43 PM EDT [facility] Nordiazepam <20 <20 ng/mL 11/02/2024 5:43 PM EDT [facility] Oxazepam <20 <20 ng/mL 11/02/2024 5:43 PM EDT [facility] Oxazepam Glucuronide <50 <50 ng/mL 11/02/2024 5:43 PM EDT [facility] Temazepam <20 <20 ng/mL 11/02/2024 5:43 PM EDT [facility] Temazepam Glucuronide <50 <50 ng/mL 11/02/2024 5:43 PM EDT [facility] Triazolam 11/02/2024 5:43 PM EDT [facility] Urine Urine specimen obtained by clean catch procedure / Unknown Non-blood Collection / Unknown 11/01/2024 6:38 AM EDT 11/01/2024 7:03 AM EDT Narrative [facility] - 11/02/2024 5:43 PM EDT Drug analysis is confirmed by LC-MS/MS (LC Tandem Mass Spectrometry) on Urine specimens. This test was developed and its performance characteristics determined by [facility]. It has not been cleared or approved by the FDA. The laboratory is regulated under CLIA as qualified to perform high-complexity testing. This test is used for clinical purposes. Testing is performed at the [facility]. us Anita Patel MD LAB URINE ORDERABLES Final Resul t Performing Organization Address [facility] de Phone Number [facility] [address] [place] [address] * Urinalysis Microscopic Examination (11/01/2024 6:38 AM EDT) Urine Urine specimen obtained by clean catch procedure / Unknown Non-blood Collection / Unknown 11/01/2024 6:38 AM EDT 11/01/2024 6:45 AM EDT us Anita Patel MD LAB URINE ORDERABLES Final Resul t Performing Organization Address [facility] Co de Phone Number [facility] [address] [place] [address] * (ABNORMAL) Urinalysis with reflex microscopic (Culture NOT Included) (11/01/2024 6:38 AM EDT) Color, Urine Yellow LAB URINALYSIS - AUTOMATED METHOD 11/01/2024 7:03 AM EDT [facility] Clarity, Urine Clear LAB URINALYSIS -

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
--- OUTSIDE RECORDS SUMMARY | 2024-11-26 21:51 | XMS_ITS | Encounter Summary ---
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 Agitation Sedation Scale (RASS): Alert and calm Confusion Assessment Method-ICU (CAM-ICU/PCAM-ICU) Feature 3: Altered Level of Consciousness: Negative COGNITION Overall Cognitive Status Within Functional Limits Arousal/Alertness Appropriate responses to stimuli Mood/Behavior Alert Orientation Oriented x 4 Command Following Single Step Commands: Consistently Method of Communication Additional Observations VISION Baseline Vision Intact Current Vision (if different) MOTOR EXAMINATION RANGE OF MOTION Right Upper Within Functional Limits Left Upper Within Functional Limits Right Lower Within Functional Limits Left Lower Within Functional Limits MANUAL MUSCLE TESTING Right Upper Within functional limits Left Upper Within functional limits Right Lower Within functional limits Left Lower Manual Muscle Testing: Within functional limits SENSORY EXAMINATION Light Touch Sensation Right Upper Intact Left Upper Intact Right Lower Intact Left Lower Intact INTERVENTIONS THERAPEUTIC ACTIVITY Treatment Minutes 11 Interventions In addition to initial evaluation, pt participated in 11 minute therapeutic activity treatment session focused on bed mobility, rolling, turning, scooting, sitting balance, postural control, activity tolerance, sit to stand transfer, bed to chair transfer, gait, toilet transfer, assistive device management, lower extremity sequencing, energy conservation, and pt education regarding HEP, spinal precautions, lifting restrictions, and mobility. Distributed printed education: Access Code: [email or web address] URL: [email or web address] Date: 11/27/2024 Prepared by: [facility] Patient Education - Spinal Precautions/Lifting Restrictions All therapeutic activity specifically prescribed to address patient's impairments, performed to encourage increased IND with functional tasks due to current functional decline, ultimately to encourage a full return to patient's prior level of function. BED MOBILITY Level of Borden Physical/Non- physical Assist Adaptive Equipment Utilized Rolling/ Turning Stand-by assist Verbal Cues Bed rails Scooting/ Bridging Stand-by assist Bed rails Supine to Sit Stand-by assist Verbal Cues, HOB elevated Bed rails Sit to Supine (Pt left out of bed to chair at conclusion of session) Interventions TRANSFERS Level of Borden Physical/Non- physical Assist Adaptive Equipment Utilized Sit to Stand Stand-by assist Verbal Cues Walker, rolling Stand to sit Stand-by assist Verbal Cues Walker, rolling Bed to Chair Toilet Transfer Stand-by assist Ambulation, To toilet Set-up required Grab bar Shower Transfer Interventions AMBULATION Level of Borden Distance Adaptive Equipment Utilized Ambulation Standby assist 240' Rolling walker None Comments Pt exhibits the following gait deficits: -decreased step length -decreased gait speed -decreased amber Patient demonstrates decreased overall activity tolerance and decreased strength, evidenced by decreased ambulation distance compared to baseline level of function. Provided verbal and tactile cueing to correct gait abnormalities listed above, to encourage increased overall functional IND, decrease overall fall risk, and ultimately a return to patient's prior level of function. BALANCE Postural Appearance Posture: Within Functional Limits Level of Borden Balance Support Interventions Static Sit Supervision Feet supported Dynamic Sit Supervision Feet supported Static Stand Standby assist Right upper extremity support, Left upper extremity support (rolling walker) Dynamic Stand Standby assist Right upper extremity support, Left upper extremity support (rolling walker) STANDARDIZED ASSESSMENTS [facility] 6-Clicks Mobility Assessment Difficulty patient has turning over in bed (including adjusting bedclothes, sheets, and blankets)?:None Difficulty patient has sitting down on and standing up from a chair with arms (wheelchair, bedside commode, etc.)?: None Difficulty patient has moving from lying on back to sitting on the side of the bed?: None How much help does the patient need moving to and from a bed to a chair (including a wheelchair)?: None How much help does the patient need to walk in hospital room?: None How much help does the patient need climbing 3-5 steps with a railing?: A little [facility] 6-Clicks Mobility Assessment Total : 23 ASSESSMENT Pt able to perform all bed mobility, transfers, and gait with SBA. Pt voiced understanding with home safety, transfer strategies, and discharge recommendations. Pt will benefit from outpatient PT upon discharge to encourage improved core strength, increased IND with mobility and decreased pain. No f urther skilled inpatient PT needs identified at this time, as pt currently presents at baseline level of function. Please re-consult if additional needs arise, otherwise, will sign off. PT FINDINGS Impairments (if identified) Impaired postural/trunk control, Pain, Impaired functional mobility/transfers Activity Limitations (if identified) Inability to ambulate community distances Participation Restrictions (if identified) Self-care, Community leisure Barriers to Discharge (if identified) Comorbidities Additional Observations Activity Tolerance: Tolerates 10 - 20 min activity with multiple rests, Sitting, Standing, Walking Evaluation/Treatment Tolerance: Patient limited by fatigue Diagnosis: impaired functional mobility and decreased overall activity tolerance Rehab Potential: Good, to achieve stated therapy goals EVAL COMPLEXITY History Profile 1 - 2 personal factors and/or comorbidities Clinical Presentation Evolving clinical presentation with changing characteristics Clinical Decision Making Moderate complexity PT RECOMMENDATIONS Discharge Destination Home with assistance, Outpatient PT Discharge Equipment Patient owns appropriate equipment Additional Recommendations (if applicable) PLAN No further skilled inpatient PT needs identified at this time, as pt currently presents at baselinelevel of function. Please re-consult if additional needs arise, otherwise, will sign off. Written by Steve Diaz on 11/27/24 * Progress Notes - Jam Carroll - 11/27/2024 8:56 AM EDT Occupational Therapy Evaluation/Discharge Summary Patient Name: Gordy Leiva Today's Date: 11/27/2024 OT Discharge Recommendations: Home with assistance, Outpatient PT Equipment Recommended: Patient owns appropriate equipment History Gordy Leiva is 54 y.o. male admitted 11/26/2024 for work-up of Chronic midline low back pain without sciatica. Problem List Active Hospital Problems Diagnosis Date Noted Chronic midline low back pain without sciatica 11/27/2024 Closed burst fracture of lumbar vertebra (CMS/HCC) 11/01/2024 Lumbar transverse process fracture ([facility]) 11/01/2024 Hyperlipidemia LDL goal <70 03/02/2021 Gastroesophageal reflux disease 10/21/2018 Hypertension 10/21/2018 Cannabis use disorder, severe, dependence ([facility]) 10/20/2018 Anxiety and depression 04/02/2017 Procedures Past Medical History Patient has a past medical history of CAD (coronary artery disease), Idiopathic aseptic necrosis ofunspecified bone ([facility]), and NSTEMI (non-ST elevated myocardial infarction) ([facility]) (03/21/2021). Past Surgical History Patient has a past surgical history that includes Appendectomy (N/A); Omentectomy; Coronary artery bypass graft (03/02/2021); Coronary angioplasty (09/2021); Cardiac catheterization (10/13/2021); tooth extraction; and Sternotomy (12/06/2021). Precautions Medical Precautions: Spinal Spinal Precautions : No bending, lifting, twisting Subjective Patient agreeable to initial OT evaluation this a.m. Participants in Care Family/Caregiver Present: No Retail Sales Clerk: Not Applicable Presentation Oxygen Therapy: None (Room air) Lines and Tubes: Intravenous access Pre-Session: Supine, Head of bed elevated, Lines intact Post-Session: Sitting in chair, RN notified, Lines intact, Call light in reach Home Living/Set-up Lives With: Spouse, Son Home Type: House Home Adaptive Equipment: Cane, Rollator Home Layout: Two level, Able to live on one level with bedroom/bathroom, Stairs to enter with rails Number of Stairs: 2 Bathroom: Tub/Shower: Tub/Shower combo Bathroom: Toilet: Standard Prior Level of Function Receives Help From: No assist required prior to admission Level of Mobility: Ambulatory- household only Mobility Borden: Independent gait with device History of Falls: No ADL Performance: Independent Patient/Family Goals Statement Objective Pain Patient states 8/10 back pain post OT evaluation. Delirium Screening Cognition Overall Cognitive Status: Within Functional Limits Arousal/Alertness: Appropriate responses to stimuli Mood/Behavior: Alert Orientation Level: Oriented X4 Single Step Commands: Consistently Multi-Step Commands: Consistently Right Upper Extremity Examination RUE ROM Assessment RUE Assessment: Within Functional Limits Manual Muscle Testing - RUE: Within functional limits Sensation Light Touch: Right Upper Extremity: Intact Left Upper Extremity Examination LUE ROM Assessment LUE Assessment: Within Functional Limits Manual Muscle Testing - LUE: Within functional limits Sensation Light Touch: Left Upper Extremity: Intact Right Lower Extremity Examination RLE ROM Assessment RLE Assessment: Within Functional Limits Manual Muscle Testing - RLE: Within functional limits Sensation Light Touch: Right Lower Extremity: Intact Left Lower Extremity Examination LLE ROM Assessment LLE Assessment: Within Functional Limits Manual Muscle Testing: Within functional limits Sensation Light Touch: Left Lower Extremity: Intact Bed Mobility Bed Mobility Exam: Rolling/Turning Level of Borden: Stand-by assist Physical/Nonphysical Assist: Verbal Cues Bed Mobility Exam: Supine to Sit Level of Borden: Stand-by assist Physical/Nonphysical Assist: Verbal Cues Transfers Transfer Exam: Sit to stand Level of Borden: Stand-by assist Physical/Nonphysical Assist: Verbal Cues Assistive Device: Walker, rolling Transfer Exam: Stand to Sit Level of Borden: Stand-by assist Assistive Device: Walker, rolling Functional Mobility Device: Rolling walker Assistance: Standby assist Distance : 240' Therapeutic Activity ( minutes) Please refer to bed mobility and transfers for intervention details. Patient required verbal cueingand physical assist (hand and feet placement) for set-up, initiation, facilitation, sequencing, andoverall execution of instructed tasks. Therapeutic activity focused on functional task training in order to promote functional strengthening, maximize activity tolerance, and enhance safety awareness. Self-Care Interventions Self Care/Home Management (ADLs) Time Entry: 10 Lower Extremity Dressing Shoe Level of Assistance: Setup Toileting Toileting Level of Assistance: Independent Where Assessed: Toilet Standardized Assessments Haley Index Feeding: Independent Bathing: Dependent Grooming: Independent face/hair/teeth/shaving (implements provided) Dressing: Needs help but can do about half unaided Bowels: Continent Bladder: Continent Toilet Use: Independent (on and off, dressing, wiping) Transfers (Bed to Chair and Back): Minor help (verbal or physical) Mobility (on Level Surfaces): Walks with help or one person (verbal or physical) > 50 yards Stairs: Needs help (verbal, physical, carrying aid) Total Score: 75 Assessment Patient presents with no skilled OT needs at this time. Patient has necessary DME upon discharge. OT will complete orders and sign off. OT Findings: Impaired IADL performance, Impaired functional mobility Evaluation/Treatment Tolerance: Patient limited by pain Eval Complexity Occupational Profile: Expanded review of medical/therapy records and additional review of physical,cognitive, or psychosocial history Performance Deficits: Instrumental activities of daily living (IADLs), Work, Leisure, Social participation Clinical Decision Making: Low Overall Eval complexity: Low OT Recommendations Discharge Destination: Home with assistance, Outpatient PT Discharge Equipment: Patient owns appropriate equipment Plan Patient no longer demonstrates need for inpatient occupational therapy services. Patient to be discharged from occupational therapy. Written by Jam Carroll on 11/27/24 at 12:36 PM. * Progress Notes - Margarito Welch MD - 11/27/2024 6:39 AM EDT ORTHOPAEDIC SURGERY PROGRESS NOTE SUBJECTIVE: Patient is 3 weeks postoperative from percutaneous fixation of T11 through L3 for L1 burst fracture. Patient tolerated postoperative course which was complicated by extended intubation secondary to mental status. On 11/19 patient was able to ambulate, kandis removed, patient elected to leave AMA. Patient was unable to be set up with physical therapy, patient has been out of his oral pain regimen, patient presented to the hospital for significant pain. Patient was seen and assessed by the on-call resident team in the emergency department which did not identify signs of infection with CRP of less than 3.0. OBJECTIVE: VITALS: Visit Vitals BP (!) 151/85 (BP Location: Left arm, Patient Position: Lying) Pulse 60 Temp 36.4 ??C (97.6 ??F) (Oral) Resp 17 PHYSICAL EXAM: ?? Gen: NAD ?? CV: peripheral perfusion intact ?? Resp: NLR Patient has 5/5 strength in bilateral lower extremities in an L2 through S1 distribution, sensationintact to light touch in his distributions, Surgical incisions demonstrate trace erythema with no signs of infection, no drainage, skin healed. ASSESSMENT: Gordy Leiva is a 54 y.o. pain s/p T11-L3 VIPER ([facility] 11/03) Edited by: Dagoberto Ruiz MD at 11/27/2024 0507 left AMA, ran out of meds: WBC 10.56 ESR 21 CRP<3, intact, PTOT, placement Edited by: Dagoberto Ruiz MD at 11/27/2024 0721 PLAN: Mobility Orders Mobility Protocol: Ortho/Trauma/Spine Mobility Guidelines Spinal Precautions: Cranial, cervical or thoracolumbar spinal precautions Precautions: No Bending, Lifting or Twisting Extremity Precautions: No Extremity Precautions Other mobility precautions: No other precautions required - Diet: Regular - DVT prophylaxis - Bowel Regimen No bending twisting or lifting greater than 10 lb Follow up 12/22 Multimodal pain control, physical therapy ANDREW Welch MD Orthopaedic Surgery and Sports Medicine - PGY 3 Pager [phone] Ortho Trauma Pager: [phone] Ortho Recon/Spine/ Foot and Ankle Pager: [phone] Cosigned by Jorge Pineda MD at 11/27/2024 9:49 AM EDT Associated attestation - Jorge Pineda MD - 11/27/2024 9:49 AM EDT I discussed pt case and pertinent imaging with the resident and agree with assessment and plan as above. * Care Plan - Kandice Llanes RN - 11/27/2024 3:59 AM EDT Problem: Adult Inpatient Plan of Care Goal: Plan of Care Review Outcome: Ongoing, Progressing Goal: Patient-Specific Goal (Individualized) Outcome: Ongoing, Progressing Goal: Absence of Hospital-Acquired Illness or Injury Outcome: Ongoing, Progressing Goal: Optimal Comfort and Wellbeing Outcome: Ongoing, Progressing Goal: Readiness for Transition of Care Outcome: Ongoing, Progressing * Consults - Franky Gaytan MD - 11/27/2024 1:49 AM EDTAssociated Order(s): IP CONSULT TO ORTHOPAEDICS ORTHOPAEDIC SURGERY SPINE CONSULT NOTE 11/27/24 CHIEF COMPLAINT AND REASON FOR VISIT Gordy Leiva is a 54 y.o. patient presenting with worsening lower back pain HISTORY OF PRESENT ILLNESS Gordy Leiva is a 54 y.o. male with congestive heart failure status post CABG who presents with worsening back pain following T11-L3 viper for an L1 and L2 burst fracture with Dr. Pineda on 11/03/24. Additionally, he sustained a TBI at time of his accident. Patient's left from the hospital on 11/19/24 via AMA status after saying that he had to attend a benefit which was held for him when they were traveling off a [place]. Upon evaluation he appears to be lying comfortably in bed with his legs crossed. States he has been ambulating without assistive devices however reports trouble getting from point A to point B at times, reports 2 falls denies any injury or pain. He denies fevers/chills, nausea/vomiting, poor appetite or feeling ill in any way. Additionally states he tried to get intophysical therapy 3 times but was unable to, states he presents today to initiate physical therapy and due to running out of pain medications. He was discharged on pain medications, has run out of them. No concerning red flag symptoms. PAST MEDICAL HISTORY Past Medical History[1] MEDICATIONS Current Medications[2] ALLERGIES Allergies[3] PAST SURGICAL HISTORY Surgical History[4] FAMILY HISTORY Family History[5] SOCIAL HISTORY Tobacco: 6 cigarettes per day EtOH: denies Illicits: Marijuana Lives: [place], [place] REVIEW OF SYSTEMS Filled out by the patient. PHYSICAL EXAMINATION General Physical Exam Constitutional No acute distress Head Normocephalic and atraumatic Cardiovascular Peripheral perfusion intact Pulmonary/Chest Good respiratory effort, symmetric chest expansion, no respiratory difficulty appreciated Neurological Alert and oriented to person, place, and time Psychiatric Normal mood and affect, behavior and judgment COMPLETE SPINE EXAM: Spine incisions well healed, there is no surrounding erythema or fluctuance. Mild soreness, no midline tenderness to palpation. Motor Strength Right Left C5: Shoulder abduction (Deltoid) 5/5 5/5 C5: Elbow flexion (Biceps, Brachialis) 5 5/5 C6: Wrist extension (ECRB, ECRL) 5 5/ C7: Elbow extension (Triceps) 5/ 5/5 C8: Finger flexion (Button Spindler Strength) 10/12 5/ T1: Finger abduction / 5/5 Sensation Right Left Neck normal normal C5: Shoulder normal normal C6: Thumb, radial aspect hand/forearm (Radial Nerve) normal normal C7: Long finger (Median Nerve) normal normal C8: Little finger, ulnar aspect of hand/forearm (Ulnar n.) normal normal T1: Medial forearm/arm normal normal Reflexes Right Left C5: Biceps 2/4 2/4 C6: Brachioradialus 2/4 2/4 C7: Triceps 2/4 2/4 Black's absent absent Motor Strength Right Left L2: Hip flexion (Iliopsoas) 10/12 5 L3: Knee extension (Quad) 10/12 10/12 L4: Ankle DF (TA) 10/12 10/12 L5: Great Toe DF (EHL) 10/12 10/12 S1: Ankle Pf, Foot Eversion (Peroneal longus/brevis) 10/12 10/12 S2: Great toe flexion (FHL), Knee flexion 10/12 10/12 Sensation Right Left L2: Proximal anterior thigh Normal Normal L3: Mid anterior thigh Normal Normal L4: Medial leg/foot, great toe (Saphenous n.) Normal Normal L5: Dorsum of mid foot Normal Normal S1: Lateral leg/foot, little toe, Back of leg (Sural n.) Normal Normal Reflexes Right Left L4: Patellar 2/4 2/4 S1: Achilles 2/4 2/4 Babinski Absent Absent Clonus <3 beats <3 beats Rectal Exam: Normal rectal tone. Perirectal sensation intact. IMAGING ASSESSMENT AND PLAN Gordy Leiva is a 54 y.o. male patient with Presenting with poorly controlled pain after leaving AMA on 11/19/2024. He is status post T11-L3 Viper for L1 and L2 burst fractures with Dr. Pineda on 11/03/2024. - on physical exam, patient is intact with 5/5 motor strength and without deficits - patient denies fevers/chills, nausea/vomiting, any infectious symptoms and his inflammatory markers are not concerning for infection, incisions very well healed, no concern for surgical site infection - patient admitted to hospital medicine service for facilitation of PT OT and pain control optimization - patient has routine follow up in Orthopedic [facility] on 12/22 - orthopedic spine team to follow along peripherally while inpatient, no surgical intervention required Franky Gaytan MD PGY-1, Orthopaedic Surgery [facility] Orthopaedic Trauma Service Pager: [phone] Orthopaedic Recon/Spine/Foot and Ankle Service Pager: [phone] Personal Pager: [phone] [1] Past Medical History: Diagnosis Date CAD (coronary artery disease) Idiopathic aseptic necrosis of unspecified bone (CMS/HCC) Avascular necrosis NSTEMI (non-ST elevated myocardial infarction) ([facility]) 03/21/2021 [2] Current Facility-Administered Medications: QUEtiapine (SEROquel) tablet 50 mg, 50 mg, Oral, Nightly, Aissatou Sparks N, MANAGER PROVIDER RELATIONS Insert peripheral IV, , , Once AND Saline lock IV, , , Once AND sodium chloride 0.9 % flush10 mL, 10 mL, Intravenous, q12h AND sodium chloride 0.9 % flush 10 mL, 10 mL, Intravenous, PRN,Terell Sandhu, MANAGER PROVIDER RELATIONS, DNP Current Outpatient Medications: acetaminophen (Tylenol Extra Strength) 500 MG tablet, Take 1 tablet by mouth every 6 hours as needed for pain., Disp: 100 tablet, Rfl: 0 acetaminophen (Tylenol) 500 MG tablet, Take 2 tablets by mouth every 6 hours for 10 days., Disp: 80tablet, Rfl: 0 ALPRAZolam (Xanax) 2 MG tablet, Take 1 tablet by mouth 4 times a day as needed., Disp: , Rfl: ALPRAZolam (Xanax) 2 MG tablet, Take 1 tablet by mouth 4 times a day., Disp: , Rfl: amLODIPine (Norvasc) 5 MG tablet, Take 1 tablet by mouth daily., Disp: 30 tablet, Rfl: 0 aspirin 81 MG EC tablet, Take 81 mg by mouth 1 (one) time each day. (Patient not taking: Reported on 10/23/2024), Disp: , Rfl: clopidogrel (Plavix) 75 MG tablet, Take 1 tablet by mouth daily., Disp: , Rfl: [Paused] clopidogrel (Plavix) 75 MG tablet, Take 1 tablet by mouth daily., Disp: , Rfl: gabapentin (Neurontin) 300 MG capsule, Take 1 capsule (300 mg) by mouth 3 (three) times a day., Disp: 90 capsule, Rfl: 1 HYDROcodone-acetaminophen (Gotebo) 5-325 MG tablet, Take 1 tablet by mouth every 6 hours as needed for severe pain., Disp: 10 tablet, Rfl: 0 HYDROcodone-acetaminophen (Gotebo) 5-325 MG tablet, 1 tablet., Disp: , Rfl: ibuprofen 600 MG tablet, Take 1 tablet by mouth every 6 hours as needed for moderate pain or mild pain., Disp: 40 tablet, Rfl: 0 ketorolac (Toradol) 10 MG tablet, Take 1 tablet by mouth every 6 hours as needed for moderate pain., Disp: 20 tablet, Rfl: 0 ketorolac (Toradol) 10 MG tablet, Take 1 tablet by mouth every 6 hours as needed for moderate pain., Disp: , Rfl: levETIRAcetam (Keppra) 500 MG tablet, Take 3 tablets by mouth 2 times a day., Disp: 180 tablet, Rfl: 0 levoFLOXacin (Levaquin) 250 MG tablet, Take 1 tablet by mouth 2 times a day., Disp: , Rfl: lidocaine (Lidoderm) 5 % patch, Apply 1 patch topically 1 (one) time each day at the same time over12 hours. Remove & discard patch within 12 hours or as directed by MD., Disp: 30 patch, Rfl: 0 LORazepam (Ativan) 2 MG tablet, Take 1 tablet by mouth every 8 hours as needed for anxiety., Disp: , Rfl: melatonin tablet, Take 2 tablets by mouth nightly., Disp: 30 tablet, Rfl: 0 metoprolol succinate XL (Toprol-XL) 50 MG 24 hr tablet, , Disp: , Rfl: metoprolol succinate XL (Toprol-XL) 50 MG 24 hr tablet, Take 1 tablet by mouth daily. Do not crush or chew., Disp: , Rfl: metoprolol tartrate (Lopressor) 25 MG tablet, Take 1 tablet by mouth 2 times a day., Disp: 60 tablet, Rfl: 0 naloxone (Narcan) 4 mg/0.1 mL nasal spray, 1. Give 1 spray in nostril for no/slow breathing or cannot wake after opioid use 2. Call 911 3. Repeat in other nostril if symptoms continue, Disp: 1 each, Rfl: 0 nicotine (Nicoderm CQ) 21 MG/24HR patch, Place 1 patch on the skin daily., Disp: 30 patch, Rfl: 0 nitroglycerin (Nitrostat) 0.4 MG SL tablet, TAKE 1 TABLET UNDER THE TONGUE EVERY 5 MINUTES NEEDED FOR CHEST PAIN. DO NOT EXCEED 3 DOSES IN 15 MINUTES, Disp: , Rfl: omeprazole (PriLOSEC) [address] capsule, 1 capsule 2 times a day., Disp: , Rfl: omeprazole (PriLOSEC) [address] capsule, Take 1 capsule by mouth 2 times a day. Do not crush or chew., Disp: , Rfl: ondansetron (Zofran) 4 MG tablet, Take 1 tablet by mouth every 8 hours as needed for nausea or vomiting., Disp: , Rfl: oxyCODONE (Roxicodone) 5 MG immediate release tablet, Take 2 tablets by mouth every 6 hours as needed for severe pain., Disp: 20 tablet, Rfl: 0 oxyCODONE (Roxicodone) 5 MG immediate release tablet, Take 2 tablets by mouth every 4 hours as needed for severe pain., Disp: 20 tablet, Rfl: 0 [Paused] oxyCODONE (Roxicodone) 5 MG immediate release tablet, 1 tablet. 2 tablets ever 4 hours, Disp: , Rfl: QUEtiapine (SEROquel) 25 MG tablet, Take 1 tablet by mouth daily for 10 days., Disp: 10 tablet, Rfl: 0 ranolazine (Ranexa) 500 MG 12 hr tablet, , Disp: , Rfl: rosuvastatin (Crestor) 20 MG tablet, Take 1 tablet by mouth 1 time each day., Disp: , Rfl: rosuvastatin (Crestor) 20 MG tablet, Take 1 tablet by mouth daily., Disp: , Rfl: traZODone (Desyrel) 100 MG tablet, Take 1 tablet by mouth nightly., Disp: 30 tablet, Rfl: 0 [3] Allergies Allergen Reactions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 0311 (Given - Provid er: Kandice Llanes RN)0914 (See Alternative - Provider: Lucia Corrigan) sodium chloride 0.9 % flush 10 mL(Linked Group 1) 10 mL, Intravenous, As needed, Starting on Sat11/27/24 at 0123, Until Sat11/27/24 at 1653, Routine, line care traZODone (Desyrel) tablet 100 mg 100 mg, Oral, Nightly PRN, Starting on Sat11/27/24 at 0257, Until Sat11/27/24 at 1653, Routine, sleep Linked Groups Order Group 1: Insert peripheral IV (COMPLETED) Once, On Sat11/27/24 at 0124, For 1 occurrence And Saline lock IV (COMPLETED) Once, On Sat11/27/24 at 0124, For 1 occurrence And sodium chloride 0.9 % flush 10 mLJump to med 10 mL, Intravenous, Every 12 hours, First dose on Sat11/27/24 at 0130, Until Discontinued, Routine And sodium chloride 0.9 % flush 10 mLJump to med 10 mL, Intravenous, As needed, Starting on Sat11/27/24 at 0123, Until Sat11/27/24 at 1653, Routine, line care Group 2: oxyCODONE (Roxicodone) immediate release tablet 5 mgJump to med 5 mg, Oral, Every 6 hours PRN, Starting on Sat11/27/24 at 0252, Until Sat11/27/24 at 1653, Routine, moderate pain Or oxyCODONE (Roxicodone) immediate release tablet 10 mgJump to med 10 mg, Oral, Every 6 hours PRN, Starting on Sat11/27/24 at 0252, Until Sat11/27/24 at 1653, Routine, severe pain documented in this encounter Additional Health Concerns Assessment Noted Time PHQ-9 Depression Total Score: 12 021 1:29 PM EDT A fall risk assessment has been complete d for the patient 11/07/2023 11:43 AM EDT A Body Mass Index follow-up plan has been documented for the patient 11/27/2024 1:39 PM EDT documented as of this encounter Care Teams Residential Youth Counselor Relationship Specialty Start Date End Date Pcp, No [address] [place] [address] PCP - General Family Medicine 11/01/24 Pcp, No [address] [place] [address] Family Medicine 11/01/24 Zaire Martin MD [address] [place] [id number] Cardiology 11/09/21 documented as of this encounter
--- OUTSIDE RECORDS SUMMARY | 2024-11-30 18:14 | XMS_ITS | Encounter Summary ---
Author Organization [facility] Address [address] [place] [address] Care Team Providers Care School Director Name Role Phone Pcp, No Primary Care Provider Unavailabl e Pcp, No Unavailable Unavailable Zaire Martin MD Unavailable [phone] Reason for Visit * Reason Comments Back Pain Encounter Details Date Type Department Care Team (Late st Contact Info) Description 11/30/2024 6:14 PM EDT - 11/30/2024 6:46 PM EDT Emergency [facility] [address] [place] [address] Discharge Disposition: Left WIthout Being Seen Social History Tobacco Use Types Packs/Day Years [...] Recorded Patient Health Questionnaire-2 Score 6 03/21/2021 [facility] of Occupat ional Health - Occupational Stress [...] any time in the past 12 m onths, were you homeless or living in a chcf (including now)? Patient unable to answer 11/04/2024 [...] any time in the past 12 m [facility], were you homeless or living in a chcf (including now)? No 11/27/2024 Utilities Answer Date Recorded In the past 12 months has th e [employer], gas, oil, or water company threatened to [...] Sign Reading Time Taken Comments Blood Pressure 120/76 11/30/2024 6:17 PM EDT Pulse 99 11/30/2024 6:17 PM EDT Temperature 37.1 C (98.8 F) 11/30/2024 6:17 PM EDT Respiratory Rate 16 11/30/2024 6:17 PM EDT Oxygen Saturation 99% 11/30/2024 6:17 PM EDT Inhaled Oxygen Concentration - - Weight - - Height - - Body Mass Index - - documented in this encounter Medications at Time [...] capsule by mouth nightly. 30 capsule 11/27/2024 ketorolac (Toradol) 10 MG tablet Take 1 [...] hours for 10 days. 80 tablet 11/20/2024 oxyCODONE (Roxicodone) 10 MG immediate release tablet Take 1 tablet by mouth every 6 hours as needed for severe pain for up to 7 days. 21 tablet 11/27/2024 5 documented as of this encounter Miscellaneous Notes * ED Triage Notes - Girish Srinivasan, RN - 11/30/2024 6:14 PM EDT Patient c/o chronic back pain d/t prior surgeries. Patient states they will only give me pain medsfor a few days and I need more . documented in this encounter Plan of Treatment Upcoming Encounters Date Type Department Care Team (Late st Contact Info) Description 12/22/2024 11:40 AM EDT Office Visit Medical [facility] [address], [address] [place] [address] Cata Shaffer, PA [address] [place] [address] 02/22/2025 9:00 AM EDT Office Visit [facility] [address] [place] [phone] Rodriguez Martin DO [address] [place] [phone] 03/17/2025 2:30 PM EDT [facility] Visit [facility] [address] [place] [address] Manasa Sanchez APRN [address] [place] [address] documented as of this encounter [...] documented as of this encounter Care Teams School Director Relationship Specialty Start Date End Date Pcp, No [address] [place] [address] PCP - General Family Medicine 11/01/24 Pcp, No [address] [place] [address] Family Medicine 11/01/24 Z[facility] [place] [address] Cardiology 11/09/21 documented as of this encounter
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
--- OUTSIDE RECORDS SUMMARY | 2024-12-16 09:02 | XMS_ITS | Encounter Summary ---
Author Organization Healthcare Address [address] [place] [address] Care Team Providers Care Sugar Refiner Name Role Phone Nora eBnz MD Primary Care Provider [phone] Pcp, No Primary Care Provider Unavailabl e Pcp, No Primary Care Provider Unavailabl e Pcp, No Unavailable Unavailable Zaire Martin MD Unavailable [phone] Encounter Details Date Type Department Care Team (Late st Contact Info) Description 03/12/2023 Orders Only External Location [address] [place] [phone] Provider, External Social History Tobacco Use Types Packs/Day Years Used Date Smoking Tobacco: Every Day Cigarettes 0.3 37.7 Started: 03/21/1987 Smokeless Tobacco: Never Comments:Smoking 5 - 6 cig d aily Alcohol Use Standard Drinks/Week Comments Yes 0 (1 standard drink = 0.6 oz pur e alcohol) very rare PHQ-2 Answer Date Recorded Patient Health Questionnaire-2 [...] on file documented as of this encounter Plan of Treatment Upcoming Encounters Date Type Department Care Team (Late st Contact Info) Description 12/22/2024 11:40 AM EDT Office Visit Medical Office [facility] [address], [address] [place] [address] Cata Shaffer PA [address] [place] [address] 02/22/2025 9:00 AM EDT Office Visit [facility] [address] [place] [address] Rodriguez Martin DO [address] [place] [address] 03/17/2025 2:30 PM EDT Office Visit [facility] [address] [place] [address] Manasa Sanchez, HOT DIE PRESS OPERATOR [address] [place] [address] documented as of this encounter Procedures Procedure Name Priority Date/Time Associated Diagnosis Comments XR OUTSIDE IMAGES 03/12/2023 11:01 AM EDT documented in this encounter Results * XR OUTSIDE IMAGES (03/12/2023 11:01 AM EDT) Anatomical Region Laterality Modality Radiographic Adela ging 03/12/2023 11:0 1 AM EDT External Provider IMG XR PROCEDURES Final Result documented in this encounter Visit Diagnoses Not on filedocumented in this encounter Additional Health Concerns Infection Onset Date Last Indicated Resolved Time Respiratory Rule-Out 11/12/2024 11/12/2024 025 9:22 PM EDT COVID-19 Rule-Out 11/12/2024 11/12/2024 11/12/2024 8:09 PM EDT Assessment Noted Time PHQ-9 Depression Total Score: 12 021 1:29 PM EDT A fall risk assessment has been complete d for the patient 08/23/2022 3:40 PM EDT A Body Mass Index follow-up plan has been documented for the patient 08/23/2022 4:39 PM EDT documented as of this encounter Care Teams Sugar Refiner Relationship Specialty Start Date End Date Nora Benz MD [address] [address] PCP - General Family Medicine 12/15/20 05/28/24 Pcp, No [address] [place] [address] PCP - General Family Medicine 09/03/24 10/31/24 Pcp, No [address] [place] [address] PCP - General Family Medicine 11/01/24 Pcp, No [address] [place] [address] Family Medicine 11/01/24 [facility] [place] [address] Cardiology 11/09/21 documented as of this encounter
--- OUTSIDE RECORDS SUMMARY | 2024-12-16 09:02 | XMS_ITS | Encounter Summary ---
Author Organization Healthcare Address [address] [place] [address] Care Team Providers Care Braddisher Name Role Phone Pcp, No Primary Care Provider Unavailabl e Zaire Martin MD Unavailable [phone] Encounter Details Date Type Department Care Team (Latest Contact Info) Description 10/28/2024 Travel Social History Tobacco Use Types Packs/Day Years [...] Joint [address], [address] [place] [address] Cata Shaffer PA [address] [place] [phone] 02/22/2025 9:00 AM EDT Office Visit [facility] [address] [place] [address] Rodriguez Martin, DO [address] [place] [address] 03/17/2025 2:30 PM EDT Office Visit [facility] [address] [place] [address] Manasa Sanchez, TRE [address] [place] [address] documented as of this encounter [...] documented as of this encounter Care Teams Braddisher Relationship Specialty Start Date End Date Pcp, [place] [address] PCP - General Family Medicine 09/03/24 10/31/24 Zaire Martin MD [address] [place] [address] Cardiology 11/09/21 documented as of this encounter
--- OUTSIDE RECORDS SUMMARY | 2024-12-16 09:02 | XMS_ITS | Encounter Summary ---
Author Organization Healthcare Address [address] [place] [address] Care Team Providers Care Emery Grinder Name Role Phone Nora Benz MD Primary Care Provider [phone] Pcp, No Primary Care Provider Unavailabl e Pcp, No Primary Care Provider Unavailabl e Pcp, No Unavailable Unavailable Zaire Martin MD Unavailable [phone] Encounter Details Date Type Department Care Team (Late st Contact Info) Description 10/14/2021 Orders Only External Location [address] [place] [address] Provider, External Social History Tobacco Use Types Packs/Day Years Used Date Smoking Tobacco: Former Cigarettes 1 33.2 1 - 2020 Smokeless Tobacco: Never Alcohol Use Standard Drinks/Week Comments Yes 0 (1 standard drink = 0.6 oz pure alcohol) Alcoholic Drinks/day: Social alcohol use PHQ-2 Answer Date Recorded Patient Health Questionnaire-2 Score 6 03/21/2021 Sex and Gender Information Value Date Recorded Sex Assigned at Male 12/06/2021 2:04 PM EDT Legal Sex Male 8:39 PM EDT Gender Identity Male 12/06/2021 2:04 PM EDT Sexual Orientation Straight 12/06/2021 2: 04 PM EDT documented as of this encounter Plan of Treatment Upcoming Encounters Date Type Department Care Team (Late Contact Info) Description 12/22/2024 11:40 AM EDT Office Visit Medical Office Building [facility] [address], [address] [place] [address] Cata Shaffer PA [address] [place] [address] 02/22/2025 9:00 AM EDT Office Visit Physical Medicine & Rehabilitation Clinic at [facility] [address] [place] [address] Rodriguez Martin, [address] [place] [address] 03/17/2025 2:30 PM EDT Office Visit [place] [facility] [address], 1[address] [place] [address] Laura Manasa, HAND DRILLER [address] [place] [address] documented as of this encounter Procedures Procedure Name Priority Date/Time Associated Diagnosis Comments CT THORACIC OUTSIDE IMAGES 10/14/2021 9:24 AM EDT documented in this encounter Results * CT THORACIC OUTSIDE IMAGES (10/14/2021 9:24 AM EDT) Anatomical Region Laterality Modality Computed Tomogra phy 10/14/2021 9:24 AM EDT External Provider IMG CT PROCEDURES Final Result documented in this encounter Visit Diagnoses Not on filedocumented in this encounter Additional Health Concerns Infection Onset Date Last Indicated Resolved Time Respiratory Rule-Out 11/12/2024 11/12/2024 025 9:22 PM EDT COVID-19 Rule-Out 11/12/2024 11/12/2024 11/12/2024 8:09 PM EDT Assessment Noted Time PHQ-9 Depression Total Score: 12 021 1:29 PM EDT documented as of this encounter Care Teams Emery Grinder Relationship Specialty Start Date End Date Nora Benz MD [address] [facility] [address] [place] [address] PCP - General Family Medicine 12/15/20 05/28/24 Pcp, No [address] [place] [address] PCP - General Family Medicine 09/03/24 10/31/24 Pcp, No [address] [place] [address] PCP - General Family Medicine 11/01/24 Pcp, No [address] [place] [address] Family Medicine 11/01/24 Zaire [facility] MD [facility] [place] [address] Cardiology 11/09/21 documented as of this encounter
--- OUTSIDE RECORDS SUMMARY | 2024-12-16 09:02 | XMS_ITS | Encounter Summary ---
Author Organization Healthcare Address [address] [place] [address] Care Team Providers Care Chain Testing Machine Operator Name Role Phone Pcp, No Primary Care Provider Unavailabl e Zaire Martin MD Unavailable [phone] Encounter Details Date Type Department Care Team (Latest Contact Info) Description 10/23/2024 Travel Social History Tobacco Use Types Packs/Day [...] Joint [address], [address] [place] [address] Cata Shaffer PA [address] [place] [address] 02/22/2025 9:00 AM EDT Office Visit Physical Medicine & Rehabilitation Clinic at [facility] [address] [place] [address] Rodriguez Martin, DO [address] [place] [address] 03/17/2025 2:30 PM EDT Office Visit [place] [facility] [address], 1st [place] [address] Manasa Sanchez, TRE [address] [place] [address] documented as of this encounter [...] documented as of this encounter Care Teams Chain Testing Machine Operator Relationship Specialty Start Date End Date Pcp, [place] [address] PCP - General Family Medicine 09/03/24 10/31/24 Zaire Martin MD [address] [place] [address] Cardiology 11/09/21 documented as of this encounter
--- OUTSIDE RECORDS SUMMARY | 2024-12-16 09:02 | XMS_ITS | Encounter Summary ---
Author Organization Healthcare Address [address] [place] [address] Care Team Providers Care Director Volunteer Services Name Role Phone Pcp, No Primary Care Provider Unavailfer e Zaire Martin MD Unavailable [phone] Encounter Details Date Type Department Care Team (Late st Contact Info) Description 10/26/2024 Telephone [facility] [address] [address] Dental, Surgeon, [address] [place], [place] [id number] Social History Tobacco Use Types Packs/Day Years [...] as of this encounter Miscellaneous Notes * Telephone Encounter - Juana Hunter - 10/26/2024 2:35 PM EDT Pt called stating that [facility] is telling him he is 100% covered for oral surgery and does not understand why we are not sending them a bill for his dental needs. Advised pt that we do not have a dental contract with Medicare, we are only contracted with them medically. Pt states that is not what his insurance is advising him. Advised him I will send him to Kristy-who runs the OR PA's and she can discuss the billing further with him. mg documented in this encounter Plan of Treatment Upcoming Encounters Date Type Department Care Team (Late st Contact Info) Description 12/22/2024 11:40 AM EDT Office Visit Medical Office Building [facility] [address], [address] [place] [address] Cata Shaffer PA [address] [place] [address] 02/22/2025 9:00 AM EDT Office Visit Physical Medicine & Rehabilitation Clinic at [facility] [address] [place] [address] Rodriguez Martin DO [address] [place] [address] 03/17/2025 2:30 PM EDT Office Visit [place] [facility] [address], 1[address] [place] [address] Manasa Sanchez, TRE [address] [place] [address] documented as of this encounter [...] documented as of this encounter Care Teams Director Volunteer Services Relationship Specialty Start Date End Date Pcp, Moriah [address] [place] [address] PCP - General Family Medicine 09/03/24 10/31/24 [facility] [place] [address] Cardiology 11/09/21 documented as of this encounter
--- OUTSIDE RECORDS SUMMARY | 2024-12-16 09:02 | XMS_ITS | Encounter Summary ---
Author Organization [facility] Address [address] [place] [address] Care Team Providers Care Hot Tamale Worker Name Role Phone Nora Benz MD Primary Care Provider Pcp, No Primary Care Provider Unavailabl e Pcp, No Primary Care Provider Unavailabl e Pcp, No Unavailable Unavailable Zaire Maritn MD Unavailable [phone] Reason for Visit * Reason Onset Date Comments Med Refill 03/19/2023 Encounter Details Date Type Department Care Team (Late st Contact Info) Description 03/19/2023 Refill [facility] Family [facility] Community Medicine [address], [address] [place] [address] Nora Benz MD [address] [facility] [address] [facility] [address] [place] [address] Social History Tobacco Use Types Packs/Day Years [...] encounter Miscellaneous Notes * Telephone Encounter - Krista Basurto Edson - 03/20/2023 9:32 AM EDT Called and spoke with patient, he did not want to send it here. documented in this encounter Plan of Treatment Upcoming Encounters Date Type Department Care Team (Late st Contact Info) Description 12/22/2024 11:40 AM EDT Office Visit Medical Office Building [facility] [address], [address] [place] [address] Cata Shaffer, PA [address] [place] [address] 02/22/2025 9:00 AM EDT Office Visit [place] [facility] at [facility] [address] [place] [address] Rodriguez Martin DO [address] [place] [address] 03/17/2025 2:30 PM EDT Office Visit [place] [facility] [address], 1st [place] [address] Manasa Sanchez, ACADEMIC VICE PRESIDENT [address] [place] [address] documented as of this encounter Visit Diagnoses Not on filedocumented in this encounter Additional Health Concerns Infection Onset Date Last Indicated Resolved Time Respiratory Rule-Out 11/12/2024 11/12/2024 025 9:22 PM EDT COVID-19 Rule-Out 11/12/2024 11/12/202411/1211/12/2024 8:09 PM EDT Assessment Noted Time PHQ-9 Depression Total Score: 12 021 1:29 PM EDT A fall risk assessment has been complete d for the patient 08/23/2022 3:40 PM EDT A Body Mass Index follow-up plan has been documented for the patient 03/14/2023 2:21 PM EDT documented as of this encounter Care Teams Hot Tamale Worker Relationship Specialty Start Date End Date Nora Benz MD [address] [address] PCP - General Family Medicine 12/15/20 05/28/24 Pcp, No [address] [place] [address] PCP - General Family Medicine 09/03/24 10/31/24 Pcp, No [address] [place] [address] PCP - General Family Medicine 11/01/24 Pcp, No [address] [place] [address] Family Medicine 11/01/24 [facility] MD [facility] [place] [address] Cardiology 11/09/21 documented as of this encounter
--- OUTSIDE RECORDS SUMMARY | 2024-12-16 09:02 | XMS_ITS | Encounter Summary ---
Author Organization Healthcare Address [address] [place] [address] Care Team Providers Care Apprentice Painter Brush Name Role Phone Nora Benz MD Primary Care Provider [phone] Pcp, No Primary Care Provider Unavailabl e Pcp, No Primary Care Provider Unavailabl e Pcp, No Unavailable Unavailable Zaire Martin MD Unavailable [phone] Encounter Details Date Type Department Care Team (Late st Contact Info) Description 02/25/2021 Orders Only External Location [address] [place] [id number] Provider, External Social History Tobacco Use Types Packs/Day Years Used Date Smoking Tobacco: Every Day Alcohol Use Standard Drinks/Week Comments Yes 0 (1 standard drink = 0.6 oz pure alcohol) Alcoholic Drinks/day: Social alcohol use Sex and Gender Information Value Date Recorded [...] [facility] [address] [facility], [address] [place] [address] Cata Shaffer PA [address] [place] [address] 02/22/2025 9:00 AM EDT Office Visit Physical Medicine & Rehabilitation Clinic at [facility] [address] [place] [address] Rodriguez Martin, [address] [place] [address] 03/17/2025 2:30 PM EDT Office Visit [place] [facility] [address], 1st [place] [address] Manasa Sanchez, PASTA PRESS OPERATOR [address] [place] [address] documented as of this encounter Procedures Procedure Name Priority Date/Time Associated Diagnosis Comments IR OUTSIDE IMAGES 02/25/2021 9:38 AM EDT documented in this encounter Results * IR OUTSIDE IMAGES (02/25/2021 9:38 AM EDT) Anatomical Region Laterality Modality X-Ray Angiograph y 02/25/2021 9:38 AM EDT us External Provider IMG IR PROCEDURES Final Result documented in this encounter Visit Diagnoses Not on filedocumented in this encounter Additional Health Concerns Infection Onset Date Last Indicated Resolved Time Respiratory Rule-Out 11/12/2024 11/12/2024 025 9:22 PM EDT COVID-19 Rule-Out 11/12/2024 11/12/2024 11/12/2024 8:09 PM EDT documented as of this encounter Care Teams Apprentice Painter Brush Relationship Specialty Start Date End Date Nora Benz MD [address] [place] [address] PCP - General Family Medicine 12/15/20 05/28/24 Pcp, No [address] [place] [address] PCP - General Family Medicine 09/03/24 10/31/24 Pcp, No [address] [place] [address] PCP - General Family Medicine 11/01/24 Pcp, No [address] [place] [address] Family Medicine 11/01/24 Zaire Martin MD [address] [place] [address] Cardiology 11/09/21 documented as of this encounter
--- OUTSIDE RECORDS SUMMARY | 2024-12-16 09:02 | XMS_ITS | Encounter Summary ---
Author Organization [facility] Address [address] [place] [address] Care Team Providers Care Hat Liner Name Role Phone Pcp, No Primary Care Provider Unavailabl e Pcp, No Unavailable Unavailable Zaire Martin MD Unavailable [phone] Encounter Details Date Type Department Care Team (Latest Contact Info) Description 11/01/2024 Travel Social History Tobacco Use Types Packs/Day Years Used Date Smoking Tobacco: Never Assessed PHQ-2 Answer Date Recorded Patient Health Questionnaire-2 Score 6 03/21/2021 Sex and Gender Information Value Date Recorded Sex Assigned at Male 12/06/2021 2:04 PM EDT Legal Sex Male 8:39 PM EDT Gender Identity Male 12/06/2021 2:04 PM EDT Sexual Orientation Straight 12/06/2021 2: 04 PM EDT documented as of this encounter Functional Status * Calculated C-SSRS Risk Score (Lifetime/Recent) Answer Date of Assessment Author No Risk Indicated 11/01/2024 4:44 AM EDT Yeni Khan RN * Question Answer Date of Assessment Author 1. Wish to be (Past 1 Month) No 4:44 AM NIVIAT Yeni Khan RN 2. Non-Specific Active Suici anai Thoughts (Past 1 Month) No 11/01/2024 4:44 AM EDT Yeni Khan RN 6. Suicidal Behavior (Lifetime) No 4:44 AM EDT Khan, Yeni E, RN documented as of this encounter Plan of Treatment Upcoming Encounters Date Type Department Care Team (Late st Contact Info) Description 12/22/2024 11:40 AM EDT Office Visit Medical Office Building [facility] [address], [address] [place] [address] Cata Shaffer, PA [address] [place] [address] 02/22/2025 9:00 AM EDT Office Visit [place] [facility] at [facility] [address] [place] [address] Rodriguez Martin DO [address] [place] [address] 03/17/2025 2:30 PM EDT Office Visit [place] [facility] [address], 1st [place] [address] Laura Manasa, SHOOTER'S HELPER [address] [place] [address] documented as of this encounter [...] documented as of this encounter Care Teams Hat Liner Relationship Specialty Start Date End Date Pcp, No [address] [place] [address] PCP - General Family Medicine 11/01/24 Pcp, No [address] [place] [address] Family Medicine 11/01/24 [facility] MD [facility] [place] [address] Cardiology 11/09/21 documented as of this encounter
--- OUTSIDE RECORDS SUMMARY | 2024-12-16 09:02 | XMS_ITS | Encounter Summary ---
Author Organization [facility] Address [address] [place] [address] Care Team Providers Care Buying Agent Name Role Phone Nora Benz MD Primary Care Provider [phone] Pcp, No Primary Care Provider Unavailabl e Pcp, No Primary Care Provider Unavailabl e Pcp, No Unavailable Unavailable Zaire Martin MD Unavailable [phone] Reason for Visit * Reason Onset Date Comments Med Refill 10/27/2023 Encounter Details Date Type Department Care Team (Late st Contact Info) Description 10/27/2023 Refill [facility] and [facility] Medicine [address] [facility] [facility] [address], [address] [place] [address] Nora Benz MD [address] [facility] [address] [place] [address] Social History Tobacco Use Types [...] encounter Miscellaneous Notes * Telephone Encounter - Basurto Krista M - 10/29/2023 3:47 PM EDT Sent to triage. documented in this encounter Plan of Treatment Upcoming Encounters Date Type Department Care Team (Late st Contact Info) Description 12/22/2024 11:40 AM EDT Office Visit Medical Office Building [facility] [address], [address] [place] [address] Cata Shaffer, PA [address] [place] [address] 02/22/2025 9:00 AM EDT Office Visit [facility] at [facility] [address] [place] [address] Rodriguez Martin DO [address] [place] [address] 03/17/2025 2:30 PM EDT Office Visit [place] [facility] [address], 1[address] [place] [address] Manasa Sanchez, BULLET SLUGS INSPECTOR [address] [place] [address] documented as of this encounter [...] documented as of this encounter Care Teams Buying Agent Relationship Specialty Start Date End Date Nora Benz MD [address] [address] PCP - General Family Medicine 12/15/20 05/28/24 Pcp, No [address] [place] [address] PCP - General Family Medicine 09/03/24 10/31/24 Pcp, No [address] [place] [address] PCP - General Family Medicine 11/01/24 Pcp, No [address] [place] [address] Family Medicine 11/01/24 Zaire Martin MD [address] [place] [address] Cardiology 11/09/21 documented as of this encounter
--- OUTSIDE RECORDS SUMMARY | 2024-12-16 09:02 | XMS_ITS | Encounter Summary ---
Author Organization Healthcare Address [address] [place] [address] Care Team Providers Care Sales And Marketing Analyst Name Role Phone Pcp, No Primary Care Provider Unavailabl e Pcp, No Primary Care Provider Unavailabl e Pcp, No Unavailable Unavailable Zaire Martin MD Unavailable [phone] Encounter Details Date Type Department Care Team (Late st Contact Info) Description 07/23/2024 Orders Only External Location [address] [place] [address] Provider, External Social History Tobacco Use Types Packs/Day Years Used Date Smoking Tobacco: Every Day Cigarettes 0.3 37.7 Started: 03/21/1987 Smokeless Tobacco: Never Comments:Smoking 3 cig daily and using nicotine pouches Alcohol Use Standard Drinks/Week Comments Yes 0 [...] Joint [address], [address] [place] [address] Cata Shaffer, IONA [address] [place] [address] 02/22/2025 9:00 AM EDT Office Visit Physical Medicine & Rehabilitation Clinic at [facility] [address] [place] [place] [address] Rodriguez Martin DO [address] [place] [address] 03/17/2025 2:30 PM EDT Office Visit [place] [facility] [address], [address] [place] [address] Manasa Sanchez, TRE [address] [place] [address] documented as of this encounter Procedures Procedure Name Priority Date/Time Associated Diagnosis Comments CT OUTSIDE IMAGES 07/23/2024 10:56 AM EST documented in this encounter Results * CT OUTSIDE IMAGES (07/23/2024 10:56 AM EST) Anatomical Region Laterality Modality Computed Tomogra phy 07/23/2024 10:5 6 AM EST External Provider IMG CT PROCEDURES Final Result [...] documented as of this encounter Care Teams Sales And Marketing Analyst Relationship Specialty Start Date End Date Pcp, No [address] [place] [address] PCP - General Family Medicine 09/03/24 10/31/24 Pcp, No [address] [place] [address] PCP - General Family Medicine 11/01/24 Pcp, No [address] [place] [address] Family Medicine 11/01/24 Zaire Martin MD [address] [place], [place] [id number] Cardiology 11/09/21 documented as of this encounter
--- OUTSIDE RECORDS SUMMARY | 2024-12-16 09:02 | XMS_ITS | Encounter Summary ---
Author Organization Healthcare Address [address] [place] [address] Care Team Providers Care Licensing Representative Name Role Phone Pcp, No Primary Care Provider Unavailabl e Pcp, No Unavailable Unavailable Zaire Martin MD Unavailable [phone] Encounter Details Date Type Department Care Team (Latest Contact Info) Description 11/02/2024 Travel Social History Tobacco Use Types Packs/Day [...] Joint [address], [address] [place] [address] Cata Shaffer PA [address] [place] [address] 02/22/2025 9:00 AM EDT Office Visit Physical Medicine & Rehabilitation Clinic at [facility] [address] [place] [address] Rodriguez Martin, DO [address] [place] [address] 03/17/2025 2:30 PM EDT [facility] [address], 1st [place] [address] Laura Mansaa, REGIONAL OWNER OPERATOR TRUCK DRIVER [address] [place] [address] documented as of this encounter [...] documented as of this encounter Care Teams Licensing Representative Relationship Specialty Start Date End Date Pcp, No [address] [place] [address] PCP - General Family Medicine 11/01/24 Pcp, No [address] [place] [address] Family Medicine 11/01/[address] [facility] [place] [address] Cardiology 11/09/21 documented as of this encounter
--- OUTSIDE RECORDS SUMMARY | 2024-12-16 09:02 | XMS_ITS | Encounter Summary ---
Author Organization Healthcare Address [address] [place] [address] Care Team Providers Care Mock Up Maker Name Role Phone Pcp, No Primary Care Provider Unavailfer e Zaire Martin MD Unavailable [phone] Encounter Details Date Type Department Care Team (Late st Contact Info) Description 10/29/2024 Orders Only [facility] lacquer polisher [facility] [address] [place] [address] [address] [place] [address] Talat Marcelino [address] [place], [place] [id number] Social History Tobacco Use Types Packs/Day Years [...] Joint [address], [address] [place] [address] Cata Shafefr, PA [address] [place] [address] 02/22/2025 9:00 AM EDT Office Visit [facility] at [facility] [address] [place] [address] Rodriguez Martin DO [address] [place] [address] 03/17/2025 2:30 PM EDT Office Visit [place] [facility] [address], [address] [place] [address] Manasa Sanchez, INDUSTRIAL RELATIONS WORKER [address] [place] [address] documented as of this encounter [...] documented as of this encounter Care Teams Mock Up Maker Relationship Specialty Start Date End Date Pcp, No [address] [place] [address] PCP - General Family Medicine 09/03/24 10/31/24 Z[facility] MD [facility] [address] Cardiology 11/09/21 documented as of this encounter
--- OUTSIDE RECORDS SUMMARY | 2024-12-16 09:02 | XMS_ITS | Encounter Summary ---
Author Organization Healthcare Address [address] [place] [address] Care Team Providers Care Lieutenant Shift Supervisor Name Role Phone Nora Benz MD Primary Care Provider [phone] Pcp, No Primary Care Provider Unavailabl e Pcp, No Primary Care Provider Unavailabl e Pcp, No Unavailable Unavailable Zaire Martin MD Unavailable [phone] Reason for Visit * Reason Comments Med Refill Encounter Details Date Type Department Care Team (Late st Contact Info) Description 07/05/2022 Refill [place] [facility] [address], [facility] [address] [place] [address] Les Munroe MD [address] [facility] [address] [place] [address] Gastroesophageal reflux disease, unspecified whether esophagitis present Social History Tobacco Use Types Packs/Day Years Used Date Smoking Tobacco: Every Day Cigarettes 0.3 34 Started: 03/21/1987; Last attempted to quit: 2020 Smokeless Tobacco: Never Alcohol Use Standard [...] Industry Job Start Date Job End Date [employer] Not on file Not on file Not on file documented as of this encounter Plan of Treatment Upcoming Encounters Date Type Department Care Team (Late st Contact Info) Description 12/22/2024 11:40 AM EDT Office Visit Medical Office Building Surgery Sp[facility] [address], [address] [place] [address] Cata Shaffer PA [address] [place] [address] 02/22/2025 9:00 AM EDT Office Visit [facility] [address] [place] [address] Rodriguez Martin DO [address] [place] [address] 03/17/2025 2:30 PM EDT Office Visit [place] [facility] [address], [address] [place] [address] Manasa Sanchez, PLUG SORTER [address] [place] [address] documented as of this encounter Visit Diagnoses Diagnosis Gastroesophageal reflux disease, unspecified whether esophagitis present documented in this encounter Additional Health Concerns Infection Onset Date Last Indicated Resolved Time Respiratory Rule-Out 11/12/2024 11/12/2024 025 9:22 PM EDT COVID-19 Rule-Out 11/12/2024 11/12/2024 11/12/2024 8:09 PM EDT Assessment Noted Time PHQ-9 Depression Total Score: 12 021 1:29 PM EDT A fall risk assessment has been complete d for the patient 05/10/2022 10:28 AM EST documented as of this encounter Care Teams Lieutenant Shift Supervisor Relationship Specialty Start Date End Date Nora Benz MD [address] [address] PCP - General Family Medicine 12/15/20 05/28/24 Pcp, No 800 [place] [address] PCP - General Family Medicine 09/03/24 10/31/24 Pcp, No 800 [place] [address] PCP - General Family Medicine 11/01/24 Pcp, No 800 [place] [address] Family Medicine 11/01/[address] [facility] [place] [id number] Cardiology 11/09/21 documented as of this encounter
--- OUTSIDE RECORDS SUMMARY | 2024-12-16 09:02 | XMS_ITS | Encounter Summary ---
Author Organization Healthcare Address [address] [place] [address] Care Team Providers Care Adult Health Clinical Nurse Specialist Name Role Phone Pcp, No Primary Care Provider Unavailfer e Zaire Martin MD Unavailable [phone] Encounter Details Date Type Department Care Team (Late st Contact Info) Description 10/29/2024 Telephone [facility] operations officer Clinic [address] [address] Dental, Surgeon, [address] [place], [place] [id number] Social History Tobacco Use Types Packs/Day Years [...] * Telephone Encounter - Juana Hunter - 10/29/2024 12:41 PM EDT Pt called frustrated stating he just had surgery yesterday and he spoke to Dr. Marcelino- the on-call doctor after hours last night and he was going to call in a 10 mg of pain medicine but only called in5mg and demanded that this be fixed. Advised pt I can get him transferred to the nurse and she can try to get that changed. Call was transferred to RN. Pt called back immediately and stated this isn't going to work, I need my medication called in nowand I'm not talking to a voicemail. Advised pt that if the nurse didn't answer she may be on the line assisting another pt but if he leaves a vm she will call him back destiny. Informed pt that I wouldalso send them an email to have them call back to address his concerns. Pt's call was transferred again to the nurse line. Pt called back a minute later demanding to speak with Dr. Marcelino. Advised pt that I don't have a wayto get Dr. Marcelino on the line but I can get a nurse. Pt stated no one other than Dr. Marcelino can help him. Advised pt that is not the case and the nurse would most certainly be able to help him with hismedication issues too. Pt stated If I really have to come up there again it is not going to be pretty for you all. Apologized to pt for the inconvenience and advised pt I will have the nurse call him back destiny. mg documented in this encounter Plan of Treatment Upcoming Encounters Date Type Department Care Team (Late st Contact Info) Description 12/22/2024 11:40 AM EDT Office Visit Medical Office Building Surgery Spine & Joint [address], [address] [place] [address] Cata Shaffer PA [address] [place] [address] 02/22/2025 9:00 AM EDT Office Visit Physical Medicine & Rehabilitation Clinic at [facility] [address] [address] Omi Martinie Douglas, DO [address] [place] [address] 03/17/2025 2:30 PM EDT Office Visit [place] [facility] [address], 1[address] [place] [address] Laura Manasa, SEWING MACHINE OPERATOR ZIPPER [address] [place] [address] documented as of this encounter [...] documented as of this encounter Care Teams Adult Health Clinical Nurse Specialist Relationship Specialty Start Date End Date Pcp, Moriah [address] [place] [address] PCP - General Family Medicine 09/03/24 10/31/24 Zaire Martin [place] [address] Cardiology 11/09/21 documented as of this encounter
--- OUTSIDE RECORDS SUMMARY | 2024-12-16 09:02 | XMS_ITS | Encounter Summary ---
Author Organization Healthcare Address [address] [place] [address] Care Team Providers Care Gang Bore Operator Name Role Phone Pcp, No Primary Care Provider Unavailfer e Zaire Martin MD Unavailable [phone] Encounter Details Date Type Department Care Team (Late st Contact Info) Description 10/26/2024 Telephone [facility]'s devil [facility] [address] [place] [address] [address] [place] [address] Dental, Surgeon, [address] [place], [place] [id number] Social History Tobacco Use Types Packs/Day Years [...] encounter Miscellaneous Notes * Telephone Encounter - Kristy Franks - 10/26/2024 2:39 PM EDT Patient called wanting more information about his insurance coverage for his OR surgery scheduled with Dr. John on 10/28/2024. Patient immediately began yelling, stating that he spent over 2 hours on the phone with [facility] [employer] discussing his dental policy and was told he is covered for oral surgery. Explained that we are out of network with [employer] Dental and patient immediatelyinterrupted me and began yelling that he has in and out of network coverage. Once patient was finished explaining, I informed him that it is [employer] policy, as of January 2024, that we cannot bill out ofnetwork dental policies. Patient continued yelling into the phone voicing his frustrations and confusion as to why we do not accept his insurance. I attempted to further explain however every time I tried to speak, patient interrupted me, further yelling and voicing his frustrations. Patient informed me that he would like to speak with someone who could tell him exactly why we aren't taking his insurance. Began to explain that I could transfer the call to the patient experience department and how the process would work but he immediately began screaming into the phone that he'salready talked to them and wants to speak to my direct senior manufacturing supervisor. Attempted to tell patient that Iwould like to help address his issue but if he continues screaming at me, would be disconnecting the call, but patient screamed at me the entire time I tried speaking. Disconnected the call. documented in this encounter Plan of Treatment Upcoming Encounters Date Type Department Care Team (Late st Contact Info) Description 12/22/2024 11:40 AM EDT Office Visit Medical Office Building Surgery Sp[facility] & Joint [address], [address] [place] [address] Cata Shaffer PA [address] [place] [address] 02/22/2025 9:00 AM EDT Office Visit Physical Medicine & Rehabilitation Clinic at [facility] [address] [place] [address] Rodriguez Martin, DO [address] [place] [address] 03/17/2025 2:30 PM EDT Office Visit [place] [facility] [address], [address]st [place] [address] Laura Manasa, COMMERCIAL LOAN ANALYST [address] [place] [address] documented as of this encounter [...] documented as of this encounter Care Teams Gang Bore Operator Relationship Specialty Start Date End Date Pcp, Moriah [address] [place] [address] PCP - General Family Medicine 09/03/24 10/31/24 Zaire Martin [place] [address] Cardiology 11/09/21 documented as of this encounter
--- OUTSIDE RECORDS SUMMARY | 2024-12-16 09:02 | XMS_ITS | Encounter Summary ---
Author Organization Healthcare Address [address] [place] [address] Care Team Providers Care Coffee Break Attendant Name Role Phone Nora Benz MD Primary Care Provider [phone] Pcp, No Primary Care Provider Unavailabl e Pcp, No Primary Care Provider Unavailabl e Pcp, No Unavailable Unavailable Zaire Martin MD Unavailable [phone] Encounter Details Date Type Department Care Team (Late st Contact Info) Description 10/13/2021 Orders Only External Location 800 [place] [id number] Provider, External Social History Tobacco Use Types [...] Joint [address], [address] [place] [address] Cata Shaffer PA [address] [place] [address] 02/22/2025 9:00 AM EDT Office Visit Physical Medicine & Rehabilitation Clinic at [facility] [address] [place] [address] Rodriguez Martin, [address] [place] [address] 03/17/2025 2:30 PM EDT Office Visit [place] [facility] [address], [address] [place] [address] Laura Mansaa, AUTOMATION TECH [address] [place] [address] documented as of this encounter Procedures Procedure Name Priority Date/Time Associated Diagnosis Comments XR THORACIC OUTSIDE IMAGES 10/13/2021 2:52 PM EDT documented in this encounter Results * XR THORACIC OUTSIDE IMAGES (10/13/2021 2:52 PM EDT) Anatomical Region Laterality Modality Radiographic Adela ging 10/13/2021 2:52 PM EDT External Provider IMG XR PROCEDURES Final [...] documented as of this encounter Care Teams Coffee Break Attendant Relationship Specialty Start Date End Date Nora Benz MD [address] [facility] [address] [place] [address] PCP - General Family Medicine 12/15/20 05/28/24 Pcp, No 800 [place] [address] PCP - General Family Medicine 09/03/24 10/31/24 Pcp, No 800 [place] [address] PCP - General Family Medicine 11/01/24 Pcp, No 800 [place] [address] Family Medicine 11/01/24 Zaire Martin MD [facility] [address] Cardiology 11/09/21 documented as of this encounter
--- OUTSIDE RECORDS SUMMARY | 2024-12-16 09:02 | XMS_ITS | Encounter Summary ---
Author Organization Healthcare Address [address] [place] [address] Care Team Providers Care Mid Level Game Designer Name Role Phone Nora Benz MD Primary Care Provider + [phone] Pcp, No Primary Care Provider Unavailabl e Pcp, No Primary Care Provider Unavailabl e Pcp, No Unavailable Unavailable Zaire Martin MD Unavailable [phone] Encounter Details Date Type Department Care Team (Late st Contact Info) Description 02/26/2021 Orders Only External Location [address] [place] [id number] Provider, External Social History Tobacco Use Types [...] Building Surgery Spine & Joint [address] [facility], [address] [place] [address] Cata Shaffer PA [address] [place] [address] 02/22/2025 9:00 AM EDT Office Visit Physical Medicine & Rehabilitation Clinic at [facility] [address] [place] [address] Veronica Rodriguez Douglas, [address] [place] [address] 03/17/2025 2:30 PM EDT Office Visit [place] [facility] [address], 1st [place] [address] Manasa Sanchez, DIE REPAIRER STAMPING [address] [place] [address] documented as of this encounter Procedures Procedure Name Priority Date/Time Associated Diagnosis Comments US OUTSIDE IMAGES 02/26/2021 3:11 PM EDT documented in this encounter Results * US OUTSIDE IMAGES (02/26/2021 3:11 PM EDT) Anatomical Region Laterality Modality Ultrasound 02/26/2021 3:11 PM EDT us External Provider IMG US PROCEDURES Final Result documented in this encounter Visit Diagnoses Not on filedocumented in this encounter Additional Health Concerns Infection Onset Date Last Indicated Resolved Time Respiratory Rule-Out 11/12/2024 11/12/2024 025 9:22 PM EDT COVID-19 Rule-Out 11/12/2024 11/12/2024 11/12/2024 8:09 PM EDT documented as of this encounter Care Teams Mid Level Game Designer Relationship Specialty Start Date End Date Nora Benz MD [address] [place] [address] PCP - General Family Medicine 12/15/20 05/28/24 [place] [address] PCP - General Family Medicine 09/03/24 10/31/24 Pcp, No 800 [place] [address] PCP - General Family Medicine 11/01/24 Pcp, No 800 [place] [address] Family Medicine 11/01/24 Zaire Martin MD [facility] [place] [address] Cardiology 11/09/21 documented as of this encounter
--- OUTSIDE RECORDS SUMMARY | 2024-12-16 09:02 | XMS_ITS | Encounter Summary ---
Author Organization Healthcare Address [address] [place] [address] Care Team Providers Care Acid Bath Mixer Name Role Phone Nora Benz MD Primary Care Provider [phone] Pcp, No Primary Care Provider Unavailabl e Pcp, No Primary Care Provider Unavailabl e Pcp, No Unavailable Unavailable Zaire Martin MD Unavailable [phone] Encounter Details Date Type Department Care Team (Late st Contact Info) Description 03/20/2021 Orders Only External Location [address] [place] [address] Jesus Darnell MD [address] [place] [address] Social History Tobacco Use Types Packs/Day Years [...] Orientation Straight 12/06/2021 2: 04 PM EDT COVID-19 Exposure Response Date Recorded In the last month, have you been in contact with someone who was confirmed or suspected to have Coronavirus / COVID-19? No / Unsure 03/21/2021 1:21 PM EDT documented as of this encounter Functional Status * Over the past 2 weeks, how often have you been bothered by any of the following problems? Question Answer Date of Assessment Author Little interest or pleasure in doing things Nearly every day 03/21/2021 1:29 PM EDT Laura Jackson LPN Feeling down, depressed, or hopeless Nearly every day 03/21/2021 1:29 PM EDT Laura Jackson L PN Patient Health Questionnaire-2 Score 6 03/21/2021 1:29 PM EDT Laura Jackson LPN * Question Answer Date of Assessment Author Trouble falling or staying asleep, or sleeping too much More than half the days 03/21/2021 1:29 PM EDT Laura Jackson LPN Feeling tired or having little energy Nearly every day 03/21/2021 1:29 PM EDT Laura Jackson LPN Poor appetite or overeating Not at all 03/21/2021 1:29 PM EDT Laura Jackson LPN Feeling bad about yourself - or that you are a failure or have let yourself or your family down Not at all 03/21/2021 1:29 PM EDT Laura Jackson LPN Trouble concentrating on things, such as reading the newspaper or watching television Several days 03/21/2021 1:29 PM EDT Laura Jackson LPN Moving or speaking so slowly that other people could have noticed? Or the opposite - being so fidgety or restless that you have been moving around a lot more than usual. Not at all 03/21/2021 1:29 PM EDT Laura Jackson LPN Thoughts that you would be better off or hurting yourself in some way Not at all 03/21/2021 1:29 PM EDT Laura Jackson LPN Patient Health Questionnaire-9 Score 12 03/21/2021 1:29 PM EDT Laura Jackson LPN * Calculated C-SSRS Risk Score (Lifetime/Recent) Answer Date of Assessment Author No Risk Indicated 03/21/2021 1:30 PM EDT Jeana Jackson LPN * Question Answer Date of Assessment Author 1. Wish to be (Past 1 Month) No 021 1:30 PM EDT Laura Jackson LPN 2. Non-Specific Active Suici anai Thoughts (Past 1 Month) No 03/21/2021 1:30 PM EDT Laura Jackson LPN 6. Suicidal Behavior (Lifetime) No 1:30 PM EDT Laura Jackson LPN documented as of this encounter Plan of Treatment Upcoming Encounters Date Type Department Care Team (Late st Contact Info) Description 12/22/2024 11:40 AM EDT Office Visit Medical Office Building Surgery Spine & Joint [address], [address] [place] [address] Cata Shaffer, PA [address] [place] [address] 02/22/2025 9:00 AM EDT Office Visit [facility] [address] [place] [address] Rodriguez Martin DO [address] [place] [address] 03/17/2025 2:30 PM EDT Office Visit [place] [facility] [address], [address]st [place] [address] Manasa Sanchez, FOUNDRY WORKER APPRENTICE [address] [place] [address] documented as of this encounter Procedures Procedure Name Priority Date/Time Associated Diagnosis Comments CT THORACIC OUTSIDE IMAGES 03/20/2021 10:35 AM EDT documented in this encounter Results * CT THORACIC OUTSIDE IMAGES (03/20/2021 10:35 AM EDT) Anatomical Region Laterality Modality Computed Tomogra phy 03/20/2021 10:3 5 AM EDT Jesus Darnell MD IMG CT PROCEDURES Final Result documented in this encounter Visit Diagnoses Not on filedocumented in this encounter Additional Health Concerns Infection Onset Date Last Indicated Resolved Time Respiratory Rule-Out 11/12/2024 11/12/2024 025 9:22 PM EDT COVID-19 Rule-Out 11/12/2024 11/12/2024 11/12/2024 8:09 PM EDT documented as of this encounter Care Teams Acid Bath Mixer Relationship Specialty Start Date End Date Nora Benz MD [address] [address] PCP - General Family Medicine 12/15/20 05/28/24 Pcp, No 800 [place] [address] PCP - General Family Medicine 09/03/24 10/31/24 Pcp, No 800 [place] [address] PCP - General Family Medicine 11/01/24 Pcp, No [address] [place] [address] Family Medicine 11/01/24 [facility] [place] [id number] Cardiology 11/09/21 documented as of this encounter
--- OUTSIDE RECORDS SUMMARY | 2024-12-16 09:02 | XMS_ITS | Encounter Summary ---
Author Organization Healthcare Address [address] [place] [address] Care Team Providers Care Sewer Contractor Name Role Phone Nora Benz MD Primary Care Provider [phone] Pcp, No Primary Care Provider Unavailabl e Pcp, No Primary Care Provider Unavailabl e Pcp, No Unavailable Unavailable Zaire Martin MD Unavailable [phone] Encounter Details Date Type Department Care Team (Late st Contact Info) Description 03/12/2023 Orders Only External Location 800 [place] [id number] Provider, External Social History Tobacco Use Types [...] Joint [address], [address] [place] [address] Cata Shaffer PA [address] [place] [address] 02/22/2025 9:00 AM EDT Office Visit [facility] [address] [place] [address] Rodriguez Martin DO [address] [place] [address] 03/17/2025 2:30 PM EDT Office Visit [facility] [address], [address] [place] [address] Manasa Sanchez, PIN DRAFTING MACHINE OPERATOR [address] [place] [address] documented as of this encounter Procedures Procedure Name Priority Date/Time Associated Diagnosis Comments CT OUTSIDE IMAGES 03/12/2023 12:34 PM EDT documented in this encounter Results * CT OUTSIDE IMAGES (03/12/2023 12:34 PM EDT) Anatomical Region Laterality Modality Computed Tomogra phy 03/12/2023 12:3 4 PM EDT us External Provider IMG CT PROCEDURES Final Result [...] documented as of this encounter Care Teams Sewer Contractor Relationship Specialty Start Date End Date Nora Benz MD [address] [address] PCP - General Family Medicine 12/15/20 05/28/24 Pcp, No 800 [place] [address] PCP - General Family Medicine 09/03/24 10/31/24 Pcp, No 800 [place] [address] PCP - General Family Medicine 11/01/24 Pcp, No 800 [place] [address] Family Medicine 11/01/24 Zaire Martin MD [facility] [place] [address] Cardiology 11/09/21 documented as of this encounter
--- OUTSIDE RECORDS SUMMARY | 2024-12-16 09:02 | XMS_ITS | Encounter Summary ---
Author Organization Healthcare Address [address] [place] [id number] Care Team Providers Care Banquet Director Name Role Phone Pcp, No Primary Care Provider Unavailabl e Pcp, No Primary Care Provider Unavailabl e Pcp, No Unavailable Unavailable Zaire Martin MD Unavailable [phone] Encounter Details Date Type Department Care Team (Late st Contact Info) Description 10/29/2024 Orders Only [facility] [address] [place], [place] [phone] Phong Barron MD [address] [place], [place] [id number] Social History Tobacco Use Types Packs/Day Years [...] on file documented as of this encounter Functional Status [...] Khan RN documented as of this encounter Plan of Treatment Upcoming Encounters Date Type Department Care Team (Late st Contact Info) Description 12/22/2024 11:40 AM EDT Office Visit Medical Office Building Surgery Spine & Joint [address], [address] [place] [address] Cata Shaffer, PA [address] [place] [address] 02/22/2025 9:00 AM EDT Office Visit [facility] [address] [address] Rodriguez Martin DO [address] [place] [address] 03/17/2025 2:30 PM EDT Office Visit [place] [facility] [address], [address] [place] [address] Manasa Sacnhez, TRE [address] [place] [address] documented as of this encounter [...] documented as of this encounter Care Teams Banquet Director Relationship Specialty Start Date End Date Pcp, No [address] [place] [address] PCP - General Family Medicine 09/03/24 10/31/24 Pcp, No 800 [place] [address] PCP - General Family Medicine 11/01/24 Pcp, No 800 [place] [address] Family Medicine 11/01/24 Zaire Martin MD [facility] [place] [address] Cardiology 11/09/21 documented as of this encounter
--- OUTSIDE RECORDS SUMMARY | 2024-12-16 09:02 | XMS_ITS | Encounter Summary ---
Author Organization Healthcare Address [address] [place] [address] Care Team Providers Care Analyst Business Analysis Name Role Phone Pcp, No Primary Care Provider Unavailabl e Zaire Martin MD Unavailable [phone] Encounter Details Date Type Department Care Team (Late st Contact Info) Description 10/26/2024 Telephone [facility] general surgery physician assistant [facility] [address] [address] None, None [address] [place], [place] [id number] Social History Tobacco Use Types Packs/Day Years [...] encounter Miscellaneous Notes * Telephone Encounter - Gustavo Rouse - 10/26/2024 3:43 PM EDT Patient called upset regarding his OON ins and [facility] current policy regarding non-filing for OON patients. The patient was in a heightened state and dsconnected line as he had another call documented in this encounter Plan of Treatment Upcoming Encounters Date Type Department Care Team (Late st Contact Info) Description 12/22/2024 11:40 AM EDT Office Visit Medical Office Building [facility] [address], [address] [place] [address] Cata Shaffer, PA [address] [place] [address] 02/22/2025 9:00 AM EDT Office Visit Physical Medicine & Rehabilitation Clinic at [facility] [address] [place] [address] Rodriguez Martin DO [address] [place] [address] 03/17/2025 2:30 PM EDT Office Visit [facility] [address], [address] [place] [address] Manasa Sanchez, TRE [address] [place] [address] documented as of this encounter [...] documented as of this encounter Care Teams Analyst Business Analysis Relationship Specialty Start Date End Date Pcp, Moriah [address] [place] [address] PCP - General Family Medicine 09/03/24 10/31/24 Z[facility] [place] [address] Cardiology 11/09/21 documented as of this encounter
--- OUTSIDE RECORDS SUMMARY | 2024-12-16 09:02 | XMS_ITS | Encounter Summary ---
Author Organization Healthcare Address [address] [place] [address] Care Team Providers Care Construction Stonemason Name Role Phone Nora Benz MD Primary Care Provider [phone] Pcp, No Primary Care Provider Unavailabl e Pcp, No Primary Care Provider Unavailabl e Pcp, No Unavailable Unavailable Zaire Matrin MD Unavailable [phone] Encounter Details Date Type Department Care Team (Late st Contact Info) Description 08/07/2021 Orders Only External Location [address] [place] [id number] Provider, External Social History Tobacco Use Types [...] Joint [address], [address] [place] [address] Cata Shaffer, IONA [address] [place] [address] 02/22/2025 9:00 AM EDT Office Visit Physical Medicine & Rehabilitation Clinic at [facility] [address] [place] [address] Rodriguez Martin, [address] [place] [address] 03/17/2025 2:30 PM EDT Office Visit [facility] [address], [address] [place] [address] Manasa Sanchez, LOCAL ANNOUNCER [address] [place] [address] documented as of this encounter Procedures Procedure Name Priority Date/Time Associated Diagnosis Comments XR OUTSIDE IMAGES 08/07/2021 11:59 AM EST documented in this encounter Results * XR OUTSIDE IMAGES (08/07/2021 11:59 AM EST) Anatomical Region Laterality Modality Radiographic Adela ging 08/07/2021 11:5 9 AM EST External Provider IMG XR PROCEDURES Final Result [...] documented as of this encounter Care Teams Construction Stonemason Relationship Specialty Start Date End Date Nora Benz MD [address] [place] [address] PCP - General Family Medicine 12/15/20 05/28/24 Pcp, No [address] [place] [address] PCP - General Family Medicine 09/03/24 10/31/24 Pcp, No [address] [place] [address] PCP - General Family Medicine 11/01/24 Pcp, No [address] [place] [address] Family Medicine 11/01/24 Zaire Martin MD [facility] [place] [address] [address] Cardiology 11/09/21 documented as of this encounter
--- OUTSIDE RECORDS SUMMARY | 2024-12-16 09:02 | XMS_ITS | Encounter Summary ---
Author Organization Healthcare Address [address] [place] [address] Care Team Providers Care Health Assessment And Treatment Teacher Name Role Phone Pcp, No Primary Care Provider Unavailabl e Zaire Martin MD Unavailable [phone] Encounter Details Date Type Department Care Team (Latest Contact Info) Description 10/26/2024 Travel Social History Tobacco Use Types Packs/Day [...] Joint [address], [address] [place] [address] Cata Shaffer PA [address] [place] [id number] 02/22/2025 9:00 AM EDT Office Visit Physical Medicine & Rehabilitation Clinic at [facility] [address] [place] [address] Rodriguez Martin, DO [address] [place] [address] 03/17/2025 2:30 PM EDT Office Visit [place] [facility] [address], 1[address] [place] [address] Manasa Sanchez, TRE [address] [place] [address] documented as of this encounter [...] documented as of this encounter Care Teams Health Assessment And Treatment Teacher Relationship Specialty Start Date End Date Pcp, [place] [address] PCP - General Family Medicine 09/03/24 10/31/24 Zaire Martin MD [address] [place] [address] Cardiology 11/09/21 documented as of this encounter
--- OUTSIDE RECORDS SUMMARY | 2024-12-16 09:02 | XMS_ITS | Encounter Summary ---
Author Organization [facility] Address [address] [id number] Care Team Providers Care Retail Store Clerk Name Role Phone Pcp, No Primary Care Provider Unavailfer e Zaire Martin MD Unavailable [phone] Encounter Details Date Type Department Care Team (Late st Contact Info) Description 10/29/2024 Telephone [facility] medical lead [facility] [address] [place] [address] [address] [place] [address] [place] [address] Social History Tobacco Use Types Packs/Day Years [...] encounter Miscellaneous Notes * Telephone Encounter - Nazia Wood RN - 10/29/2024 1:12 PM EDT Returned patients call regarding pain medications. Pt states the recent Rx is not enough and a dose for babies . I tried to explain that he had used previous Narcotic Rx too soon (over dosing med) and that the new Rx was for 2 days. He DEMANDED to speak with the doctor and became verbally abusive on phone using expletives and shouting. Multiple times I asked him to calm down so we could discuss his issue and how to resolve it within our parameters but he was unwilling to hear me out. After he began to shout and curse again into the phone, I advised him I was ending the call and would relay the info to Dr. Marcelino. I then ended the call in the middle of his shouting/cursing at me. Dr. Marcelino/Alek advised of situation. documented in this encounter Plan of Treatment Upcoming Encounters Date Type Department Care Team (Late st Contact Info) Description 12/22/2024 11:40 AM EDT Office Visit Medical Office Building Surgery [facility] [address] [facility], [address] [place] [address] Cata Shaffer, PA [address] [place] [address] 02/22/2025 9:00 AM EDT Office Visit Physical Medicine & Rehabilitation Clinic at [facility] [address] [place] [address] Rodriguez Martin DO [address] [facility] [address] [place] [address] 03/17/2025 2:30 PM EDT [facility] Visit [place] [facility] [address] [place] [address] Manasa Sanchez APRN [address] [place] [address] documented as of this encounter [...] documented as of this encounter Care Teams Retail Store Clerk Relationship Specialty Start Date End Date Pcp, Moriah [address] [place] [address] PCP - General Family Medicine 09/03/24 10/31/24 Zaire Martin MD [facility] [place] [address] Cardiology 11/09/21 documented as of this encounter
--- OUTSIDE RECORDS SUMMARY | 2024-12-16 09:02 | XMS_ITS | Encounter Summary ---
Author Organization Healthcare Address [address] [place] [address] Care Team Providers Care Purchasing Associate Name Role Phone Nora Benz MD Primary Care Provider [phone] Pcp, No Primary Care Provider Unavailabl e Pcp, No Primary Care Provider Unavailabl e Pcp, No Unavailable Unavailable Zaire Martin MD Unavailable [phone] Encounter Details Date Type Department Care Team (Late st Contact Info) Description 03/20/2021 Orders Only External Location [address] [place] [id number] Provider, External Social History Tobacco Use Types [...] Joint [address], [address] [place] [address] Cata Shaffer, PA [address] [place] [address] 02/22/2025 9:00 AM EDT Office Visit Physical Medicine & Rehabilitation Clinic at [facility] [address] [place] [address] Rodriguez Martin DO [address] [place] [address] 03/17/2025 2:30 PM EDT Office Visit [place] [facility] [address], [address] [place] [address] Manasa Sanchez, REMOTE MORTGAGE UNDERWRITER [address] [place] [address] documented as of this encounter Procedures Procedure Name Priority Date/Time Associated Diagnosis Comments US OUTSIDE IMAGES 03/20/2021 1:16 PM EDT documented in this encounter Results * US OUTSIDE IMAGES (03/20/2021 1:16 PM EDT) Anatomical Region Laterality Modality Ultrasound 03/20/2021 1:16 PM EDT us External Provider IMG US PROCEDURES Final Result documented in this encounter Visit Diagnoses Not on filedocumented in this encounter Additional Health Concerns Infection Onset Date Last Indicated Resolved Time Respiratory Rule-Out 11/12/2024 11/12/2024 025 9:22 PM EDT COVID-19 Rule-Out 11/12/2024 11/12/2024 11/12/2024 8:09 PM EDT documented as of this encounter Care Teams Purchasing Associate Relationship Specialty Start Date End Date Nora Benz MD [address] [address] PCP - General Family Medicine 12/15/20 05/28/24 Pcp, No [address] [place] [address] PCP - General Family Medicine 09/03/24 10/31/24 Pcp, No [address] [place] [address] PCP - General Family Medicine 11/01/24 Pcp, No [address] [place] [address] Family Medicine 11/01/24 Zaire Martin [facility] [place] [address] Cardiology 11/09/21 documented as of this encounter
--- OUTSIDE RECORDS SUMMARY | 2024-12-16 09:03 | XMS_ITS | Encounter Summary ---
Author Organization Healthcare Address [address] [place] [address] Care Team Providers Care Photographic Reproduction Technician Name Role Phone Nora Benz MD Primary Care Provider [phone] Pcp, No Primary Care Provider Unavailabl e Pcp, No Primary Care Provider Unavailabl e Pcp, No Unavailable Unavailable Zaire Martin MD Unavailable [phone] Encounter Details Date Type Department Care Team (Late st Contact Info) Description 03/02/2021 Orders Only External Location [address] [place] [id number] Provider, External Social History Tobacco Use Types [...] Building Surgery [facility] [address] [facility], [address] [place] [address] Cata Shaffer PA [address] [place] [address] 02/22/2025 9:00 AM EDT Office Visit Physical Medicine & Rehabilitation Clinic at [facility] [address] [place] [address] Veronica Rodriguez Douglas, [address] [place] [address] 03/17/2025 2:30 PM EDT Office Visit [place] [facility] [address], [address] [place] [address] Manasa Sanchez, CONFERENCE CENTER COORDINATOR [address] [place] [address] documented as of this encounter Procedures Procedure Name Priority Date/Time Associated Diagnosis Comments IR CHEST OUTSIDE IMAGES 03/02/2021 7:33 AM EDT documented in this encounter Results * IR CHEST OUTSIDE IMAGES (03/02/2021 7:33 AM EDT) Anatomical Region Laterality Modality X-Ray Angiograph y 03/02/2021 7:33 AM EDT us External Provider IMG IR PROCEDURES Final Result documented in this encounter Visit Diagnoses Not on filedocumented in this encounter Additional Health Concerns Infection Onset Date Last Indicated Resolved Time Respiratory Rule-Out 11/12/2024 11/12/2024 025 9:22 PM EDT COVID-19 Rule-Out 11/12/2024 11/12/2024 11/12/2024 8:09 PM EDT documented as of this encounter Care Teams Photographic Reproduction Technician Relationship Specialty Start Date End Date Nora Benz MD [address] [place] [address] PCP - General Family Medicine 12/15/20 05/28/24 Pcp, No [address] [place] [address] PCP - General Family Medicine 09/03/24 10/31/24 Pcp, No [address] [place] [address] PCP - General Family Medicine 11/01/24 Pcp, No [address] [place] [address] Family Medicine 11/01/24 Zaire Martin MD [facility] [place] [address] Cardiology 11/09/21 documented as of this encounter
--- OUTSIDE RECORDS SUMMARY | 2024-12-16 09:03 | XMS_ITS | Clinical Summary ---
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 PM EDT OXYGEN THERAPY STAT 11/01/2024 8:00 PM EDT VENTILATOR - ADULT [...] ANGIO HEAD STAT 11/01/2024 8:35 AM EDT END TIDAL CO2 MONITORING Routine 11/01/2024 8:00 AM EDT OXYGEN THERAPY STAT 11/01/2024 8:00 AM EDT POCT VENOUS BLOOD GAS GEM UNSOLICITED RESULTS Routine 11/01/2024 7:52 AM EDT XR CHEST 1 VIEW STAT 11/01/2024 6:40 AM EDT OXYCODONE CONFIRMATION,URINE STAT 11/01/2024 6:38 AM EDT OPIATES, LCMSMS, URINE STAT 11/01/2024 6:38 AM EDT FENTANYL, URINE STAT 11/01/2024 6:38 AM EDT COCAINE METABOLITE CONFIRM URINE STAT 11/01/2024 6:38 AM EDT THC URINE CONFIRM STAT 11/01/2024 6:3 8 AM EDT BENZODIAZEPINE, URINE, QUANTITATIVE STAT 11/01/2024 6:38 AM EDT URINALYSIS MICROSCOPIC FOR UA REFLEX STAT 11/01/2024 6:38 AM EDT URINALYSIS WITH REFLEX MICROSCOPIC STAT 11/01/2024 6:38 AM EDT DRUG ABUSE SCREEN, URINE STAT 11/01/2024 6:38 AM EDT SBT - SPONTANEOUS BREATHING TRIAL Routine 11/01/2024 6:36 AM EDT SBT - SPONTANEOUS BREATHING TRIAL Routine 11/01/2024 6:36 AM EDT END TIDAL CO2 MONITORING Routine 11/01/2024 6:36 AM EDT END TIDAL CO2 MONITORING Routine 11/01/2024 6:36 AM EDT END TIDAL CO2 MONITORING Routine 11/01/2024 6:36 AM EDT VENTILATOR - [...] IV CONTRAST STAT 11/01/2024 5:04 AM EDT TRIGLYCERIDES, PLASMA Add-On 11/01/2024 4:37 AM EDT ED HIV 1/2 ANTIBODY/ANTIGEN SCREEN WITH REFLEX TO HIV I/II DIFFERENTIATION Routine 11/01/2024 4:37 AM EDT ED PROTOCOL HIV 1/2 ANTIBODY/ANTIGEN SCREEN W/REFLEX TO HIV 1/2 ANTIBODY DIFFERENTIATION Routine 11/01/2024 4:37 AM EDT HEPATITIS C ANTIBODY - ED W/REFLEX TO HCV QUANT PCR Routine 11/01/2024 4:37 AM EDT TYPE AND SCREEN Timed 11/01/2024 4:37 AM EDT TEG GLOBAL HEMOSTASIS WITH LYSIS STAT 11/01/2024 4:37 AM EDT ETHYL ALCOHOL PLASMA STAT 11/01/2024 4:37 AM EDT APTT STAT 11/01/2024 4:37 AM EDT PROTHROMBIN TIME(PT) / INR STAT 11/01/2024 4:37 AM EDT CBC W/O DIFFERENTIAL STAT 11/01/2024 4:37 AM EDT COMPREHENSIVE METABOLIC PANEL, PLASMA STAT 11/01/2024 4:37 AM EDT OXYGEN THERAPY STAT 11/01/2024 4:20 AM EDT OXYGEN THERAPY STAT 11/01/2024 4:20 AM EDT OXYGEN THERAPY STAT 11/01/2024 4:20 AM EDT INTUBATION Routine 11/01/2024 4:12 AM EDT SURGICAL PATHOLOGY EXAM Routine 10/28/2024 3:56 PM EDT Radiolucent lesion in maxilla PB ANESTHESIA PLACEHOLDER Routine 10/28/2024 3:09 PM EDT UT AN ELECTIVE ENDOTRACHEAL AIRWAY Routine 10/28/2024 3:09 PM EDT UT EXCISION,BENIGN TUMOR,MAXILLA/ZYGOMA 10/28/2024 2:45 PM EDT Radiolucent lesion in maxilla PANORAMIC RADIOGRAPHIC IMAGE Routine 09/03/2024 1:45 PM EDT Dental caries COMPREHENSIVE ORAL EVALUATION - NEW OR ESTABLISHED PATIENT Routine 09/03/2024 1:45 PM EDT Dental caries from Last 3 Months or Most Recently Relevant to Health Maintenance Results * ECG Adult (11/27/2024 4:16 AM EDT) Only the most recent of3 resultswithin the time period is included. EKG DIAGNOSIS CLASS Abnormal MUSE ECG Ventricular Rate 69 BPM MUSE ECG Atrial Rate 69 BPM MUSE ECG UT Interval 166 ms MUSE ECG QRSD Interval 128 ms MUSE ECG QT Interval 430 ms MUSE ECG QTC Interval 460 ms MUSE ECG P [place] 43 degrees MUSE ECG R [place] -38 degrees MUSE ECG T Wave [place] 41 degrees MUSE ECG Diagnosis Normal sinus rhythm MUSE ECG Diagnosis Left axis deviation MUSE ECG Diagnosis Right bundle branch block MUSE ECG Diagnosis Inferior infarct , age undetermined MUSE ECG Diagnosis MUSE ECG Diagnosis MUSE ECG Diagnosis Confirmed by Melchor Cast ([id number]) on 11/27/2024 10:54:32 AM MUSE ECG 11/27/2024 4:16 AM EDT 11/27/2024 10:54 AM EDT us Terell Kamara Ianjennachrisdebra TRE, DNP ECG ORDERABLES F inal Result MUSE ECG * (ABNORMAL) CBC W/O Differential (11/27/2024 3:26 AM EDT) Only the most recent of12 resultswithin the time period is included. WBC Count 7.43 3.70 - 10.30 10*3/uL LAB HEMATOLOGY METHOD 11/27/2024 3:54 AM EDT [facility] RBC Count 4.12(L) 4.60 - 6.10 10*6/uL LAB HEMATOLOGY METHOD 11/27/2024 3:54 AM EDT [facility] HGB 12.8(L) 13.7 - 17.5 g/dL LAB HEMATOLOGY METHOD 11/27/2024 3:54 AM EDT [facility] HCT 37.6(L) 40.0 - 51.0 % LAB HEMATOLOGY METHOD 11/27/2024 3:54 AM EDT [facility] Platelet Count 291 155 - 369 10*3/uL LAB HEMATOLOGY METHOD 11/27/2024 3:54 AM EDT [facility] MCV 91 79 - 98 fL LAB HEMATOLOGY METHOD 11/27/2024 3:54 AM EDT [facility] MCH 31.1 26.0 - 32.0 pg LAB HEMATOLOGY METHOD 11/27/2024 3:54 AM EDT [facility] MCHC 34.0 30.7 - 35.5 g/dL LAB HEMATOLOGY METHOD 11/27/2024 3:54 AM EDT [facility] RDW 13.3 11.5 - 14.5 % LAB HEMATOLOGY METHOD 11/27/2024 3:54 AM EDT [facility] MPV 10.6 8.8 - 12.5 fL LAB HEMATOLOGY METHOD 11/27/2024 3:54 AM EDT [facility] nRBC 0.0 <=0.0 per 100 WBCs LAB HEMATOLOGY METHOD 11/27/2024 3:54 AM EDT [facility] Blood Venous blood specimen / Unknown Venipuncture / Unknown 11/27/2024 3:26 AM EDT 11/27/2024 3:44 AM EDT Terell Das APRN, KURT LAB BLOOD ORDERAB LES Final Result [facility] [address] [place] [address] * (ABNORMAL) Comprehensive metabolic panel (11/27/2024 3:26 AM EDT) Only the most recent of2 resultswithin the time period is included. Glucose, Plasma 88 74 - 99 mg/dL 11/27/2024 4:13 AM EDT [facility] BUN, Plasma 12 7 - 21 mg/dL 11/27/2024 4:13 AM EDT [facility] Creatinine, Plasma 0.80 0.70 - 1.20 mg/dL 11/27/2024 4:13 AM EDT [facility] BUN/Creatinine Ratio 15 11/27/2024 4:13 AM EDT [facility] Sodium, Plasma 139 136 - 145 mmol/L 11/27/2024 4:13 AM EDT [facility] Potassium, Plasma 4.2 3.6 - 4.9 mmol/L 11/27/2024 4:13 AM EDT [facility] Chloride, Plasma 106 97 - 107 mmol/L 11/27/2024 4:13 AM EDT [facility] CO2, Plasma 22 22 - 29 mmol/L 11/27/2024 4:13 AM EDT [facility] Anion Gap 11 6 - 16 mmol/L 11/27/2024 4:13 AM EDT [facility] Total Calcium, Plasma 9.4 8.9 - 10.2 mg/dL 11/27/2024 4:13 AM EDT [facility] Total Protein 6.4 6.3 - 7.9 g/dL 11/27/2024 4:13 AM EDT [facility] Albumin, Plasma 3.8 3.5 - 5.2 g/dL 11/27/2024 4:13 AM EDT [facility] AST, Plasma 17 10 - 50 U/L 11/27/2024 4:13 AM EDT [facility] Comment:Hemolyzed, result ma y be falsely increased. ALT, Plasma 13 10 - 50 U/L 11/27/2024 4:13 AM EDT [facility] Alkaline Phosphatase, Plasma 137(H) 40 - 115 U/L 11/27/2024 4:13 AM EDT [facility] Total Bilirubin, Plasma 0.7 0.2 - 1.1 mg/dL 11/27/2024 4:13 AM EDT [facility] eGFRcr 106.5 mL/min/1.7 3m*2 11/27/2024 4:13 AM EDT [facility] Comment:Reported eGFRcr in m L/min/1.73m2 is based the CKD-EPI 2020 equation that does not use a race coefficient. Blood Venous blood specimen / Unknown Venipuncture / Unknown 11/27/2024 3:26 AM EDT 11/27/2024 3:43 AM EDT us Terelldahiana Das APRN, DNP LAB BLOOD ORDERAB LES Final Result [facility] [address] [place] [address] * XR Thoracic Spine 2 Views (11/26/2024 [...] with redistribution compression deformity of L1 and [id number] appearance compared to prior study. No evidence [...] Chisholm MD on 11/26/2024 11:42 PM us Paul Srinivasan MD IMG XR PROCEDURES Final Result * [...] with redistribution compression deformity of L1 and Q3luoeiti appearance compared to prior study. No evidence [...] Ja Chisholm MD on 11/26/2024 11:42 PM Paul Srinivasan MD IMG XR PROCEDURES Final Result * (ABNORMAL) Sed rate, automated (11/26/2024 9:46 PM EDT) Sedimentation Rate 21(H) <20 mm/hr 2024 10:03 PM EDT [facility] Blood Venous blood specimen / Unknown Venipuncture / Unknown 11/26/2024 9:46 PM EDT 11/26/2024 9:48 PM EDT us Paul Srinivasan MD LAB BLOOD ORDERABLES Final Res ult [facility] [address] [place] [address] * (ABNORMAL) CBC w/diff (11/26/2024 9:46 PM EDT) Only the most recent of3 resultswithin the time period is included. WBC Count 10.56(H) 3.70 - 10.30 10*3/uL LAB HEMATOLOGY METHOD 11/26/2024 9:50 PM EDT [facility] RBC Count 4.49(L) 4.60 - 6.10 10*6/uL LAB HEMATOLOGY METHOD 11/26/2024 9:50 PM EDT [facility] HGB 13.9 13.7 - 17.5 g/dL LAB HEMATOLOGY METHOD 11/26/2024 9:50 PM EDT [facility] HCT 40.2 40.0 - 51.0 % LAB HEMATOLOGY METHOD 11/26/2024 9:50 PM EDT [facility] Platelet Count 367 155 - 369 10*3/uL LAB HEMATOLOGY METHOD 11/26/2024 9:50 PM EDT [facility] MCV 90 79 - 98 fL LAB HEMATOLOGY METHOD 11/26/2024 9:50 PM EDT [facility] MCH 31.0 26.0 - 32.0 pg LAB HEMATOLOGY METHOD 11/26/2024 9:50 PM EDT [facility] MCHC 34.6 30.7 - 35.5 g/dL LAB HEMATOLOGY METHOD 11/26/2024 9:50 PM EDT [facility] RDW 13.2 11.5 - 14.5 % LAB HEMATOLOGY METHOD 11/26/2024 9:50 PM EDT [facility] MPV 10.3 8.8 - 12.5 fL LAB HEMATOLOGY METHOD 11/26/2024 9:50 PM EDT [facility] nRBC 0.0 <=0.0 per 100 WBCs LAB HEMATOLOGY METHOD 11/26/2024 9:50 PM EDT [facility] Differential Type Automated LAB HEMATOLOGY METHOD 11/26/2024 9:50 PM EDT [facility] Neutrophils % 51 % LAB HEMATOLOGY METHOD 11/26/2024 9:50 PM EDT [facility] Lymphocytes % 39 % LAB HEMATOLOGY METHOD 11/26/2024 9:50 PM EDT [facility] Monocytes % 6 % LAB HEMATOLOGY METHOD 11/26/2024 9:50 PM EDT [facility] Eosinophils % 3 % LAB HEMATOLOGY METHOD 11/26/2024 9:50 PM EDT [facility] Basophils % 1 % LAB HEMATOLOGY METHOD 11/26/2024 9:50 PM EDT [facility] Immature Granulocytes % 0 % LAB HEMATOLOGY METHOD 11/26/2024 9:50 PM EDT [facility] Neutrophils Absolute 5.40 1.60 - 6.10 10*3/uL LAB HEMATOLOGY METHOD 11/26/2024 9:50 PM EDT [facility] Lymphocytes Absolute 4.15(H) 1.20 - 3.90 10*3/uL LAB HEMATOLOGY METHOD 11/26/2024 9:50 PM EDT [facility] Monocytes Absolute 0.62 0.30 - 0.90 10*3/uL LAB HEMATOLOGY METHOD 11/26/2024 9:50 PM EDT [facility] Eosinophils Absolute 0.29 0.00 - 0.50 10*3/uL LAB HEMATOLOGY METHOD 11/26/2024 9:50 PM EDT [facility] Basophils Absolute 0.08 0.00 - 0.10 10*3/uL LAB HEMATOLOGY METHOD 11/26/2024 9:50 PM EDT [facility] Immature Granulocytes Absolute 0.02 0.00 - 0.06 10*3/uL LAB HEMATOLOGY METHOD 11/26/2024 9:50 PM EDT [facility] Blood Venous blood specimen / Unknown Venipuncture / Unknown 11/26/2024 9:46 PM EDT 11/26/2024 9:48 PM EDT Narrative [facility] - 11/26/2024 9:50 PM EDT Therapeutic decision making should be based on absolute values, rather than percentages. Paul Srinivasan MD LAB BLOOD ORDERABLES Final Res ult Performing Organization Address [facility]/ZIP Co de Phone Number [facility] [address] [place] [address] * C-Reactive protein (11/26/2024 9:46 PM EDT) CRP, Plasma <3.0 <=8.0 mg/L 11/26/2024 10:11 PM EDT [facility] Blood Venous blood specimen / Unknown Venipuncture / Unknown 11/26/2024 9:46 PM EDT 11/26/2024 9:48 PM EDT Narrative [facility] - 11/26/2024 10:11 PM EDT This CRP test is appropriate for assessment of infection, systemic inflammation and/or tissue injury. To assess cardiovascular disease risk order high sensitivity CRP (CRPH). Paul Srinivasan MD LAB BLOOD ORDERABLES Final Res ult Performing Organization Address [facility] Co de Phone Number [facility] [address] [place] [address] * (ABNORMAL) BMP (11/26/2024 9:46 PM EDT) Only the most recent of12 resultswithin the time period is included. Glucose, Plasma 91 74 - 99 mg/dL 11/26/2024 10:11 PM EDT [facility] BUN, Plasma 11 7 - 21 mg/dL 11/26/2024 10:11 PM EDT [facility] Creatinine, Plasma 0.91 0.70 - 1.20 mg/dL 11/26/2024 10:11 PM EDT [facility] BUN/Creatinine Ratio 12 11/26/2024 10:11 PM EDT [facility] Sodium, Plasma 140 136 - 145 mmol/L 11/26/2024 10:11 PM EDT [facility] Potassium, Plasma 4.0 3.6 - 4.9 mmol/L 11/26/2024 10:11 PM EDT [facility] Chloride, Plasma 104 97 - 107 mmol/L 11/26/2024 10:11 PM EDT [facility] CO2, Plasma 20(L) 22 - 29 mmol/L 11/26/2024 10:11 PM EDT [facility] Anion Gap 16 6 - 16 mmol/L 11/26/2024 10:11 PM EDT [facility] Total Calcium, Plasma 10.0 8.9 - 10.2 mg/dL 11/26/2024 10:11 PM EDT [facility] eGFRcr 101.4 mL/min/1.7 3m*2 11/26/2024 10:11 PM EDT [facility] Comment:Reported eGFRcr in m L/min/1.73m2 is based the CKD-EPI 2020 equation that does not use a race coefficient. Blood Venous blood specimen / Unknown Venipuncture / Unknown 11/26/2024 9:46 PM EDT 11/26/2024 9:48 PM EDT us Paul Srinivasan MD LAB BLOOD ORDERABLES Final Res ult [facility] [address] [place] [address] * XR Thoracolumbar Spine 2 Views (11/19/2024 2:28 PM EDT) Only the most recent of3 resultswithin the time period is included. Anatomical Region Laterality Modality Spine, T-spine, L-spine [...] Emory Gale MD on 11/19/2024 2:37 PM Yumiko Norris MD IMG XR PROCEDURES Final R esult * FL Modified Barium Swallow (11/19/2024 10:35 AM EDT) Only the most recent of2 resultswithin the time period is included. 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 IMPRESSION: Silent aspiration of thin barium consistency. [...] MD on 11/19/2024 2:32 PM us Kandice Castaneda MANAGER INSIDE, DNP IMG FLUOROSCOPY PROCEDU RES Final Result * XR Pelvis 1 or 2 Views (11/14/2024 9:09 AM EDT) Only the most recent of2 resultswithin the time period is included. Anatomical Region Laterality Modality Body, Pelvis Digital [...] on 11/14/2024 9:41 AM us Fiona Angelo MANAGER INSIDE IMG XR PROCEDURES Final Resul t * [...] MD on 11/14/2024 8:35 AM Fiona Angelo MANAGER INSIDE IMG XR PROCEDURES Final Resul t * SARS CoV-2/COVID-19 by PCR - Rapid (11/12/2024 6:55 PM EDT) SARS CoV-2/COVID-1 9 RNA PCR Result Not Detected Not Detected 11/12/2024 8:09 PM EDT [facility] Swab Nasopharyngeal structure / Unknown Non-blood Collection / Unknown 11/12/2024 6:55 PM EDT 11/12/2024 7:09 PM EDT Narrative [facility] - 11/12/2024 8:09 PM [...] MICROBIOLOGY - GENERAL OR DERABLES Final Result [facility] [address] [place] [address] * Nasopharyngeal Respiratory Panel (11/12/2024 6:55 PM EDT) Nasopharyngeal Respiratory PCR Interpretation Not Detected for all analytes Not Detected for all analytes 11/12/2024 9:22 PM EDT [facility] Swab Nasopharyngeal structure / Unknown Non-blood Collection / Unknown 11/12/2024 6:55 PM EDT 11/12/2024 7:09 PM EDT Narrative [facility] - 11/12/2024 9:22 PM [...] Respiratory PCR Panel is performed using the [employer]umetrics instrument. This test is FDA approved for use with Nasopharyngeal swabs only. This test is used for clinical purposes. It should not be regarded as investigational or for research. The [facility] is certified under the Clinical Laboratory Improvement Amendments of 1988 (CLIA-88) as qualified to perform high complexity clinical laboratory testing. Fiona Angelo APRN LAB MICROBIOLOGY - GENERAL OR DERABLES Final Result Performing Organization Address City/[facility] Co de Phone Number [facility] [address] [place] [address] * Multi Drug Resistance Test (11/12/2024 6:55 PM EDT) Culture No growth at day 1 11/13/2024 7:55 PM EDT [facility] Swab (Nares and Devika Rectal) Non-blood Collection / Unknown 11/12/2024 6:55 PM EDT 11/12/2024 7:07 PM EDT Narrative [facility] - 11/13/2024 7:55 PM EDT This test was developed and its performance characteristics determined by the [facility]. Although the media is FDA-approved, it is not FDA-approved for all specimen types submitted. The FDA has determined that such clearance or approval is not necessary. This test is used for surveillance purposes. It should not be regarded as investigational or for research. The [facility] is certified under the Clinical Laboratory Improvement Amendments of 1988 (CLIA-88) as qualified to perform high complexity clinical laboratory testing. us Girish Taylor MD LAB MICROBIOLOGY - GENERAL O RDERABLES Final Result Performing Organization Address [facility] Co de Phone Number [facility] [address] [place] [address] * Blood Culture (Aerobic/Anaerobet Set) (11/12/2024 6:25 PM EDT) Only the most recent of3 resultswithin the time period is included. Culture No growth at day 5 MARY 11/17/2024 7:02 PM EDT [facility] Blood Structure of left forearm / Unknown Venipuncture / Unknown 11/12/2024 6:25 PM EDT 11/12/2024 6:25 PM EDT us Fiona Angelo APRN LAB MICROBIOLOGY - GENERAL OR DERABLES Final Result Performing Organization Address City/[facility]/ZIP Co de Phone Number [facility] [address] [place] [address] * (ABNORMAL) Urinalysis with reflex microscopic (Culture NOT Included) (11/12/2024 4:58 PM EDT) Only the most recent of2 resultswithin the time period is included. Color, Urine Dark Yellow LAB URINALYSIS - AUTOMATED METHOD 11/12/2024 5:11 PM EDT [facility] Clarity, Urine Clear LAB URINALYSIS - AUTOMATED METHOD 11/12/2024 5:11 PM EDT [facility] Spec [place], Urine >1.030(H) 1.005 - 1.030 LAB URINALYSIS - AUTOMATED METHOD 11/12/2024 5:11 PM EDT [facility] pH, Urine 5.5 5.0 - 8.0 LAB URINALYSIS - AUTOMATED METHOD 11/12/2024 5:11 PM EDT [facility] Protein, Urine Trace(A) Negative mg/dL LAB URINALYSIS - AUTOMATED METHOD 11/12/2024 5:11 PM EDT [facility] Glucose, Urine Negative Negative mg/dL LAB URINALYSIS - AUTOMATED METHOD 11/12/2024 5:11 PM EDT [facility] Ketones, Urine Trace(A) Negative mg/dL LAB URINALYSIS - AUTOMATED METHOD 11/12/2024 5:11 PM EDT [facility] Blood, Urine Negative Negative LAB URINALYSIS - AUTOMATED METHOD 11/12/2024 5:11 PM EDT [facility] Bilirubin, Urine Negative Negative LAB URINALYSIS - AUTOMATED METHOD 11/12/2024 5:11 PM EDT [facility] Urobilinogen, Urine 1.0 0.2 to 1.0 mg/dL LAB URINALYSIS - AUTOMATED METHOD 11/12/2024 5:11 PM EDT [facility] Leukocytes, Urine Negative Negative LAB URINALYSIS - AUTOMATED METHOD 11/12/2024 5:11 PM EDT [facility] Nitrite, Urine Negative Negative LAB URINALYSIS - AUTOMATED METHOD 11/12/2024 5:11 PM EDT [facility] Urine Urine specimen from urinary conduit / Unknown Non-blood Collection / Unknown 11/12/2024 4:58 PM EDT 11/12/2024 5:04 PM EDT us Fiona Angelo APRN LAB URINE ORDERABLES Final Re sult [facility] [address] [place] [address] * XR Chest 1 View (11/12/2024 3:23 PM EDT) Only the most recent of5 resultswithin the time period is included. Anatomical Region Laterality Modality Chest Digital Radiogra [...] Arun Jacobsen MD on 11/12/2024 3:25 PM Fiona Angelo APRN IMG XR PROCEDURES Final Resul t * CT Head wo IV Contrast (11/12/2024 11:47 AM EDT) Only the most recent of2 resultswithin the time period is included. Anatomical Region Laterality Modality Head Computed Tomogra [...] Azucena Darnell MD on 11/12/2024 12:28 PM Fiona Angelo APRN IMG CT PROCEDURES Final Resul t * Phosphorus, Plasma (11/12/2024 9:32 AM EDT) Only the most recent of9 resultswithin the time period is included. Phosphorus, Plasma 3.4 2.5 - 4.5 mg/dL 11/12/2024 10:10 AM EDT [facility] Blood Venous blood specimen / Unknown Venipuncture / Unknown 11/12/2024 9:32 AM EDT 11/12/2024 9:40 AM EDT Fiona Angelo APRN LAB BLOOD ORDERABLES Final Re sult Performing Organization Address [facility] Co de Phone Number [facility] [address] [place] [address] * Magnesium, Plasma (11/12/2024 9:32 AM EDT) Only the most recent of9 resultswithin the time period is included. Magnesium, Plasma 2.2 1.9 - 2.4 mg/dL 11/12/2024 10:10 AM EDT [facility] Blood Venous blood specimen / Unknown Venipuncture / Unknown 11/12/2024 9:32 AM EDT 11/12/2024 9:40 AM EDT Fiona Angelo APRN LAB BLOOD ORDERABLES Final Re sult Performing Organization Address City/[facility]/ZIP Co de Phone Number [facility] [address] [address] * XR Elbow Left 3+ Views (11/08/2024 [...] Shahid Angel MD on 11/08/2024 11:05 AM us Hiram Coreas MD IMG XR PROCEDURES Final Result * [facility], E/M 30-74 MINUTES (11/06/2024 3:05 [...] - 40.0 ug/mL 11/06/2024 7:07 AM EDT [facility] Blood Venous blood specimen / Unknown Venipuncture / Unknown 11/06/2024 6:32 AM EDT 11/06/2024 6:37 AM EDT [facility] - 11/06/2024 7:07 AM EDT Therapeutic Peak level: 20-40ug/mL Supra-therapeutic Peak level: >40 ug/mL Stacey Antonio APRN, DNP LAB BLOOD ORDERABLES F inal Result [facility] [address] [id number] * (ABNORMAL) Vancomycin, Trough, Plasma (11/06/2024 1:14 AM EDT) Vancomycin, Trough, Plasma 8.9(L) 10.0 - 20.0 ug/mL 11/06/2024 2:05 AM EDT [facility] Blood Venous blood specimen / Unknown Venipuncture / Unknown 11/06/2024 1:14 AM EDT 11/06/2024 1:26 AM EDT [facility] - 11/06/2024 2:05 AM EDT Therapeutic Trough level: 10-20ug/mL Supra-therapeutic Trough level: >20 ug/mL us Stacey Antonio APRN, [facility] LAB BLOOD ORDERABLES F inal Result [facility] [address] [place] [address] * [facility], E/M 30-74 MINUTES (11/05/2024 3:02 [...] * (ABNORMAL) Triglycerides (11/05/2024 12:20 AM EDT) Only the most recent of2 resultswithin the time period is included. Triglycerides, Plasma 176(H) <150 mg/dL 11/05/2024 1:00 AM EDT [facility] Comment: Triglyceride Reference Range (age >17 years): Desirable: <150 mg/dL Borderline high: 150 to 199 mg/dL High: 200 to 499 mg/dL Very high: >499 mg/dL Increased risk of pancreatitis: >1000 mg/dL Fasting greater than or equal to 12 hours? No 11/05/2024 1:00 AM EDT [facility] Blood Venous blood specimen / Unknown Venipuncture / Unknown 11/05/2024 12:20 AM EDT 11/05/2024 12:30 AM EDT us Girish Taylor MD LAB BLOOD ORDERABLES Final R esult [facility] [address] [place] [address] * (ABNORMAL) Blood gas, arterial (11/04/2024 6:46 PM EDT) Only the most recent of2 resultswithin the time period is included. pH, Arterial 7.43 7.35 - 7.45 LAB HEMATOLOGY METHOD 11/04/2024 6:53 PM EDT [facility] pCO2, Arterial 43 32 - 45 mmHg LAB HEMATOLOGY METHOD 11/04/2024 6:53 PM EDT [facility] pO2, Arterial 111(H) 83 - 108 mmHg LAB HEMATOLOGY METHOD 11/04/2024 6:53 PM EDT [facility] SO2, Measured, Arterial 99(H) 94 - 98 % LAB HEMATOLOGY METHOD 11/04/2024 6:53 PM EDT [facility] Base Excess, Arterial 3.9(H) -2.0 - 3.0 mmol/L LAB HEMATOLOGY METHOD 11/04/2024 6:53 PM EDT [facility] Bicarbonate, Calculated, Arterial 29(H) 22 - 26 mmol/L LAB HEMATOLOGY METHOD 11/04/2024 6:53 PM EDT [facility] Hematocrit, Whole Blood 33.1(L) 40.0 - 51.0 % LAB HEMATOLOGY METHOD 11/04/2024 6:53 PM EDT [facility] Sodium, Whole Blood 135(L) 136 - 145 mmol/L LAB HEMATOLOGY METHOD 11/04/2024 6:53 PM EDT [facility] Potassium, Whole Blood 4.1 3.6 - 4.9 mmol/L LAB HEMATOLOGY METHOD 11/04/2024 6:53 PM EDT [facility] Chloride, Whole Blood 99 97 - 107 mmol/L LAB HEMATOLOGY METHOD 11/04/2024 6:53 PM EDT [facility] Glucose, Whole Blood 118(H) 74 - 99 mg/dL LAB HEMATOLOGY METHOD 11/04/2024 6:53 PM EDT [facility] Ionized Calcium, Whole Blood 4.3(L) 4.6 - 5.1 mg/dL LAB HEMATOLOGY METHOD 11/04/2024 6:53 PM EDT [facility] Lactate, Arterial, Whole Blood 1.0 0.5 - 1.6 mmol/L LAB HEMATOLOGY METHOD 11/04/2024 6:53 PM EDT [facility] Blood Arterial blood specimen / Unknown Arterial Puncture / Unknown 11/04/2024 6:46 PM EDT 11/04/2024 6:51 PM EDT us Tim MONSON LAB BLOOD ORDERABLES Final Res ult [facility] [address] [place] [address] * EEG (11/04/2024 3:23 PM EDT) Anatomical Region Laterality Modality EEG Narrative 11/04/2024 3:59 PM EDT Electroencephalogram Report Patient: Ramana Moore : 1970 SEX: male Referring Provider: Stacey [...] Physician Department of Neurology, Comprehensive Epilepsy Program [facility] us Stacey Antonio APRN, DNP NEUROLOGY ORDERABLES F inal Result * [facility], E/M 30-74 MINUTES (11/04/2024 11:06 [...] IN CLINIC/BEDSIDE ORDERABLES Final Result * (ABNORMAL) Quantitative BAL/PAL/Bronch Wash Culture and Gram StainProtected Alveolar Lavage (11/04/2024 10:25 AM EDT) Culture >=100,000 CFU/mL Mixed upper respiratory bryson(A) 11/06/2024 12:46 PM EDT [facility] Comment:The organism value f or this result has been updated. These results have been appended to the previously preliminary verified report. Gram Stain Result Few Polymorphonuclear leukocytes(A) 11/06/2024 12:46 PM EDT [facility] Gram Stain Result Numerous Gram negative rods(A) 11/06/2024 12:46 PM EDT [facility] Gram Stain Result Moderate Gram positive rods(A) 11/06/2024 12:46 PM EDT [facility] Gram Stain Result Few Gram positive cocci in clusters(A) 11/06/2024 12:46 PM EDT [facility] Protected Alveolar Lavage (Protected Alveolar Lavage) 11/04/2024 10:25 AM EDT 11/04/2024 10:46 AM EDT us Stacey Antonio APRN, DNP LAB MICROBIOLOGY - GEN ERAL ORDERABLES Final Result [facility] [address] [place] [address] * CT Head w IV Contrast (11/04/2024 [...] Elmer Clarke MD on 11/04/2024 1:55 AM us Tim MONSON IMG CT PROCEDURES Final Result * POCT glucose meter (11/03/2024 4:16 PM EDT) Only the most recent of4 resultswithin the time period is included. POCT Glucose 90 74 - 99 mg/dL [...] Comment 11/03/2024 4:17 PM EDT [facility] Service Architect ID Sandy Huertas 11/03/2024 4:17 PM EDT [facility] Device ID [id number] 11/03/2024 4:17 PM EDT [facility] Specimen Type POC Capillary 11/03/2024 4:17 PM EDT [facility] Blood Capillary blood specimen / Unknown 11/03/2024 4:16 PM EDT 11/03/2024 4:17 PM EDT Girish Taylor MD LAB POINT OF CARE TE ST DOCKED DEVICE UNSOLICITED RESULTS Final Result Performing Organization Address [facility] Co de Phone Number [facility] [address] [place] [address] * [place] Less than 1 Hour Intraoperative (11/03/2024 3:38 PM EDT) Narrative IMAGING - 11/03/2024 3:39 PM EDT Images were obtained for surgical purposes. See Jorge Pineda's surgical note in the patient's chart for the findings. Jorge Pineda MD IMG FLUOROSCOPY PROCEDURES Fin al Result Performing Organization Address City/[facility]/ZIP Co de Phone Number IMAGING * Peripheral IV (11/03/2024 2:00 PM EDT) Narrative Yasmin Joy CRNA - 11/03/2024 2:00 PM EDT LeslyYasmin jerryDARELL 11/03/2024 2:33 PM Peripheral IV Date/Time: 11/03/2024 2:00 PM Placement Needle size: 20 G Location: hand Local anesthetic: none Site prep: alcohol Technique: anatomical landmarks Attempts: 1 us Pj Dotson MD ANESTHESIA ORDERABLES Final Resu lt * PB ANESTHESIA NON-TIMED PROCEDURE PLACEHOLDER (11/03/2024 1:44 PM EDT) Lisa JoyNaziaDARELL fabian - 11/03/2024 1:44 PM EDT LeslyYasmin jerryDARELL 11/03/2024 2:22 PM Arterial Line: Date/Time: 11/03/2024 [...] procedure well with no complications. Staffing Performed: COSTUME CUTTER COSTUME CUTTER: Yasmin Joy CRNA us Pj Dotson MD ANESTHESIA ORDERABLES Final Resu lt * Prothrombin Time/INR (11/03/2024 1:47 AM EDT) Only the most recent of2 resultswithin the time period is included. Prothrombin Time 13.6 12.0 - 14.3 sec LAB COAGULATION METHOD 11/03/2024 2:23 AM EDT [facility] INR 1.0 0.9 - 1.1 LAB COAGULATION METHOD 11/03/2024 2:23 AM EDT [facility] Blood Venous blood specimen / Unknown Venipuncture / Unknown 11/03/2024 1:47 AM EDT 11/03/2024 1:54 AM EDT [facility] - 11/03/2024 2:23 AM EDT OPTIMAL INR RANGES FOR PATIENT ON ORAL ANTICOAGULANT THERAPY Prevention of venous thromboembolism INR 2.0 to 3.0 In patients with heart disease: Atrial fibrillation INR 2.0 to 3.0 Valvular heart disease INR 2.0 to 3.0 Tissue heart valves INR 2.0 to 3.0 Mechanical prosthetic valves INR 2.5 to 3.5 Prevention of recurrent [place] INR 2.5 to 3.5 us Girish Taylor MD LAB BLOOD ORDERABLES Final R esult [facility] [address] [place] [address] * [facility], E/M 30-74 MINUTES (11/02/2024 9:37 [...] Detected Not Detected 11/05/2024 8:16 AM EDT [facility] Swab (Axilla and Groin) Non-blood Collection / Unknown 11/02/2024 7:58 AM EDT 11/02/2024 8:14 AM EDT Narrative [facility] - 11/05/2024 8:16 AM EDT This PCR assay was developed and its performance characteristics determined by [facility] as appropriate for clinical purposes. This assay has not been cleared or approved by the FDA, but is performed in a CLIA regulated laboratory that is qualified to perform high-complexity testing. us Girish Taylor MD LAB MICROBIOLOGY - GENERAL O RDERABLES Final Result [facility] [address] [place] [address] * MR Lumbar Spine wo IV Contrast [...] withcompression fractures without significant height loss. Bilateral [id number] process fractures. There is somewhat linear T2/STIR [...] conus and cauda equina. There is additional Q4qzoopnsalra and T2/STIR hyperintense signal along the anterior spinalcanal extending from L3 through S1 which could suggest additional hematomaand/or edema of the extradural fat. There is paraspinal hematoma anteriorly spanning at least the L89-H4yzpno, abutting the posterior wall of the aorta. [...] conus and cauda equina. There is additional P8razzidwthsl and T2/STIR hyperintense signal along the anterior spinalcanal extending from L3 through S1 which could suggest additional hematomaand/or edema of the extradural fat. There is focal T2/STIR hyperintense signal involving the right L2-3 nerveroot within the foramen concerning for possible injury versus artifact. Nontraumatic degenerative changes as described above, most notable [id number] and L5-S1. Significant strain versus reactive edema [...] of the abdomen. COMPARISON: None. FINDINGS: Limited hdjxf-qn-gytv abdominal radiograph for the purpose of locating tube position. The tip of the nasogastric tube is within the mid stomach. Procedure Note Arun Jacobsen MD - 11/01/2024 CLINICAL INDICATION: Confirm proper placement of NG/OG tube TECHNIQUE: Supine radiograph of the abdomen. COMPARISON: None. FINDINGS: Limited nbcca-xs-uqtz abdominal radiograph for the purpose of locatingtube [...] Total DLP (Dose-Length Product): 3308.43 mGy.cm (accession [id number]), 3308.43 mGy.cm (accession [id number]), 3308.43 mGy.cm (accession [id number]). Please note: The reported value represents the [...] Total DLP (Dose-Length Product): 3308.43 mGy.cm (accession [id number]),3308.43 mGy.cm (accession [id number]), 3308.43 mGy.cm (accession [id number]).Please note: The reported value represents the total [...] Total DLP (Dose-Length Product): 3308.43 mGy.cm (accession [id number]), 3308.43 mGy.cm (accession [id number]), 3308.43 mGy.cm (accession [id number]). Please note: The reported value represents the [...] Total DLP (Dose-Length Product): 3308.43 mGy.cm (accession [id number]),3308.43 mGy.cm (accession [id number]), 3308.43 mGy.cm (accession [id number]).Please note: The reported value represents the total [...] Total DLP (Dose-Length Product): 3308.43 mGy.cm (accession [id number]), 3308.43 mGy.cm (accession [id number]), 3308.43 mGy.cm (accession [id number]). Please note: The reported value represents the [...] Total DLP (Dose-Length Product): 3308.43 mGy.cm (accession [id number]),3308.43 mGy.cm (accession [id number]), 3308.43 mGy.cm (accession [id number]).Please note: The reported value represents the total [...] Total DLP (Dose-Length Product): 3308.43 mGy.cm (accession [id number]), 3308.43 mGy.cm (accession [id number]), 3308.43 mGy.cm (accession [id number]). Please note: The reported value represents the [...] Total DLP (Dose-Length Product): 3308.43 mGy.cm (accession [id number]),3308.43 mGy.cm (accession [id number]), 3308.43 mGy.cm (accession [id number]).Please note: The reported value represents the total [...] Total DLP (Dose-Length Product): 3308.43 mGy.cm (accession [id number]), 3308.43 mGy.cm (accession [id number]), 3308.43 mGy.cm (accession [id number]). Please note: The reported value represents the [...] Total DLP (Dose-Length Product): 3308.43 mGy.cm (accession [id number]),3308.43 mGy.cm (accession [id number]), 3308.43 mGy.cm (accession [id number]).Please note: The reported value represents the total [...] on 11/01/2024 9:33 AM Hernan Paulson MD IM CT PROCEDURES [...] Total DLP (Dose-Length Product): 3308.43 mGy.cm (accession [id number]), 3308.43 mGy.cm (accession [id number]), 3308.43 mGy.cm (accession [id number]). Please note: The reported value represents the [...] Total DLP (Dose-Length Product): 3308.43 mGy.cm (accession [id number]),3308.43 mGy.cm (accession [id number]), 3308.43 mGy.cm (accession [id number]).Please note: The reported value represents the total [...] Total DLP (Dose-Length Product): 3308.43 mGy.cm (accession [id number]), 3308.43 mGy.cm (accession [id number]). Please note: The reported value represents the [...] Total DLP (Dose-Length Product): 3308.43 mGy.cm (accession [id number]),3308.43 mGy.cm (accession [id number]). Please note: The reported valuerepresents the total [...] 8:35 AM EDT) Anatomical Region Laterality Modality [place] of [place] Computed Tomogr aphy Impressions 11/01/2024 [...] Total DLP (Dose-Length Product): 3308.43 mGy.cm (accession [id number]), 3308.43 mGy.cm (accession [id number]). Please note: The reported value represents the [...] Total DLP (Dose-Length Product): 3308.43 mGy.cm (accession [id number]),3308.43 mGy.cm (accession [id number]). Please note: The reported valuerepresents the total [...] 7.32 - 7.43 11/01/2024 7:53 AM EDT [facility] pCO2, Venous 42 40 - 55 mm Hg 11/01/2024 7:53 AM EDT [facility] pO2, Venous 86(H) 25 - 40 mm Hg 11/01/2024 7:53 AM EDT [facility] SO2, Venous 99(H) 65 - 80 % 11/01/2024 7:53 AM EDT [facility] Base Excess/Deficit, Venous -3.0(L) -2 - 3 mmol/L 11/01/2024 7:53 AM EDT [facility] HCO3, Venous 22.7 22 - 26 mmol/L 11/01/2024 7:53 AM EDT [facility] Hemoglobin, Venous 13.7 13.7 - 17.5 g/dL 11/01/2024 7:53 AM EDT [facility] Hematocrit, Venous 41.0 40.0 - 51.0 % 11/01/2024 7:53 AM EDT [facility] Sodium, Venous 132(L) 136 - 145 mmol/L 11/01/2024 7:53 AM EDT [facility] Potassium, Venous 4.0 3.6 - 4.9 mmol/L 11/01/2024 7:53 AM EDT [facility] Comment:Hemolyzed, result ma y be falsely increased. POCT Chloride, Venous 102 97 - 107 mmol/L 11/01/2024 7:53 AM EDT [facility] Glucose, Venous 152(H) 74 - 99 mg/dL 11/01/2024 7:53 AM EDT [facility] Ionized Calcium, Venous 4.7 4.6 - 5.1 mg/dL 11/01/2024 7:53 AM EDT [facility] Lactate, Venous 0.9 0.5 - 2.2 mmol/L 11/01/2024 7:53 AM EDT [facility] Body Temperature 37.0 Celsius 11/01/2024 7:53 AM EDT [facility] pH, Temp Corrected, Venous 7.34 7.32 - 7.43 11/01/2024 7:53 AM EDT [facility] pCO2, Temp Corrected, Venous 42 40 - 55 mm Hg 11/01/2024 7:53 AM EDT [facility] pO2, Temp Corrected, Venous 86(H) 25 - 40 mm Hg 11/01/2024 7:53 AM EDT [facility] Service Architect ID Bhargavi Raygoza 11/01/2024 7:53 AM EDT [facility] Blood, Venous Whole blood specimen / Unknown 11/01/2024 7:52 AM EDT 11/01/2024 7:53 AM EDT us Priscilla Calderon MD LAB POINT OF CARE TE ST DOCKED DEVICE UNSOLICITED RESULTS Final Result [facility] [address] [place] [address] * (ABNORMAL) OXYCODONE CONFIRMATION,URINE (11/01/2024 6:38 AM EDT) Oxycodone 136(H) <50 ng/mL 11/02/2024 5:43 PM EDT [facility] Oxymorphone <50 <50 ng/mL 11/02/2024 5:43 PM EDT [facility] Oxymorphone Glucuronide 815(H) <50 ng/mL 11/02/2024 5:43 PM EDT [facility] Urine Urine specimen obtained by clean catch procedure / Unknown Non-blood Collection / Unknown 11/01/2024 6:38 AM EDT 11/01/2024 7:03 AM EDT Narrative [facility] - 11/02/2024 5:43 PM EDT Test performed by LC-MS/MS at the [facility]. This test was developed and its performance characteristics determined by [facility]. It has not been cleared or approved by the FDA. The laboratory is regulated under CLIA as qualified to perform high-complexity testing. This test is used for clinical purposes. Anita Patel MD LAB URINE ORDERABLES Final Resul t Performing Organization Address [facility] Co de Phone Number [facility] [address] [place] [address] * Urinalysis Microscopic Examination (11/01/2024 6:38 AM EDT) Urine Urine specimen obtained by clean catch procedure / Unknown Non-blood Collection / Unknown 11/01/2024 6:38 AM EDT 11/01/2024 6:45 AM EDT Anita Patel MD LAB URINE ORDERABLES Final Resul t Performing Organization Address [facility] de Phone Number [facility] [address] [place] [address] * (ABNORMAL) Cocaine Metabolite Confirm Urine (11/01/2024 6:38 AM EDT) Benzoylecgonine >1,000(H) <50 ng/mL 5:43 PM EDT [facility] Urine Urine specimen obtained by clean catch procedure / Unknown Non-blood Collection / Unknown 11/01/2024 6:38 AM EDT 11/01/2024 7:03 AM EDT Narrative [facility] - 11/02/2024 5:43 PM EDT Drug analysis is confirmed by LC-MS/MS (LC Tandem Mass Spectrometry) on Urine specimens. This test was developed and its performance characteristics determined by [facility]. It has not been cleared or approved by the FDA. The laboratory is regulated under CLIA as qualified to perform high-complexity testing. This test is used for clinical purposes. Testing is performed at the [facility], [facility]. Anita Patel MD LAB URINE ORDERABLES Final Resul t [facility] [address] [place] [address] * (ABNORMAL) Opiates Confirm Urine (11/01/2024 6:38 AM EDT) Codeine <50 <50 ng/mL 11/02/2024 5:43 PM EDT [facility] Codeine Glucuronide <50 <50 ng/mL 11/02/2024 5:43 PM EDT [facility] Desmethyl Tramadol <50 <50 ng/mL 2024 5:43 PM EDT [facility] EDDP - Methadone Metabolite <50 <50 ng/mL 11/02/2024 5:43 PM EDT [facility] Hydrocodone <50 <50 ng/mL 11/02/2024 5:43 PM EDT [facility] Hydromorphone 110(H) <50 ng/mL 11/02/2024 5:43 PM EDT [facility] Hydromorphone Glucuronide 361(H) <50 ng/mL 11/02/2024 5:43 PM EDT [facility] Comment:Metabolite of Hydrom orphone Meperidine <50 <50 ng/mL 11/02/2024 5:43 PM EDT [facility] Methadone <50 <50 ng/mL 11/02/2024 5:43 PM EDT [facility] 6 Monoacetyl morphine <10 <10 ng/mL 11/02/2024 5:43 PM EDT [facility] Morphine <50 <50 ng/mL 11/02/2024 5:43 PM EDT [facility] Morphine Glucuronide 618(H) <50 ng/mL 11/02/2024 5:43 PM EDT [facility] Comment:Metabolite of [place] ne Naloxone <50 <50 ng/mL 11/02/2024 5:43 PM EDT [facility] Naloxone Glucuronide <50 <50 ng/mL 11/02/2024 5:43 PM EDT [facility] Comment:Metabolite of Naloxo ne Normeperidine <50 <50 ng/mL 11/02/2024 5:43 PM EDT [facility] Tramadol <50 <50 ng/mL 11/02/2024 5:43 PM EDT [facility] Urine Urine specimen obtained by clean catch procedure / Unknown Non-blood Collection / Unknown 11/01/2024 6:38 AM EDT 11/01/2024 7:03 AM EDT Narrative [facility] - 11/02/2024 5:43 PM EDT Drug analysis is confirmed by LC-MS/MS (LC Tandem Mass Spectrometry) on Urine specimens. This test was developed and its performance characteristics determined by [facility]. It has not been cleared or approved by the FDA. The laboratory is regulated under CLIA as qualified to perform high-complexity testing. This test is used for clinical purposes. Testing is performed at the [facility], [facility]. Anita Patel MD LAB URINE ORDERABLES Final Resul t [facility] [address] [place] [address] * Drug Abuse Screen, Urine (11/01/2024 6:38 AM EDT) Amphetamine Screen Urine Negative Cutoff: 500 ng/mL 11/01/2024 7:43 AM EDT [facility] Benzodiazepines Screen Urine Presumptive positive. Confirmation by LC-MS/MS to follow. Cutoff: 200 ng/mL 11/01/2024 7:43 AM EDT [facility] Cannabinoid Screen Urine Presumptive positive. Confirmation by LC-MS/MS to follow. Cutoff: 50 ng/mL 11/01/2024 7:43 AM EDT [facility] Cocaine Screen Urine Presumptive positive. Confirmation by LC-MS/MS to follow. Cutoff: 300 ng/mL 11/01/2024 7:43 AM EDT [facility] Barbiturate Screen Urine Negative Cutoff: 200 ng/mL 11/01/2024 7:43 AM EDT [facility] Opiate Screen Urine Presumptive positive. Confirmation by LC-MS/MS to follow. Cutoff: 300 ng/mL 11/01/2024 7:43 AM EDT [facility] Methadone Screen Urine Negative Cutoff: 300 ng/mL 11/01/2024 7:43 AM EDT [facility] Buprenorphine Screen Urine Negative Cutoff: 10 ng/mL 11/01/2024 7:43 AM EDT [facility] Fentanyl Screen Urine Presumptive positive. Confirmation by LC-MS/MS to follow. Cutoff: 1 ng/mL 11/01/2024 7:43 AM EDT [facility] Oxycodone Screen Urine Presumptive positive. Confirmation by LC-MS/MS to follow. Cutoff: 100 ng/mL 11/01/2024 7:43 AM EDT [facility] Urine Urine specimen obtained by clean catch procedure / Unknown Non-blood Collection / Unknown 11/01/2024 6:38 AM EDT 11/01/2024 7:03 AM EDT us Anita Patel MD LAB URINE ORDERABLES Final Resul t [facility] [address] [place] [address] * (ABNORMAL) THC Urine Confirm LCMSMS (11/01/2024 6:38 AM EDT) 9 Carboxy THC >250(H) <10 ng/mL 11/02/2024 5:43 PM EDT [facility] 9 Carboxy THC Glucuronide >500(H) <25 ng/mL 11/02/2024 5:43 PM EDT [facility] Urine Urine specimen obtained by clean catch procedure / Unknown Non-blood Collection / Unknown 11/01/2024 6:38 AM EDT 11/01/2024 7:03 AM EDT Narrative [facility] - 11/02/2024 5:43 PM EDT Drug analysis is confirmed by LC-MS/MS (LC Tandem Mass Spectrometry) on Urine specimens. This test was developed and its performance characteristics determined by [facility]. It has not been cleared or approved by the FDA. The laboratory is regulated under CLIA as qualified to perform high-complexity testing. This test is used for clinical purposes. Testing is performed at the [facility]. us Anita Patel MD LAB URINE ORDERABLES Final Resul t Performing Organization Address [facility] de Phone Number [facility] [address] [place] [address] * (ABNORMAL) Fentanyl Urine Confirm (11/01/2024 6:38 AM EDT) Fentanyl 12(H) <1 ng/mL 11/02/2024 5:43 PM EDT [facility] Norfentanyl 22(H) <2 ng/mL 11/02/2024 5:43 PM EDT [facility] Urine Urine specimen obtained by clean catch procedure / Unknown Non-blood Collection / Unknown 11/01/2024 6:38 AM EDT 11/01/2024 7:03 AM EDT Narrative [facility] - 11/02/2024 5:43 PM EDT Drug analysis is confirmed by LC-MS/MS (LC Tandem Mass Spectrometry) on Urine specimens. This test was developed and its performance characteristics determined by [facility]. It has not been cleared or approved by the FDA. The laboratory is regulated under CLIA as qualified to perform high-complexity testing. This test is used for clinical purposes. Testing is performed at the [facility], [facility]. us Anita Patel MD LAB URINE ORDERABLES Final Resul t Performing Organization Address [facility] de Phone Number [facility] [address] [place] [address] * (ABNORMAL) Benzodiazepine Confirm Urine (11/01/2024 6:38 AM EDT) Alpha [place] Alprazolam <20 <20 ng/mL 11/02 5:43 PM EDT [facility] [place] Midazolam <20 <20 ng/mL 2024 5:43 PM EDT [facility] [place] Triazolam <20 <20 ng/mL 2024 5:43 PM EDT [facility] Alprazolam <10 <10 ng/mL 11/02/2024 5:43 PM EDT [facility] Aminoclonazepam <20 <20 ng/mL 5:43 PM EDT [facility] Clonazepam <10 <10 ng/mL 11/02/2024 5:43 PM EDT [facility] Diazepam <10 <10 ng/mL 11/02/2024 5:43 PM EDT [facility] Lorazepam 41(H) <20 ng/mL 11/02/2024 5:43 PM EDT [facility] Lorazepam Glucuronide >1,000(H) <50 ng/mL 11/02/2024 5:43 PM EDT [facility] Midazolam 11/02/2024 5:43 PM EDT [facility] Nordiazepam <20 <20 ng/mL 11/02/2024 5:43 PM EDT [facility] Oxazepam <20 <20 ng/mL 11/02/2024 5:43 PM EDT [facility] Oxazepam Glucuronide <50 <50 ng/mL 11/02/2024 5:43 PM EDT [facility] Temazepam <20 <20 ng/mL 11/02/2024 5:43 PM EDT [facility] Temazepam Glucuronide <50 <50 ng/mL 11/02/2024 5:43 PM EDT [facility] Triazolam 11/02/2024 5:43 PM EDT [facility] Urine Urine specimen obtained by clean catch procedure / Unknown Non-blood Collection / Unknown 11/01/2024 6:38 AM EDT 11/01/2024 7:03 AM EDT Narrative [facility] - 11/02/2024 5:43 PM EDT Drug analysis is confirmed by LC-MS/MS (LC Tandem Mass Spectrometry) on Urine specimens. This test was developed and its performance characteristics determined by [facility]. It has not been cleared or approved by the FDA. The laboratory is regulated under CLIA as qualified to perform high-complexity testing. This test is used for clinical purposes. Testing is performed at the [facility], Special Chemistry Laboratory. us Anita Patel MD LAB URINE ORDERABLES Final Resul t Performing Organization Address [facility] Co de Phone Number [facility] [address] [place] [address] * (ABNORMAL) Trauma shock panel blood gas (11/01/2024 5:19 AM EDT) pH, Venous 7.34 7.32 - 7.43 LAB HEMATOLOGY METHOD 11/01/2024 5:29 AM EDT [facility] Bicarbonate, Calculated, Venous 23 22 - 26 mmol/L LAB HEMATOLOGY METHOD 11/01/2024 5:29 AM EDT [facility] Base Excess, Venous -2.7(L) -2.0 - 3.0 mmol/L LAB HEMATOLOGY METHOD 11/01/2024 5:29 AM EDT [facility] Lactate, Venous, Whole Blood 1.4 0.5 - 2.2 mmol/L LAB HEMATOLOGY METHOD 11/01/2024 5:29 AM EDT [facility] Blood Venous blood specimen / Unknown Venipuncture / Unknown 11/01/2024 5:19 AM EDT 11/01/2024 5:28 AM EDT us Anita Patel MD LAB BLOOD ORDERABLES Final Resul t Performing Organization Address [facility] Co de Phone Number [facility] [address] [place] [address] * CT Face wo IV Contrast (11/01/2024 [...] TOTAL DLP (Dose-Length Product): 1957.10 mGy.cm (accession [id number]), 1957.10 mGy.cm (accession [id number]). Please note: The reported value represents the [...] TOTAL DLP (Dose-Length Product): 1957.10 mGy.cm (accession [id number]),1957.10 mGy.cm (accession [id number]). Please note: The reported valuerepresents the total [...] IMG CT PROCEDURES Final Resul t * ED HIV 1/2 Antibody/Antigen Screen w/Reflex to HIV 1/2 Differentiation (11/01/2024 4:37 AM EDT) HIV 1 & 2 Antibody/Antigen Screen Non Reactive Non Reactive 11/01/2024 6:01 AM EDT [facility] Comment:Screening for HIV 1 & 2 antibodies, and P24 antigen is NONREACTIVE. No confirmatory testing is required. Blood Venous blood specimen / Unknown Venipuncture / Unknown 11/01/2024 4:37 AM EDT 11/01/2024 4:50 AM EDT Anita Patel MD LAB BLOOD ORDERABLES Final Resul t Performing Organization Address City/[facility] de Phone Number [facility] [address] [place] [address] * Ethyl Alcohol Plasma (11/01/2024 4:37 AM EDT) Pathologist [facility] Ethanol Plasma <10 <10 mg/dL 11/01/2024 5:19 AM EDT [facility] Blood Venous blood specimen / Unknown Venipuncture / Unknown 11/01/2024 4:37 AM EDT 11/01/2024 4:50 AM EDT Narrative [facility] - 11/01/2024 5:19 AM EDT Enzymatic Assay: Performed on Carito Anupam. us Anita Patel MD LAB BLOOD ORDERABLES Final Resul t Performing Organization Address City/[facility]/ZIP Co de Phone Number [facility] [address] [place] [address] * Hepatitis C Antibody - ED (11/01/2024 4:37 AM EDT) Hepatitis C Antibody Negative Negative 11/01/2024 5:29 AM EDT [facility] Blood Venous blood specimen / Unknown Venipuncture / Unknown 11/01/2024 4:37 AM EDT 11/01/2024 4:50 AM EDT us Anita Patel MD LAB BLOOD ORDERABLES Final Resul t Performing Organization Address City/[facility]/[place] [address] * TEG Global Hemostasis with Lysis (11/01/2024 4:37 AM EDT) R, Lysis 5.4 4.6 - 9.1 min 11/01/2024 5:56 AM EDT [facility] MA, Rapid, Lysis 65.9 52.0 - 70.0 mm 11/01/2024 5:56 AM EDT [facility] MA, Fibrinogen, Lysis 22.8 15.0 - 32.0 mm 11/01/2024 5:56 AM EDT [facility] LY30 0.7 0.0 - 2.6 % 11/01/2024 5:56 AM EDT [facility] Blood Venous blood specimen / Unknown Venipuncture / Unknown 11/01/2024 4:37 AM EDT 11/01/2024 4:53 AM EDT us Anita Patel MD LAB BLOOD ORDERABLES Final Resul t Performing Organization Address [facility] [place] [address] * APTT (PTT) (11/01/2024 4:37 AM EDT) aPTT 29 25 - 35 sec 11/01/2024 4:54 AM EDT [facility] Blood Venous blood specimen / Unknown Venipuncture / Unknown 11/01/2024 4:37 AM EDT 11/01/2024 4:41 AM EDT us Anita Patel MD LAB BLOOD ORDERABLES Final Resul t Performing Organization Address City/[facility]/[place] [address] * Type and Screen (11/01/2024 4:37 AM EDT) ABO/Rh A Positive 11/01/2024 4:21 AM EDT BLOOD [facility]ANK Antibody Screen Negative 11/01/2024 4:21 AM EDT BLO[facility]ANK Specimen Expiration 11/04/2024 23:59 11/01/2024 4:21 AM EDT [facility]LO[facility] Blood Venous blood specimen / Unknown Venipuncture / Unknown 11/01/2024 4:37 AM EDT 11/01/2024 4:44 AM EDT Anita Patel MD LAB BLOOD BANK TEST ORDERABLES F inal Result BLOOD BANK [address] [place] [address], * INTUBATION (11/01/2024 4:12 AM EDT) Narrative [...] Paulson MD IN CLINIC/BEDSIDE ORDERABLES Final Result * Surgical Pathology Exam (10/28/2024 3:56 PM EDT) Case Report Surgical Pathology Case: [id number] Authorizing Provider: Talat John DMD Collected: 10/28/2024 [id number] Ordering Location: [facility] Received: 10/28/2024 1656 Pathologist: Cata Lees MD Specimen: Oral Cavity, LEFT MAXILLARY CYST 11/03/2024 10:00 AM EDT [facility] Final Diagnosis A. SPECIMEN SUBMITTED LEFT MAXILLARY CYST: - INTRAOSSEOUS CHRONIC INFLAMMATORY TISSUE WITH EPITHELIAL LINING COMPATIBLE WITH PERIAPICAL INFLAMMATORY CYST. 11/03/2024 10:00 AM EDT [facility] at [address] Blue in Oral pathology has reviewed this case and concurs with the diagnosis. 11/03/2024 10:00 AM EDT [facility] Clinical Information Radiolucent lesion in maxilla [M27.9] 11/03/2024 10:00 AM EDT [facility] Gross Description A. LEFT MAXILLARY [...] Katia C Shanice 11/03/2024 10:00 AM EDT [facility] Tissue Oral cavity structure / Unknown 10/28/2024 3:56 PM EDT 10/28/2024 4:56 PM EDT Comment:Pre-op diagnosis: Radiolucent lesion in maxilla [M27.9] us Talat John DMD LAB PATHOLOGY ORDERABLES Fin al Result [facility] [address] [place] [address] * UT AN ELECTIVE ENDOTRACHEAL AIRWAY, PB ANESTHESIA PLACEHOLDER (10/28/2024 3:09 PM EDT) Narrative Margarito Licona CRNA - 10/28/2024 3:09 PM EDT Margarito Licona CRNA 10/28/2024 3:21 PM Airway Date/Time: 10/28/2024 3:09 PM Reason: elective Airway not difficult General Information and Staff Patient location during procedure: OR COSTUME CUTTER: Margarito Licona CRNA Performed: COSTUME CUTTER Patient Condition Indications for airway management: anesthesia [...] Marin MD ANESTHESIA ORDERABLES Final Resu lt from Last 3 Months Insurance [place] [facility] MEDICARE [id number] [place] [id number] [facility] MEDICARE [place] Advance Directives * Full Code (Latest Code Status on File) Date Activated Date Inactivated Comments 11/27/2024 1:25 AM 11/27/2024 4:58 PM Question Answer Comments I have reviewed the capacity from the link above and, if needed, have updated to appropriate status: Yes * Full Code Date Activated Date Inactivated Comments 11/01/2024 3:03 PM 11/19/2024 9:56 PM Question Answer Comments I have reviewed the capacity from the link above and, if needed, have updated to appropriate status: Yes * Full Code Date Activated Date Inactivated Comments 12/06/2021 6:07 PM 12/08/2021 10:12 PM Question Answer Comments Patient has decision-making capacity? Yes * Full Code Date Activated Date Inactivated Comments 12/06/2021 6:07 PM 12/06/2021 6:07 PM Question Answer Comments Patient has decision-making capacity? Yes Care Teams Custom Leather Products Maker Relationship Specialty Start Date End Date Pcp, No [address] [place] [address] PCP - General Family Medicine 11/01/24 Pcp, No [address] [place] [address] Family Medicine 11/01/24 [facility] [place] [address] Cardiology 11/09/21
--- OUTSIDE RECORDS SUMMARY | 2024-12-16 09:03 | XMS_ITS | Encounter Summary ---
Author Organization Healthcare Address [address] [place] [address] Care Team Providers Care Python Django Developer Name Role Phone Nora Benz MD Primary Care Provider [phone] Pcp, No Primary Care Provider Unavailabl e Pcp, No Primary Care Provider Unavailabl e Pcp, No Unavailable Unavailable Zaire Martin MD Unavailable [phone] Encounter Details Date Type Department Care Team (Late st Contact Info) Description 02/26/2021 Orders Only External Location [address] [place] [id number] Provider, External Social History Tobacco Use Types [...] Building [facility] [address], [address] [place] [address] Cata Shaffer PA [address] [place] [address] 02/22/2025 9:00 AM EDT Office Visit Physical [facility] & [facility] Clinic at [facility] [address] [place] [address] Veronica Rodriguez Douglas, [address] [place] [address] 03/17/2025 2:30 PM EDT [facility] [address], [address] [place] [address] Manasa Sanchez, PATIENT REGISTRATION MANAGER [address] [place] [address] documented as of this encounter Procedures Procedure Name Priority Date/Time Associated Diagnosis Comments US OUTSIDE IMAGES 02/26/2021 1:30 PM EDT documented in this encounter Results * US OUTSIDE IMAGES (02/26/2021 1:30 PM EDT) Anatomical Region Laterality Modality Ultrasound 02/26/2021 1:30 PM EDT us External Provider IMG US PROCEDURES Final Result documented in this encounter Visit Diagnoses Not on filedocumented in this encounter Additional Health Concerns Infection Onset Date Last Indicated Resolved Time Respiratory Rule-Out 11/12/2024 11/12/2024 025 9:22 PM EDT COVID-19 Rule-Out 11/12/2024 11/12/2024 11/12/2024 8:09 PM EDT documented as of this encounter Care Teams Python Django Developer Relationship Specialty Start Date End Date Nora Benz MD [address] [place] [address] PCP - General Family Medicine 12/15/20 05/28/24 [place] [address] PCP - General Family Medicine 09/03/24 10/31/24 Pcp, No [address] [place] [address] PCP - General Family Medicine 11/01/24 Pcp, No [address] [place] [address] Family Medicine 11/01/24 Zaire Martin MD [facility] [place] [address] Cardiology 11/09/21 documented as of this encounter
--- OUTSIDE RECORDS SUMMARY | 2024-12-16 09:03 | XMS_ITS | Encounter Summary ---
Author Organization Healthcare Address [address] [place] [address] Care Team Providers Care Honey Producer Name Role Phone Nora Benz MD Primary Care Provider [phone] Pcp, No Primary Care Provider Unavailabl e Pcp, No Primary Care Provider Unavailabl e Pcp, No Unavailable Unavailable Zaire Martin MD Unavailable [phone] Encounter Details Date Type Department Care Team (Late st Contact Info) Description 03/02/2021 Orders Only External Location [address] [place] [id number] Provider, External Social History Tobacco Use Types [...] Building [facility] [address], [address] [place] [address] Cata Shaffer PA [address] [place] [address] 02/22/2025 9:00 AM EDT Office Visit Physical Medicine & Rehabilitation Clinic at [facility] [address] [place] [address] Veronica Rodriguez Douglas, [address] [place] [address] 03/17/2025 2:30 PM EDT Office Visit [place] [facility] [address], [address] [place] [address] Manasa Sanchez, PHARMACEUTICAL SCIENTIST [address] [place] [address] documented as of this encounter Procedures Procedure Name Priority Date/Time Associated Diagnosis Comments US OUTSIDE IMAGES 03/02/2021 4:53 PM EDT documented in this encounter Results * US OUTSIDE IMAGES (03/02/2021 4:53 PM EDT) Anatomical Region Laterality Modality Ultrasound 03/02/2021 4:53 PM EDT us External Provider IMG US PROCEDURES Final Result documented in this encounter Visit Diagnoses Not on filedocumented in this encounter Additional Health Concerns Infection Onset Date Last Indicated Resolved Time Respiratory Rule-Out 11/12/2024 11/12/2024 025 9:22 PM EDT COVID-19 Rule-Out 11/12/2024 11/12/2024 11/12/2024 8:09 PM EDT documented as of this encounter Care Teams Honey Producer Relationship Specialty Start Date End Date Nora Benz MD [address] [place] [address] PCP - General Family Medicine 12/15/20 05/28/[place] [address] PCP - General Family Medicine 09/03/24 10/31/24 Pcp, No [address] [place] [address] PCP - General Family Medicine 11/01/24 Pcp, No [address] [place] [address] Family Medicine 11/01/24 Zaire Martin MD [facility] [place] [address] Cardiology 11/09/21 documented as of this encounter
--- OUTSIDE RECORDS SUMMARY | 2024-12-16 09:03 | XMS_ITS | Encounter Summary ---
Author Organization [facility] Address [address] [place] [address] Care Team Providers Care Technology Education Instructor Name Role Phone Pcp, No Primary Care Provider Unavailabl e Pcp, No Unavailable Unavailable Zaire Martin MD Unavailable [phone] Encounter Details Date Type Department Care Team (Latest Contact Info) Description 11/19/2024 Travel Social History Tobacco Use Types Packs/Day Years Used Date Smoking Tobacco: Every Day Cigarettes Smokeless Tobacco: Never Humiliation, Afraid, Rape, a nd Kick questionnaire [...] Recorded Patient Health Questionnaire-2 Score 6 03/21/2021 [place] [facility] - Occupational Stress [...] any time in the past 12 m [facility], were you homeless or living in a correction (including now)? Patient unable to answer 11/04/2024 AUDIT-C Answer Date Recorded Q1: How often do you have a drink containing alc ohol? Monthly or less 11/17/2024 Average Number of Drinks Not on file 025 Frequency of Binge Drinking Not on file 11/08 Utilities Answer Date Recorded In the past 12 months has th e [employer], gas, oil, or water company threatened to [...] Risk Indicated 11/19/2024 8:00 AM EDT Coby Jamison, RN * Question Answer Date of Assessment Author 1. Wish to be (Past 1 Month) No 025 8:00 AM EDT Coby Chacon, RN 2. Non-Specific Active Suici anai Thoughts (Past 1 Month) No 11/19/2024 8:00 AM EDT Carina Chacon, RN 6. Suicidal Behavior (Lifetime) No 8:00 AM EDT Coby Chacon, RN documented as of this encounter Plan of Treatment Upcoming Encounters Date Type Department Care Team (Late st Contact Info) Description 12/22/2024 11:40 AM EDT Office Visit Medical Office [facility] [address], [address] [place] [address] Cata Shaffer, PA [address] [place] [address] 02/22/2025 9:00 AM EDT Office Visit Physical Medicine & Rehabilitation Clinic at [facility] [address] [place] [address] Rodriguez Martin DO [address] [place] [address] 03/17/2025 2:30 PM EDT Office Visit [place] [facility] [address], [address] [place] [address] Manasa Sanchez, TRE [address] [place] [address] documented as of this encounter [...] documented as of this encounter Care Teams Technology Education Instructor Relationship Specialty Start Date End Date Pcp, No [address] [place] [address] PCP - General Family Medicine 11/01/24 Pcp, No [address] [place] [address] Family Medicine 11/01/24 [facility] [place] [id number] Cardiology 11/09/21 documented as of this encounter
--- OUTSIDE RECORDS SUMMARY | 2024-12-16 09:04 | XMS_ITS | Encounter Summary ---
Author Organization [facility] Address [address] [place] [address] Care Team Providers Care [employer] Compliance Internship Name Role Phone Pcp, No Primary Care Provider Unavailabl e Pcp, No Unavailable Unavailable Zaire Martin MD Unavailable [phone] Encounter Details Date Type Department Care Team (Latest Contact Info) Description 11/09/2024 Travel Social History Tobacco Use Types Packs/Day [...] Recorded Patient Health Questionnaire-2 Score 6 03/21/2021 [place] [facility] - Occupational Stress [...] any time in the past 12 m [facility], were you homeless or living in a senior care (including now)? Patient unable to answer 11/04/2024 [...] Month) No 025 8:00 AM EDT Valerie Hall, RN 2. Non-Specific Active Suici anai Thoughts (Past 1 Month) No 11/09/2024 8:00 AM EDT Valerie Hall, RN 6. Suicidal Behavior (Lifetime) No 8:00 AM EDT Valerie Hall, RN documented as of this encounter Plan of Treatment Upcoming Encounters Date Type Department Care Team (Late st Contact Info) Description 12/22/2024 11:40 AM EDT Office Visit Medical Office Building [facility] [address], [address] [place] [address] Cata Shaffer, PA [address] [place] [address] 02/22/2025 9:00 AM EDT Office Visit Physical Medicine & Rehabilitation Clinic at [facility] [address] [place] [address] Rodriguez Martin DO [address] [place] [address] 03/17/2025 2:30 PM EDT Office Visit [place] [facility] [address], [address] [place] [address] Manasa Sanchez, SCIENCE INTERPRETER [address] [place] [address] documented as of this encounter [...] documented as of this encounter Care Teams [employer] Compliance Internship Relationship Specialty Start Date End Date Pcp, No [address] [place] [address] PCP - General Family Medicine 11/01/24 Pcp, No [address] [place] [address] Family Medicine 11/01/24 Zaire Martin MD [facility] [place] [address] Cardiology 11/09/21 documented as of this encounter
--- OUTSIDE RECORDS SUMMARY | 2024-12-16 09:04 | XMS_ITS | Encounter Summary ---
Author Organization [facility] Address [address] [place] [address] Care Team Providers Care Resident Doctor Name Role Phone Pcp, No Primary Care Provider Unavailabl e Pcp, No Unavailable Unavailable Zaire Martin MD Unavailable [phone] Encounter Details Date Type Department Care Team (Latest Contact Info) Description 11/10/2024 Travel Social History Tobacco Use Types Packs/Day [...] Recorded Patient Health Questionnaire-2 Score 6 03/21/2021 [place] [facility] Occupat ional Health - Occupational Stress [...] any time in the past 12 m [facility], were you homeless or living in a [place] [facility] [place] facility (including now)? Patient unable to answer 11/04/2024 [...] Date of Assessment Author No Risk Indicated 11/10/2024 8:00 PM EDT Douglas Villafuerte RN * Question Answer Date of Assessment Author 1. Wish to be (Past 1 Month) No 025 8:00 PM EDT Katrina Villafuerte RN 2. Non-Specific Active Suici anai Thoughts (Past 1 Month) No 11/10/2024 8:00 PM EDT Anu Villafuerte RN 6. Suicidal Behavior (Lifetime) No 8:00 PM EDT Katrina Villafuerte RN documented as of this encounter Plan of Treatment Upcoming Encounters Date Type Department Care Team (Late st Contact Info) Description 12/22/2024 11:40 AM EDT Office Visit Medical Office Building [facility] [address], [address] [place] [address] Cata Shaffer, PA [address] [place] [address] 02/22/2025 9:00 AM EDT Office Visit Physical Medicine & Rehabilitation Clinic at [facility] [address] [place] [address] Rodriguez Martin DO [address] [place] [address] 03/17/2025 2:30 PM EDT Office Visit [place] [facility] [address] [place] [address] Manasa Sanchez, TRE [address] [place] [address] documented as of this encounter [...] documented as of this encounter Care Teams Resident Doctor Relationship Specialty Start Date End Date Pcp, No [address] [place] [address] PCP - General Family Medicine 11/01/24 Pcp, No [address] [place] [address] Family Medicine 11/01/[address] [facility] [facility] [place] [address] Cardiology 11/09/21 documented as of this encounter
--- OUTSIDE RECORDS SUMMARY | 2024-12-16 09:04 | XMS_ITS | Encounter Summary ---
Author Organization [facility] Address [address] [place] [address] Care Team Providers Care Motor Vehicle Inspector Name Role Phone Pcp, No Primary Care Provider Unavailabl e Pcp, No Unavailable Unavailable Zaire Martin MD Unavailable [phone] Encounter Details Date Type Department Care Team (Latest Contact Info) Description 11/30/2024 Travel Social History Tobacco Use Types Packs/Day [...] Recorded Patient Health Questionnaire-2 Score 6 03/21/2021 [place] of Occupat ional Health - Occupational Stress [...] any time in the past 12 m [facility], were you homeless or living in a [facility] (including now)? Patient unable to answer 11/04/2024 [...] money to buy more. Never true 11/28/19 Within the past 12 months, t he [...] any time in the past 12 m [facility], were you homeless or living in a [facility] (including now)? No 11/27/2024 Utilities Answer Date [...] Joint [address], [address] [place] [address] Cata Shaffer, PA [address] [place] [address] 02/22/2025 9:00 AM EDT Office Visit [place] [facility] at [facility] [address] [place] [address] Rodriguez Martin DO [address] [place] [address] 03/17/2025 2:30 PM EDT Office Visit [place] [facility] [address], [address] [place] [address] Manasa Sanchez, TRE [address] [place] [address] documented as of this encounter [...] documented as of this encounter Care Teams Motor Vehicle Inspector Relationship Specialty Start Date End Date Pcp, No [address] [place] [address] PCP - General Family Medicine 11/01/24 Pcp, No [address] [place] [address] Family Medicine 11/01/24 Zaire Martin MD [facility] [place] [address] Cardiology 11/09/21 documented as of this encounter
--- OUTSIDE RECORDS SUMMARY | 2024-12-16 09:04 | XMS_ITS | Encounter Summary ---
Author Organization [facility] Address [address] [place] [address] Care Team Providers Care Gun Perforator Name Role Phone Pcp, No Primary Care Provider Unavailabl e Pcp, No Unavailable Unavailable Zaire Martin MD Unavailable [phone] Encounter Details Date Type Department Care Team (Latest Contact Info) Description 11/13/2024 Travel Social History Tobacco Use Types Packs/Day [...] Recorded Patient Health Questionnaire-2 Score 6 03/21/2021 [place]uv[place] of Occupat ional Health - Occupational Stress [...] any time in the past 12 m [facility], were you homeless or living [...] Date of Assessment Author No Risk Indicated 11/13/2024 8:00 PM EDT Pamela Yanes, RN * Question Answer Date of Assessment Author 1. Wish to be (Past 1 Month) No 025 8:00 PM EDT Pamela Yanes, RN 2. Non-Specific Active Suici anai Thoughts (Past 1 Month) No 11/13/2024 8:00 PM EDT Pamela Yanes, RN 6. Suicidal Behavior (Lifetime) No 8:00 PM EDT Pamela Yanes, RN documented as of this encounter Plan of Treatment Upcoming Encounters Date Type Department Care Team (Late st Contact Info) Description 12/22/2024 11:40 AM EDT Office Visit Medical Office Building [facility] [address], [address] [place] [address] Cata Shaffer, PA [address] [place] [address] 02/22/2025 9:00 AM EDT Office Visit Physical Medicine & Rehabilitation Clinic at [facility] [address] [place] [address] Rodriguez Martin DO [address] [place] [address] 03/17/2025 2:30 PM EDT Office Visit [place] [facility] [address], [address] [place] [address] Manasa Sanchez, HEEL EDGE INKER MACHINE [address] [place] [address] documented as of this encounter [...] documented as of this encounter Care Teams Gun Perforator Relationship Specialty Start Date End Date Pcp, No [address] [place] [address] PCP - General Family Medicine 11/01/24 Pcp, No [address] [place] [address] Family Medicine 11/01/24 Zaire Martin MD [address] [place] [address] Cardiology 11/09/21 documented as of this encounter
--- OUTSIDE RECORDS SUMMARY | 2024-12-16 09:04 | XMS_ITS | Encounter Summary ---
Author Organization [facility] Address [address] [place] [address] Care Team Providers Care Reinforced Steel Placing Supervisor Name Role Phone Pcp, No Primary Care Provider Unavailabl e Pcp, No Unavailable Unavailable Zaire Martin MD Unavailable [phone] Encounter Details Date Type Department Care Team (Latest Contact Info) Description 11/26/2024 Travel Social History Tobacco Use Types Packs/Day [...] Recorded Patient Health Questionnaire-2 Score 6 03/21/2021 [place] of Occupat ional Health - Occupational Stress [...] any time in the past 12 m [facility], were you homeless or living in a jail (including now)? Patient unable to answer 11/04/2024 [...] any time in the past 12 m [facility], were you homeless or living in a jail (including now)? No 11/27/2024 Utilities Answer Date [...] Risk Indicated 11/26/2024 10:04 PM EDT Supa Weston, PREETHI * Question Answer Date of Assessment Author 1. Wish to be (Past 1 Month) No 025 10:04 PM EDT Supa Segovia, PREETHI 2. Non-Specific Active Suici anai Thoughts (Past 1 Month) No 11/26/2024 10:04 PM EDT Doni Segovia, PREETHI 6. Suicidal Behavior (Lifetime) No 10:04 PM EDT Supa Segovia, PREETHI documented as of this encounter Plan of Treatment Upcoming Encounters Date Type Department Care Team (Late st Contact Info) Description 12/22/2024 11:40 AM EDT Office Visit Medical Office Building [facility] [address] [facility], [address] [place] [address] Cata Shaffer PA [address] [place] [address] 02/22/2025 9:00 AM EDT Office Visit [facility] [address] [place] [address] Rodriguez Martin DO [address] [place] [address] 03/17/2025 2:30 PM EDT Office Visit [place] [facility] [address] 1[address] [place] [address] Manasa Sanchez, BUTTER MAKER [address] [place] [address] documented as of this encounter [...] documented as of this encounter Care Teams Reinforced Steel Placing Supervisor Relationship Specialty Start Date End Date Pcp, No [address] [place] [address] PCP - General Family Medicine 11/01/24 Pcp, No [address] [place] [address] Family Medicine 11/01/24 Zaire Martin MD [address] [place] [address] Cardiology 11/09/21 documented as of this encounter
--- OUTSIDE RECORDS SUMMARY | 2024-12-16 09:05 | XMS_ITS | Encounter Summary ---
Author Organization [facility] Address [address] [place] [address] Care Team Providers Care Entertainment Director Name Role Phone Pcp, No Primary Care Provider Unavailabl e Pcp, No Unavailable Unavailable Zaire Martin MD Unavailable [phone] Encounter Details Date Type Department Care Team (Latest Contact Info) Description 11/14/2024 Travel Social History Tobacco Use Types Packs/Day [...] Recorded Patient Health Questionnaire-2 Score 6 03/21/2021 [place] of Occupat ional Health - Occupational Stress [...] any time in the past 12 m [facility], were you homeless or living in a skilled nursing (including now)? Patient unable to answer 11/04/2024 [...] Date of Assessment Author No Risk Indicated 11/14/2024 4:01 PM EDT Phong Mejia RN * Question Answer Date of Assessment Author 1. Wish to be (Past 1 Month) No 025 4:01 PM EDT Phong Mejia, RN 2. Non-Specific Active Suici anai Thoughts (Past 1 Month) No 11/14/2024 4:01 PM EDT Joesph Mejia, RN 6. Suicidal Behavior (Lifetime) No 4:01 PM EDT Phong Mejia, RN documented as of this encounter Plan of Treatment Upcoming Encounters Date Type Department Care Team (Late st Contact Info) Description 12/22/2024 11:40 AM EDT Office Visit Medical Office Building [facility] [address], [address] [place] [address] Cata Shaffer, PA [address] [place] [address] 02/22/2025 9:00 AM EDT Office Visit Physical Medicine & Rehabilitation Clinic at [facility] [address] [place] [address] Rodriguez Martin DO [address] [place] [address] 03/17/2025 2:30 PM EDT Office Visit [place] [facility] [address] [place] [address] Manasa Sanchez, SUPERVISOR TOY ASSEMBLY [address] [place] [address] documented as of this encounter [...] documented as of this encounter Care Teams Entertainment Director Relationship Specialty Start Date End Date Pcp, No [address] [place] [address] PCP - General Family Medicine 11/01/24 Pcp, No [address] [place] [address] Family Medicine 11/01/24 Zaire Martin MD [address] [place] [address] Cardiology 11/09/21 documented as of this encounter
--- OUTSIDE RECORDS SUMMARY | 2024-12-16 09:05 | XMS_ITS | Encounter Summary ---
Author Organization [facility] Address [address] [place] [address] Care Team Providers Care Insurance Agent Name Role Phone Pcp, No Primary Care Provider Unavailabl e Pcp, No Unavailable Unavailable Zaire Martin MD Unavailable [phone] Encounter Details Date Type Department Care Team (Latest Contact Info) Description 11/12/2024 Travel Social History Tobacco Use Types Packs/Day [...] Recorded Patient Health Questionnaire-2 Score 6 03/21/2021 [place] of Occupat ional Health - Occupational Stress [...] any time in the past 12 m [facility], were you homeless or living [...] Date of Assessment Author No Risk Indicated 11/12/2024 8:00 PM EDT Pamela Yanes, RN * Question Answer Date of Assessment Author 1. Wish to be (Past 1 Month) No 025 8:00 PM EDT Pamela Yanes, RN 2. Non-Specific Active Suici anai Thoughts (Past 1 Month) No 11/12/2024 8:00 PM EDT Pamela Yanes, RN 6. Suicidal Behavior (Lifetime) No 8:00 PM EDT Pamela Yanes, RN documented as of this encounter Plan of Treatment Upcoming Encounters Date Type Department Care Team (Late st Contact Info) Description 12/22/2024 11:40 AM EDT Office Visit Medical Office Building [facility] [address], [address] [place] [address] Cata Shaffer, PA [address] [place] [address] 02/22/2025 9:00 AM EDT Office Visit Physical Medicine & Rehabilitation Clinic at [facility] [address] [place] [address] Rodriguez Martin DO [address] [place] [address] 03/17/2025 2:30 PM EDT Office Visit [place] [facility] [address], 1[address] [place] [address] Manasa Sanchez, AUTO COLLISION REPAIR INSTRUCTOR [address] [place] [address] documented as of this encounter [...] documented as of this encounter Care Teams Insurance Agent Relationship Specialty Start Date End Date Pcp, No [address] [place] [address] PCP - General Family Medicine 11/01/24 Pcp, No [address] [place] [address] Family Medicine 11/01/24 Zaire Martin [facility] [place] [address] Cardiology 11/09/21 documented as of this encounter
--- OUTSIDE RECORDS SUMMARY | 2024-12-16 09:06 | XMS_ITS | Encounter Summary ---
Author Organization [facility] Address [address] [place] [address] Care Team Providers Care Pulper Name Role Phone Pcp, No Primary Care Provider Unavailabl e Pcp, No Unavailable Unavailable Zaire Martin MD Unavailable [phone] Encounter Details Date Type Department Care Team (Latest Contact Info) Description 11/03/2024 Travel Social History Tobacco Use Types Packs/Day [...] Recorded Patient Health Questionnaire-2 Score 6 03/21/2021 [place] of Occupat ional Health - Occupational Stress [...] time in the past 12 m [facility], were you homeless or living in a longterm (including now)? Patient unable to answer 11/04/2024 [...] [facility], [address] [place] [address] Cata Shaffer PA [address] [facility] [address] [place] [address] 02/22/2025 9:00 AM EDT Office Visit [facility] [address] [place] [address] Rodriguez Martin DO [address] [place] [address] 03/17/2025 2:30 PM EDT Office Visit [place] [facility] [address] [place] [address] Manasa Sanchez, LENS GENERATING MACHINE TENDER [address] [place] [address] documented as of this encounter [...] documented as of this encounter Care Teams Pulper Relationship Specialty Start Date End Date Pcp, No [address] [place] [address] PCP - General Family Medicine 11/01/24 Pcp, No [address] [place] [address] Family Medicine 11/01/24 [facility] [place] [address] Cardiology 11/09/21 documented as of this encounter
--- OUTSIDE RECORDS SUMMARY | 2024-12-16 09:06 | XMS_ITS | Encounter Summary ---
Author Organization [facility] Address [address] [place] [address] Care Team Providers Care Healthcare Interpreter Name Role Phone Pcp, No Primary Care Provider Unavailabl e Pcp, No Unavailable Unavailable Zaire Martin MD Unavailable [phone] Encounter Details Date Type Department Care Team (Latest Contact Info) Description 11/04/2024 Travel Social History Tobacco Use Types Packs/Day [...] Recorded Patient Health Questionnaire-2 Score 6 03/21/2021 [place] of Occupat ional Health - Occupational Stress [...] any time in the past 12 m [facility], were you homeless or living in a long-term (including now)? Patient unable to answer 11/04/2024 [...] Date of Assessment Author No Risk Indicated 11/04/2024 4:00 PM EDT Sandy Hoover, RN * Question Answer Date of Assessment Author 1. Wish to be (Past 1 Month) No 025 4:00 PM EDT Sandy Hoover, RN 2. Non-Specific Active Suici anai Thoughts (Past 1 Month) No 11/04/2024 4:00 PM EDT Aletha Hoover, RN 6. Suicidal Behavior (Lifetime) No 4:00 PM EDT Sandy Hoover, RN documented as of this encounter Plan of Treatment Upcoming Encounters Date Type Department Care Team (Late st Contact Info) Description 12/22/2024 11:40 AM EDT Office Visit Medical Office Building [facility] [address], [address] [place] [address] Cata Shaffer, PA [address] [place] [address] 02/22/2025 9:00 AM EDT Office Visit Physical Medicine & Rehabilitation Clinic at [facility] [address] [place] [address] Rodriguez Martin DO [address] [place] [address] 03/17/2025 2:30 PM EDT Office Visit [place] [facility] [address] [place] [address] Manasa Sanchez, ARTIFICIAL SNOW MAKING MACHINE OPERATOR [address] [place] [address] documented as of this encounter [...] documented as of this encounter Care Teams Healthcare Interpreter Relationship Specialty Start Date End Date Pcp, No [address] [place] [address] PCP - General Family Medicine 11/01/24 Pcp, No [address] [place] [address] Family Medicine 11/01/24 Zaire [facility] MD [facility] [place] [address] Cardiology 11/09/21 documented as of this encounter
--- OUTSIDE RECORDS SUMMARY | 2024-12-16 09:06 | XMS_ITS | Encounter Summary ---
Author Organization [facility] Address [address] [place] [address] Care Team Providers Care Control System Computer Scientist Name Role Phone Pcp, No Primary Care Provider Unavailabl e Pcp, No Unavailable Unavailable Zaire Martin MD Unavailable Encounter Details Date Type Department Care Team (Latest Contact Info) Description 11/08/2024 Travel Social History Tobacco Use Types Packs/Day [...] Recorded Patient Health Questionnaire-2 Score 6 03/21/2021 [place] of Occupat ional Health - Occupational Stress [...] time in the past 12 m [facility], were you homeless or living in a [...] Date of Assessment Author No Risk Indicated 11/08/2024 8:00 AM EDT Curly Briceno RN * Question Answer Date of Assessment Author 1. Wish to be (Past 1 Month) No 025 8:00 AM EDT Profit, Curly A, RN 2. Non-Specific Active Suici anai Thoughts (Past 1 Month) No 11/08/2024 8:00 AM EDT Curly Briceno, RN 6. Suicidal Behavior (Lifetime) No 8:00 AM EDT Curly Briceno RN documented as of this encounter Plan of Treatment Upcoming Encounters Date Type Department Care Team (Late st Contact Info) Description 12/22/2024 11:40 AM EDT Office Visit Medical Office Building [facility] [address], [address] [place] [address] Cata Shaffer, PA [address] [place] [address] 02/22/2025 9:00 AM EDT Office Visit Physical Medicine & Rehabilitation Clinic at [facility] [address] [place] [address] Rodriguez Martin DO [address] [place] [address] 03/17/2025 2:30 PM EDT Office Visit [place] [facility] [address] [place] [address] Manasa Sanchez, WEIGHER AND CRUSHER [address] [place] [address] documented as of this encounter [...] documented as of this encounter Care Teams Control System Computer Scientist Relationship Specialty Start Date End Date Pcp, No [address] [place] [address] PCP - General Family Medicine 11/01/24 Pcp, No [address] [place] [address] Family Medicine 11/01/24 Z[facility] MD [facility] [place] [address] Cardiology 11/09/21 documented as of this encounter
[2024-12-16 09:33] VITALS: BP 172/91; PULSE 69; RESP 18; O2SAT 100; BMI 24.4
--- NOTE | 2024-12-16 11:24 | PC.NURSE ---
Pt in room with provider TRE Coto during discussion pt voice was noted to be raised, he could be heard from the hallway. I did step in the room to observe the conversation further r/t continued raised voice by patient. Pt was demanding from provider that he receive pain treatment today. Pt stated that he is going to have to take his other prescribed medication by the handful to make himself just go to sleep, he could not tolerate the pain that he was in. I did enter the conversation at that time, I introduced myself with my first name and that I am the clinical pharmacist. I asked the patient if he felt like he wanted to harm himself? Pt stated no he was in pain and wants to sleep. I explained to pt I asked that question r/t him stating he was going to take a handful of his medication to make himself sleep. Pt stated he is pain all of the time and is not sleeping. Stated to patient that I have to ask related to his statement, to offer help. Pt stated no. Pt began stating that he was sent here for pain control and he expected to be helped today not to wait a month for a pump. Provider had been discussing a pain pump trial with patient and had told pt that it is a process to get an implanted pain pump the process would include a psych eval, insurance approval for the pain pump trial, f/u for the effectiveness of the trial at 1 week and then if that if the patient did have a successful we would then submit to his insurance for the implanted pump. Patient would also need to be seen by a neurosurgeon prior to the trial. Pt stated he can not wait a month, he couldn't wait a week. Pt did continue to raise his voice, I did nicely ask patient to try to speak in a lower tone, pt stated some of that is the TBI . TRE Coto explained to patient that we have to follow this process for a pain pump implant. She was not able to write him a prescription for pain medication, she said that Dr. Curran is who she is under and he has policies regarding writing pain medication, stated to patient there are FDA regulations that must be followed. TRE Coto stated to patient that we are an interventional pain clinic we do not prescribe pain medication as a first line treatment. Patient stated he did not care he was here for pain control and that is what he expected today. I explained to patient that when I spoke to his yesterday on the phone I did state to her we are an interventional pain clinic, we use steroid injections and implants to improve pain, our first go to is not medication. Patient stated well I didn't know he couldn't get anything done today. Patient original appointment was scheduled for next week. Patient called yesterday asking if there were any sooner appts. She stated pt is supposed to start physical therapy and isn't able to related to pain. We were able to accommodate with an earlier appt, patient appt was moved up to today related to increasing pain. Patient began to argue to with provider again at that time, provider did excuse herself from the room, she stated to patient that we could start the process of the pain pump but that would be all we could offer for patient at this time, patient could let us know his decision. I stayed in room with patient and at that time. I asked pt if he had primary care doctor that he sees he stated he does not, his heart doctor is his primary care doctor at this time, he has called places and can't get in to see anyone. I asked patient about the surgeon that he seen at for his surgery, pt states he doesn't see them again until March. Pt reported he had been to , he said they gave him pain relief in the ER and was told to see pain management. Pt asked me if the decision for no medication was an FDA guideline or the doctors preference, I stated to him it is both. Dr. Cruran has his own policies that he follows and they are based of the FDA guidelines and regulations. Pt stated he did not accept that he said Yanni just lied to me, does it say in the guidelines that she can't get me medication. I stated that doctors have their own policies that they follow and Dr. Curran are based to be compliant with FDA regulations and guidelines. Pt stated he was going to research this he did not believe that if it's and FDA guideline that Yanni wouldn't give him medication that was one thing but if it was just a doctor policy he didn't accept that. Pt stated the me I am in pain, real pain I have 15 lbs of metal in back pain, I need pain control. Pt states I am not the one, I will contact a sports statistician and chet for you all not giving me pain control. At that time I open the door to the room and asked staff to call Elizabeth Reyes (patient experience account manager forest service) and Lilibeth (my direct account manager forest service). I tried to deescalate patient frustration and lower voice, patient would calm down for a few seconds and then would begin yelling again and using profanity. Pt stating to me that he needs pain control today that is what he came for and that is what should be done. Elizabeth Reyes entered room I introduced her to the patient and explained that maybe she could help to straighten out the situation at hand. Patient began to tell Elizabeth what he expected and what he wants done and his recent surgery history, Elizabeth asked pt to lower his voice multiple times so that would could discuss this situation appropriately. Offered patient a list of other pain clinics in the area to see if they could give him other options than a pain pump. Pt did state he wanted us to find him somewhere to go. I did step out of patients room at this time to get get online to search for other pain management clinics for patient. I gave names, addresses and phone numbers to 3 other pain management clinics. When I gave them to patient he requested that I call these offices to ask them what they will do for him will they give him pain control today. I stated to patient that each office would want to do their own evaluation on him and decide treatment options. Pt began waving his phone at me stating he had already had 100s of evaluations done, I am a burnishing machine operator I did also offer to get patient at list of primary care doctors within the [facility] system that are accepting new patients r/t he said he did not have one. Pt wanted to know if they would treat his pain, Elizabeth Reyes stated to patient they would also want patient treated per pain management. Elizabeth Reyes offerred to take patient to our ER pain evaluation, pt declined. Pt stated I am ready to go. At that time I exited patients room. Pt wheeled him out of room via wheelchair, Christo Garcia ([facility] Security), Madonna (sales account manager) did walk along with pt and to exit.
== END 2024-12-16 23:59 | disposition home or self-care (01) ==
LOC: SC.PAIN 08:57
PROVIDERS: Referring Provider Registered Nurse; Visit Provider Nurse Practitioner Family
DX: M54.50 Low back pain, unspecified (principal); Z79.899 Other long term (current) drug therapy; Z79.4 Long term (current) use of insulin
CPT/HCPCS: 99202; G0463